=== PATIENT | male | born 1935 | race African-American/Black ===

== ENCOUNTER → 2017-10-31 | Outpatient (CLI) | payer MEDICARE | END | disposition home or self-care (01) | LOC: ECHO 08:53 | DX: I63.9 Cerebral infarction, unspecified (principal) | CPT/HCPCS: 93306 ==

== ENCOUNTER → 2017-11-14 | Outpatient (CLI) | payer MEDICARE | END | disposition home or self-care (01) | LOC: LINQ 12:41 | DX: Z45.09 Encounter for adjustment and management of other cardiac device (principal); I63.9 Cerebral infarction, unspecified | CPT/HCPCS: 33282; C1764 ==

== ENCOUNTER 2019-01-23 13:32 | Inpatient (IN) | payer MEDICARE, OTHER ==
[~2019-01-23] VITALS: Ht 165.1 cm; Wt 47.8 kg
[~2019-01-23 13:32] MED LIST: ACET325T9 PO; AMOX1TAB61 PO; ASPI-630 PO; ATOR20TA58 PO; HYDR-2765 PO; LOSA100T14 PO; METF1000 PO; METF10007 PO; POLY17PO28 PO; SENN-22 PO; TIMO10DR5 EACHEYE
[2019-01-23] MEDS ORDERED: ONDANSETRON PF 4 MG/2 ML VIAL. IV PRN (17:30)
[2019-01-23 19:00] VITALS: BP 146/78
[2019-01-23] MEDS: IV 1/2 NORMAL SALINE 1,000 ML IV SCH (19:19)
[2019-01-23] MEDS ORDERED: LINEZOLID 600 MG TABLET PO SCH (21:00)
[2019-01-23] MEDS: MEROPENEM 1 GM in IV NORMAL SALINE 100ML 100 ML IV SCH (21:21)
[2019-01-23] MEDS: TAMSULOSIN 0.4 MG CAP.ER.24H. PO SCH (21:21)
[2019-01-23] MEDS: TIMOLOL 0.25% OPHTH SOLUTION 5ML BOTTLE. OU SCH (21:22)
[2019-01-23] MEDS: LACTOBACILLUS RHAMNOSUS GG 1 CAPSULE. PO SCH (21:22)
[2019-01-23] MEDS: ATORVASTATIN CALCIUM 20 MG TABLET PO SCH (21:22)
[2019-01-23] MEDS: POTASSIUM CHLORIDE 10 MEQ TABLET.ER. PO SCH (21:22)
[2019-01-23 23:00] VITALS: BP 150/69
[2019-01-24] VITALS (13 sets, daily range): BP systolic 87–191; BP diastolic 47–96
[2019-01-24 03:48] LABS: BASO % 0 % (0-3); EOS # 0.1 x10^3/uL (0.0-0.7); EOS % 1 % (0-3); HEMATOCRIT 23.5 % (39.0-53.0); LYMPH # 0.8 x10^3/uL (1.0-4.8); LYMPH % 8 % (24-48); MEAN CORPUSCULAR HEMOGLOBIN 29 pg (25-35); MEAN CORPUSCULAR HGB CONC 34 g/dL (31-37); MEAN CORPUSCULAR VOLUME 83 fL (79-100); MONO # 0.3 x10^3/uL (0.0-1.1); MONO % 3 % (0-9); NEUT # 9.6 x10^3uL (1.8-7.7); NEUT % 88 % (31-73); PLATELET COUNT 59 x10^3/uL (140-400); RED BLOOD COUNT 2.83 x10^6/uL (4.30-5.70); RED CELL DISTRIBUTION WIDTH 17.2 % (11.5-14.5); WHITE BLOOD COUNT 10.9 x10^3/uL (4.0-11.0)
[2019-01-24 04:08] LABS: ALBUMIN 1.8 g/dL (3.4-5.0); ALBUMIN/GLOBULIN RATIO 0.4 (1.0-1.7); CALCIUM 8.5 mg/dL (8.5-10.1); CREATININE 1.9 mg/dL (0.7-1.3); GFR 41.3; POTASSIUM 4.9 mmol/L (3.5-5.1); TOTAL BILIRUBIN 1.1 mg/dL (0.2-1.0); TOTAL PROTEIN 6.1 g/dL (6.4-8.2)
[2019-01-24 07:47] LABS: % BANDS 14 % (0-9); % LYMPHS 9 % (24-48); % MONOS 1 % (0-10); % SEGS 76 % (35-66)
[2019-01-24 07:48] LABS: ANISOCYTOSIS SLIGHT; PLT ESTIMATE DECREASED (ADEQUATE); POIKILOCYTOSIS SLIGHT
[2019-01-24] MEDS: ASPIRIN CHEWABLE 81 MG TABLET. PO SCH (08:00)
[2019-01-24] MEDS: INSULIN LISPRO 300 UNITS/3 ML INSULN.PEN. SQ SCH ×3 (08:00→17:00)
--- NOTE | 2019-01-24 08:52 | NUR ---
SW following pt for anticipated dc needs. SHINE confirmed with Nuria at [facility], , fax: [phone] pt is SNU resident and is able to return upon dc. Nuria reported they will not be admitting anyone tomorrow as their Pharmacy is closed. Discussed with RN. Will continue to follow pt.
[2019-01-24] MEDS: POTASSIUM CHLORIDE 10 MEQ TABLET.ER. PO SCH ×4 (09:00→22:06)
--- NOTE | 2019-01-24 09:01 | PDOC2 ---
LASHANDA OSBORNE Lo EMPLOYMENT ADJUDICATOR 01/24/19 0901: UROLOGY CONSULT Date of Consult Date of Consult DATE: 01/24/19 TIME: 08:48 Reason for Consult Reason for Consult: Infected Kidney stone Referring Physician Referring Physician: Dr. Anderson Identification/Chief Complaint Chief Complaint Infected kidney stone Source Source: Caregiver, Chart review History of Present Illness Reason for Visit: This pleasant 83 year old gentleman is a transfer from [facility]. He is known to us and was admitted a two weeks ago for a stroke and subsequently and discharged on 01/15. At the time, no stones were visible on scans, but he did have bilateral hydronephrosis for which a Ceron catheter was placed. He convalesced at [facility] for a while and then was admitted to [facility] A CT scan was done on 01/22 for a persistent fever and gram negative bacteremia and left hydronephrosis and hydroureter along with a o.5 cm calculus was found at the left UVJ. He was then transferred here so he could receive care for this. He is not very communicative, so the history available was taken from records and attending RN. He does maintain eye contact with provider and deny pain on exam, but we are unable to elicit any significant history from him. Per attending RN his daughter will be here later for questions. Past Medical History Cardiovascular: HTN, Syncope, Hyperlipidemia CENTRAL NERVOUS SYSTEM: CVA, Dementia Musculoskeletal: Osteoarthritis, Other Renal/: Prostate Ca. Endocrine: Diabetes Past Surgical History Past Surgical History: Cataract Removal, Total hip replacement Family History Family History: Family History Unknown Social History ALCOHOL: none Drugs: None Current Problem List Problems: (1) Ceron catheter in place (2) Hydronephrosis Current Medications Current Medications Current Medications Acetaminophen (Tylenol) 650 mg PRN Q6HRS PRN PO MILD PAIN / TEMP; Start 01/23/19 at 17:30 Aspirin (Children'S Aspirin) 81 mg DAILYWBKFT PO ; Start 01/24/19 at 08:00 Atorvastatin Calcium (Lipitor) 20 mg QHS PO Last administered on 01/23/19at 21:22; Start 01/23/19 at 21:00 Dextrose (Dextrose 50%-Water Syringe) 12.5 gm PRN Q15MIN PRN IV SEE COMMENTS; Start 01/23/19 at 17:30 Insulin Human Lispro (HumaLOG) 0-5 UNITS TIDWMEALS SQ ; Start 01/24/19 at 08:00 Lactobacillus Rhamnosus (Culturelle) 1 cap BID PO Last administered on 01/23/19 21:22; Start 01/23/19 at 21:00 Linezolid (Zyvox) 600 mg BID PO Last administered on 01/23/19 21:23; Start 01/23/19 at 21:00; Stop 01/24/19 at 07:09; Status DC Meropenem 1 gm/ Sodium Chloride 100 ml @ 200 mls/hr Q12HR IV Last administered on 01/23/19 21:21; Start 01/23/19 at 21:00 Ondansetron HCl (Zofran) 4 mg PRN Q8HRS PRN IV NAUSEA/VOMITING; Start 01/23/19 at 17:30 Potassium Chloride (Klor-Con) 10 meq TID PO Last administered on 01/23/19 21:22; Start 01/23/19 at 21:00 Sodium Chloride 1,000 ml @ 75 mls/hr [id number] IV Last administered on 01/23/19 19:19; Start 01/23/19 at 17:30 Tamsulosin HCl (Flomax) 0.4 mg QHS PO Last administered on 01/23/19 21:21; Start 01/23/19 at 21:00 Timolol Maleate (Timoptic 0.25% Oph) 1 drop BID OU Last administered on 01/23/19 21:22; Start 01/23/19 at 21:00 Allergies Allergies: Coded Allergies: No Known Drug Allergies (Unverified , 07/12/18) ROS Review Of Systems: UNABLE TO OBTAIN COMPLETE ROS DUE TO PT NOT COMMUNICATIVE. Physical Exam Physical Exam: General: Pleasant, no acute distress, not very communicative but does maintain eye contact with examiner. Eyes: conjunctiva anicteric, eyes full range of motion ENT: moist oral mucosa, normal dentition Neck: Trachea midline, no masses Respiratory: unlabored breathing, not using accessory muscles, Abdomen: nontender, nondistended, no hepatosplenomegaly, no masses : Ceron catheter in place draining clear yellow urine. Skin: no rashes or skin lesions on visualized skin Psych: normal mood, affect. Alert and oriented x 3. Vitals VITALS Vital Signs Date Time Temp Pulse Resp B/P (MAP) Pulse Ox O2 Delivery O2 Flow Rate FiO2 01/24/19 07:00 98.2 109 20 143/83 (103) 100 Room Air 98.2 Labs Labs Laboratory Tests Test 01/23/19 20:45 01/24/19 03:20 Glucose (Fingerstick) 126 mg/dL (70-99) White Blood Count 10.9 x10^3/uL (4.0-11.0) Red Blood Count 2.83 x10^6/uL (4.30-5.70) Hemoglobin 8.0 g/dL (13.0-17.5) Hematocrit 23.5 % (39.0-53.0) Mean Corpuscular Volume 83 fL (79-100) Mean Corpuscular Hemoglobin 29 pg (25-35) Mean Corpuscular Hemoglobin Concent 34 g/dL (31-37) Red Cell Distribution Width 17.2 % (11.5-14.5) Platelet Count 59 x10^3/uL (140-400) Neutrophils (%) (Auto) 88 % (31-73) Lymphocytes (%) (Auto) 8 % (24-48) Monocytes (%) (Auto) 3 % (0-9) Eosinophils (%) (Auto) 1 % (0-3) Basophils (%) (Auto) 0 % (0-3) Neutrophils # (Auto) 9.6 x10^3uL (1.8-7.7) Lymphocytes # (Auto) 0.8 x10^3/uL (1.0-4.8) Monocytes # (Auto) 0.3 x10^3/uL (0.0-1.1) Eosinophils # (Auto) 0.1 x10^3/uL (0.0-0.7) Basophils # (Auto) 0.0 x10^3/uL (0.0-0.2) Segmented Neutrophils % 76 % (35-66) Band Neutrophils % 14 % (0-9) Lymphocytes % 9 % (24-48) Monocytes % 1 % (0-10) Platelet Estimate Decreased (ADEQUATE) Poikilocytosis Slight Anisocytosis Slight Sodium Level 138 mmol/L (136-145) Potassium Level 4.9 mmol/L (3.5-5.1) Chloride Level 106 mmol/L (98-107) Carbon Dioxide Level 21 mmol/L (21-32) Anion Gap 11 (6-14) Blood Urea Nitrogen 26 mg/dL (8-26) Creatinine 1.9 mg/dL (0.7-1.3) Estimated GFR (Cockcroft-Gault) 41.3 BUN/Creatinine Ratio 14 (6-20) Glucose Level 126 mg/dL (70-99) Calcium Level 8.5 mg/dL (8.5-10.1) Total Bilirubin 1.1 mg/dL (0.2-1.0) Aspartate Amino Transf (AST/SGOT) 27 U/L (15-37) Alanine Aminotransferase (ALT/SGPT) 24 U/L (16-63) Alkaline Phosphatase 84 U/L (46-116) Total Protein 6.1 g/dL (6.4-8.2) Albumin 1.8 g/dL (3.4-5.0) Albumin/Globulin Ratio 0.4 (1.0-1.7) Laboratory Tests Test 01/23/19 20:45 01/24/19 03:20 Glucose (Fingerstick) 126 mg/dL (70-99) White Blood Count 10.9 x10^3/uL (4.0-11.0) Red Blood Count 2.83 x10^6/uL (4.30-5.70) Hemoglobin 8.0 g/dL (13.0-17.5) Hematocrit 23.5 % (39.0-53.0) Mean Corpuscular Volume 83 fL (79-100) Mean Corpuscular Hemoglobin 29 pg (25-35) Mean Corpuscular Hemoglobin Concent 34 g/dL (31-37) Red Cell Distribution Width 17.2 % (11.5-14.5) Platelet Count 59 x10^3/uL (140-400) Neutrophils (%) (Auto) 88 % (31-73) Lymphocytes (%) (Auto) 8 % (24-48) Monocytes (%) (Auto) 3 % (0-9) Eosinophils (%) (Auto) 1 % (0-3) Basophils (%) (Auto) 0 % (0-3) Neutrophils # (Auto) 9.6 x10^3uL (1.8-7.7) Lymphocytes # (Auto) 0.8 x10^3/uL (1.0-4.8) Monocytes # (Auto) 0.3 x10^3/uL (0.0-1.1) Eosinophils # (Auto) 0.1 x10^3/uL (0.0-0.7) Basophils # (Auto) 0.0 x10^3/uL (0.0-0.2) Segmented Neutrophils % 76 % (35-66) Band Neutrophils % 14 % (0-9) Lymphocytes % 9 % (24-48) Monocytes % 1 % (0-10) Platelet Estimate Decreased (ADEQUATE) Poikilocytosis Slight Anisocytosis Slight Sodium Level 138 mmol/L (136-145) Potassium Level 4.9 mmol/L (3.5-5.1) Chloride Level 106 mmol/L (98-107) Carbon Dioxide Level 21 mmol/L (21-32) Anion Gap 11 (6-14) Blood Urea Nitrogen 26 mg/dL (8-26) Creatinine 1.9 mg/dL (0.7-1.3) Estimated GFR (Cockcroft-Gault) 41.3 BUN/Creatinine Ratio 14 (6-20) Glucose Level 126 mg/dL (70-99) Calcium Level 8.5 mg/dL (8.5-10.1) Total Bilirubin 1.1 mg/dL (0.2-1.0) Aspartate Amino Transf (AST/SGOT) 27 U/L (15-37) Alanine Aminotransferase (ALT/SGPT) 24 U/L (16-63) Alkaline Phosphatase 84 U/L (46-116) Total Protein 6.1 g/dL (6.4-8.2) Albumin 1.8 g/dL (3.4-5.0) Albumin/Globulin Ratio 0.4 (1.0-1.7) Assessment/Plan Assessment/Plan We will take patient to OR today for cysto with stent placement, the procedure is scheduled at 1030 am today. Consents have been signed per RN. Nursing to maintain Ceron catheter Antibiotics per medical team (meropenem) Will follow while in house. NOY OCAMPO MD 01/24/19 1056: UROLOGY CONSULT Assessment/Plan Assessment/Plan agree w [place], LASHANDA OSBORNE APRN Jan 24, 2019 09:01 NOY OCAMPO MD Jan 24, 2019 10:56
[2019-01-24] MEDS ORDERED: IOHEXOL 300 MG/ML 50 ML VIAL. ONE (09:05)
[2019-01-24] MEDS ORDERED: METHYLENE BLUE 1% 10 ML VIAL. ONE (10:19)
[2019-01-24] MEDS ORDERED: KETOROLAC 30 MG/ML INJ FOR OR. INJ ONE (10:24)
[2019-01-24] MEDS ORDERED: LIDOCAINE 2% PF 5 ML VIAL. ONE (10:24)
[2019-01-24] MEDS ORDERED: PROPOFOL 20 ML IV ONE (10:24)
[2019-01-24] MEDS ORDERED: SEVOFLURANE 31 TO 60 MINUTES. IH ONE (10:24)
[2019-01-24] MEDS ORDERED: DEXAMETHASONE SOD PHOS 4 MG/ML VIAL ONE (10:24)
[2019-01-24] MEDS ORDERED: ONDANSETRON PF 4 MG/2 ML VIAL. ONE (10:25)
[2019-01-24] MEDS: MEROPENEM 1 GM in IV NORMAL SALINE 100ML 100 ML IV SCH ×2 (10:32→22:05)
[2019-01-24] MEDS ORDERED: PHENYLEPHRINE in 0.9% NACL PF 1 MG/10 ML SYRINGE. IV ONE (11:02)
--- NOTE | 2019-01-24 11:18 | HP ---
ADMIT DATE: 01/23/2019 HISTORY OF PRESENT ILLNESS: The patient is an 83-year-old -[place] male patient, who was recently admitted to [facility] where he was found to have bilateral hydronephrosis, has had an indwelling Ceron catheter placed and his urine culture has grown Escherichia coli, treated initially with IV ceftriaxone and was discharged to [facility] to continue on oral Augmentin. Unfortunately, the patient continued to spike his temperature, his kidney function has also worsened despite the fact he has a catheter in and therefore, I did admit him to [facility] and his blood cultures have grown gram-negative rods and gram-positive coccobacilli. While at [facility], he continued to spike his temperature; in fact, his white cell count continued to trend upward and he was on Zosyn and Zyvox and unfortunately, he developed severe thrombocytopenia, so I discontinued the Zyvox and Zosyn, was switched to meropenem. Given that he continued to have leukocytosis and he continued to spike his temperature, I did repeat a CT scan of the abdomen and pelvis and it did show that he has left-sided hydronephrosis and hydroureter, which appeared to be due to an obstructive calculus at the left ureterovesical junction, it was about 5 mm and this was not seen on his CT scan done at [facility] on his last admission. Evaluation of the distal ureter is limited due to significant streak artifact related to left hip prosthesis. There is some circumferential wall thickening of the left ureter diffusely similar to prior exam. No significant difference in the appearance of the left hydronephrosis and hydroureter compared to prior exam. Urinary bladder calculi also appears to be present, but evaluation is limited due to streak artifacts and given that the stone was not detected on the previous CT scan, I did speak with Dr. Bruner, the urologist, who basically agreed to transfer him to [facility] with a view of doing cystoscopy, ureteroscopy and stone retrieval. PAST MEDICAL HISTORY: Significant for hypertension, hyperlipidemia, prostate cancer, right middle cerebral artery territory infarct with left side hemiplegia. He also has a recent diagnosis of bilateral hydronephrosis and bladder outlet obstruction, for which he required an indwelling Ceron catheter and also urinary tract infection with growth of E. coli that is now growing from his blood. PAST SURGICAL HISTORY: Significant for bilateral cataract extraction. ALLERGIES: He has no known drug allergies. FAMILY HISTORY: He has 2 brothers, older one of prostate cancer and other one of sepsis. One sister also has breast cancer. SOCIAL HISTORY: He is , lives with his , has 5 daughters and 4 sons. He is an ex-smoker, quit about 25 years ago. He used to smoke a pack a day and smoked for a long time. He also used to be an ex-alcoholic, quit drinking about 25 years ago. He is a retired cook. REVIEW OF SYSTEMS: As per history of present illness. PHYSICAL EXAMINATION GENERAL: When I saw him this morning, he was resting slightly propped up in bed, in no apparent respiratory distress. He was pale, but not jaundiced, cyanosis, or thyromegaly. No jugular venous distention. No lower limb edema. VITAL SIGNS: His heart rate was 109, blood pressure was 143/83, temperature was 98.2, respiratory rate was 20, and oxygen saturation was 100% on room air. HEAD, EYES, EARS, NOSE AND THROAT: Showed normocephalic, atraumatic. NECK: Supple. HEART: Showed normal first and second heart sounds with no gallop, rub or murmur. CHEST: Clear to auscultation. No crepitation or rhonchi. ABDOMEN: Distended, soft, nontender. No guarding or rigidity. No organomegaly. All hernial orifices are intact. Bowel sounds normal. NEUROLOGIC: He has expressive aphasia and left-sided hemiplegia. He has an indwelling Ceron catheter. LABORATORY DATA: His lab work showed a white cell count of 10,900, hemoglobin 8, hematocrit 24, MCV 83 and platelet count of 59,000 with a manual differential of 88% neutrophils, 8% lymphocytes. His chemistry showed a serum sodium 138, potassium 4.9, chloride 106, bicarbonate 21, anion gap of 11, BUN 26, creatinine 1.9, estimated GFR was 41 mL per ____. Blood sugar was 126 mg, calcium was 8.5. Total bilirubin 1.1. AST, ALT, alkaline phosphatase were normal. Total protein was 6.1 and albumin was 1.8. IMPRESSION: In summary, this is an 83-year-old -[place] male patient, who was transferred from [facility] with persistent gram-negative bacteremia, has an obstructive stone at the left ureterovesical junction, has also complication of treatment on IV antibiotic as he was on Zosyn and Zyvox and he now has marked thrombocytopenia. His platelet count has dropped to 59,000. PLAN: My plan is to go ahead and apparently consult Dr. Bruner, the plan is to do cystoscopy, ureteroscopy and stone retrieval and perhaps stent placement as well as I will consult the Infectious Disease specialist for this persistent gram-negative bacteremia with resultant side effects from Zyvox and Zosyn. He is now on meropenem. LUIS ISAACS MD DR: JENNIFER/charlotte JOB#: [id number] / [id number]
[2019-01-24] MEDS ORDERED: ESMOLOL 100 MG/10 ML VIAL. IVP ONE (11:20)
--- NOTE | 2019-01-24 12:09 | PDOC4 ---
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 Procedure Performed: cysto, bladder stone removal Surgeon: Anesthesia Type: ga Blood Loss: 5ml Specimans Obtained: none Findings: shaggy necrotic prostate tissue w invasion into BN, trigone. Skewed anatomical planes. Unable to find either UOs. Complications: none evident Operative Note: Prepped and draped after pre-existing cath was removed. Time out, SCD attached, iv abx were administered. 21fr rigid scope was used to get intao bladder. Shaggy, necrotic, fibrotic tissue noted, originating from prostate, covering BN, trigone and skewing normal anatomy planes. Several smalll stones and clots removed from bladder. Several attempts with ureter cath and straight/angle wire were made with uns uccessful ID of UO location. Methylene blue was given IV with no obvious efflux for almost 30min. IV dye was not given given elevated CR and to prevent further nephrotoxicity. Procedure was aborted at this point. 20fr cath was replaced. Patient taken to PACU in stable condition. Repeat CT tonight, if stone still at UVJ, recommend IR placement of left PNT. NOY OCAMPO MD Jan 24, 2019 12:08
[2019-01-24] MEDS ORDERED: fentaNYL PF VIAL 100 MCG/2 ML VIAL ONE (12:14)
[2019-01-24] MEDS ORDERED: PROCHLORPERAZINE 10 MG/2 ML VIAL. ONE (12:15)
[2019-01-24] MEDS: fentaNYL PF VIAL 100 MCG/2 ML VIAL IV PRN ×3 (12:16→23:20)
[2019-01-24] MEDS ORDERED: IV RINGERS,LACTATED 1000ML 1,000 ML IV SCH (12:16)
[2019-01-24] MEDS ORDERED: HYDROmorphone 2 MG/ML VIAL IV PRN (12:30)
[2019-01-24] MEDS ORDERED: ONDANSETRON PF 4 MG/2 ML VIAL. IV PRN (12:30)
[2019-01-24] MEDS ORDERED: fentaNYL PF VIAL 100 MCG/2 ML VIAL IV PRN ×2 (12:30→19:00)
[2019-01-24] MEDS ORDERED: LIDOCAINE 1% PF 2 ML VIAL. ID PRN (12:30)
[2019-01-24] MEDS ORDERED: PROCHLORPERAZINE 10 MG/2 ML VIAL. IV PRN (12:30)
[2019-01-24] MEDS ORDERED: MORPHINE SULFATE 2 MG/ML VIAL. IV PRN (12:30)
[2019-01-24] MEDS ORDERED: IV RINGERS,LACTATED 1000ML 1,000 ML IV PRN (12:30)
[2019-01-24] MEDS: LACTOBACILLUS RHAMNOSUS GG 1 CAPSULE. PO SCH ×3 (13:26→22:07)
[2019-01-24] MEDS: ACETAMINOPHEN 325 MG TABLET. PO PRN ×2 (13:26→22:06)
[2019-01-24] MEDS: IV 1/2 NORMAL SALINE 1,000 ML IV SCH (13:30)
[2019-01-24] MEDS: TIMOLOL 0.25% OPHTH SOLUTION 5ML BOTTLE. OU SCH ×2 (13:30→22:05)
--- NOTE | 2019-01-24 14:38 | RAD ---
Examination: CT ABDOMEN PELVIS WO CONTRAST History: Left UVJ stone. Comparison/Correlation: CT abdomen and pelvis without contrast 01/10/2019 Findings: Axial images of the abdomen and pelvis were obtained without contrast. Sagittal and coronal reformatted images were provided. Motion multiple images throughout the abdomen may limit assessment for fine detail. Small pleural effusions are present. Loop recorder device is partially seen. Minimal linear atelectasis is suggested the right posterior mid thoracic level. Gallstone is present within the gallbladder. No pericholecystic fluid. No biliary dilatation. Spleen, pancreas, and adrenal glands are normal. Inferior vena cava filter is in place. Mild right hydronephrosis is present. Marked left hydronephrosis and hydroureter. Evaluation of the distal left ureter is limited due to left hip joint prosthesis and associated marked streak artifact. Punctate calculus is suggested within the urinary bladder near the right ureterovesical junction. No extraluminal gas or bowel obstruction. Appendix is normal. Prostatomegaly is present with the prostate gland measuring 4.5 cm transverse. No ascites or pelvic free fluid. No enlarged abdominal or pelvic lymph nodes. Dextroconvexity scoliosis of the low thoracic and lumbar spine noted. L2-3 disc space narrowing with endplate sclerosis and spurring noted. L1-2 disc space narrowing with endplate sclerosis is of a lesser degree. Impression: Marked left hydronephrosis and hydroureter is similar to prior exam. No obstructive radiopaque calculus is delineated but evaluation may be limited with streak artifact due to the left hip joint prosthesis. Mild right hydronephrosis is evident in the interval. Calculus at the right ureteropelvic junction region is noted although streak artifact limits evaluation. Multiple previously seen urinary bladder calculi are not currently seen. Small pleural effusions are new in the interval. Prostatomegaly. PQRS Compliance Statement: One or more of the following individualized dose reduction techniques were utilized for this examination: 1. Automated exposure control 2. Adjustment of the mA and/or kV according to patient size 3. Use of iterative reconstruction technique Electronically signed by: Grupo Souza MD (01/24/2019 2:35 PM) [facility]
--- NOTE | 2019-01-24 19:35 | NUR ---
Non-administered patients 1700 dose of Humalog due to patient refusing to eat dinner.
[2019-01-24] MEDS: TAMSULOSIN 0.4 MG CAP.ER.24H. PO SCH ×2 (21:00→22:06)
[2019-01-24] MEDS: ATORVASTATIN CALCIUM 20 MG TABLET PO SCH ×2 (21:00→22:06)
[2019-01-25] VITALS (15 sets, daily range): BP systolic 130–168; BP diastolic 64–88
--- NOTE | 2019-01-25 01:51 | NUR ---
Irrigated tolentino @ 1999 last night. Output bloody with clots.
[2019-01-25] MEDS: IV 1/2 NORMAL SALINE 1,000 ML IV SCH ×3 (03:50→23:26)
[2019-01-25 07:09] LABS: ALBUMIN 1.9 g/dL (3.4-5.0); ALBUMIN/GLOBULIN RATIO 0.5 (1.0-1.7); CALCIUM 8.1 mg/dL (8.5-10.1); CREATININE 2.3 mg/dL (0.7-1.3); GFR 33.1; POTASSIUM 4.8 mmol/L (3.5-5.1); TOTAL BILIRUBIN 1.1 mg/dL (0.2-1.0); TOTAL PROTEIN 5.7 g/dL (6.4-8.2)
[2019-01-25 07:13] LABS: BASO # 0.1 x10^3/uL (0.0-0.2); BASO % 0 % (0-3); EOS % 0 % (0-3); LYMPH # 1.5 x10^3/uL (1.0-4.8); LYMPH % 11 % (24-48); MEAN CORPUSCULAR HEMOGLOBIN 28 pg (25-35); MEAN CORPUSCULAR HGB CONC 34 g/dL (31-37); MEAN CORPUSCULAR VOLUME 83 fL (79-100); MONO # 0.8 x10^3/uL (0.0-1.1); MONO % 6 % (0-9); NEUT # 11.5 x10^3uL (1.8-7.7)
[2019-01-25 07:15] LABS: HEMATOCRIT 15.6 % (39.0-53.0); HEMOGLOBIN 5.3 g/dL (13.0-17.5); PLATELET COUNT 78 x10^3/uL (140-400); RED BLOOD COUNT 1.89 x10^6/uL (4.30-5.70); RED CELL DISTRIBUTION WIDTH 16.7 % (11.5-14.5); WHITE BLOOD COUNT 13.8 x10^3/uL (4.0-11.0)
[2019-01-25 07:24] LABS: PROTHROMBIN TIME PATIENT 13.7 SEC (11.7-14.0)
[2019-01-25] MEDS: fentaNYL PF VIAL 100 MCG/2 ML VIAL IV PRN ×3 (07:34→21:13)
--- NOTE | 2019-01-25 07:45 | PDOC2 ---
CONSULT Date of Consult Date of Consult DATE: 01/25/19 TIME: 07:36 Reason for consultation: Thrombocytopenia Consult: Hematology oncology, Dr. Raj Ray History of present illness: He is an 83-year-old man with a history of prostate cancer since 1995 [place] [address] who's been on androgen deprivation therapy since, PSA has risen, he has a history of stroke with left hemiplegia, and was admitted after recent treatment of UTI and noted to have bacteremia, he was transferred to [place] for ureteroscopy for suspected stone removal but due to anatomy was unable to retrieve stone from ureter, some clots and stones from bladder were removed I believe, and he's currently followed by urology. He's also on antibiotics and ID has been consulted. He has some new onset thrombocytopenia, pretty moderate, as well as 59,000, this is acute, as his platelet count was 252,000 on 13 January, associated with anemia, which I suspect may be in large part worsened due to infection and thus we were consulted. He is followed by Dr. Holden. His last dose of Lupron was given on 27 October 2018 with a recent PSA of 63. Past medical history: Metastatic prostate cancer Stroke with left hemiplegia Bladder outlet obstruction with chronic Ceron catheter Hypertension Diabetes mellitus 2 Vitamin D deficiency Hyperlipidemia B12 deficiency Indwelling Ceron catheter Recent treatment for UTI with bacteremia Nephrolithiasis Past surgical history: Left hip replacement Cataract surgery Allergies: No known drug allergies Medications: See attached list Social history: Prior alcohol and prior tobacco but none currently, Family history: Prostate breast and colon cancer reported Review of systems: He is nonverbal, he shakes his head "no" to 10 per review of systems though I'm not sure validity as he is not speaking Physical exam: Vitals reviewed Gen.: Thin elderly man, he does smile, has weakness, wearing a diaper, does not appear to be in pain, moving around a bit in bed HEENT: mucous membranes moist, head normocephalic atraumatic Neck: Supple, no lymphadenopathy Lymph nodes: No palpable lymphadenopathy neck or axilla Lungs: Breathing comfortably w/o respiratory distress Abdomen: Soft, nontender, nondistended Extremities: No cyanosis or signif edema Skin: No obvious rashes or skin breakdown Neuro: Moving all extremities, alert, but nonverbal Psych: pleasant Lab reviewed: White count 10.9, hemoglobin of 8.0, platelets of 59, MCV of 83 Creatinine 1.9 T bili of 1.1 B12 low at 198 Vitamin D low at 29 TSH 0.8 Rads reviewed: Abdominopelvic CT showed markedly left hydronephrosis with hydroureter and mild right hydronephrosis with calculus at right UPJ, prostatomegaly, small pleural effusion Case discussed with: Patient, records reviewed in [facility] and [facility], including labs and radiology, please see note for summary details. Assessment and Plan: He is an 83-year-old man with history of metastatic prostate cancer that appears to be progressing with rising PSA recently of 63, admitted with bacteremia and UTI and ureteral stone and being treated for infection and followed by urology. Bladder outlet obstruction with recent stone: Per urology Infection: On antibiotics, ID has been consulted Metastatic prostate cancer: Appears to be progressing, has been on androgen deprivation therapy, can follow up with Dr. Holden upon discharge for further recommendations of treatment of prostate cancer, with his performance status not sure that any further aggressive therapy would be considered at this time Thrombocytopenia: We will check a repeat CBC with smear review and fibrinogen an d coags, have started B12. we'll give by mouth for now since platelet count low and began 1000 �g daily, aspirin okay with platelet count greater than 50, not on any heparin currently, suspect in large part related to infection Prophylaxis: Heparin is not ordered, SCDs have been ordered Disposition: After continued clinical improvement he can follow-up with Dr. Holden Thank you kindly for this consultation, and please don't hesitate to call with any further questions. Past Medical History Cardiovascular: HTN, Syncope, Hyperlipidemia CENTRAL NERVOUS SYSTEM: CVA, Dementia Musculoskeletal: Osteoarthritis, Other Renal/: Prostate Ca. Endocrine: Diabetes Past Surgical History Past Surgical History: Cataract Removal, Total hip replacement Family History Family History: Family History Unknown Social History ALCOHOL: none Drugs: None Current Problem List Problem List Problems Medical Problems: (1) Calculus of ureterovesical junction (UVJ) Status: Acute (2) Gram-negative bacteremia Status: Acute (3) Thrombocytopenia Status: Acute (4) Ureterovesical junction (UVJ) obstruction Status: Acute Current Medications Current Medications Current Medications Sodium Chloride 1,000 ml @ 75 mls/hr [id number] IV Last administered on 01/25/19at 03:50; Start 01/23/19 at 17:30 Acetaminophen (Tylenol) 650 mg PRN Q6HRS PRN PO MILD PAIN / TEMP Last administered on 01/24/19 22:06; Start 01/23/19 at 17:30 Aspirin (Children'S Aspirin) 81 mg DAILYWBKFT PO ; Start 01/24/19 at 08:00 Atorvastatin Calcium (Lipitor) 20 mg QHS PO Last administered on 01/23/19 21:22; Start 01/23/19 at 21:00 Insulin Human Lispro (HumaLOG) 0-5 UNITS TIDWMEALS SQ ; Start 01/24/19 at 08:00 Dextrose (Dextrose 50%-Water Syringe) 12.5 gm PRN Q15MIN PRN IV SEE COMMENTS; Start 01/23/19 at 17:30 Lactobacillus Rhamnosus (Culturelle) 1 cap BID PO Last administered on 01/24/19at 13:26; Start 01/23/19 at 21:00 Linezolid (Zyvox) 600 mg BID PO Last administered on 01/23/19at 21:23; Start 01/23/19 at 21:00; Stop 01/24/19 at 07:09; Status DC Meropenem 1 gm/ Sodium Chloride 100 ml @ 200 mls/hr Q12HR IV Last administered on 01/24/19 22:05; Start 01/23/19 at 21:00 Ondansetron HCl (Zofran) 4 mg PRN Q8HRS PRN IV NAUSEA/VOMITING; Start 01/23/19 at 17:30 Potassium Chloride (Klor-Con) 10 meq TID PO Last administered on 01/23/19 21:22; Start 01/23/19 at 21:00 Tamsulosin HCl (Flomax) 0.4 mg QHS PO Last administered on 01/23/19 21:21; Start 01/23/19 at 21:00 Timolol Maleate (Timoptic 0.25% Oph) 1 drop BID OU Last administered on 01/24/19 22:05; Start 01/23/19 at 21:00 Iohexol (Omnipaque 300 Mg/ml) 50 ml STK-MED ONCE .ROUTE Last administered on 01/24/19 11:11; Start 01/24/19 at 09:05; Stop 01/24/19 at 10:05; Status DC Sevoflurane (Ultane) 30 ml STK-MED ONCE IH ; Start 01/24/19 at 10:24; Stop 01/24/19 at 10:25; Status DC Dexamethasone Sodium Phosphate (Decadron) 4 mg STK-MED ONCE .ROUTE ; Start 01/24/19 at 10:24; Stop 01/24/19 at 10:25; Status DC Propofol 20 ml @ As Directed STK-MED ONCE IV ; Start 01/24/19 at 10:24; Stop 01/24/19 at 10:25; Status DC Lidocaine HCl (Lidocaine Pf 2% Vial) 5 ml STK-MED ONCE .ROUTE ; Start 01/24/19 at 10:24; Stop 01/24/19 at 10:25; Status DC Ketorolac Tromethamine (Toradol For Or Only) 30 mg STK-MED ONCE INJ ; Start 01/24/19 at 10:24; Stop 01/24/19 at 10:25; Status DC Ondansetron HCl (Zofran) 4 mg STK-MED ONCE .ROUTE ; Start 01/24/19 at 10:25; Stop 01/24/19 at 10:26; Status DC Phenylephrine HCl (PHENYLEPHRINE in 0.9% NACL PF) 1 mg STK-MED ONCE IV ; Start 01/24/19 at 11:02; Stop 01/24/19 at 11:03; Status DC Methylene Blue (Methylene Blue) 1 ml STK-MED ONCE .ROUTE Last administered on 01/24/19at 11:20; Start 01/24/19 at 10:19; Stop 01/24/19 at 11:19; Status DC Esmolol HCl (Brevibloc) 100 mg STK-MED ONCE IVP ; Start 01/24/19 at 11:20; Stop 01/24/19 at 11:21; Status DC Fentanyl Citrate (Fentanyl 2ml Vial) 100 mcg STK-MED ONCE .ROUTE ; Start 01/24/19 at 12:14; Stop 01/24/19 at 12:15; Status DC Prochlorperazine Edisylate (Compazine) 10 mg STK-MED ONCE .ROUTE ; Start 01/24/19 at 12:15; Stop 01/24/19 at 12:16; Status DC Ondansetron HCl (Zofran) 4 mg PRN Q6HRS PRN IV NAUSEA/VOMITING; Start 01/24/19 at 12:30; Stop 01/24/19 at 20:00; Status DC Fentanyl Citrate (Fentanyl 2ml Vial) 25 mcg PRN Q5MIN PRN IV MILD PAIN 1-3 Last administered on 01/24/19at 12:33; Start 01/24/19 at 12:30; Stop 01/24/19 at 20:00; Status DC Fentanyl Citrate (Fentanyl 2ml Vial) 50 mcg PRN Q5MIN PRN IV MODERATE TO SEVERE PAIN Last administered on 01/24/19at 19:46; Start 01/24/19 at 12:30; Stop 01/24/19 at 20:00; Status DC Morphine Sulfate (Morphine Sulfate) 1 mg PRN Q10MIN PRN IV SEVERE PAIN 7-10; Start 01/24/19 at 12:30; Stop 01/24/19 at 20:00; Status DC Ringer's Solution 1,000 ml @ 30 mls/hr Q24H IV ; Start 01/24/19 at 12:16; Stop 01/25/19 at 00:15; Status DC Lidocaine HCl (Xylocaine-Mpf 1% 2ml Vial) 2 ml 1X PRN PRN ID IV START; Start 01/24/19 at 12:30; Stop 01/24/19 at 20:00; Status DC Hydromorphone HCl (Dilaudid) 0.5 mg PRN Q10MIN PRN IV SEV PAIN, Second choice; Start 01/24/19 at 12:30; Stop 01/24/19 at 20:00; Status DC Prochlorperazine Edisylate (Compazine) 5 mg PACU PRN PRN IV NAUSEA, MRX1 Last administered on 01/24/19at 12:15; Start 01/24/19 at 12:30; Stop 01/24/19 at 20:00; Status DC Ringer's Solution 1,000 ml @ 75 mls/hr [id number] PRN IV pre op; Start 01/24/19 at 12:30 Fentanyl Citrate (Fentanyl 2ml Vial) 50 mcg PRN Q3HRS PRN IV SEVERE PAIN Last administered on 01/24/19at 23:20; Start 01/24/19 at 19:00 Fentanyl Citrate (Fentanyl 2ml Vial) 25 mcg PRN Q3HRS PRN IV MODERATE PAIN; Start 01/24/19 at 19:00 Cyanocobalamin (Vitamin B-12) 1,000 mcg DAILY PO ; Start 01/25/19 at 09:00 Active Scripts Active Augmentin 875-125 Tablet (Amoxicillin/Potassium Clav) 1 Each Tablet 1 Tab PO BID Tylenol (Acetaminophen) 325 Mg Tablet 650 Mg PO PRN Q6HRS PRN 30 Days Polyethylene Glycol 3350 17 Gm Powd.pack 17 Gm PO PRN DAILY PRN 14 Days Senna-Time S Tablet (Sennosides/Docusate Sodium) 1 Each Tablet 1 Tab PO DAILY 14 Days Hydrocodone-Apap 7.5-325 (Hydrocodone Bit/Acetaminophen) 1 Tab Tablet 2 Tab PO PRN Q4HRS PRN 14 Days Reported Timoptic 0.5% (Timolol Maleate) 10 Ml Drops 1 Drop EACHEYE BID Atorvastatin Calcium 20 Mg Tablet 1 Tab PO DAILY Losartan Potassium 100 Mg Tablet 100 Mg PO DAILY Aspirin 81 Mg Tab.chew 1 Tab PO DAILY Allergies Allergies: Coded Allergies: No Known Drug Allergies (Unverified , 07/12/18) Vitals VITALS Vital Signs Date Time Temp Pulse Resp B/P (MAP) Pulse Ox O2 Delivery O2 Flow Rate FiO2 01/25/19 03:00 98.3 132 24 165/71 (102) 99 Room Air 98.3 01/24/19 12:40 3 Labs Labs Laboratory Tests Test 01/23/19 20:45 01/24/19 03:20 01/24/19 12:32 01/24/19 18:28 Glucose (Fingerstick) 126 mg/dL (70-99) 112 mg/dL (70-99) 160 mg/dL (70-99) White Blood Count 10.9 x10^3/uL (4.0-11.0) Red Blood Count 2.83 x10^6/uL (4.30-5.70) Hemoglobin 8.0 g/dL (13.0-17.5) Hematocrit 23.5 % (39.0-53.0) Mean Corpuscular Volume 83 fL (79-100) Mean Corpuscular Hemoglobin 29 pg (25-35) Mean Corpuscular Hemoglobin Concent 34 g/dL (31-37) Red Cell Distribution Width 17.2 % (11.5-14.5) Platelet Count 59 x10^3/uL (140-400) Neutrophils (%) (Auto) 88 % (31-73) Lymphocytes (%) (Auto) 8 % (24-48) Monocytes (%) (Auto) 3 % (0-9) Eosinophils (%) (Auto) 1 % (0-3) Basophils (%) (Auto) 0 % (0-3) Neutrophils # (Auto) 9.6 x10^3uL (1.8-7.7) Lymphocytes # (Auto) 0.8 x10^3/uL (1.0-4.8) Monocytes # (Auto) 0.3 x10^3/uL (0.0-1.1) Eosinophils # (Auto) 0.1 x10^3/uL (0.0-0.7) Basophils # (Auto) 0.0 x10^3/uL (0.0-0.2) Segmented Neutrophils % 76 % (35-66) Band Neutrophils % 14 % (0-9) Lymphocytes % 9 % (24-48) Monocytes % 1 % (0-10) Platelet Estimate Decreased (ADEQUATE) Poikilocytosis Slight Anisocytosis Slight Sodium Level 138 mmol/L (136-145) Potassium Level 4.9 mmol/L (3.5-5.1) Chloride Level 106 mmol/L (98-107) Carbon Dioxide Level 21 mmol/L (21-32) Anion Gap 11 (6-14) Blood Urea Nitrogen 26 mg/dL (8-26) Creatinine 1.9 mg/dL (0.7-1.3) Estimated GFR (Cockcroft-Gault) 41.3 BUN/Creatinine Ratio 14 (6-20) Glucose Level 126 mg/dL (70-99) Calcium Level 8.5 mg/dL (8.5-10.1) Total Bilirubin 1.1 mg/dL (0.2-1.0) Aspartate Amino Transf (AST/SGOT) 27 U/L (15-37) Alanine Aminotransferase (ALT/SGPT) 24 U/L (16-63) Alkaline Phosphatase 84 U/L (46-116) Total Protein 6.1 g/dL (6.4-8.2) Albumin 1.8 g/dL (3.4-5.0) Albumin/Globulin Ratio 0.4 (1.0-1.7) Test 7/3/19 21:01 01/25/19 05:56 Glucose (Fingerstick) 171 mg/dL (70-99) White Blood Count 13.8 x10^3/uL (4.0-11.0) Red Blood Count 1.89 x10^6/uL (4.30-5.70) Hemoglobin 5.3 g/dL (13.0-17.5) Hematocrit 15.6 % (39.0-53.0) Mean Corpuscular Volume 83 fL (79-100) Mean Corpuscular Hemoglobin 28 pg (25-35) Mean Corpuscular Hemoglobin Concent 34 g/dL (31-37) Red Cell Distribution Width 16.7 % (11.5-14.5) Platelet Count 78 x10^3/uL (140-400) Neutrophils (%) (Auto) 83 % (31-73) Lymphocytes (%) (Auto) 11 % (24-48) Monocytes (%) (Auto) 6 % (0-9) Eosinophils (%) (Auto) 0 % (0-3) Basophils (%) (Auto) 0 % (0-3) Neutrophils # (Auto) 11.5 x10^3uL (1.8-7.7) Lymphocytes # (Auto) 1.5 x10^3/uL (1.0-4.8) Monocytes # (Auto) 0.8 x10^3/uL (0.0-1.1) Eosinophils # (Auto) 0.0 x10^3/uL (0.0-0.7) Basophils # (Auto) 0.1 x10^3/uL (0.0-0.2) Prothrombin Time 13.7 SEC (11.7-14.0) Prothromb Time International Ratio 1.1 (0.8-1.1) Activated Partial Thromboplast Time 28 SEC (24-38) Fibrinogen 451 mg/dL (200-440) Sodium Level 137 mmol/L (136-145) Potassium Level 4.8 mmol/L (3.5-5.1) Chloride Level 104 mmol/L (98-107) Carbon Dioxide Level 20 mmol/L (21-32) Anion Gap 13 (6-14) Blood Urea Nitrogen 38 mg/dL (8-26) Creatinine 2.3 mg/dL (0.7-1.3) Estimated GFR (Cockcroft-Gault) 33.1 BUN/Creatinine Ratio 17 (6-20) Glucose Level 175 mg/dL (70-99) Calcium Level 8.1 mg/dL (8.5-10.1) Total Bilirubin 1.1 mg/dL (0.2-1.0) Aspartate Amino Transf (AST/SGOT) 29 U/L (15-37) Alanine Aminotransferase (ALT/SGPT) 23 U/L (16-63) Alkaline Phosphatase 59 U/L (46-116) Total Protein 5.7 g/dL (6.4-8.2) Albumin 1.9 g/dL (3.4-5.0) Albumin/Globulin Ratio 0.5 (1.0-1.7) Laboratory Tests Test 01/24/19 12:32 01/24/19 18:28 01/24/19 21:01 01/25/19 05:56 Glucose (Fingerstick) 112 mg/dL (70-99) 160 mg/dL (70-99) 171 mg/dL (70-99) White Blood Count 13.8 x10^3/uL (4.0-11.0) Red Blood Count 1.89 x10^6/uL (4.30-5.70) Hemoglobin 5.3 g/dL (13.0-17.5) Hematocrit 15.6 % (39.0-53.0) Mean Corpuscular Volume 83 fL (79-100) Mean Corpuscular Hemoglobin 28 pg (25-35) Mean Corpuscular Hemoglobin Concent 34 g/dL (31-37) Red Cell Distribution Width 16.7 % (11.5-14.5) Platelet Count 78 x10^3/uL (140-400) Neutrophils (%) (Auto) 83 % (31-73) Lymphocytes (%) (Auto) 11 % (24-48) Monocytes (%) (Auto) 6 % (0-9) Eosinophils (%) (Auto) 0 % (0-3) Basophils (%) (Auto) 0 % (0-3) Neutrophils # (Auto) 11.5 x10^3uL (1.8-7.7) Lymphocytes # (Auto) 1.5 x10^3/uL (1.0-4.8) Monocytes # (Auto) 0.8 x10^3/uL (0.0-1.1) Eosinophils # (Auto) 0.0 x10^3/uL (0.0-0.7) Basophils # (Auto) 0.1 x10^3/uL (0.0-0.2) Prothrombin Time 13.7 SEC (11.7-14.0) Prothromb Time International Ratio 1.1 (0.8-1.1) Activated Partial Thromboplast Time 28 SEC (24-38) Fibrinogen 451 mg/dL (200-440) Sodium Level 137 mmol/L (136-145) Potassium Level 4.8 mmol/L (3.5-5.1) Chloride Level 104 mmol/L (98-107) Carbon Dioxide Level 20 mmol/L (21-32) Anion Gap 13 (6-14) Blood Urea Nitrogen 38 mg/dL (8-26) Creatinine 2.3 mg/dL (0.7-1.3) Estimated GFR (Cockcroft-Gault) 33.1 BUN/Creatinine Ratio 17 (6-20) Glucose Level 175 mg/dL (70-99) Calcium Level 8.1 mg/dL (8.5-10.1) Total Bilirubin 1.1 mg/dL (0.2-1.0) Aspartate Amino Transf (AST/SGOT) 29 U/L (15-37) Alanine Aminotransferase (ALT/SGPT) 23 U/L (16-63) Alkaline Phosphatase 59 U/L (46-116) Total Protein 5.7 g/dL (6.4-8.2) Albumin 1.9 g/dL (3.4-5.0) Albumin/Globulin Ratio 0.5 (1.0-1.7) RAJ RAY MD Jan 25, 2019 07:45
[2019-01-25] MEDS: INSULIN LISPRO 300 UNITS/3 ML INSULN.PEN. SQ SCH ×3 (08:00→16:28)
[2019-01-25] MEDS: ASPIRIN CHEWABLE 81 MG TABLET. PO SCH (08:00)
[2019-01-25] MEDS ORDERED: IV NORMAL SALINE 500ML BAG 250 ML IV ONE (08:00)
--- NOTE | 2019-01-25 08:00 | NUR ---
See nursing communication and orders. Patient with grossly bloody urine with hand irrigation with saline per order, clots and unable to get return of all irrigant and tolentino not draining now.
[2019-01-25] MEDS: MEROPENEM 1 GM in IV NORMAL SALINE 100ML 100 ML IV SCH ×2 (08:07→08:08)
--- NOTE | 2019-01-25 08:11 | NUR ---
IVF bolus would not take scan, administered.
--- NOTE | 2019-01-25 08:40 | NUR ---
[facility] notified positive sepsis screen.
--- NOTE | 2019-01-25 08:58 | NUR ---
Dr. Coates returned call, keeping patient NPO for possible intervention with grossly bloody urine with clots, but patient also keeping lips clamped shut for mouth care and did not take evening medications /3 as kept lips clamped shut per night YOVANA Hardwick. See nursing communication.
[2019-01-25] MEDS ORDERED: CYANOCOBALAMIN (VITAMIN B-12) 1,000 MCG TABLET. PO SCH (09:00)
[2019-01-25] MEDS: LACTOBACILLUS RHAMNOSUS GG 1 CAPSULE. PO SCH ×2 (09:00→21:03)
[2019-01-25] MEDS: POTASSIUM CHLORIDE 10 MEQ TABLET.ER. PO SCH ×3 (09:00→21:02)
--- NOTE | 2019-01-25 09:15 | PDOC ---
Infectious Disease Note Vital Sign Vital Signs Vital Signs Date Time Temp Pulse Resp B/P (MAP) Pulse Ox O2 Delivery O2 Flow Rate FiO2 01/25/19 08:00 Room Air 01/25/19 07:34 18 01/25/19 07:00 98.1 126 161/82 (108) 97 98.1 01/24/19 12:40 3 Labs Lab Laboratory Tests Test 01/24/19 12:32 01/24/19 18:28 01/24/19 21:01 01/25/19 05:56 Glucose (Fingerstick) 112 mg/dL (70-99) 160 mg/dL (70-99) 171 mg/dL (70-99) White Blood Count 13.8 x10^3/uL (4.0-11.0) Red Blood Count 1.89 x10^6/uL (4.30-5.70) Hemoglobin 5.3 g/dL (13.0-17.5) Hematocrit 15.6 % (39.0-53.0) Mean Corpuscular Volume 83 fL (79-100) Mean Corpuscular Hemoglobin 28 pg (25-35) Mean Corpuscular Hemoglobin Concent 34 g/dL (31-37) Red Cell Distribution Width 16.7 % (11.5-14.5) Platelet Count 78 x10^3/uL (140-400) Neutrophils (%) (Auto) 83 % (31-73) Lymphocytes (%) (Auto) 11 % (24-48) Monocytes (%) (Auto) 6 % (0-9) Eosinophils (%) (Auto) 0 % (0-3) Basophils (%) (Auto) 0 % (0-3) Neutrophils # (Auto) 11.5 x10^3uL (1.8-7.7) Lymphocytes # (Auto) 1.5 x10^3/uL (1.0-4.8) Monocytes # (Auto) 0.8 x10^3/uL (0.0-1.1) Eosinophils # (Auto) 0.0 x10^3/uL (0.0-0.7) Basophils # (Auto) 0.1 x10^3/uL (0.0-0.2) Prothrombin Time 13.7 SEC (11.7-14.0) Prothromb Time International Ratio 1.1 (0.8-1.1) Activated Partial Thromboplast Time 28 SEC (24-38) Fibrinogen 451 mg/dL (200-440) Sodium Level 137 mmol/L (136-145) Potassium Level 4.8 mmol/L (3.5-5.1) Chloride Level 104 mmol/L (98-107) Carbon Dioxide Level 20 mmol/L (21-32) Anion Gap 13 (6-14) Blood Urea Nitrogen 38 mg/dL (8-26) Creatinine 2.3 mg/dL (0.7-1.3) Estimated GFR (Cockcroft-Gault) 33.1 BUN/Creatinine Ratio 17 (6-20) Glucose Level 175 mg/dL (70-99) Calcium Level 8.1 mg/dL (8.5-10.1) Total Bilirubin 1.1 mg/dL (0.2-1.0) Aspartate Amino Transf (AST/SGOT) 29 U/L (15-37) Alanine Aminotransferase (ALT/SGPT) 23 U/L (16-63) Alkaline Phosphatase 59 U/L (46-116) Total Protein 5.7 g/dL (6.4-8.2) Albumin 1.9 g/dL (3.4-5.0) Albumin/Globulin Ratio 0.5 (1.0-1.7) Test 01/25/19 07:31 Glucose (Fingerstick) 161 mg/dL (70-99) Objective Assessment E coli UTI with sepsis E coli bacteremia Ureteral stone with obstruction Hematuria CVA Leukocytosis Renal insufficiency HTN Plan Plan of Care meropenem supportive care hydration RUSTY AGUIAR MD Jan 25, 2019 09:15
--- NOTE | 2019-01-25 09:48 | CONS ---
DATE OF CONSULTATION: 01/25/2019 REQUESTING PHYSICIAN: Franc Herndon MD REASON FOR CONSULTATION: Bacteremia and complicated urinary tract infection. HISTORY OF PRESENT ILLNESS: This is an 83-year-old -[place] gentleman who is a [facility] resident from stroke, expressive aphasia who presented to [place] with sepsis. The patient had Escherichia coli in the urine and Escherichia coli in the blood. The patient was transferred here for further management for ureteral stone, hydronephrosis. The patient underwent cystoscopy yesterday and they were not able to cannulate or find a stone. The patient has now hematuria. Hemoglobin is low, white count is up and urine culture here is also still positive with Escherichia coli. The patient is receiving meropenem and consult has been requested. The patient does have expressive aphasia from the stroke as he is not able to communicate. He does nod, although does not appear to be consistently appropriate. No nausea, vomiting, diarrhea noted. The only thing according to the nursing is significant bleeding in the urine. The patient had a procedure done yesterday. 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 coli bacteremia at [place]. SOCIAL HISTORY: Negative for smoking, alcohol or drug use. The patient is a [facility] resident with total care. ALLERGIES: No known drug allergies. CURRENT MEDICATIONS: Reviewed. REVIEW OF SYSTEMS: As per HPI, all other systems reviewed are negative. PHYSICAL EXAMINATION: GENERAL: Awake gentleman who nods off and on, not in distress. VITAL SIGNS: Stable, afebrile. HEENT: NAD. NECK: Supple, no JVP, no lymphadenopathy. LUNGS: Clear. HEART: S1, S2 regular. ABDOMEN: Benign. EXTREMITIES: No edema, cyanosis. SKIN: Unremarkable. The patient does have Ceron catheter in place with bleeding. NEUROLOGIC: He does move the upper extremity a little bit and nodding. No other meaningful communication possible. LABORATORY DATA: White count is 13.8, hemoglobin 5.3, platelets are 78,000. BUN and creatinine 38 and 2.3. Urine culture is positive with Escherichia coli. Blood culture is positive at [place] with Escherichia coli. IMAGING STUDIES: Abdominal CT done yesterday showed a marked left hydronephrosis and hydroureter, no obstructive radiopaque calculus is delineated now, may be it is secondary to streak artifact from the left hip prosthesis, mild right-sided hydronephrosis. IMPRESSION: 1. Escherichia coli bacteremia. 2. Complicated urinary tract infection. 3. Ureteral obstruction with stone and infection. 4. Hematuria. 5. Leukocytosis. 6. Cerebrovascular accident. 7. Renal insufficiency. RECOMMENDATION: Continue meropenem. Supportive care. We will follow along. Urology may have to either do something more and/or external drainage and we will continue to follow. Thank you very much, Dr. Herndon, for giving me the opportunity to participate in this patient's care. RUSTY AGUIAR MD DR: CHRISTIANO/nts JOB#: [id number] / [id number]
--- NOTE | 2019-01-25 10:00 | NUR ---
[facility] [employer]URANCE INVESTIGATOR here to see patient, cart ordered. Dr. Coates notified of bleeding, Hgb. drop and difficulty irrigating tolentino, very bloody output with clots, irrigated by hand with 800 ccs saline, then tolentino clogged. Cami also had difficulty irrigating tolentino catheter. Patient's notified of blood count drop and transfusions ordered. Phone consent obtained. Packed red blood cells first unit infusing left wrist #[id number] Insyte without difficulty. See transfusion record. Continue cares and monitor. Patient nonverbal, but follows simple commands. Appeared restless earlier and discomfort with facial expression with tolentino irrigation. Fentanyl given per order. Patient resting quietly now.
[2019-01-25] MEDS: TIMOLOL 0.25% OPHTH SOLUTION 5ML BOTTLE. OU SCH ×2 (10:48→21:03)
--- NOTE | 2019-01-25 12:01 | PDOC ---
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 CT after attempted stent placement - I reviewed images: moderate left hydronephrosis, mild right hydronephrosis, bladder distention. No ureteral stone seen, left distal ureter not visible due to hip artifact. Nursing reports very bloody urine overnight, difficulty with catheter irrigation. Unable to obtain history from patient due to aphasia. Problems: Problems Medical Problems: (1) Calculus of ureterovesical junction (UVJ) Status: Acute (2) Gram-negative bacteremia Status: Acute (3) Thrombocytopenia Status: Acute (4) Ureterovesical junction (UVJ) obstruction Status: Acute OBJECTIVE: Vital Signs: Vital Signs Date Time Temp Pulse Resp B/P (MAP) Pulse Ox O2 Delivery O2 Flow Rate FiO2 01/25/19 11:08 97.8 128 20 148/74 (98) 97 Room Air 97.8 01/25/19 11:00 97.9 128 20 147/74 97.9 01/25/19 10:03 97.8 129 20 164/84 97.8 01/25/19 09:44 97.9 135 22 153/81 97.9 01/25/19 09:30 97.9 135 20 153/81 (105) 96 Room Air 97.9 01/25/19 08:04 20 Room Air 01/25/19 08:00 Room Air 01/25/19 07:34 18 Room Air 01/25/19 07:00 98.1 126 22 161/82 (108) 97 Room Air 98.1 01/25/19 03:00 98.3 132 24 165/71 (102) 99 Room Air 98.3 01/24/19 23:50 98 01/24/19 23:20 20 98 Room Air 01/24/19 23:00 98.3 134 18 175/96 (122) 97 Room Air 98.3 01/24/19 20:00 Room Air 01/24/19 19:46 20 98 Nasal Cannula 01/24/19 19:00 105 16 87/47 (60) 90 Room Air 01/24/19 16:00 80 123/63 (83) 01/24/19 15:30 90 136/64 (88) 98 01/24/19 15:00 97.7 101 18 132/72 (92) 100 Room Air 97.7 01/24/19 14:30 96 119/71 (87) 100 Room Air 01/24/19 14:15 102 124/65 (84) 99 Room Air 01/24/19 14:00 111 130/71 (90) 98 Room Air 01/24/19 13:45 114 164/68 (100) 98 Room Air 01/24/19 13:30 Room Air 01/24/19 13:30 136 152/77 (102) 100 Room Air 01/24/19 13:15 129 191/62 (105) 100 Room Air 01/24/19 12:40 97.1 90 16 133/45 94 Nasal Cannula 3 97.1 01/24/19 12:33 16 92 Nasal Cannula 3.0 01/24/19 12:28 100 14 183/88 96 Nasal Cannula 3 01/24/19 12:16 13 94 Nasal Cannula 3.0 01/24/19 12:10 101 16 94 Nasal Cannula 3 01/24/19 11:55 97.1 82 17 148/65 100 Simple Mask 15 97.1 01/24/19 11:55 Mask 15 I & O Intake and Output 01/25/19 06:59 Intake Total 2100 ml Output Total 905 ml Balance 1195 ml Intake Oral 100 ml IV Total 2000 ml Output Urine Total 900 ml Estimated Blood Loss 5 ml PHYSICAL EXAM: Physical Exam: General: Pleasant, no acute distress, Respiratory: unlabored breathing, not using accessory muscles, no crackles or wheezes Cardiovascular: Regular rate and rhythm Abdomen: nontender, nondistended, no hepatosplenomegaly, no masses Tolentino: partially pulled out. Balloon deflated and catheter advanced into bladder. 200-300 cc of bloody urine then drained Catheter then irrigated - clear, no clots. LABS: Laboratory Tests Test 01/23/19 20:45 01/24/19 03:20 01/24/19 12:32 01/24/19 18:28 Glucose (Fingerstick) 126 mg/dL (70-99) 112 mg/dL (70-99) 160 mg/dL (70-99) White Blood Count 10.9 x10^3/uL (4.0-11.0) Red Blood Count 2.83 x10^6/uL (4.30-5.70) Hemoglobin 8.0 g/dL (13.0-17.5) Hematocrit 23.5 % (39.0-53.0) Mean Corpuscular Volume 83 fL (79-100) Mean Corpuscular Hemoglobin 29 pg (25-35) Mean Corpuscular Hemoglobin Concent 34 g/dL (31-37) Red Cell Distribution Width 17.2 % (11.5-14.5) Platelet Count 59 x10^3/uL (140-400) Neutrophils (%) (Auto) 88 % (31-73) Lymphocytes (%) (Auto) 8 % (24-48) Monocytes (%) (Auto) 3 % (0-9) Eosinophils (%) (Auto) 1 % (0-3) Basophils (%) (Auto) 0 % (0-3) Neutrophils # (Auto) 9.6 x10^3uL (1.8-7.7) Lymphocytes # (Auto) 0.8 x10^3/uL (1.0-4.8) Monocytes # (Auto) 0.3 x10^3/uL (0.0-1.1) Eosinophils # (Auto) 0.1 x10^3/uL (0.0-0.7) Basophils # (Auto) 0.0 x10^3/uL (0.0-0.2) Segmented Neutrophils % 76 % (35-66) Band Neutrophils % 14 % (0-9) Lymphocytes % 9 % (24-48) Monocytes % 1 % (0-10) Platelet Estimate Decreased (ADEQUATE) Poikilocytosis Slight Anisocytosis Slight Sodium Level 138 mmol/L (136-145) Potassium Level 4.9 mmol/L (3.5-5.1) Chloride Level 106 mmol/L (98-107) Carbon Dioxide Level 21 mmol/L (21-32) Anion Gap 11 (6-14) Blood Urea Nitrogen 26 mg/dL (8-26) Creatinine 1.9 mg/dL (0.7-1.3) Estimated GFR (Cockcroft-Gault) 41.3 BUN/Creatinine Ratio 14 (6-20) Glucose Level 126 mg/dL (70-99) Calcium Level 8.5 mg/dL (8.5-10.1) Total Bilirubin 1.1 mg/dL (0.2-1.0) Aspartate Amino Transf (AST/SGOT) 27 U/L (15-37) Alanine Aminotransferase (ALT/SGPT) 24 U/L (16-63) Alkaline Phosphatase 84 U/L (46-116) Total Protein 6.1 g/dL (6.4-8.2) Albumin 1.8 g/dL (3.4-5.0) Albumin/Globulin Ratio 0.4 (1.0-1.7) Test 01/24/19 21:01 01/25/19 05:56 01/25/19 07:31 Glucose (Fingerstick) 171 mg/dL (70-99) 161 mg/dL (70-99) White Blood Count 13.8 x10^3/uL (4.0-11.0) Red Blood Count 1.89 x10^6/uL (4.30-5.70) Hemoglobin 5.3 g/dL (13.0-17.5) Hematocrit 15.6 % (39.0-53.0) Mean Corpuscular Volume 83 fL (79-100) Mean Corpuscular Hemoglobin 28 pg (25-35) Mean Corpuscular Hemoglobin Concent 34 g/dL (31-37) Red Cell Distribution Width 16.7 % (11.5-14.5) Platelet Count 78 x10^3/uL (140-400) Neutrophils (%) (Auto) 83 % (31-73) Lymphocytes (%) (Auto) 11 % (24-48) Monocytes (%) (Auto) 6 % (0-9) Eosinophils (%) (Auto) 0 % (0-3) Basophils (%) (Auto) 0 % (0-3) Neutrophils # (Auto) 11.5 x10^3uL (1.8-7.7) Lymphocytes # (Auto) 1.5 x10^3/uL (1.0-4.8) Monocytes # (Auto) 0.8 x10^3/uL (0.0-1.1) Eosinophils # (Auto) 0.0 x10^3/uL (0.0-0.7) Basophils # (Auto) 0.1 x10^3/uL (0.0-0.2) Prothrombin Time 13.7 SEC (11.7-14.0) Prothromb Time International Ratio 1.1 (0.8-1.1) Activated Partial Thromboplast Time 28 SEC (24-38) Fibrinogen 451 mg/dL (200-440) Sodium Level 137 mmol/L (136-145) Potassium Level 4.8 mmol/L (3.5-5.1) Chloride Level 104 mmol/L (98-107) Carbon Dioxide Level 20 mmol/L (21-32) Anion Gap 13 (6-14) Blood Urea Nitrogen 38 mg/dL (8-26) Creatinine 2.3 mg/dL (0.7-1.3) Estimated GFR (Cockcroft-Gault) 33.1 BUN/Creatinine Ratio 17 (6-20) Glucose Level 175 mg/dL (70-99) Calcium Level 8.1 mg/dL (8.5-10.1) Total Bilirubin 1.1 mg/dL (0.2-1.0) Aspartate Amino Transf (AST/SGOT) 29 U/L (15-37) Alanine Aminotransferase (ALT/SGPT) 23 U/L (16-63) Alkaline Phosphatase 59 U/L (46-116) Total Protein 5.7 g/dL (6.4-8.2) Albumin 1.9 g/dL (3.4-5.0) Albumin/Globulin Ratio 0.5 (1.0-1.7) MEDICATIONS: Current Medications Medications (Trade) Dose Ordered Sig/Ramakrishna Start Time Stop Time Status Last Admin Dose Admin Acetaminophen (Tylenol) 650 mg PRN Q6HRS PRN 01/23/19 17:30 01/24/19 22:06 650 MG Aspirin (Children'S Aspirin) 81 mg [id number] 01/24/19 08:00 Atorvastatin Calcium (Lipitor) 20 mg QHS 01/23/19 21:00 01/23/19 21:22 20 MG Cyanocobalamin (Vitamin B-12) 1,000 mcg DAILY 01/25/19 09:00 Dexamethasone Sodium Phosphate (Decadron) 4 mg STK-MED ONCE 01/24/19 10:24 01/24/19 10:25 DC Dextrose (Dextrose 50%-Water Syringe) 12.5 gm PRN Q15MIN PRN 01/23/19 17:30 Esmolol HCl (Brevibloc) 100 mg STK-MED ONCE 01/24/19 11:20 01/24/19 11:21 DC Fentanyl Citrate (Fentanyl 2ml Vial) 25 mcg PRN Q3HRS PRN 01/24/19 19:00 Hydromorphone HCl (Dilaudid) 0.5 mg PRN Q10MIN PRN 01/24/19 12:30 01/24/19 20:00 DC Insulin Human Lispro (HumaLOG) 0-5 UNITS TIDWMEALS 01/24/19 08:00 Iohexol (Omnipaque 300 Mg/ml) 50 ml STK-MED ONCE 01/24/19 09:05 01/24/19 10:05 DC 01/24/19 11:11 50 ML Ketorolac Tromethamine (Toradol For Or Only) 30 mg STK-MED ONCE 01/24/19 10:24 01/24/19 10:25 DC Lactobacillus Rhamnosus (Culturelle) 1 cap BID 01/23/19 21:00 01/24/19 13:26 1 CAP Lidocaine HCl (Lidocaine Pf 2% Vial) 5 ml STK-MED ONCE 01/24/19 10:24 01/24/19 10:25 DC Lidocaine HCl (Xylocaine-Mpf 1% 2ml Vial) 2 ml 1X PRN PRN 01/24/19 12:30 01/24/19 20:00 DC Linezolid (Zyvox) 600 mg BID 01/23/19 21:00 01/24/19 07:09 DC 01/23/19 21:23 600 MG Meropenem 1 gm/ Sodium Chloride 100 ml @ 200 mls/hr Q12HR 01/23/19 21:00 01/25/19 08:08 200 MLS/HR Methylene Blue (Methylene Blue) 1 ml STK-MED ONCE 01/24/19 10:19 01/24/19 11:19 DC 01/24/19 11:20 1 ML Morphine Sulfate (Morphine Sulfate) 1 mg PRN Q10MIN PRN 01/24/19 12:30 01/24/19 20:00 DC Ondansetron HCl (Zofran) 4 mg PRN Q6HRS PRN 01/24/19 12:30 01/24/19 20:00 DC Phenylephrine HCl (PHENYLEPHRINE in 0.9% NACL PF) 1 mg STK-MED ONCE 01/24/19 11:02 01/24/19 11:03 DC Potassium Chloride (Klor-Con) 10 meq TID 01/23/19 21:00 01/23/19 21:22 10 MEQ Prochlorperazine Edisylate (Compazine) 5 mg PACU PRN PRN 01/24/19 12:30 01/24/19 20:00 DC 01/24/19 12:15 5 MG Propofol 20 ml @ As Directed STK-MED ONCE 01/24/19 10:24 01/24/19 10:25 DC Ringer's Solution 1,000 ml @ 75 mls/hr [id number] PRN 01/24/19 12:30 Sevoflurane (Ultane) 30 ml STK-MED ONCE 01/24/19 10:24 01/24/19 10:25 DC Sodium Chloride 250 ml @ 250 mls/hr 1X ONCE 01/25/19 08:00 01/25/19 08:59 DC 01/25/19 08:00 250 MLS/HR Tamsulosin HCl (Flomax) 0.4 mg QHS 01/23/19 21:00 01/23/19 21:21 0.4 MG Timolol Maleate (Timoptic 0.25% [facility]) 1 drop BID 01/23/19 21:00 01/25/19 10:48 1 DROP ASSESSMENT & PLAN Gross hematuria: due to dislodged tolentino in urethra. Instructed nursing to place Stat-lock closer to penis to prevent repeat dislodgement. Hematuria now very minimal no significant active bleeding. Hydronephrosis: unclear if due to bladder distention, ureter stone, or advanced prostate cancer. Get renal ultrasound in 2-3 days Consider nephrostomy tube if hydronephrosis and/or creatinine not improving. However overall prognosis is p oor, unclear if we should be this aggressive with his medical care. Problem List: Problems Medical Problems: (1) Calculus of ureterovesical junction (UVJ) Status: Acute (2) Gram-negative bacteremia Status: Acute (3) Thrombocytopenia Status: Acute (4) Ureterovesical junction (UVJ) obstruction Status: Acute JARETH AKINS MD Jan 25, 2019 12:01
--- NOTE | 2019-01-25 12:23 | NUR ---
First unit packed red blood cells infused without difficulty, see transfusion record. Patient continues to clamp lips shut, refusing lunch. No verbalization. Dr. Cardona here to see patient and hand irrigated tolentino, deflated balloon and repositioned. New stat lock for tolentino placed so there is no traction on tolentino. UO now pink tinge. Continue cares and monitor.
--- NOTE | 2019-01-25 12:38 | NUR ---
Second unit of packed red blood cells infusing left wrist #20 Insyte without difficulty. See transfusion record. Continue cares and monitor.
--- NOTE | 2019-01-25 15:05 | NUR ---
Second unit packed red blood cells infused, see transfusion record. No reaction at present. Will recheck VS in one hour. Patient tolentino irrigated with NS per order, 500 cc with return bloody at first with clots clearing to light pink tinge. Patient premedicated with Fentanyl and tolerated with minimal discomfort. Continue cares and monitor.
--- NOTE | 2019-01-25 15:58 | NUR ---
VSS 1 hour post blood transfusion, see VS documentation.
[2019-01-25] MEDS: ATORVASTATIN CALCIUM 20 MG TABLET PO SCH (21:03)
[2019-01-25] MEDS: TAMSULOSIN 0.4 MG CAP.ER.24H. PO SCH (21:03)
[2019-01-25] MEDS ORDERED: MEROPENEM 1 GM in IV NORMAL SALINE 100ML 100 ML IV ONE (22:00)
[2019-01-25 22:24] LABS: HEMATOCRIT 22.2 % (39.0-53.0); HEMOGLOBIN 7.6 g/dL (13.0-17.5)
[2019-01-25 22:43] LABS: CALCIUM 8.1 mg/dL (8.5-10.1); CREATININE 2.5 mg/dL (0.7-1.3); GFR 30.1; POTASSIUM 4.5 mmol/L (3.5-5.1)
--- NOTE | 2019-01-25 22:54 | PN ---
DATE: 01/25/2019 SUBJECTIVE: The patient is resting, slightly propped up in bed, in no apparent distress, awake, alert, has obviously expressive aphasia, but denied any complaint. Nursing staff stated that there is blood coming out from the catheter. His H and H has dropped down to 5.3 and 15.6 and did type and cross. We will transfuse 2 units of blood. Apparently, he has had cystoscopy with a plan to retrieve the left ureterovesical junction stone and relieve the obstruction; however, postoperatively, he apparently was found to have metastatic prostate cancer invading the trigone area and basically skewing the normal anatomy planes. Apparently, the urologist was unable to find the ureteral opening after using the methylene blue injection; however, some other stones were removed. He apparently developed hematuria and lost large amount of blood. Anyhow, when I saw him this morning, he looked pale, but no jaundice, cyanosis, or thyromegaly. No jugular venous distension. No limb edema. PHYSICAL EXAMINATION: VITAL SIGNS: His heart rate was 126, blood pressure was 161/82, temperature was 98.1, respiratory rate was 22 and oxygen saturation was 97% on room air. HEAD, EYES, EARS, NOSE AND THROAT: Showed normocephalic, atraumatic. NECK: Supple. HEART: Showed normal first and second heart sounds. No gallop, rub or murmur. CHEST: Clear to auscultation. No crepitation or rhonchi. ABDOMEN: Scaphoid, soft and nontender. NEUROLOGIC: He was awake, alert, responding appropriately. All cranial nerves are intact. He has left-sided hemiplegia and expressive aphasia. His intake and output were incompletely recorded. LABORATORY DATA: His lab work this morning showed a white cell count of 15,800, hemoglobin 5.3, hematocrit 15.6, MCV 83 and platelet count of 78,000. Serum sodium was 137, potassium 4.8, chloride 104, bicarbonate 20, anion gap of 13, BUN 38, creatinine was 2.3, estimated GFR was 53 mL per minute. His glucose was 175, calcium was 8.1. Total bilirubin, AST, ALT, alkaline phosphatase were normal. Total protein was 5.7, albumin was 1.9. His prothrombin time was 15.7, INR 1.1, APTT was 28 and fibrinogen was 451 mg/dL. ASSESSMENT: Left-sided hydronephrosis and hydroureter, metastatic prostate cancer, bladder outlet obstruction with chronic Ceron catheter, hypertension, type 2 diabetes, hyperlipidemia, urinary tract infection with growth of E. coli and urine culture as well as E. coli bacteremia. PLAN: To continue with IV meropenem. Continue IV fluid, transfuse the patient 2 units. We will consult the interventional radiologist for placement of a percutaneous nephrostomy tube. LUIS ISAACS MD DR: JENNIEFR/nts JOB#: [id number] / [id number]
[2019-01-26] VITALS (11 sets, daily range): BP systolic 126–183; BP diastolic 60–98
--- NOTE | 2019-01-26 06:25 | PDOC ---
Infectious Disease Note Vital Sign Vital Signs Vital Signs Date Time Temp Pulse Resp B/P (MAP) Pulse Ox O2 Delivery O2 Flow Rate FiO2 01/26/19 03:00 97.7 89 20 126/60 (82) 97 Room Air 97.7 Physical Exam PHYSICAL EXAM GENERAL: Awake gentleman who nods off and on, not in distress. VITAL SIGNS: Stable, afebrile. HEENT: NAD. NECK: Supple, no JVP, no lymphadenopathy. LUNGS: Clear. HEART: S1, S2 regular. ABDOMEN: Benign. EXTREMITIES: No edema, cyanosis. SKIN: Unremarkable. The patient does have Ceron catheter in place with bleeding. NEUROLOGIC: He does move the upper extremity a little bit and nodding. No other meaningful communication possible. Labs Lab Laboratory Tests Test 01/25/19 07:31 01/25/19 12:08 01/25/19 16:22 01/25/19 22:00 Glucose (Fingerstick) 161 mg/dL (70-99) 145 mg/dL (70-99) 124 mg/dL (70-99) Hemoglobin 7.6 g/dL (13.0-17.5) Hematocrit 22.2 % (39.0-53.0) Sodium Level 142 mmol/L (136-145) Potassium Level 4.5 mmol/L (3.5-5.1) Chloride Level 108 mmol/L (98-107) Carbon Dioxide Level 24 mmol/L (21-32) Anion Gap 10 (6-14) Blood Urea Nitrogen 39 mg/dL (8-26) Creatinine 2.5 mg/dL (0.7-1.3) Estimated GFR (Cockcroft-Gault) 30.1 Glucose Level 129 mg/dL (70-99) Calcium Level 8.1 mg/dL (8.5-10.1) Objective Assessment E coli UTI with sepsis E coli bacteremia Ureteral stone with obstruction Hematuria CVA Leukocytosis Renal insufficiency HTN Plan Plan of Care meropenem supportive care hydration RUSTY AGUIAR MD Jan 26, 2019 06:25
[2019-01-26] MEDS: ASPIRIN CHEWABLE 81 MG TABLET. PO SCH (07:39)
[2019-01-26] MEDS: INSULIN LISPRO 300 UNITS/3 ML INSULN.PEN. SQ SCH ×3 (08:00→17:00)
--- NOTE | 2019-01-26 08:32 | PDOC ---
LASHANDA OSBORNE PROFESSOR OF SPANISH 01/26/19 0832: SUBJECTIVE Subjective Pt still non verbal, although he does deny pain when asked. BELLING MACHINE OPERATOR Ney was able to bet a hold of his daughter and discuss his prostate cancer history with her. S he relates that her father has had it for about "20 years" and that at the time of diagnosis he refused surgery. She is not sure who diagnosed the cancer or if he had any physicians treating it other than Dr. Holden, who has been his physician for this prostate cancer for at least the last 5 years or so. . He gets shots for his cancer every four moths, she things that this is a Lupron shot but is not completely certain. He originally started out getting the shots every six months and then they increased his Lupron to every four months during the last two eyars. She relates that her father has always been a "very private" individual and did not like to discuss his health concerns with her or even her mother. Her uncle, the patient's older brother, did pass from prostate cancer. OBJECTIVE Objective Physical Exam: General appearance: Alert, not very communicative, does make eye contact with examiner Head: Normocephalic, without obvious abnormality Eyes: conjunctivae/corneas clear. PERRL, EOM's intact. Fundi benign Back: negative Lungs: Regular respirations, non labored breathing Abdomen: soft, non-tender. No masses, no organomegaly Pelvic:+ Ceron catheter in place draining rust-colored urine with no large clots, and device draining well. Vital Signs Vital Signs Date Time Temp Pulse Resp B/P (MAP) Pulse Ox O2 Delivery O2 Flow Rate FiO2 01/26/19 03:00 97.7 89 20 126/60 (82) 97 Room Air 97.7 01/25/19 23:00 98.1 111 20 168/80 (109) 97 Room Air 98.1 01/25/19 21:45 Room Air 01/25/19 21:13 Room Air 01/25/19 19:45 Room Air 01/25/19 19:00 98.1 109 20 159/88 (111) 99 Room Air 98.1 01/25/19 15:55 98.0 108 20 165/85 (111) 98.0 01/25/19 15:01 98.0 104 20 140/70 (93) 97 Room Air 98.0 01/25/19 15:01 98.0 104 20 140/70 (93) Room Air 98.0 01/25/19 14:42 18 96 01/25/19 14:12 18 Room Air 01/25/19 13:50 98.0 108 18 138/86 98.0 01/25/19 12:50 97.6 112 18 154/80 97.6 01/25/19 12:35 98.0 104 18 130/64 98.0 01/25/19 12:03 98.4 110 18 139/70 98.4 01/25/19 11:08 97.8 128 20 148/74 (98) 97 Room Air 97.8 01/25/19 11:00 97.9 128 20 147/74 97.9 01/25/19 10:03 97.8 129 20 164/84 97.8 01/25/19 09:44 97.9 135 22 153/81 97.9 01/25/19 09:30 97.9 135 20 153/81 (105) 96 Room Air 97.9 I & O Intake and Output 01/26/19 07:00 Intake Total 2100 ml Output Total 3050 ml Balance -950 ml Intake Oral 0 ml IV Total 450 ml Blood Product 700 ml Blood Product IV Normal Saline Flush 950 ml Output Urine Total 3050 ml # Bowel Movements 2 PHYSICAL EXAM Physical Exam Physical Exam: General appearance: Alert, not very communicative, does make eye contact with examiner Head: Normocephalic, without obvious abnormality Eyes: conjunctivae/corneas clear. PERRL, EOM's intact. Fundi benign Back: negative Lungs: Regular respirations, non labored breathing Abdomen: soft, non-tender. No masses, no organomegaly Pelvic:+ Ceron catheter in place draining rust-colored urine with no large clots, and device draining well. ASSESSMENT/PLAN Assessment/Plan We will get a KUB today to check for stone and a complete renal us has been ordered for this coming Tuesday (01/28). Had very pleasant conversation with Renata Benjamin, patient's daughter regarding his medical history. See subjective for narrative regarding this conversation. Consult entered for Dr. Holden, who has been treating him as an outpatient for his prostate cancer, per his daughter Consult also entered for Lisa Young of palliative care. Attending RN has been ad vised to notify Renata when Pat does round. If ENVIRONMENTAL PROJECT MANAGER continues to increase, he may need a nephrostomy tube. Nursing to maintain Ceron catheter. Currently urine color is rust-colored with no large clots, and device draining well. Dr. Akins to round on patient over the weekend. COMMENT Lab Laboratory Tests Test 01/25/19 12:08 01/25/19 16:22 01/25/19 21:20 01/25/19 22:00 Glucose (Fingerstick) 145 mg/dL (70-99) 124 mg/dL (70-99) 118 mg/dL (70-99) Hemoglobin 7.6 g/dL (13.0-17.5) Hematocrit 22.2 % (39.0-53.0) Sodium Level 142 mmol/L (136-145) Potassium Level 4.5 mmol/L (3.5-5.1) Chloride Level 108 mmol/L (98-107) Carbon Dioxide Level 24 mmol/L (21-32) Anion Gap 10 (6-14) Blood Urea Nitrogen 39 mg/dL (8-26) Creatinine 2.5 mg/dL (0.7-1.3) Estimated GFR (Cockcroft-Gault) 30.1 Glucose Level 129 mg/dL (70-99) Calcium Level 8.1 mg/dL (8.5-10.1) JARETH AKINS MD 01/26/19 1704: ASSESSMENT/PLAN Assessment/Plan Agree with assessment and plan. LASHANDA OSBORNE APRN Jan 26, 2019 08:32 JARETH AKINS MD Jan 26, 2019 17:05
[2019-01-26] MEDS: MEROPENEM 1 GM in IV NORMAL SALINE 100ML 100 ML IV SCH ×2 (08:36→21:18)
[2019-01-26] MEDS: TIMOLOL 0.25% OPHTH SOLUTION 5ML BOTTLE. OU SCH ×2 (08:43→21:17)
[2019-01-26] MEDS: CYANOCOBALAMIN (VITAMIN B-12) 1,000 MCG/ML VIAL IM SCH ×2 (08:43→08:47)
[2019-01-26] MEDS: LACTOBACILLUS RHAMNOSUS GG 1 CAPSULE. PO SCH ×2 (08:44→21:10)
[2019-01-26] MEDS: POTASSIUM CHLORIDE 10 MEQ TABLET.ER. PO SCH ×3 (08:44→21:08)
--- NOTE | 2019-01-26 08:54 | NUR ---
Explained to patient medications and eye drops, patient hitting at RN when attempted to apply and explained reason for eye gtts, patient remained uncooperative, Dr. Herndon present and aware of patient refusal medications.
--- NOTE | 2019-01-26 09:17 | PDOC ---
SUBJECTIVE Subjective S: in bed, no obvious pain O: Physical exam: Gen.: thin elderly man, resting in bed, diaper on, NAD Lungs: Breathing comfortably Skin: Warm and dry Labs: White count 13.8, hemoglobin 7.6 up from 5.3, platelets 78, creatinine 2.5 Assessment and Plan: He is an 83-year-old man with history of metastatic prostate cancer with rising PSA recently of 63, admitted with bacteremia and UTI and ureteral stone and being treated for infection and followed by urology. Bladder outlet obstruction with recent stone: Per urology Infection: On antibiotics, per ID Metastatic prostate cancer: Appears to be progressing, has been on androgen deprivation therapy, can follow up with Dr. Holden upon discharge for further recommendations of treatment of prostate cancer, with his performance status not sure that any further aggressive therapy would be considered at this time Thrombocytopenia: w/ infection, improving after Abx change, has not been on heparin recently, suspect in large part related to infection/Abx, consider further workup if it progresses from here, coags normal and fibrinogen 458 Anemia: Improved after transfusion, may be related to hematuria, will check retic and ferritin and iron panel Prophylaxis: SCDs have been ordered Disposition: After continued clinical improvement he can follow-up with Dr. Holden Thank you kindly, and please don't hesitate to call with any further questions. OBJECTIVE Vital Signs Vital Signs Date Time Temp Pulse Resp B/P (MAP) Pulse Ox O2 Delivery O2 Flow Rate FiO2 01/26/19 03:00 97.7 89 20 126/60 (82) 97 Room Air 97.7 01/25/19 23:00 98.1 111 20 168/80 (109) 97 Room Air 98.1 01/25/19 21:45 Room Air 01/25/19 21:13 Room Air 01/25/19 19:45 Room Air 01/25/19 19:00 98.1 109 20 159/88 (111) 99 Room Air 98.1 01/25/19 15:55 98.0 108 20 165/85 (111) 98.0 01/25/19 15:01 98.0 104 20 140/70 (93) 97 Room Air 98.0 01/25/19 15:01 98.0 104 20 140/70 (93) Room Air 98.0 01/25/19 14:42 18 96 01/25/19 14:12 18 Room Air 01/25/19 13:50 98.0 108 18 138/86 98.0 01/25/19 12:50 97.6 112 18 154/80 97.6 01/25/19 12:35 98.0 104 18 130/64 98.0 01/25/19 12:03 98.4 110 18 139/70 98.4 01/25/19 11:08 97.8 128 20 148/74 (98) 97 Room Air 97.8 01/25/19 11:00 97.9 128 20 147/74 97.9 01/25/19 10:03 97.8 129 20 164/84 97.8 01/25/19 09:44 97.9 135 22 153/81 97.9 01/25/19 09:30 97.9 135 20 153/81 (105) 96 Room Air 97.9 I & O Intake and Output 01/26/19 07:00 Intake Total 2100 ml Output Total 3050 ml Balance -950 ml Intake Oral 0 ml IV Total 450 ml Blood Product 700 ml Blood Product IV Normal Saline Flush 950 ml Output Urine Total 3050 ml # Bowel Movements 2 COMMENT Lab Laboratory Tests Test 01/25/19 12:08 01/25/19 16:22 01/25/19 21:20 01/25/19 22:00 Glucose (Fingerstick) 145 mg/dL (70-99) 124 mg/dL (70-99) 118 mg/dL (70-99) Hemoglobin 7.6 g/dL (13.0-17.5) Hematocrit 22.2 % (39.0-53.0) Sodium Level 142 mmol/L (136-145) Potassium Level 4.5 mmol/L (3.5-5.1) Chloride Level 108 mmol/L (98-107) Carbon Dioxide Level 24 mmol/L (21-32) Anion Gap 10 (6-14) Blood Urea Nitrogen 39 mg/dL (8-26) Creatinine 2.5 mg/dL (0.7-1.3) Estimated GFR (Cockcroft-Gault) 30.1 Glucose Level 129 mg/dL (70-99) Calcium Level 8.1 mg/dL (8.5-10.1) Test 01/26/19 08:31 Glucose (Fingerstick) 105 mg/dL (70-99) RAJ PONCE MD 5, 2019 09:17
[2019-01-26 10:15] LABS: RED BLOOD COUNT 2.32 x10^6/uL (4.30-5.70); RED CELL DISTRIBUTION WIDTH 15.2 % (11.5-14.5)
[2019-01-26 10:19] LABS: HEMOGLOBIN 6.9 g/dL (13.0-17.5)
[2019-01-26 10:20] LABS: HEMATOCRIT 20.1 % (39.0-53.0)
[2019-01-26 10:30] LABS: ALBUMIN 1.4 g/dL (3.4-5.0); ALBUMIN/GLOBULIN RATIO 0.5 (1.0-1.7); CALCIUM 6.3 mg/dL (8.5-10.1); CREATININE 1.7 mg/dL (0.7-1.3); GFR 46.9; POTASSIUM 3.6 mmol/L (3.5-5.1); TOTAL BILIRUBIN 0.9 mg/dL (0.2-1.0); TOTAL PROTEIN 4.1 g/dL (6.4-8.2)
--- NOTE | 2019-01-26 10:48 | NUR ---
Critical H/H, Dr. Herndon notified, see orders. See critical lab communication. No answer at patient's phone, daughter Renata notified patient will have another unit of packed red blood cells today r/t low blood count. She verb. understanding.
--- NOTE | 2019-01-26 12:16 | NUR ---
Patient refusing diet. SSI held per protocol.
[2019-01-26] MEDS: IV 1/2 NORMAL SALINE 1,000 ML IV SCH (12:19)
--- NOTE | 2019-01-26 12:28 | NUR ---
CODING CLERKS SUPERVISOR reports patient ate cream of wheat this morning, otherwise only a few bites of diet.
--- NOTE | 2019-01-26 12:29 | NUR ---
[facility] faxed updates to [place]. Will continue to follow.
--- NOTE | 2019-01-26 12:47 | PN ---
DATE: 01/26/2019 SUBJECTIVE: The patient is resting flat in bed, in no apparent distress. He is awake, alert, refused to allow the nursing staff to put eye drops in his eyes, but otherwise he does not seem to be in any respiratory distress. OBJECTIVE: GENERAL: He was pale, but no jaundice, cyanosis or thyromegaly. No jugular venous distension. No limb edema. VITAL SIGNS: His heart rate was 89, blood pressure was 126/60, temperature was 97.7, respiratory rate was 20, and his oxygen saturation was 97% on room air. HEAD, EYES, EARS, NOSE AND THROAT: Showed normocephalic, atraumatic. NECK: Supple. HEART: Normal first and second heart sounds with no gallop, rub or murmur. CHEST: Clear to auscultation. No crepitation or rhonchi. ABDOMEN: Scaphoid, soft, nontender. NEUROLOGIC: He is awake, alert, responds by nodding his head. Mouthed some words, mostly he has expressive aphasia. He has left-sided hemiparesis. GENITOURINARY: He has an indwelling Ceron catheter with the urine dark, but clearer than yesterday. His intake over the last 24 hours was 2100, output was 905. LABORATORY DATA: Today's labs are still pending at the time of this dictation. His serum sodium as of yesterday was 142, potassium 4.5, chloride 108, bicarbonate 24, anion gap of 10, BUN 39, creatinine 2.5, estimated GFR was 30 mL/min, his glucose was 129, calcium was 8.1. As of yesterday, his hemoglobin was 7.6, hematocrit 22.2. ASSESSMENT: 1. Left side hydronephrosis and hydroureter secondary to stone at ureterovesical junction. 2. Metastatic prostate cancer. 3. Bladder outlet obstruction with chronic Ceron catheter. 4. Hypertension. 5. Type 2 diabetes. 6. Hyperlipidemia. 7. Urinary tract infection with the growth of Escherichia coli and Escherichia coli bacteremia. 8. Acute blood loss anemia. PLAN: To continue IV meropenem. Continue IV fluid. Transfuse the patient. He did receive 2 units of packed RBCs. Today's labs are still pending at the time of this dictation. LUIS ISAACS MD DR: JENNIFER/charlotte JOB#: [id number] / [id number]
--- NOTE | 2019-01-26 13:02 | RAD ---
Single view of the abdomen 01/26/2019 INDICATION: Evaluate for stone. Left hydronephrosis. COMPARISON STUDY: CT of the abdomen and pelvis without contrast January 24, 2019 FINDINGS: The bowel gas pattern is nonobstructive. Vena tech IVC filter in place. Left hip hemiarthroplasty noted. Diffuse atherosclerotic vascular disease is noted. Calcification in the right upper quadrant reflects the cholelithiasis seen on prior CT scan. No convincing nephrolithiasis or ureteral stone is identified. Static calcifications are again noted. IMPRESSION: No convincing radiographic evidence of a renal or ureteral stone Electronically signed by: Hari Roman MD (01/26/2019 12:59 PM) [id number]
--- NOTE | 2019-01-26 13:27 | NUR ---
One unit packed red blood cells started left wrist #20 Insyte infusing without difficulty. See transfusion record.
[2019-01-26 13:57] LABS: NEUT % 83 % (31-73)
--- NOTE | 2019-01-26 14:11 | NUR ---
Patient unable swallow potassium pill in apple sauce or with thickened liquid. Kept moving around in mouth without swallowing. Will notify Dr. Herndon.
--- NOTE | 2019-01-26 16:25 | NUR ---
One unit packed red blood cells completed without difficulty. See VS recheck at 1710 one hour post transfusion per protocol.
[2019-01-26] MEDS: TAMSULOSIN 0.4 MG CAP.ER.24H. PO SCH (21:08)
[2019-01-26] MEDS: ATORVASTATIN CALCIUM 20 MG TABLET PO SCH (21:10)
[2019-01-27 03:00] VITALS: BP 137/70
[2019-01-27 05:06] LABS: ALBUMIN 2.1 g/dL (3.4-5.0); ALBUMIN/GLOBULIN RATIO 0.6 (1.0-1.7); CREATININE 1.8 mg/dL (0.7-1.3); GFR 43.9; POTASSIUM 4.2 mmol/L (3.5-5.1); TOTAL BILIRUBIN 1.4 mg/dL (0.2-1.0); TOTAL PROTEIN 5.5 g/dL (6.4-8.2)
[2019-01-27] MEDS: IV 1/2 NORMAL SALINE 1,000 ML IV SCH ×2 (05:31→15:24)
[2019-01-27 07:59] VITALS: BP 137/71
[2019-01-27] MEDS: INSULIN LISPRO 300 UNITS/3 ML INSULN.PEN. SQ SCH ×3 (08:00→17:00)
[2019-01-27] MEDS: ASPIRIN CHEWABLE 81 MG TABLET. PO SCH (08:00)
[2019-01-27] MEDS: MEROPENEM 1 GM in IV NORMAL SALINE 100ML 100 ML IV SCH ×2 (08:36→20:58)
[2019-01-27] MEDS: LACTOBACILLUS RHAMNOSUS GG 1 CAPSULE. PO SCH ×2 (08:37→20:58)
[2019-01-27] MEDS: TIMOLOL 0.25% OPHTH SOLUTION 5ML BOTTLE. OU SCH ×2 (08:37→20:58)
[2019-01-27] MEDS: CYANOCOBALAMIN (VITAMIN B-12) 1,000 MCG/ML VIAL IM SCH (08:37)
[2019-01-27] MEDS: POTASSIUM CHLORIDE 10 MEQ TABLET.ER. PO SCH ×3 (08:37→20:59)
--- NOTE | 2019-01-27 10:22 | PN ---
DATE: 01/27/2019 SUBJECTIVE: The patient is resting flat, sleeping comfortably, in no apparent distress. Nursing staff did not voice any concerns that he has an eventful night. PHYSICAL EXAMINATION: GENERAL: When I examined him, he looked pale, cachectic, but no jaundice, cyanosis, or thyromegaly. No jugular venous distension. No lower limb edema. VITAL SIGNS: His heart rate was 82, blood pressure was 137/71, temperature was 98.7, respiratory rate was 19 and oxygen saturation was 100%. HEAD, EYES, EARS, NOSE AND THROAT: Showed normocephalic, atraumatic. NECK: Supple. HEART: Showed normal first and second heart sounds. No gallop, rub or murmur. CHEST: Clear to auscultation. No crepitation or rhonchi. ABDOMEN: Scaphoid, soft, nontender. NEUROLOGIC: He was awake, alert, responding appropriately. All cranial nerves intact. He moves extremities without difficulty. He has left-sided hemiparesis. His intake over the last 24 hours was 2100, output was 900. LABORATORY DATA: His lab work as of yesterday showed white cell count of 10,000, hemoglobin 6.9, hematocrit 20, MCV was 86 and platelet count of 74,000. His chemistry this morning showed a serum sodium 140, potassium 4.2, chloride 105, bicarbonate 21, anion gap of 14, BUN 26, creatinine 1.8, estimated GFR was 44 mL per minute, his glucose was 107, calcium was 8. Total bilirubin slightly elevated. AST, ALT, alkaline phosphatase were normal. Total protein was 5.5, albumin was 2.1. ASSESSMENT: 1. Left side hydronephrosis and hydroureter, initially thought to be secondary to stones at ureterovesical junction; however, the postoperative diagnosis showed metastatic prostate cancer invading the bladder and trigone. He was found to have also bladder stones and clots that were removed. 2. Bladder outlet obstruction with chronic Ceron catheter. 3. Hypertension. 4. Type 2 diabetes. 5. Hyperlipidemia. 6. Urinary tract infection with growth of Escherichia coli and Escherichia coli bacteremia. 7. Acute blood loss anemia. 8. Acute on chronic kidney injury. His creatinine has improved from 2.5 to 1.8. PLAN: To obviously continue with the IV antibiotic. Continue to monitor his blood sugar and adjust his insulin as needed. Continue to monitor his H and H and transfuse him as needed. We did consult the palliative care team. Discussed with the family regarding how aggressive they want to be. Apparently, there is a meeting scheduled on Tuesday for further discussion. The patient might require percutaneous nephrostomy tube. LUIS ISAACS MD DR: JENNIFER/charlotte JOB#: [id number] / [id number]
[2019-01-27 11:15] VITALS: BP 148/77
[2019-01-27] MEDS: DEXTROSE 50% 25 GM / 50ML DISP.SYRIN. IV PRN (12:41)
--- NOTE | 2019-01-27 14:47 | PDOC ---
Infectious Disease Note Subjective Subjective No fevers Vital Sign Vital Signs Vital Signs Date Time Temp Pulse Resp B/P (MAP) Pulse Ox O2 Delivery O2 Flow Rate FiO2 01/27/19 11:15 98.2 94 18 148/77 (100) 91 Room Air 98.2 01/27/19 08:00 3.0 Physical Exam PHYSICAL EXAM GENERAL: Lying down, alert, confused, mitts LUNGS: Clear. HEART: S1, S2 regular. ABDOMEN: Soft : Ceron, hematuria EXTREMITIES: No edema, cyanosis. SKIN: warm to touch NEUROLOGIC: alert, confused Labs Lab Laboratory Tests Test 01/26/19 17:00 01/26/19 20:37 01/27/19 03:30 01/27/19 07:45 Glucose (Fingerstick) 106 mg/dL (70-99) 106 mg/dL (70-99) 111 mg/dL (70-99) Sodium Level 140 mmol/L (136-145) Potassium Level 4.2 mmol/L (3.5-5.1) Chloride Level 105 mmol/L (98-107) Carbon Dioxide Level 21 mmol/L (21-32) Anion Gap 14 (6-14) Blood Urea Nitrogen 26 mg/dL (8-26) Creatinine 1.8 mg/dL (0.7-1.3) Estimated GFR (Cockcroft-Gault) 43.9 BUN/Creatinine Ratio 14 (6-20) Glucose Level 107 mg/dL (70-99) Calcium Level 8.0 mg/dL (8.5-10.1) Total Bilirubin 1.4 mg/dL (0.2-1.0) Aspartate Amino Transf (AST/SGOT) 33 U/L (15-37) Alanine Aminotransferase (ALT/SGPT) 18 U/L (16-63) Alkaline Phosphatase 69 U/L (46-116) Total Protein 5.5 g/dL (6.4-8.2) Albumin 2.1 g/dL (3.4-5.0) Albumin/Globulin Ratio 0.6 (1.0-1.7) Test 01/27/19 11:55 01/27/19 12:48 Glucose (Fingerstick) 70 mg/dL (70-99) 138 mg/dL (70-99) Objective Assessment E coli bacteremia with sepsis (POA) E coli UTI (POA) Ureteral stone with obstruction Hematuria CVA Leukocytosis - better Renal insufficiency HTN Met prostate cancer Plan Plan of Care meropenem supportive care hydration Patient seen and examined. Chart reviewed in detail. Case discussed with PRINCIPAL CONSULTING ENGINEER. Agree with above plan. AGUSTIN MENDOZA APRN Jan 27, 2019 14:47 JEREMIAS SALMON MD Jan 27, 2019 21:15
--- NOTE | 2019-01-27 15:22 | PDOC ---
PROGRESS NOTE SUBJECTIVE: ROS: still unable to obtain HPI: No complaints, no acute events Tolentino has been draining well, no clots. Patient has been pulling at tolentino catheter, has mittens on. Problems: Problems Medical Problems: (1) Calculus of ureterovesical junction (UVJ) Status: Acute (2) Gram-negative bacteremia Status: Acute (3) Thrombocytopenia Status: Acute (4) Ureterovesical junction (UVJ) obstruction Status: Acute OBJECTIVE: Vital Signs: Vital Signs Date Time Temp Pulse Resp B/P (MAP) Pulse Ox O2 Delivery O2 Flow Rate FiO2 01/27/19 11:15 98.2 94 18 148/77 (100) 91 Room Air 98.2 01/27/19 08:00 Room Air 3.0 01/27/19 07:59 98.7 82 19 137/71 (93) 100 Room Air 98.7 01/27/19 03:00 98.3 80 18 137/70 (92) 96 Room Air 98.3 01/26/19 23:00 97.8 115 18 183/98 (126) 97 Room Air 97.8 01/26/19 20:00 Room Air 01/26/19 19:00 98.2 109 18 157/71 (99) 97 Room Air 98.2 01/26/19 17:09 97.3 103 20 149/70 97.3 01/26/19 15:50 97.5 118 20 176/80 97.5 I & O Intake and Output 01/27/19 07:00 Intake Total 1800 ml Output Total 3750 ml Balance -1950 ml Intake Oral 0 ml IV Total 1100 ml Blood Product IV Normal Saline Flush 700 ml Output Urine Total 3750 ml # Bowel Movements 2 PHYSICAL EXAM: Physical Exam: General: Pleasant, no acute distress, well groomed Eyes: conjunctiva anicteric, eyes full range of motion ENT: moist oral mucosa, normal dentition Neck: Trachea midline, no masses Respiratory: unlabored breathing, not using accessory muscles, no crackles or wheezes Cardiovascular: Regular rate and rhythm, no peripheral edema Abdomen: nontender, nondistended, no hepatosplenomegaly, no masses Skin: no rashes or skin lesions on visualized skin Psych: normal mood, affect. Alert and oriented x 3. LABS: Laboratory Tests Test 01/24/19 18:28 01/24/19 21:01 01/25/19 05:56 7/4/19 07:31 Glucose (Fingerstick) 160 mg/dL (70-99) 171 mg/dL (70-99) 161 mg/dL (70-99) White Blood Count 13.8 x10^3/uL (4.0-11.0) Red Blood Count 1.89 x10^6/uL (4.30-5.70) Hemoglobin 5.3 g/dL (13.0-17.5) Hematocrit 15.6 % (39.0-53.0) Mean Corpuscular Volume 83 fL (79-100) Mean Corpuscular Hemoglobin 28 pg (25-35) Mean Corpuscular Hemoglobin Concent 34 g/dL (31-37) Red Cell Distribution Width 16.7 % (11.5-14.5) Platelet Count 78 x10^3/uL (140-400) Neutrophils (%) (Auto) 83 % (31-73) Lymphocytes (%) (Auto) 11 % (24-48) Monocytes (%) (Auto) 6 % (0-9) Eosinophils (%) (Auto) 0 % (0-3) Basophils (%) (Auto) 0 % (0-3) Neutrophils # (Auto) 11.5 x10^3uL (1.8-7.7) Lymphocytes # (Auto) 1.5 x10^3/uL (1.0-4.8) Monocytes # (Auto) 0.8 x10^3/uL (0.0-1.1) Eosinophils # (Auto) 0.0 x10^3/uL (0.0-0.7) Basophils # (Auto) 0.1 x10^3/uL (0.0-0.2) Prothrombin Time 13.7 SEC (11.7-14.0) Prothromb Time International Ratio 1.1 (0.8-1.1) Activated Partial Thromboplast Time 28 SEC (24-38) Fibrinogen 451 mg/dL (200-440) Sodium Level 137 mmol/L (136-145) Potassium Level 4.8 mmol/L (3.5-5.1) Chloride Level 104 mmol/L (98-107) Carbon Dioxide Level 20 mmol/L (21-32) Anion Gap 13 (6-14) Blood Urea Nitrogen 38 mg/dL (8-26) Creatinine 2.3 mg/dL (0.7-1.3) Estimated GFR (Cockcroft-Gault) 33.1 BUN/Creatinine Ratio 17 (6-20) Glucose Level 175 mg/dL (70-99) Calcium Level 8.1 mg/dL (8.5-10.1) Total Bilirubin 1.1 mg/dL (0.2-1.0) Aspartate Amino Transf (AST/SGOT) 29 U/L (15-37) Alanine Aminotransferase (ALT/SGPT) 23 U/L (16-63) Alkaline Phosphatase 59 U/L (46-116) Total Protein 5.7 g/dL (6.4-8.2) Albumin 1.9 g/dL (3.4-5.0) Albumin/Globulin Ratio 0.5 (1.0-1.7) Test 01/25/19 12:08 01/25/19 16:22 01/25/19 21:20 01/25/19 22:00 Glucose (Fingerstick) 145 mg/dL (70-99) 124 mg/dL (70-99) 118 mg/dL (70-99) Hemoglobin 7.6 g/dL (13.0-17.5) Hematocrit 22.2 % (39.0-53.0) Sodium Level 142 mmol/L (136-145) Potassium Level 4.5 mmol/L (3.5-5.1) Chloride Level 108 mmol/L (98-107) Carbon Dioxide Level 24 mmol/L (21-32) Anion Gap 10 (6-14) Blood Urea Nitrogen 39 mg/dL (8-26) Creatinine 2.5 mg/dL (0.7-1.3) Estimated GFR (Cockcroft-Gault) 30.1 Glucose Level 129 mg/dL (70-99) Calcium Level 8.1 mg/dL (8.5-10.1) Test 01/26/19 08:31 01/26/19 09:05 01/26/19 11:57 01/26/19 17:00 Glucose (Fingerstick) 105 mg/dL (70-99) 165 mg/dL (70-99) 106 mg/dL (70-99) White Blood Count 10.0 x10^3/uL (4.0-11.0) Red Blood Count 2.29 x10^6/uL (4.30-5.70) Hemoglobin 6.9 g/dL (13.0-17.5) Hematocrit 20.1 % (39.0-53.0) Mean Corpuscular Volume 86 fL (79-100) Mean Corpuscular Hemoglobin 30 pg (25-35) Mean Corpuscular Hemoglobin Concent 34 g/dL (31-37) Red Cell Distribution Width 15.2 % (11.5-14.5) Platelet Count 74 x10^3/uL (140-400) Absolute Reticulocyte Count 0.015 x10^6/uL (0.020-0.120) Percent Reticulocyte Count 0.7 % (0.5-2.3) Immature Reticulocyte Fraction 0.13 (0.20-0.60) Sodium Level 148 mmol/L (136-145) Potassium Level 3.6 mmol/L (3.5-5.1) Chloride Level 112 mmol/L (98-107) Carbon Dioxide Level 20 mmol/L (21-32) Anion Gap 16 (6-14) Blood Urea Nitrogen 29 mg/dL (8-26) Creatinine 1.7 mg/dL (0.7-1.3) Estimated GFR (Cockcroft-Gault) 46.9 BUN/Creatinine Ratio 17 (6-20) Glucose Level 102 mg/dL (70-99) Calcium Level 6.3 mg/dL (8.5-10.1) Iron Level 139 ug/dL (65-175) Total Iron Binding Capacity 136 ug/dL (250-450) Iron Saturation % (15-34) Ferritin 447 ng/mL (26-388) Total Bilirubin 0.9 mg/dL (0.2-1.0) Aspartate Amino Transf (AST/SGOT) 22 U/L (15-37) Alanine Aminotransferase (ALT/SGPT) 14 U/L (16-63) Alkaline Phosphatase 49 U/L (46-116) Total Protein 4.1 g/dL (6.4-8.2) Albumin 1.4 g/dL (3.4-5.0) Albumin/Globulin Ratio 0.5 (1.0-1.7) Test 01/26/19 20:37 01/27/19 03:30 01/27/19 07:45 01/27/19 11:55 Glucose (Fingerstick) 106 mg/dL (70-99) 111 mg/dL (70-99) 70 mg/dL (70-99) Sodium Level 140 mmol/L (136-145) Potassium Level 4.2 mmol/L (3.5-5.1) Chloride Level 105 mmol/L (98-107) Carbon Dioxide Level 21 mmol/L (21-32) Anion Gap 14 (6-14) Blood Urea Nitrogen 26 mg/dL (8-26) Creatinine 1.8 mg/dL (0.7-1.3) Estimated GFR (Cockcroft-Gault) 43.9 BUN/Creatinine Ratio 14 (6-20) Glucose Level 107 mg/dL (70-99) Calcium Level 8.0 mg/dL (8.5-10.1) Total Bilirubin 1.4 mg/dL (0.2-1.0) Aspartate Amino Transf (AST/SGOT) 33 U/L (15-37) Alanine Aminotransferase (ALT/SGPT) 18 U/L (16-63) Alkaline Phosphatase 69 U/L (46-116) Total Protein 5.5 g/dL (6.4-8.2) Albumin 2.1 g/dL (3.4-5.0) Albumin/Globulin Ratio 0.6 (1.0-1.7) Test 01/27/19 12:48 Glucose (Fingerstick) 138 mg/dL (70-99) MEDICATIONS: Current Medications Medications (Trade) Dose Ordered Sig/Ramakrishna Start Time Stop Time Status Last Admin Dose Admin Acetaminophen (Tylenol) 650 mg PRN Q6HRS PRN 01/23/19 17:30 01/24/19 22:06 650 MG Aspirin (Children'S Aspirin) 81 mg [id number] 01/24/19 08:00 Atorvastatin Calcium (Lipitor) 20 mg QHS 01/23/19 21:00 01/26/19 21:10 20 MG Cyanocobalamin (Vitamin B-12) 1,000 mcg DAILY 01/26/19 09:00 01/26/19 08:47 1,000 MCG Dexamethasone Sodium Phosphate (Decadron) 4 mg STK-MED ONCE 01/24/19 10:24 01/24/19 10:25 DC Dextrose (Dextrose 50%-Water Syringe) 12.5 gm PRN Q15MIN PRN 01/23/19 17:30 01/27/19 12:41 12.5 GM Esmolol HCl (Brevibloc) 100 mg STK-MED ONCE 01/24/19 11:20 01/24/19 11:21 DC Fentanyl Citrate (Fentanyl 2ml Vial) 25 mcg PRN Q3HRS PRN 01/24/19 19:00 Hydromorphone HCl (Dilaudid) 0.5 mg PRN Q10MIN PRN 01/24/19 12:30 01/24/19 20:00 DC Insulin Human Lispro (HumaLOG) 0-5 UNITS TIDWMEALS 01/24/19 08:00 Iohexol (Omnipaque 300 Mg/ml) 50 ml STK-MED ONCE 01/24/19 09:05 01/24/19 10:05 DC 01/24/19 11:11 50 ML Ketorolac Tromethamine (Toradol For Or Only) 30 mg STK-MED ONCE 01/24/19 10:24 01/24/19 10:25 DC Lactobacillus Rhamnosus (Culturelle) 1 cap BID 01/23/19 21:00 01/26/19 21:10 1 CAP Lidocaine HCl (Lidocaine Pf 2% Vial) 5 ml STK-MED ONCE 01/24/19 10:24 01/24/19 10:25 DC Lidocaine HCl (Xylocaine-Mpf 1% 2ml Vial) 2 ml 1X PRN PRN 01/24/19 12:30 01/24/19 20:00 DC Linezolid (Zyvox) 600 mg BID 01/23/19 21:00 01/24/19 07:09 DC 01/23/19 21:23 600 MG Meropenem 1 gm/ Sodium Chloride 100 ml @ 200 mls/hr 1X ONCE 01/25/19 22:00 01/25/19 22:29 DC 01/25/19 22:03 200 MLS/HR Methylene Blue (Methylene Blue) 1 ml STK-MED ONCE 01/24/19 10:19 01/24/19 11:19 DC 01/24/19 11:20 1 ML Morphine Sulfate (Morphine Sulfate) 1 mg PRN Q10MIN PRN 01/24/19 12:30 01/24/19 20:00 DC Ondansetron HCl (Zofran) 4 mg PRN Q6HRS PRN 01/24/19 12:30 01/24/19 20:00 DC Phenylephrine HCl (PHENYLEPHRINE in 0.9% NACL PF) 1 mg STK-MED ONCE 01/24/19 11:02 01/24/19 11:03 DC Potassium Chloride (Klor-Con) 10 meq TID 01/23/19 21:00 01/26/19 21:08 10 MEQ Prochlorperazine Edisylate (Compazine) 5 mg PACU PRN PRN 01/24/19 12:30 01/24/19 20:00 DC 01/24/19 12:15 5 MG Propofol 20 ml @ As Directed STK-MED ONCE 01/24/19 10:24 01/24/19 10:25 DC Ringer's Solution 1,000 ml @ 75 mls/hr [id number] PRN 01/24/19 12:30 Sevoflurane (Ultane) 30 ml STK-MED ONCE 01/24/19 10:24 01/24/19 10:25 DC Sodium Chloride 250 ml @ 250 mls/hr 1X ONCE 01/25/19 08:00 01/25/19 08:59 DC 01/25/19 08:00 250 MLS/HR Tamsulosin HCl (Flomax) 0.4 mg QHS 01/23/19 21:00 01/26/19 21:08 0.4 MG Timolol Maleate (Timoptic 0.25% Oph) 1 drop BID 01/23/19 21:00 01/26/19 21:17 1 DROP ASSESSMENT & PLAN Hematuria: minimal, no clots, not enough blood to explain any further issues with anemia. Left hydronephrosis: creatinine improving. Hydronephrosis presumably due to advanced prostate cancer. Would lean toward not placing nephrostomy tube due to his poor prognosis and lack of symptoms / sepsis. Family meeting on level of care planned for 01/29/19 urinary retention: try voiding trial after renal function stabilizes. Problem List: Problems Medical Problems: (1) Calculus of ureterovesical junction (UVJ) Status: Acute (2) Gram-negative bacteremia Status: Acute (3) Thrombocytopenia Status: Acute (4) Ureterovesical junction (UVJ) obstruction Status: Acute JARETH AKINS MD Jan 27, 2019 15:22
[2019-01-27 15:54] VITALS: BP 160/75
[2019-01-27 18:56] LABS: HEMATOCRIT 25.4 % (39.0-53.0)
[2019-01-27 19:00] VITALS: BP 150/76
[2019-01-27] MEDS: TAMSULOSIN 0.4 MG CAP.ER.24H. PO SCH (20:59)
[2019-01-27] MEDS: ATORVASTATIN CALCIUM 20 MG TABLET PO SCH (20:59)
[2019-01-27 23:07] VITALS: BP 173/90
[2019-01-28 03:13] VITALS: BP 139/87
[2019-01-28] MEDS: IV 1/2 NORMAL SALINE 1,000 ML IV SCH ×2 (03:59→20:26)
[2019-01-28 07:00] VITALS: BP 182/102
[2019-01-28] MEDS: INSULIN LISPRO 300 UNITS/3 ML INSULN.PEN. SQ SCH ×3 (08:00→16:59)
[2019-01-28] MEDS: ASPIRIN CHEWABLE 81 MG TABLET. PO SCH (08:00)
--- NOTE | 2019-01-28 08:37 | PN ---
DATE: 01/28/2019 SUBJECTIVE: The patient is resting flat, sleeping comfortably, in no apparent distress. On questioning him, denied any complaint. The nursing staff did not voice any concern. His H and H yesterday afternoon were 9 and 25. Today's labs are still pending at the time of this dictation. PHYSICAL EXAMINATION: GENERAL: When I examined him, he was pale, cachectic, but no jaundice or cyanosis. No lymphadenopathy, no thyromegaly. No jugular venous distention. No limb edema. VITAL SIGNS: His heart rate was 107, blood pressure was 182/102, temperature was 98, respiratory rate 20, and oxygen saturation was 97% on room air. HEAD, EYES, EARS, NOSE AND THROAT: NECK: Supple. HEART: Showed normal first and second heart sounds. No gallop, rub or murmur. CHEST: Clear to auscultation. No crepitation or rhonchi. ABDOMEN: Distended, soft, nontender. No guarding or rigidity. No organomegaly. All hernial orifices intact. Bowel sounds normal. NEUROLOGIC: He was sleepy, but arousable. All cranial nerves are intact. He has expressive aphasia and left side hemiparesis. GENITOURINARY: He has an indwelling Ceron catheter with the urine currently looks grossly bloody. His intake over the last 24 hours was 1800, output was 3750. LABORATORY DATA: As of yesterday, his hemoglobin was 9, hematocrit 25.4, and his chemistry showed that his serum sodium 140, potassium 4.2, chloride 105, bicarbonate 21, anion gap of 14, BUN 26, creatinine 1.8, estimated GFR was 44 mL per minute, his glucose 107, calcium was 8. Total bilirubin slightly elevated. His total protein is 5.5, albumin 2.1. ASSESSMENT: 1. Left side hydronephrosis and hydroureter, initially thought to be secondary to stones at ureterovesical junction; however, the postoperative diagnosis showed metastatic prostate cancer invading the bladder and trigone. He was also found to have bladder stones and clots that were removed. 2. Bladder outlet obstruction, chronic Ceron catheter. 3. Hypertension. 4. Type 2 diabetes. 5. Hyperlipidemia. 6. Urinary tract infection with growth of Escherichia coli and Escherichia coli bacteremia. 7. Acute blood loss anemia. 8. Acute on chronic kidney injury, improving. His creatinine came down from 2.5 to 1.8. PLAN: To continue the IV fluid. Continue with IV antibiotic as recommended by the Infectious Disease specialist. Continue to monitor his H and H and transfuse him as needed. Apparently, he is scheduled for abdominal ultrasound this morning. LUIS ISAACS MD DR: JENNIFER/charlotte JOB#: [id number] / [id number]
[2019-01-28] MEDS: POTASSIUM CHLORIDE 10 MEQ TABLET.ER. PO SCH ×3 (09:00→20:25)
[2019-01-28] MEDS: LACTOBACILLUS RHAMNOSUS GG 1 CAPSULE. PO SCH ×2 (09:00→20:25)
[2019-01-28] MEDS: TIMOLOL 0.25% OPHTH SOLUTION 5ML BOTTLE. OU SCH ×2 (09:02→20:26)
[2019-01-28] MEDS: CYANOCOBALAMIN (VITAMIN B-12) 1,000 MCG/ML VIAL IM SCH (09:03)
[2019-01-28] MEDS: MEROPENEM 1 GM in IV NORMAL SALINE 100ML 100 ML IV SCH ×2 (09:03→20:26)
[2019-01-28 11:00] VITALS: BP 149/78
[2019-01-28 12:46] LABS: HEMATOCRIT 27.8 % (39.0-53.0); HEMOGLOBIN 9.6 g/dL (13.0-17.5); RED BLOOD COUNT 3.2 x10^6/uL (4.30-5.70); RED CELL DISTRIBUTION WIDTH 14.6 % (11.5-14.5); WHITE BLOOD COUNT 10.9 x10^3/uL (4.0-11.0)
[2019-01-28 12:55] LABS: CALCIUM 8.3 mg/dL (8.5-10.1); CREATININE 1.8 mg/dL (0.7-1.3); GFR 43.9; POTASSIUM 3.5 mmol/L (3.5-5.1)
--- NOTE | 2019-01-28 14:28 | PDOC ---
Infectious Disease Note Subjective Subjective Quiet No fevers Vital Sign Vital Signs Vital Signs Date Time Temp Pulse Resp B/P (MAP) Pulse Ox O2 Delivery O2 Flow Rate FiO2 01/28/19 11:00 97.9 96 20 149/78 (101) 98 Room Air 97.9 01/27/19 08:00 3.0 Physical Exam PHYSICAL EXAM GENERAL: Lying down, alert, confused, mitts, calm, coop HENT: Oral cavity clear LUNGS: Clear. HEART: S1, S2 ABDOMEN: Soft, nontender, BC active : Ceron, hematuria EXTREMITIES: No edema, cyanosis. SKIN: warm to touch NEUROLOGIC: alert, confused Labs Lab Laboratory Tests Test 01/27/19 16:45 01/27/19 18:10 01/27/19 20:35 01/28/19 07:18 Glucose (Fingerstick) 137 mg/dL (70-99) 117 mg/dL (70-99) 109 mg/dL (70-99) Hemoglobin 9.0 g/dL (13.0-17.5) Hematocrit 25.4 % (39.0-53.0) Test 01/28/19 11:35 01/28/19 11:50 Glucose (Fingerstick) 105 mg/dL (70-99) White Blood Count 10.9 x10^3/uL (4.0-11.0) Red Blood Count 3.20 x10^6/uL (4.30-5.70) Hemoglobin 9.6 g/dL (13.0-17.5) Hematocrit 27.8 % (39.0-53.0) Mean Corpuscular Volume 87 fL (79-100) Mean Corpuscular Hemoglobin 30 pg (25-35) Mean Corpuscular Hemoglobin Concent 35 g/dL (31-37) Red Cell Distribution Width 14.6 % (11.5-14.5) Platelet Count 130 x10^3/uL (140-400) Sodium Level 141 mmol/L (136-145) Potassium Level 3.5 mmol/L (3.5-5.1) Chloride Level 104 mmol/L (98-107) Carbon Dioxide Level 26 mmol/L (21-32) Anion Gap 11 (6-14) Blood Urea Nitrogen 16 mg/dL (8-26) Creatinine 1.8 mg/dL (0.7-1.3) Estimated GFR (Cockcroft-Gault) 43.9 Glucose Level 110 mg/dL (70-99) Calcium Level 8.3 mg/dL (8.5-10.1) Objective Assessment E coli bacteremia with sepsis ([facility] 01/17) E coli UTI ([facility] 01/17) Left hydronephrosis, presumably due to advanced prostate cancer invading the bladder and trigone. s/p cysto, bladder stone removal 01/24 Hematuria CVA Leukocytosis - better Renal insufficiency HTN Met prostate cancer Plan Plan of Care Continue meropenem Hydration Family meeting on Tuesday Patient seen and examined. Chart reviewed in detail. Case discussed with WEB PROJECT MANAGER. Agree with above plan. AGUSTIN MENDOZA APRN Jan 28, 2019 14:28 JEREMIAS SALMON MD Jan 28, 2019 21:46
[2019-01-28 15:00] VITALS: BP 156/72
--- NOTE | 2019-01-28 17:20 | RAD ---
RENAL COMPLETE BILATERAL: 01/28/2019 8:30 AM Indication: 83 years old Male. Hydronephrosis. Comparison: None. FINDINGS: Sonographic evaluation of the kidneys is performed. Grayscale and color Doppler Right kidney: Size: 9.4 x 3.2 x 3.8 cm. Collecting System: Moderate hydronephrosis. No renal calculi detected. Parenchyma: Normal echotexture and morphology. No focal contour deforming renal mass. Left kidney: Size: 9.4 x 3.7 x 5.7cm. Collecting System: Severe hydronephrosis. No renal calculi detected. Parenchyma: Normal echotexture and morphology. No focal contour deforming renal mass. Urinary bladder: Ceron catheter with large clot in the urinary bladder. IMPRESSION: Severe left and moderate right hydronephrosis, progressed since the prior examination. There is new clot within the urinary bladder which is decompressed from Ceron catheter. Definite calculus is not visualized. Electronically signed by: Shari Duran MD (01/28/2019 5:17 PM) [id number]
[2019-01-28 19:00] VITALS: BP 137/70
[2019-01-28] MEDS: TAMSULOSIN 0.4 MG CAP.ER.24H. PO SCH (20:25)
[2019-01-28] MEDS: ATORVASTATIN CALCIUM 20 MG TABLET PO SCH (20:25)
[2019-01-28 23:00] VITALS: BP 140/58
[2019-01-29 03:00] VITALS: BP 178/94
[2019-01-29 07:00] VITALS: BP 129/84
[2019-01-29] MEDS: INSULIN LISPRO 300 UNITS/3 ML INSULN.PEN. SQ SCH ×3 (08:00→17:00)
[2019-01-29 08:34] LABS: CALCIUM 8.4 mg/dL (8.5-10.1); CREATININE 1.7 mg/dL (0.7-1.3); GFR 46.9; POTASSIUM 3.6 mmol/L (3.5-5.1)
[2019-01-29 08:44] LABS: HEMATOCRIT 27.2 % (39.0-53.0); HEMOGLOBIN 9.4 g/dL (13.0-17.5); RED BLOOD COUNT 3.11 x10^6/uL (4.30-5.70); RED CELL DISTRIBUTION WIDTH 14.3 % (11.5-14.5); WHITE BLOOD COUNT 10.8 x10^3/uL (4.0-11.0)
--- NOTE | 2019-01-29 08:48 | PDOC ---
PROGRESS NOTE CHIEF COMPLAINT: pt voices no complaints; somnolent SUBJECTIVE: ROS: ROS: RESPIRATORY: Shortness of breath denies. Cough denies. UROLOGY: Denies blood in urine. Denies difficulty urinating HPI: Duration: [] Quality: [] Severity: [] Site/Location: [] Problems: Problems Medical Problems: (1) Acute blood loss anemia Status: Acute (2) Calculus of ureterovesical junction (UVJ) Status: Acute (3) Gram-negative bacteremia Status: Acute (4) Thrombocytopenia Status: Acute (5) Ureterovesical junction (UVJ) obstruction Status: Acute OBJECTIVE: Vital Signs: Vital Signs Date Time Temp Pulse Resp B/P (MAP) Pulse Ox O2 Delivery O2 Flow Rate FiO2 01/29/19 07:00 97.9 100 18 129/84 (99) 99 Room Air 97.9 01/29/19 03:00 90 16 178/94 (122) 100 Room Air 01/28/19 23:00 98.6 92 16 140/58 (85) 97 Room Air 98.6 01/28/19 19:40 Room Air 01/28/19 19:00 98.4 116 16 137/70 (92) 97 Room Air 98.4 01/28/19 15:00 97.9 92 18 156/72 (100) 97 Room Air 97.9 01/28/19 11:00 97.9 96 20 149/78 (101) 98 Room Air 97.9 I & O Intake and Output 01/29/19 06:59 Intake Total 200 ml Output Total 1600 ml Balance -1400 ml Intake Oral 200 ml Output Urine Total 1600 ml # Bowel Movements 1 PHYSICAL EXAM: Physical Exam: General: Pleasant, no acute distress LABS: Laboratory Tests Test 01/26/19 09:05 01/26/19 11:57 01/26/19 17:00 01/26/19 20:37 White Blood Count 10.0 x10^3/uL (4.0-11.0) Red Blood Count 2.29 x10^6/uL (4.30-5.70) Hemoglobin 6.9 g/dL (13.0-17.5) Hematocrit 20.1 % (39.0-53.0) Mean Corpuscular Volume 86 fL (79-100) Mean Corpuscular Hemoglobin 30 pg (25-35) Mean Corpuscular Hemoglobin Concent 34 g/dL (31-37) Red Cell Distribution Width 15.2 % (11.5-14.5) Platelet Count 74 x10^3/uL (140-400) Absolute Reticulocyte Count 0.015 x10^6/uL (0.020-0.120) Percent Reticulocyte Count 0.7 % (0.5-2.3) Immature Reticulocyte Fraction 0.13 (0.20-0.60) Sodium Level 148 mmol/L (136-145) Potassium Level 3.6 mmol/L (3.5-5.1) Chloride Level 112 mmol/L (98-107) Carbon Dioxide Level 20 mmol/L (21-32) Anion Gap 16 (6-14) Blood Urea Nitrogen 29 mg/dL (8-26) Creatinine 1.7 mg/dL (0.7-1.3) Estimated GFR (Cockcroft-Gault) 46.9 BUN/Creatinine Ratio 17 (6-20) Glucose Level 102 mg/dL (70-99) Calcium Level 6.3 mg/dL (8.5-10.1) Iron Level 139 ug/dL (65-175) Total Iron Binding Capacity 136 ug/dL (250-450) Iron Saturation % (15-34) Ferritin 447 ng/mL (26-388) Total Bilirubin 0.9 mg/dL (0.2-1.0) Aspartate Amino Transf (AST/SGOT) 22 U/L (15-37) Alanine Aminotransferase (ALT/SGPT) 14 U/L (16-63) Alkaline Phosphatase 49 U/L (46-116) Total Protein 4.1 g/dL (6.4-8.2) Albumin 1.4 g/dL (3.4-5.0) Albumin/Globulin Ratio 0.5 (1.0-1.7) Glucose (Fingerstick) 165 mg/dL (70-99) 106 mg/dL (70-99) 106 mg/dL (70-99) Test 01/27/19 03:30 01/27/19 07:45 01/27/19 11:55 01/27/19 12:48 Sodium Level 140 mmol/L (136-145) Potassium Level 4.2 mmol/L (3.5-5.1) Chloride Level 105 mmol/L (98-107) Carbon Dioxide Level 21 mmol/L (21-32) Anion Gap 14 (6-14) Blood Urea Nitrogen 26 mg/dL (8-26) Creatinine 1.8 mg/dL (0.7-1.3) Estimated GFR (Cockcroft-Gault) 43.9 BUN/Creatinine Ratio 14 (6-20) Glucose Level 107 mg/dL (70-99) Calcium Level 8.0 mg/dL (8.5-10.1) Total Bilirubin 1.4 mg/dL (0.2-1.0) Aspartate Amino Transf (AST/SGOT) 33 U/L (15-37) Alanine Aminotransferase (ALT/SGPT) 18 U/L (16-63) Alkaline Phosphatase 69 U/L (46-116) Total Protein 5.5 g/dL (6.4-8.2) Albumin 2.1 g/dL (3.4-5.0) Albumin/Globulin Ratio 0.6 (1.0-1.7) Glucose (Fingerstick) 111 mg/dL (70-99) 70 mg/dL (70-99) 138 mg/dL (70-99) Test 01/27/19 16:45 01/27/19 18:10 01/27/19 20:35 01/28/19 07:18 Glucose (Fingerstick) 137 mg/dL (70-99) 117 mg/dL (70-99) 109 mg/dL (70-99) Hemoglobin 9.0 g/dL (13.0-17.5) Hematocrit 25.4 % (39.0-53.0) Test 01/28/19 11:35 01/28/19 11:50 01/28/19 16:55 01/28/19 20:39 Glucose (Fingerstick) 105 mg/dL (70-99) 91 mg/dL (70-99) 113 mg/dL (70-99) White Blood Count 10.9 x10^3/uL (4.0-11.0) Red Blood Count 3.20 x10^6/uL (4.30-5.70) Hemoglobin 9.6 g/dL (13.0-17.5) Hematocrit 27.8 % (39.0-53.0) Mean Corpuscular Volume 87 fL (79-100) Mean Corpuscular Hemoglobin 30 pg (25-35) Mean Corpuscular Hemoglobin Concent 35 g/dL (31-37) Red Cell Distribution Width 14.6 % (11.5-14.5) Platelet Count 130 x10^3/uL (140-400) Sodium Level 141 mmol/L (136-145) Potassium Level 3.5 mmol/L (3.5-5.1) Chloride Level 104 mmol/L (98-107) Carbon Dioxide Level 26 mmol/L (21-32) Anion Gap 11 (6-14) Blood Urea Nitrogen 16 mg/dL (8-26) Creatinine 1.8 mg/dL (0.7-1.3) Estimated GFR (Cockcroft-Gault) 43.9 Glucose Level 110 mg/dL (70-99) Calcium Level 8.3 mg/dL (8.5-10.1) Test 01/29/19 07:22 Sodium Level 139 mmol/L (136-145) Potassium Level 3.6 mmol/L (3.5-5.1) Chloride Level 102 mmol/L (98-107) Carbon Dioxide Level 26 mmol/L (21-32) Anion Gap 11 (6-14) Blood Urea Nitrogen 12 mg/dL (8-26) Creatinine 1.7 mg/dL (0.7-1.3) Estimated GFR (Cockcroft-Gault) 46.9 Glucose Level 103 mg/dL (70-99) Calcium Level 8.4 mg/dL (8.5-10.1) MEDICATIONS: Current Medications Medications (Trade) Dose Ordered Sig/Ramakrishna Start Time Stop Time Status Last Admin Dose Admin Acetaminophen (Tylenol) 650 mg PRN Q6HRS PRN 01/23/19 17:30 01/24/19 22:06 650 MG Aspirin (Children'S Aspirin) 81 mg [id number] 01/24/19 08:00 Atorvastatin Calcium (Lipitor) 20 mg QHS 01/23/19 21:00 01/28/19 20:25 20 MG Cyanocobalamin (Vitamin B-12) 1,000 mcg DAILY 01/26/19 09:00 01/28/19 09:03 1,000 MCG Dexamethasone Sodium Phosphate (Decadron) 4 mg STK-MED ONCE 01/24/19 10:24 01/24/19 10:25 DC Dextrose (Dextrose 50%-Water Syringe) 12.5 gm PRN Q15MIN PRN 01/23/19 17:30 01/27/19 12:41 12.5 GM Esmolol HCl (Brevibloc) 100 mg STK-MED ONCE 01/24/19 11:20 01/24/19 11:21 DC Fentanyl Citrate (Fentanyl 2ml Vial) 25 mcg PRN Q3HRS PRN 01/24/19 19:00 Hydromorphone HCl (Dilaudid) 0.5 mg PRN Q10MIN PRN 01/24/19 12:30 01/24/19 20:00 DC Insulin Human Lispro (HumaLOG) 0-5 UNITS TIDWMEALS 01/24/19 08:00 Iohexol (Omnipaque 300 Mg/ml) 50 ml STK-MED ONCE 01/24/19 09:05 01/24/19 10:05 DC 01/24/19 11:11 50 ML Ketorolac Tromethamine (Toradol For Or Only) 30 mg STK-MED ONCE 01/24/19 10:24 01/24/19 10:25 DC Lactobacillus Rhamnosus (Culturelle) 1 cap BID 01/23/19 21:00 01/28/19 20:25 1 CAP Lidocaine HCl (Lidocaine Pf 2% Vial) 5 ml STK-MED ONCE 01/24/19 10:24 01/24/19 10:25 DC Lidocaine HCl (Xylocaine-Mpf 1% 2ml Vial) 2 ml 1X PRN PRN 01/24/19 12:30 01/24/19 20:00 DC Linezolid (Zyvox) 600 mg BID 01/23/19 21:00 01/24/19 07:09 DC 01/23/19 21:23 600 MG Meropenem 1 gm/ Sodium Chloride 100 ml @ 200 mls/hr 1X ONCE 01/25/19 22:00 01/25/19 22:29 DC 01/25/19 22:03 200 MLS/HR Methylene Blue (Methylene Blue) 1 ml STK-MED ONCE 01/24/19 10:19 01/24/19 11:19 DC 01/24/19 11:20 1 ML Morphine Sulfate (Morphine Sulfate) 1 mg PRN Q10MIN PRN 01/24/19 12:30 01/24/19 20:00 DC Ondansetron HCl (Zofran) 4 mg PRN Q6HRS PRN 01/24/19 12:30 01/24/19 20:00 DC Phenylephrine HCl (PHENYLEPHRINE in 0.9% NACL PF) 1 mg STK-MED ONCE 01/24/19 11:02 01/24/19 11:03 DC Potassium Chloride (Klor-Con) 10 meq TID 01/23/19 21:00 01/28/19 20:25 10 MEQ Prochlorperazine Edisylate (Compazine) 5 mg PACU PRN PRN 01/24/19 12:30 01/24/19 20:00 DC 01/24/19 12:15 5 MG Propofol 20 ml @ As Directed STK-MED ONCE 01/24/19 10:24 01/24/19 10:25 DC Ringer's Solution 1,000 ml @ 75 mls/hr [id number] PRN 01/24/19 12:30 Sevoflurane (Ultane) 30 ml STK-MED ONCE 01/24/19 10:24 01/24/19 10:25 DC Sodium Chloride 250 ml @ 250 mls/hr 1X ONCE 01/25/19 08:00 01/25/19 08:59 DC 01/25/19 08:00 250 MLS/HR Tamsulosin HCl (Flomax) 0.4 mg QHS 01/23/19 21:00 01/28/19 20:25 0.4 MG Timolol Maleate (Timoptic 0.25% Oph) 1 drop BID 01/23/19 21:00 01/28/19 20:26 1 DROP ASSESSMENT & PLAN Sepsis resolving; but pt still has obstructed L kidney; I would still recomment that he have a Perc Nephrostomy of L kidney with placement of antegrade stent to prevent further septic episodes. Problem List: Problems Medical Problems: (1) Acute blood loss anemia Status: Acute (2) Calculus of ureterovesical junction (UVJ) Status: Acute (3) Gram-negative bacteremia Status: Acute (4) Thrombocytopenia Status: Acute (5) Ureterovesical junction (UVJ) obstruction Status: Acute ONEIL SNELL MD Jan 29, 2019 08:48
[2019-01-29] MEDS: MEROPENEM 1 GM in IV NORMAL SALINE 100ML 100 ML IV SCH ×2 (09:05→21:13)
[2019-01-29] MEDS: ASPIRIN CHEWABLE 81 MG TABLET. PO SCH (09:06)
[2019-01-29] MEDS: POTASSIUM CHLORIDE 10 MEQ TABLET.ER. PO SCH ×3 (09:06→21:14)
[2019-01-29] MEDS: LACTOBACILLUS RHAMNOSUS GG 1 CAPSULE. PO SCH ×2 (09:06→21:14)
[2019-01-29] MEDS: CYANOCOBALAMIN (VITAMIN B-12) 1,000 MCG/ML VIAL IM SCH (09:06)
[2019-01-29] MEDS: TIMOLOL 0.25% OPHTH SOLUTION 5ML BOTTLE. OU SCH ×2 (09:07→21:14)
--- NOTE | 2019-01-29 10:18 | PN ---
DATE: 01/29/2019 SUBJECTIVE: The patient is resting, slightly propped up in bed, sleeping comfortably, in no apparent distress. Nursing staff did not voice any concern and stated that he had uneventful night. He has had an abdominal ultrasound done yesterday, which showed that he has severe left and moderate right hydronephrosis that has progressed since the prior examination. There is new clot within the urinary bladder, which is decompressed from Ceron catheter, definite calculus is not visualized. He apparently was seen by Dr. Bruner this morning, who recommended percutaneous nephrostomy tube placement. OBJECTIVE: GENERAL: When I examined him, he looked pale, cachectic; but not jaundiced or cyanosis. No lymphadenopathy. No thyromegaly. No jugular venous distention. No limb edema. VITAL SIGNS: His heart rate was 100, blood pressure was 129/84, temperature was 97.9, respiratory rate was 18 and oxygen saturation was 99%. HEAD, EYES, EARS, NOSE AND THROAT: Showed normocephalic, atraumatic. NECK: Supple. HEART: Showed normal first and second heart sounds with no gallop, rub or murmur. CHEST: Clear to auscultation. No crepitation or rhonchi. ABDOMEN: Distended, soft, nontender. No guarding or rigidity. No organomegaly. All hernial orifices are intact. Bowel sounds normal. NEUROLOGIC: He was sleepy, but arousable. All cranial nerves are intact. He has left-sided hemiplegia. His intake was 1100, output was 2550. LABORATORY DATA: His lab work this morning showed a white cell count of 10,800, hemoglobin 9.4, hematocrit 27, MCV 88 and platelet count of 197,000. Serum sodium was 139, potassium 3.6, chloride 102, bicarbonate 26, anion gap of 11, BUN 12, creatinine 1.7, estimated GFR was 47 mL per minute, his glucose was 103, calcium was 8.4 and prothrombin time was 13.7, INR 1.1, aPTT was 28 and fibrinogen was 451,000. ASSESSMENT: 1. Left-sided hydronephrosis and hydroureter that has progressed. 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 He was also found to have bladder stones and clots that were removed. 2. Bladder outlet obstruction, for which he has chronic Ceron catheter. 3. Hypertension. 4. Type 2 diabetes. 5. Hyperlipidemia. 6. Urinary tract infection with Escherichia coli and Escherichia coli bacteremia. 7. Acute blood loss anemia with stable H and H. 8. Acute on chronic kidney injury, improving. His creatinine came down from 2.5 to 1.7. PLAN: Plan is to continue with the IV antibiotic, continue with IV fluid. His ultrasound showed progressive worsening of his left-sided hydronephrosis and Dr. Bruner recommended percutaneous nephrostomy tube placement. LUIS ISAACS MD DR: JENNIFER/charlotte JOB#: [id number] / [id number]
[2019-01-29 11:00] VITALS: BP_SYST 141; BP_SYST 152; BP_DIAS 73; BP_DIAS 77
--- NOTE | 2019-01-29 11:26 | PDOC ---
Infectious Disease Note Subjective Subjective Confused No fevers + BM Vital Sign Vital Signs Vital Signs Date Time Temp Pulse Resp B/P (MAP) Pulse Ox O2 Delivery O2 Flow Rate FiO2 01/29/19 11:00 97.7 84 18 152/77 (102) 99 Room Air 97.7 Physical Exam PHYSICAL EXAM GENERAL: Lying down, alert, confused, mitts, calm, coop HENT: Oral cavity clear LUNGS: Clear. HEART: S1, S2 ABDOMEN: Soft, nontender, BC active : Ceron, gross hematuria EXTREMITIES: No edema, cyanosis. SKIN: warm to touch NEUROLOGIC: alert, confused PIV Labs Lab Laboratory Tests Test 01/28/19 11:35 01/28/19 11:50 01/28/19 16:55 01/28/19 20:39 Glucose (Fingerstick) 105 mg/dL (70-99) 91 mg/dL (70-99) 113 mg/dL (70-99) White Blood Count 10.9 x10^3/uL (4.0-11.0) Red Blood Count 3.20 x10^6/uL (4.30-5.70) Hemoglobin 9.6 g/dL (13.0-17.5) Hematocrit 27.8 % (39.0-53.0) Mean Corpuscular Volume 87 fL (79-100) Mean Corpuscular Hemoglobin 30 pg (25-35) Mean Corpuscular Hemoglobin Concent 35 g/dL (31-37) Red Cell Distribution Width 14.6 % (11.5-14.5) Platelet Count 130 x10^3/uL (140-400) Sodium Level 141 mmol/L (136-145) Potassium Level 3.5 mmol/L (3.5-5.1) Chloride Level 104 mmol/L (98-107) Carbon Dioxide Level 26 mmol/L (21-32) Anion Gap 11 (6-14) Blood Urea Nitrogen 16 mg/dL (8-26) Creatinine 1.8 mg/dL (0.7-1.3) Estimated GFR (Cockcroft-Gault) 43.9 Glucose Level 110 mg/dL (70-99) Calcium Level 8.3 mg/dL (8.5-10.1) Test 01/29/19 07:22 01/29/19 07:27 01/29/19 07:32 Sodium Level 139 mmol/L (136-145) Potassium Level 3.6 mmol/L (3.5-5.1) Chloride Level 102 mmol/L (98-107) Carbon Dioxide Level 26 mmol/L (21-32) Anion Gap 11 (6-14) Blood Urea Nitrogen 12 mg/dL (8-26) Creatinine 1.7 mg/dL (0.7-1.3) Estimated GFR (Cockcroft-Gault) 46.9 Glucose Level 103 mg/dL (70-99) Calcium Level 8.4 mg/dL (8.5-10.1) White Blood Count 10.8 x10^3/uL (4.0-11.0) Red Blood Count 3.11 x10^6/uL (4.30-5.70) Hemoglobin 9.4 g/dL (13.0-17.5) Hematocrit 27.2 % (39.0-53.0) Mean Corpuscular Volume 88 fL (79-100) Mean Corpuscular Hemoglobin 30 pg (25-35) Mean Corpuscular Hemoglobin Concent 35 g/dL (31-37) Red Cell Distribution Width 14.3 % (11.5-14.5) Platelet Count 197 x10^3/uL (140-400) Glucose (Fingerstick) 91 mg/dL (70-99) Objective Assessment E coli bacteremia with sepsis ([facility] 01/17) E coli UTI ([facility] 01/17) Left hydronephrosis, presumably due to advanced prostate cancer invading the bladder and trigone. s/p cysto, bladder stone removal 01/24 Hematuria CVA Leukocytosis - better Renal insufficiency HTN Met prostate cancer Plan Plan of Care Continue meropenem Probiotics Hydration f/u am labs Nephrostomy tube L kidney with and stent recommended per urology D/w nursing Attending Co-Sign Attending Co-Sign The patient was seen and interviewed as well as examined at the bedside. The chart was reviewed. The case was discussed. Agree with the plan of care. AGUSTIN MENDOZA APRN Jan 29, 2019 11:26 DONTE COHN MD Jan 29, 2019 18:58
[2019-01-29 15:00] VITALS: BP 175/97
--- NOTE | 2019-01-29 15:42 | PDOC ---
PROGRESS NOTES Subjective Subjective HPI - f/u of prostate cancer: ROS - no fever Objective Objective Vital Signs Date Time Temp Pulse Resp B/P (MAP) Pulse Ox O2 Delivery O2 Flow Rate FiO2 01/29/19 11:00 97.7 100 17 141/73 (95) 100 Room Air 97.7 01/27/19 08:00 3.0 Intake and Output 01/29/19 06:59 Intake Total 200 ml Output Total 1600 ml Balance -1400 ml Intake Oral 200 ml Output Urine Total 1600 ml # Bowel Movements 1 Assessment Assessment Problems Medical Problems: (1) Acute blood loss anemia Status: Acute (2) Calculus of ureterovesical junction (UVJ) Status: Acute (3) Gram-negative bacteremia Status: Acute (4) Thrombocytopenia Status: Acute (5) Ureterovesical junction (UVJ) obstruction Status: Acute Assessment and Plan: He is an 83-year-old man with history of metastatic prostate cancer that appears to be progressing with rising PSA recently of 63, admitted with bacteremia and UTI and ureteral stone and being treated for infection and followed by urology. Bladder outlet obstruction with recent stone: Per urology Infection: On antibiotics, ID has been consulted Metastatic prostate cancer: Appears to be progressing, has been on androgen deprivation therapy, with his poor performance status, I would suggest support care only. I will consult radiation for palliative radiation if possible. s/p cystoscopy 01/24/19: shaggy necrotic prostate tissue w invasion into BN, trigone. Thrombocytopenia: Resolved. Comment Review of Relevant I have reviewed the following items yael (where applicable) has been applied. Labs Laboratory Tests Test 01/27/19 16:45 01/27/19 18:10 01/27/19 20:35 01/28/19 07:18 Glucose (Fingerstick) 137 mg/dL (70-99) 117 mg/dL (70-99) 109 mg/dL (70-99) Hemoglobin 9.0 g/dL (13.0-17.5) Hematocrit 25.4 % (39.0-53.0) Test 01/28/19 11:35 01/28/19 11:50 01/28/19 16:55 01/28/19 20:39 Glucose (Fingerstick) 105 mg/dL (70-99) 91 mg/dL (70-99) 113 mg/dL (70-99) White Blood Count 10.9 x10^3/uL (4.0-11.0) Red Blood Count 3.20 x10^6/uL (4.30-5.70) Hemoglobin 9.6 g/dL (13.0-17.5) Hematocrit 27.8 % (39.0-53.0) Mean Corpuscular Volume 87 fL (79-100) Mean Corpuscular Hemoglobin 30 pg (25-35) Mean Corpuscular Hemoglobin Concent 35 g/dL (31-37) Red Cell Distribution Width 14.6 % (11.5-14.5) Platelet Count 130 x10^3/uL (140-400) Sodium Level 141 mmol/L (136-145) Potassium Level 3.5 mmol/L (3.5-5.1) Chloride Level 104 mmol/L (98-107) Carbon Dioxide Level 26 mmol/L (21-32) Anion Gap 11 (6-14) Blood Urea Nitrogen 16 mg/dL (8-26) Creatinine 1.8 mg/dL (0.7-1.3) Estimated GFR (Cockcroft-Gault) 43.9 Glucose Level 110 mg/dL (70-99) Calcium Level 8.3 mg/dL (8.5-10.1) Test 01/29/19 07:22 01/29/19 07:27 01/29/19 07:32 01/29/19 11:50 Sodium Level 139 mmol/L (136-145) Potassium Level 3.6 mmol/L (3.5-5.1) Chloride Level 102 mmol/L (98-107) Carbon Dioxide Level 26 mmol/L (21-32) Anion Gap 11 (6-14) Blood Urea Nitrogen 12 mg/dL (8-26) Creatinine 1.7 mg/dL (0.7-1.3) Estimated GFR (Cockcroft-Gault) 46.9 Glucose Level 103 mg/dL (70-99) Calcium Level 8.4 mg/dL (8.5-10.1) White Blood Count 10.8 x10^3/uL (4.0-11.0) Red Blood Count 3.11 x10^6/uL (4.30-5.70) Hemoglobin 9.4 g/dL (13.0-17.5) Hematocrit 27.2 % (39.0-53.0) Mean Corpuscular Volume 88 fL (79-100) Mean Corpuscular Hemoglobin 30 pg (25-35) Mean Corpuscular Hemoglobin Concent 35 g/dL (31-37) Red Cell Distribution Width 14.3 % (11.5-14.5) Platelet Count 197 x10^3/uL (140-400) Glucose (Fingerstick) 91 mg/dL (70-99) 111 mg/dL (70-99) Laboratory Tests Test 01/28/19 16:55 01/28/19 20:39 01/29/19 07:22 01/29/19 07:27 Glucose (Fingerstick) 91 mg/dL (70-99) 113 mg/dL (70-99) Sodium Level 139 mmol/L (136-145) Potassium Level 3.6 mmol/L (3.5-5.1) Chloride Level 102 mmol/L (98-107) Carbon Dioxide Level 26 mmol/L (21-32) Anion Gap 11 (6-14) Blood Urea Nitrogen 12 mg/dL (8-26) Creatinine 1.7 mg/dL (0.7-1.3) Estimated GFR (Cockcroft-Gault) 46.9 Glucose Level 103 mg/dL (70-99) Calcium Level 8.4 mg/dL (8.5-10.1) White Blood Count 10.8 x10^3/uL (4.0-11.0) Red Blood Count 3.11 x10^6/uL (4.30-5.70) Hemoglobin 9.4 g/dL (13.0-17.5) Hematocrit 27.2 % (39.0-53.0) Mean Corpuscular Volume 88 fL (79-100) Mean Corpuscular Hemoglobin 30 pg (25-35) Mean Corpuscular Hemoglobin Concent 35 g/dL (31-37) Red Cell Distribution Width 14.3 % (11.5-14.5) Platelet Count 197 x10^3/uL (140-400) Test 01/29/19 07:32 01/29/19 11:50 Glucose (Fingerstick) 91 mg/dL (70-99) 111 mg/dL (70-99) Medications Current Medications Sodium Chloride 1,000 ml @ 75 mls/hr [id number] IV Last administered on 01/28/19 20:26; Start 01/23/19 at 17:30 Acetaminophen (Tylenol) 650 mg PRN Q6HRS PRN PO MILD PAIN / TEMP Last administered on 01/24/19 22:06; Start 01/23/19 at 17:30 Aspirin (Children'S Aspirin) 81 mg [id number] PO Last administered on 01/29/19 09:06; Start 01/24/19 at 08:00 Atorvastatin Calcium (Lipitor) 20 mg QHS PO Last administered on 01/28/19 20:25; Start 01/23/19 at 21:00 Insulin Human Lispro (HumaLOG) 0-5 UNITS TIDWMEALS SQ ; Start 01/24/19 at 08:00 Dextrose (Dextrose 50%-Water Syringe) 12.5 gm PRN Q15MIN PRN IV SEE COMMENTS Last administered on 01/27/19 12:41; Start 01/23/19 at 17:30 Lactobacillus Rhamnosus (Culturelle) 1 cap BID PO Last administered on 01/29/19 09:06; Start 01/23/19 at 21:00 Linezolid (Zyvox) 600 mg BID PO Last administered on 01/23/19 21:23; Start 01/23/19 at 21:00; Stop 01/24/19 at 07:09; Status DC Meropenem 1 gm/ Sodium Chloride 100 ml @ 200 mls/hr Q12HR IV Last administered on 01/29/19 09:05; Start 01/23/19 at 21:00 Ondansetron HCl (Zofran) 4 mg PRN Q8HRS PRN IV NAUSEA/VOMITING; Start 01/23/19 at 17:30 Potassium Chloride (Klor-Con) 10 meq TID PO Last administered on 01/29/19 09:06; Start 01/23/19 at 21:00 Tamsulosin HCl (Flomax) 0.4 mg QHS PO Last administered on 01/28/19 20:25; S tart 01/23/19 at 21:00 Timolol Maleate (Timoptic 0.25% Oph) 1 drop BID OU Last administered on 01/29/19 09:07; Start 01/23/19 at 21:00 Iohexol (Omnipaque 300 Mg/ml) 50 ml STK-MED ONCE .ROUTE Last administered on 01/24/19at 11:11; Start 01/24/19 at 09:05; Stop 01/24/19 at 10:05; Status DC Sevoflurane (Ultane) 30 ml STK-MED ONCE IH ; Start 01/24/19 at 10:24; Stop 01/24/19 at 10:25; Status DC Dexamethasone Sodium Phosphate (Decadron) 4 mg STK-MED ONCE .ROUTE ; Start 01/24/19 at 10:24; Stop 01/24/19 at 10:25; Status DC Propofol 20 ml @ As Directed STK-MED ONCE IV ; Start 01/24/19 at 10:24; Stop 01/24/19 at 10:25; Status DC Lidocaine HCl (Lidocaine Pf 2% Vial) 5 ml STK-MED ONCE .ROUTE ; Start 01/24/19 at 10:24; Stop 01/24/19 at 10:25; Status DC Ketorolac Tromethamine (Toradol For Or Only) 30 mg STK-MED ONCE INJ ; Start 01/24/19 at 10:24; Stop 01/24/19 at 10:25; Status DC Ondansetron HCl (Zofran) 4 mg STK-MED ONCE .ROUTE ; Start 01/24/19 at 10:25; Stop 01/24/19 at 10:26; Status DC Phenylephrine HCl (PHENYLEPHRINE in 0.9% NACL PF) 1 mg STK-MED ONCE IV ; Start 01/24/19 at 11:02; Stop 01/24/19 at 11:03; Status DC Methylene Blue (Methylene Blue) 1 ml STK-MED ONCE .ROUTE Last administered on 01/24/19at 11:20; Start 01/24/19 at 10:19; Stop 01/24/19 at 11:19; Status DC Esmolol HCl (Brevibloc) 100 mg STK-MED ONCE IVP ; Start 01/24/19 at 11:20; Stop 01/24/19 at 11:21; Status DC Fentanyl Citrate (Fentanyl 2ml Vial) 100 mcg STK-MED ONCE .ROUTE ; Start 01/24/19 at 12:14; Stop 01/24/19 at 12:15; Status DC Prochlorperazine Edisylate (Compazine) 10 mg STK-MED ONCE .ROUTE ; Start 01/24/19 at 12:15; Stop 01/24/19 at 12:16; Status DC Ondansetron HCl (Zofran) 4 mg PRN Q6HRS PRN IV NAUSEA/VOMITING; Start 01/24/19 at 12:30; Stop 01/24/19 at 20:00; Status DC Fentanyl Citrate (Fentanyl 2ml Vial) 25 mcg PRN Q5MIN PRN IV MILD PAIN 1-3 Last administered on 01/24/19at 12:33; Start 01/24/19 at 12:30; Stop 01/24/19 at 20:00; Status DC Fentanyl Citrate (Fentanyl 2ml Vial) 50 mcg PRN Q5MIN PRN IV MODERATE TO SEVERE PAIN Last administered on 01/24/19at 19:46; Start 01/24/19 at 12:30; Stop 01/24/19 at 20:00; Status DC Morphine Sulfate (Morphine Sulfate) 1 mg PRN Q10MIN PRN IV SEVERE PAIN 7-10; Start 01/24/19 at 12:30; Stop 01/24/19 at 20:00; Status DC Ringer's Solution 1,000 ml @ 30 mls/hr Q24H IV ; Start 01/24/19 at 12:16; Stop 01/25/19 at 00:15; Status DC Lidocaine HCl (Xylocaine-Mpf 1% 2ml Vial) 2 ml 1X PRN PRN ID IV START; Start 01/24/19 at 12:30; Stop 01/24/19 at 20:00; Status DC Hydromorphone HCl (Dilaudid) 0.5 mg PRN Q10MIN PRN IV SEV PAIN, Second choice; Start 01/24/19 at 12:30; Stop 01/24/19 at 20:00; Status DC Prochlorperazine Edisylate (Compazine) 5 mg PACU PRN PRN IV NAUSEA, MRX1 Last administered on 01/24/19at 12:15; Start 01/24/19 at 12:30; Stop 01/24/19 at 20:00; Status DC Ringer's Solution 1,000 ml @ 75 mls/hr [id number] PRN IV pre op; Start 01/24/19 at 12:30; Stop 01/29/19 at 15:03; Status DC Fentanyl Citrate (Fentanyl 2ml Vial) 50 mcg PRN Q3HRS PRN IV SEVERE PAIN Last administered on 01/25/19at 21:13; Start 01/24/19 at 19:00 Fentanyl Citrate (Fentanyl 2ml Vial) 25 mcg PRN Q3HRS PRN IV MODERATE PAIN; Start 01/24/19 at 19:00 Cyanocobalamin (Vitamin B-12) 1,000 mcg DAILY PO ; Start 01/25/19 at 09:00; Stop 01/26/19 at 07:46; Status DC Sodium Chloride 250 ml @ 250 mls/hr 1X ONCE IV Last administered on 01/25/19at 08:00; Start 01/25/19 at 08:00; Stop 01/25/19 at 08:59; Status DC Meropenem 1 gm/ Sodium Chloride 100 ml @ 200 mls/hr 1X ONCE IV Last administered on 01/25/19at 22:03; Start 01/25/19 at 22:00; Stop 01/25/19 at 22:29; Status DC Cyanocobalamin (Vitamin B-12) 1,000 mcg DAILY IM Last administered on 01/29/19at 09:06; Start 01/26/19 at 09:00 Active Scripts Active Augmentin 875-125 Tablet (Amoxicillin/Potassium Clav) 1 Each Tablet 1 Tab PO BID Tylenol (Acetaminophen) 325 Mg Tablet 650 Mg PO PRN Q6HRS PRN 30 Days Polyethylene Glycol 3350 17 Gm Powd.pack 17 Gm PO PRN DAILY PRN 14 Days Senna-Time S Tablet (Sennosides/Docusate Sodium) 1 Each Tablet 1 Tab PO DAILY 14 Days Hydrocodone-Apap 7.5-325 (Hydrocodone Bit/Acetaminophen) 1 Tab Tablet 2 Tab PO PRN Q4HRS PRN 14 Days Reported Timoptic 0.5% (Timolol Maleate) 10 Ml Drops 1 Drop EACHEYE BID Atorvastatin Calcium 20 Mg Tablet 1 Tab PO DAILY Losartan Potassium 100 Mg Tablet 100 Mg PO DAILY Aspirin 81 Mg Tab.chew 1 Tab PO DAILY Vitals/I & O Vital Sign - Last 24 Hours 01/28/19 01/28/19 01/28/19 01/29/19 19:00 19:40 23:00 03:00 Temp 98.4 98.6 98.4 98.6 Pulse 116 92 90 Resp 16 16 16 B/P (MAP) 137/70 (92) 140/58 (85) 178/94 (122) Pulse Ox 97 97 100 O2 Delivery Room Air Room Air Room Air Room Air 01/29/19 01/29/19 01/29/19 07:00 08:00 11:00 Temp 97.9 97.7 97.9 97.7 Pulse 100 100 Resp 18 17 B/P (MAP) 129/84 (99) 141/73 (95) Pulse Ox 99 100 O2 Delivery Room Air Room Air Room Air Intake and Output 01/28/19 01/28/19 01/29/19 14:59 22:59 06:59 Intake Total 100 ml 100 ml Output Total 1000 ml 600 ml Balance -900 ml -500 ml MAGALY RAMOS MD Jan 29, 2019 15:42
[2019-01-29] MEDS: fentaNYL PF VIAL 100 MCG/2 ML VIAL IV PRN (18:23)
[2019-01-29] MEDS: IV 1/2 NORMAL SALINE 1,000 ML IV SCH ×2 (18:34→21:24)
[2019-01-29 19:00] VITALS: BP 153/74
[2019-01-29] MEDS: ATORVASTATIN CALCIUM 20 MG TABLET PO SCH (21:14)
[2019-01-29] MEDS: TAMSULOSIN 0.4 MG CAP.ER.24H. PO SCH (21:14)
[2019-01-29 23:00] VITALS: BP 148/78
[2019-01-30] VITALS (7 sets, daily range): BP systolic 120–169; BP diastolic 59–109
[2019-01-30 05:59] LABS: HEMATOCRIT 22.6 % (39.0-53.0); HEMOGLOBIN 8.1 g/dL (13.0-17.5)
[2019-01-30 06:11] LABS: CREATININE 1.6 mg/dL (0.7-1.3); GFR 50.3; POTASSIUM 3.6 mmol/L (3.5-5.1)
[2019-01-30] MEDS ORDERED: fentaNYL PF VIAL 100 MCG/2 ML VIAL ONE (07:58)
[2019-01-30] MEDS ORDERED: MIDAZOLAM HCL/PF 2 MG/2 ML VIAL. ONE (07:58)
[2019-01-30] MEDS ORDERED: IODIXANOL 320 MG/ML 50ML VIAL. ONE (07:59)
[2019-01-30] MEDS ORDERED: LIDOCAINE WITH 8.4% SOD BICARB 3 ML DISP.SYRIN. ONE (07:59)
[2019-01-30] MEDS: INSULIN LISPRO 300 UNITS/3 ML INSULN.PEN. SQ SCH ×3 (08:00→16:57)
[2019-01-30] MEDS: ASPIRIN CHEWABLE 81 MG TABLET. PO SCH (08:00)
[2019-01-30] MEDS ORDERED: IODIXANOL 320 MG/ML 50ML VIAL. IART ONE (08:15)
[2019-01-30] MEDS ORDERED: LIDOCAINE WITH 8.4% SOD BICARB 3 ML DISP.SYRIN. IJ ONE (08:15)
[2019-01-30] MEDS ORDERED: MIDAZOLAM HCL/PF 2 MG/2 ML VIAL. IV ONE (08:15)
[2019-01-30] MEDS ORDERED: fentaNYL PF VIAL 100 MCG/2 ML VIAL IV ONE (08:15)
[2019-01-30] MEDS: IV 1/2 NORMAL SALINE 1,000 ML IV SCH ×2 (08:40→23:16)
[2019-01-30] MEDS: LACTOBACILLUS RHAMNOSUS GG 1 CAPSULE. PO SCH ×3 (09:00→20:48)
[2019-01-30] MEDS: POTASSIUM CHLORIDE 10 MEQ TABLET.ER. PO SCH ×4 (09:00→20:50)
[2019-01-30] MEDS: MEROPENEM 1 GM in IV NORMAL SALINE 100ML 100 ML IV SCH ×2 (10:01→20:50)
--- NOTE | 2019-01-30 10:05 | PN ---
DATE: 01/30/2019 SUBJECTIVE: The patient is resting flat in bed, sleeping comfortably. He just arrived from the Interventional Radiology, having had his left percutaneous nephrostomy tube placed successfully. OBJECTIVE: GENERAL: On examining him, he looked well and was clearly in no apparent respiratory distress, pale, cachectic, but no jaundice, cyanosis, or thyromegaly. No jugular venous distension. No limb edema. VITAL SIGNS: His heart rate was 87, blood pressure was 135/62, temperature was 98, respiratory rate was 13 and oxygen saturation was 98% on room air. HEAD, EYES, EARS, NOSE AND THROAT: Showed normocephalic, atraumatic. NECK: Supple. HEART: Showed normal first and second heart sounds with no gallop, rub or murmur. CHEST: Clear to auscultation. No crepitation or rhonchi. ABDOMEN: Scaphoid, soft, nontender. No guarding or rigidity. No organomegaly. All hernial orifices intact. Bowel sounds normal. NEUROLOGIC: He was sleepy, but arousable. All cranial nerves are intact. He has left-sided hemiparesis. His intake over the last 24 hours was 200, output was 1600. LABORATORY DATA: His lab work this morning showed a hemoglobin 8.1, hematocrit 22.6. His chemistry this morning showed a serum sodium 137, potassium 3.6, chloride 104, bicarbonate 24, anion gap of 9, BUN 11, creatinine 1.6, estimated GFR was 50 mL per minute, his glucose was 77, and calcium was 8. ASSESSMENT: 1. Left-sided hydronephrosis and hydroureter that has progressed. The patient is status post left percutaneous nephrostomy tube placement. 2. 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 He was also found to have bladder stones and clots that were removed. 3. Bladder outlet obstruction. 4. He has chronic Ceron catheter. 5. Hypertension. 6. Type 2 diabetes mellitus. 7. Hyperlipidemia. 8. Urinary tract infection with growth of Escherichia coli in the urine and also Escherichia coli bacteremia. 9. Acute blood loss anemia, the hemoglobin and hematocrit has been stable. 10. [id number] kidney injury, improving. His creatinine is down from 2.5-1.6. He was seen by the oncologist and apparently the patient was on androgen deprivation therapy. With his poor performance status, the oncologist recommended supportive care only; however, he did consult also the radiation oncologist for palliative radiation and possible status post cystoscopy. He has thrombocytopenia that has apparently eventually resolved as his platelet count has risen to 197,000 yesterday. PLAN: Obviously to continue with IV fluid, continue with the antibiotic as per infectious disease specialist. Continue to monitor his blood sugar and adjust insulin as needed. Continue pain management and tamsulosin. We will start the process of physical and occupational therapy and obviously once he was seen by the radiation oncologist, we probably have to consider sending him back to [facility] if he remains stable. LUIS ISAACS MD DR: JENNIFER/charlotte JOB#: [id number] / [id number]
--- NOTE | 2019-01-30 10:56 | PDOC ---
PROGRESS NOTE SUBJECTIVE: ROS: ROS: RESPIRATORY: Shortness of breath denies. Cough denies. UROLOGY: Denies blood in urine. Denies difficulty urinating HPI: Duration: [] Quality: [] Severity: [] Site/Location: [] Problems: Problems Medical Problems: (1) Acute blood loss anemia Status: Acute (2) Calculus of ureterovesical junction (UVJ) Status: Acute (3) Gram-negative bacteremia Status: Acute (4) Thrombocytopenia Status: Acute (5) Ureterovesical junction (UVJ) obstruction Status: Acute OBJECTIVE: Vital Signs: Vital Signs Date Time Temp Pulse Resp B/P (MAP) Pulse Ox O2 Delivery O2 Flow Rate FiO2 01/30/19 10:43 Room Air 01/30/19 08:30 Room Air 01/30/19 08:15 13 01/30/19 07:00 98.0 87 135/62 (86) 98 Room Air 98.0 01/30/19 03:00 97.9 85 17 137/77 (97) 99 Room Air 97.9 01/29/19 23:00 97.8 93 17 148/78 (101) 97 Room Air 97.8 01/29/19 20:15 Room Air 01/29/19 19:00 Room Air 01/29/19 19:00 97.7 99 17 153/74 (100) 100 Room Air 97.7 01/29/19 18:23 20 Room Air 01/29/19 15:00 98.0 92 17 175/97 (123) 100 Room Air 98.0 01/29/19 11:00 97.7 100 17 141/73 (95) 100 Room Air 97.7 I & O Intake and Output 01/30/19 06:59 Intake Total 0 ml Output Total 2100 ml Balance -2100 ml Intake Oral 0 ml Output Urine Total 2100 ml # Bowel Movements 2 PHYSICAL EXAM: Physical Exam: General: Pleasant, no acute distress, well groomed Eyes: conjunctiva anicteric, eyes full range of motion ENT: moist oral mucosa, normal dentition Neck: Trachea midline, no masses Respiratory: unlabored breathing, not using accessory muscles, no crackles or wheezes Cardiovascular: Regular rate and rhythm, no peripheral edema Abdomen: nontender, nondistended, no hepatosplenomegaly, no masses Skin: no rashes or skin lesions on visualized skin Psych: normal mood, affect. Alert and oriented x 3. LABS: Laboratory Tests Test 01/27/19 11:55 01/27/19 12:48 01/27/19 16:45 01/27/19 18:10 Glucose (Fingerstick) 70 mg/dL (70-99) 138 mg/dL (70-99) 137 mg/dL (70-99) Hemoglobin 9.0 g/dL (13.0-17.5) Hematocrit 25.4 % (39.0-53.0) Test 01/27/19 20:35 01/28/19 07:18 01/28/19 11:35 01/28/19 11:50 Glucose (Fingerstick) 117 mg/dL (70-99) 109 mg/dL (70-99) 105 mg/dL (70-99) White Blood Count 10.9 x10^3/uL (4.0-11.0) Red Blood Count 3.20 x10^6/uL (4.30-5.70) Hemoglobin 9.6 g/dL (13.0-17.5) Hematocrit 27.8 % (39.0-53.0) Mean Corpuscular Volume 87 fL (79-100) Mean Corpuscular Hemoglobin 30 pg (25-35) Mean Corpuscular Hemoglobin Concent 35 g/dL (31-37) Red Cell Distribution Width 14.6 % (11.5-14.5) Platelet Count 130 x10^3/uL (140-400) Sodium Level 141 mmol/L (136-145) Potassium Level 3.5 mmol/L (3.5-5.1) Chloride Level 104 mmol/L (98-107) Carbon Dioxide Level 26 mmol/L (21-32) Anion Gap 11 (6-14) Blood Urea Nitrogen 16 mg/dL (8-26) Creatinine 1.8 mg/dL (0.7-1.3) Estimated GFR (Cockcroft-Gault) 43.9 Glucose Level 110 mg/dL (70-99) Calcium Level 8.3 mg/dL (8.5-10.1) Test 01/28/19 16:55 01/28/19 20:39 01/29/19 07:22 01/29/19 07:27 Glucose (Fingerstick) 91 mg/dL (70-99) 113 mg/dL (70-99) Sodium Level 139 mmol/L (136-145) Potassium Level 3.6 mmol/L (3.5-5.1) Chloride Level 102 mmol/L (98-107) Carbon Dioxide Level 26 mmol/L (21-32) Anion Gap 11 (6-14) Blood Urea Nitrogen 12 mg/dL (8-26) Creatinine 1.7 mg/dL (0.7-1.3) Estimated GFR (Cockcroft-Gault) 46.9 Glucose Level 103 mg/dL (70-99) Calcium Level 8.4 mg/dL (8.5-10.1) White Blood Count 10.8 x10^3/uL (4.0-11.0) Red Blood Count 3.11 x10^6/uL (4.30-5.70) Hemoglobin 9.4 g/dL (13.0-17.5) Hematocrit 27.2 % (39.0-53.0) Mean Corpuscular Volume 88 fL (79-100) Mean Corpuscular Hemoglobin 30 pg (25-35) Mean Corpuscular Hemoglobin Concent 35 g/dL (31-37) Red Cell Distribution Width 14.3 % (11.5-14.5) Platelet Count 197 x10^3/uL (140-400) Test 01/29/19 07:32 01/29/19 11:50 01/29/19 22:08 01/30/19 05:50 Glucose (Fingerstick) 91 mg/dL (70-99) 111 mg/dL (70-99) 80 mg/dL (70-99) Hemoglobin 8.1 g/dL (13.0-17.5) Hematocrit 22.6 % (39.0-53.0) Sodium Level 137 mmol/L (136-145) Potassium Level 3.6 mmol/L (3.5-5.1) Chloride Level 104 mmol/L (98-107) Carbon Dioxide Level 24 mmol/L (21-32) Anion Gap 9 (6-14) Blood Urea Nitrogen 11 mg/dL (8-26) Creatinine 1.6 mg/dL (0.7-1.3) Estimated GFR (Cockcroft-Gault) 50.3 Glucose Level 77 mg/dL (70-99) Calcium Level 8.0 mg/dL (8.5-10.1) Test 01/30/19 09:59 Glucose (Fingerstick) 70 mg/dL (70-99) MEDICATIONS: Current Medications Medications (Trade) Dose Ordered Sig/Ramakrishna Start Time Stop Time Status Last Admin Dose Admin Acetaminophen (Tylenol) 650 mg PRN Q6HRS PRN 01/23/19 17:30 01/24/19 22:06 650 MG Aspirin (Children'S Aspirin) 81 mg [id number] 01/24/19 08:00 01/29/19 09:06 81 MG Atorvastatin Calcium (Lipitor) 20 mg QHS 01/23/19 21:00 01/29/19 21:14 20 MG Cyanocobalamin (Vitamin B-12) 1,000 mcg DAILY 01/26/19 09:00 01/29/19 09:06 1,000 MCG Dexamethasone Sodium Phosphate (Decadron) 4 mg STK-MED ONCE 01/24/19 10:24 01/24/19 10:25 DC Dextrose (Dextrose 50%-Water Syringe) 12.5 gm PRN Q15MIN PRN 01/23/19 17:30 01/27/19 12:41 12.5 GM Esmolol HCl (Brevibloc) 100 mg STK-MED ONCE 01/24/19 11:20 01/24/19 11:21 DC Fentanyl Citrate (Fentanyl 2ml Vial) 100 mcg 1X ONCE 01/30/19 08:15 01/30/19 08:16 DC 01/30/19 08:15 50 MCG Hydromorphone HCl (Dilaudid) 0.5 mg PRN Q10MIN PRN 01/24/19 12:30 01/24/19 20:00 DC Insulin Human Lispro (HumaLOG) 0-5 UNITS TIDWMEALS 01/24/19 08:00 Iodixanol (Visipaque 320) 50 ml 1X ONCE 01/30/19 08:15 01/30/19 08:16 DC 01/30/19 08:15 25 ML Iohexol (Omnipaque 300 Mg/ml) 50 ml STK-MED ONCE 01/24/19 09:05 01/24/19 10:05 DC 01/24/19 11:11 50 ML Ketorolac Tromethamine (Toradol For Or Only) 30 mg STK-MED ONCE 01/24/19 10:24 01/24/19 10:25 DC Lactobacillus Rhamnosus (Culturelle) 1 cap BID 01/23/19 21:00 01/29/19 21:14 1 CAP Lidocaine HCl (Lidocaine Pf 2% Vial) 5 ml STK-MED ONCE 01/24/19 10:24 01/24/19 10:25 DC Lidocaine HCl (Xylocaine-Mpf 1% 2ml Vial) 2 ml 1X PRN PRN 01/24/19 12:30 01/24/19 20:00 DC Lidocaine/Sodium Bicarbonate (Buffered Lidocaine 1%) 3 ml 1X ONCE 01/30/19 08:15 01/30/19 08:16 DC 01/30/19 08:15 9 ML Linezolid (Zyvox) 600 mg BID 01/23/19 21:00 01/24/19 07:09 DC 01/23/19 21:23 600 MG Meropenem 1 gm/ Sodium Chloride 100 ml @ 200 mls/hr 1X ONCE 01/25/19 22:00 01/25/19 22:29 DC 01/25/19 22:03 200 MLS/HR Methylene Blue (Methylene Blue) 1 ml STK-MED ONCE 01/24/19 10:19 01/24/19 11:19 DC 01/24/19 11:20 1 ML Midazolam HCl (Versed) 2 mg 1X ONCE 01/30/19 08:15 01/30/19 08:16 DC 01/30/19 08:15 1 MG Morphine Sulfate (Morphine Sulfate) 1 mg PRN Q10MIN PRN 01/24/19 12:30 01/24/19 20:00 DC Ondansetron HCl (Zofran) 4 mg PRN Q6HRS PRN 01/24/19 12:30 01/24/19 20:00 DC Phenylephrine HCl (PHENYLEPHRINE in 0.9% NACL PF) 1 mg STK-MED ONCE 01/24/19 11:02 01/24/19 11:03 DC Potassium Chloride (Klor-Con) 10 meq TID 01/23/19 21:00 01/29/19 21:14 10 MEQ Prochlorperazine Edisylate (Compazine) 5 mg PACU PRN PRN 01/24/19 12:30 01/24/19 20:00 DC 01/24/19 12:15 5 MG Propofol 20 ml @ As Directed STK-MED ONCE 01/24/19 10:24 01/24/19 10:25 DC Ringer's Solution 1,000 ml @ 75 mls/hr [id number] PRN 01/24/19 12:30 01/29/19 15:03 DC Sevoflurane (Ultane) 30 ml STK-MED ONCE 01/24/19 10:24 01/24/19 10:25 DC Sodium Chloride 250 ml @ 250 mls/hr 1X ONCE 01/25/19 08:00 01/25/19 08:59 DC 01/25/19 08:00 250 MLS/HR Tamsulosin HCl (Flomax) 0.4 mg QHS 01/23/19 21:00 01/29/19 21:14 0.4 MG Timolol Maleate (Timoptic 0.25% [facility]) 1 drop BID 01/23/19 21:00 01/29/19 21:14 1 DROP ASSESSMENT & PLAN Pt asleep (appears comfortable) PCN is draining blood tinged fluid Would rec that Radiology try to place antegrade stent so PCN may be removed. Problem List: Problems Medical Problems: (1) Acute blood loss anemia Status: Acute (2) Calculus of ureterovesical junction (UVJ) Status: Acute (3) Gram-negative bacteremia Status: Acute (4) Thrombocytopenia Status: Acute (5) Ureterovesical junction (UVJ) obstruction Status: Acute ONEIL SNELL MD Jan 30, 2019 10:56
--- NOTE | 2019-01-30 11:24 | PDOC ---
Infectious Disease Note Subjective Subjective s/p left nephrostomy tube placement this morning Resting quietly No fevers or diarrhea reported ROS KIAN unable to obtain Vital Sign Vital Signs Vital Signs Date Time Temp Pulse Resp B/P (MAP) Pulse Ox O2 Delivery O2 Flow Rate FiO2 01/30/19 11:00 98.1 91 14 120/67 (84) 97 Room Air 98.1 Physical Exam PHYSICAL EXAM GENERAL: Resting quietly, did not awaken, mitts - Awake and very confused LUNGS: Clear. HEART: S1, S2 ABDOMEN: Soft : Ceron and left nephrostomy tube - hematuria EXTREMITIES: No edema, cyanosis. SKIN: warm to touch PIV Labs Lab Laboratory Tests Test 01/29/19 11:50 01/29/19 22:08 01/30/19 05:50 01/30/19 09:59 Glucose (Fingerstick) 111 mg/dL (70-99) 80 mg/dL (70-99) 70 mg/dL (70-99) Hemoglobin 8.1 g/dL (13.0-17.5) Hematocrit 22.6 % (39.0-53.0) Sodium Level 137 mmol/L (136-145) Potassium Level 3.6 mmol/L (3.5-5.1) Chloride Level 104 mmol/L (98-107) Carbon Dioxide Level 24 mmol/L (21-32) Anion Gap 9 (6-14) Blood Urea Nitrogen 11 mg/dL (8-26) Creatinine 1.6 mg/dL (0.7-1.3) Estimated GFR (Cockcroft-Gault) 50.3 Glucose Level 77 mg/dL (70-99) Calcium Level 8.0 mg/dL (8.5-10.1) Objective Assessment E coli bacteremia with sepsis ([facility] 01/17) E coli UTI ([facility] 01/17) Left hydronephrosis, presumably due to advanced prostate cancer invading the bladder and trigone. s/p nephrostomy tube placement, 01/30 s/p cysto, bladder stone removal 01/24 Hematuria CVA Leukocytosis - better Renal insufficiency HTN Met prostate cancer Plan Plan of Care Continue meropenem Probiotics f/u am labs D/w nursing AGUSTIN MENDOZA APRN Jan 30, 2019 11:24 DONTE COHN MD Jan 30, 2019 15:57
[2019-01-30] MEDS: DEXTROSE 50% 25 GM / 50ML DISP.SYRIN. IV PRN (11:50)
[2019-01-30] MEDS: CYANOCOBALAMIN (VITAMIN B-12) 1,000 MCG/ML VIAL IM SCH (11:50)
[2019-01-30] MEDS: TIMOLOL 0.25% OPHTH SOLUTION 5ML BOTTLE. OU SCH ×2 (11:51→20:50)
--- NOTE | 2019-01-30 13:09 | PDOC ---
PROGRESS NOTES Subjective Subjective HPI - f/u of Prostate cancer ROS - no fever Objective Objective Vital Signs Date Time Temp Pulse Resp B/P (MAP) Pulse Ox O2 Delivery O2 Flow Rate FiO2 01/30/19 11:00 98.1 91 14 120/67 (84) 97 Room Air 98.1 01/27/19 08:00 3.0 Intake and Output 01/30/19 06:59 Intake Total 0 ml Output Total 2100 ml Balance -2100 ml Intake Oral 0 ml Output Urine Total 2100 ml # Bowel Movements 2 Physical Exam Heart: Normal S1, Normal S2 General: No acute distress Lungs: Clear to auscultation Assessment Assessment Problems Medical Problems: (1) Acute blood loss anemia Status: Acute (2) Calculus of ureterovesical junction (UVJ) Status: Acute (3) Gram-negative bacteremia Status: Acute (4) Thrombocytopenia Status: Acute (5) Ureterovesical junction (UVJ) obstruction Status: Acute Assessment and Plan: He is an 83-year-old man with history of metastatic p rostate cancer that appears to be progressing with rising PSA recently of 63, admitted with bacteremia and UTI and ureteral stone and being treated for infection and followed by urology. Bladder outlet obstruction with recent stone: Per urology Infection: On antibiotics, ID has been consulted Prostate cancer: Appears to be progressing, has been on androgen deprivation therapy, with his poor performance status, I would suggest support care only. I d/w Dr Casiano, no benefit from radiation hence not offered. s/p cystoscopy 01/24/19: shaggy necrotic prostate tissue w invasion into BN, trigone. Thrombocytopenia: Resolved. Comment Review of Relevant I have reviewed the following items yael (where applicable) has been applied. Labs Laboratory Tests Test 01/28/19 16:55 01/28/19 20:39 01/29/19 07:22 01/29/19 07:27 Glucose (Fingerstick) 91 mg/dL (70-99) 113 mg/dL (70-99) Sodium Level 139 mmol/L (136-145) Potassium Level 3.6 mmol/L (3.5-5.1) Chloride Level 102 mmol/L (98-107) Carbon Dioxide Level 26 mmol/L (21-32) Anion Gap 11 (6-14) Blood Urea Nitrogen 12 mg/dL (8-26) Creatinine 1.7 mg/dL (0.7-1.3) Estimated GFR (Cockcroft-Gault) 46.9 Glucose Level 103 mg/dL (70-99) Calcium Level 8.4 mg/dL (8.5-10.1) White Blood Count 10.8 x10^3/uL (4.0-11.0) Red Blood Count 3.11 x10^6/uL (4.30-5.70) Hemoglobin 9.4 g/dL (13.0-17.5) Hematocrit 27.2 % (39.0-53.0) Mean Corpuscular Volume 88 fL (79-100) Mean Corpuscular Hemoglobin 30 pg (25-35) Mean Corpuscular Hemoglobin Concent 35 g/dL (31-37) Red Cell Distribution Width 14.3 % (11.5-14.5) Platelet Count 197 x10^3/uL (140-400) Test 01/29/19 07:32 01/29/19 11:50 01/29/19 22:08 01/30/19 05:50 Glucose (Fingerstick) 91 mg/dL (70-99) 111 mg/dL (70-99) 80 mg/dL (70-99) Hemoglobin 8.1 g/dL (13.0-17.5) Hematocrit 22.6 % (39.0-53.0) Sodium Level 137 mmol/L (136-145) Potassium Level 3.6 mmol/L (3.5-5.1) Chloride Level 104 mmol/L (98-107) Carbon Dioxide Level 24 mmol/L (21-32) Anion Gap 9 (6-14) Blood Urea Nitrogen 11 mg/dL (8-26) Creatinine 1.6 mg/dL (0.7-1.3) Estimated GFR (Cockcroft-Gault) 50.3 Glucose Level 77 mg/dL (70-99) Calcium Level 8.0 mg/dL (8.5-10.1) Test 01/30/19 09:59 01/30/19 11:47 01/30/19 12:47 Glucose (Fingerstick) 70 mg/dL (70-99) 53 mg/dL (70-99) 90 mg/dL (70-99) Laboratory Tests Test 01/29/19 22:08 01/30/19 05:50 01/30/19 09:59 01/30/19 11:47 Glucose (Fingerstick) 80 mg/dL (70-99) 70 mg/dL (70-99) 53 mg/dL (70-99) Hemoglobin 8.1 g/dL (13.0-17.5) Hematocrit 22.6 % (39.0-53.0) Sodium Level 137 mmol/L (136-145) Potassium Level 3.6 mmol/L (3.5-5.1) Chloride Level 104 mmol/L (98-107) Carbon Dioxide Level 24 mmol/L (21-32) Anion Gap 9 (6-14) Blood Urea Nitrogen 11 mg/dL (8-26) Creatinine 1.6 mg/dL (0.7-1.3) Estimated GFR (Cockcroft-Gault) 50.3 Glucose Level 77 mg/dL (70-99) Calcium Level 8.0 mg/dL (8.5-10.1) Test 01/30/19 12:47 Glucose (Fingerstick) 90 mg/dL (70-99) Medications Current Medications Sodium Chloride 1,000 ml @ 75 mls/hr [id number] IV Last administered on 01/30/19 08:40; Start 01/23/19 at 17:30 Acetaminophen (Tylenol) 650 mg PRN Q6HRS PRN PO MILD PAIN / TEMP Last administered on 01/24/19 22:06; Start 01/23/19 at 17:30 Aspirin (Children'S Aspirin) 81 mg [id number] PO Last administered on 01/29/19 09:06; Start 01/24/19 at 08:00 Atorvastatin Calcium (Lipitor) 20 mg QHS PO Last administered on 01/29/19 21:14; Start 01/23/19 at 21:00 Insulin Human Lispro (HumaLOG) 0-5 UNITS TIDWMEALS SQ ; Start 01/24/19 at 08:00 Dextrose (Dextrose 50%-Water Syringe) 12.5 gm PRN Q15MIN PRN IV SEE COMMENTS Last administered on 01/30/19 11:50; Start 01/23/19 at 17:30 Lactobacillus Rhamnosus (Culturelle) 1 cap BID PO Last administered on 01/30/19 11:51; Start 01/23/19 at 21:00 Linezolid (Zyvox) 600 mg BID PO Last administered on 01/23/19 21:23; Start 01/23/19 at 21:00; Stop 01/24/19 at 07:09; Status DC Meropenem 1 gm/ Sodium Chloride 100 ml @ 200 mls/hr Q12HR IV Last administered on 01/30/19at 10:01; Start 01/23/19 at 21:00 Ondansetron HCl (Zofran) 4 mg PRN Q8HRS PRN IV NAUSEA/VOMITING; Start 01/23/19 at 17:30 Potassium Chloride (Klor-Con) 10 meq TID PO Last administered on 01/30/19 11:50; Start 01/23/19 at 21:00 Tamsulosin HCl (Flomax) 0.4 mg QHS PO Last administered on 01/29/19 21:14; Start 01/23/19 at 21:00 Timolol Maleate (Timoptic 0.25% [facility]) 1 drop BID OU Last administered on 01/30/19 11:51; Start 01/23/19 at 21:00 Iohexol (Omnipaque 300 Mg/ml) 50 ml STK-MED ONCE .ROUTE Last administered on 01/24/19at 11:11; Start 01/24/19 at 09:05; Stop 01/24/19 at 10:05; Status DC Sevoflurane (Ultane) 30 ml STK-MED ONCE IH ; Start 01/24/19 at 10:24; Stop 01/24/19 at 10:25; Status DC Dexamethasone Sodium Phosphate (Decadron) 4 mg STK-MED ONCE .ROUTE ; Start 01/24/19 at 10:24; Stop 01/24/19 at 10:25; Status DC Propofol 20 ml @ As Directed STK-MED ONCE IV ; Start 01/24/19 at 10:24; Stop 01/24/19 at 10:25; Status DC Lidocaine HCl (Lidocaine Pf 2% Vial) 5 ml STK-MED ONCE .ROUTE ; Start 01/24/19 at 10:24; Stop 01/24/19 at 10:25; Status DC Ketorolac Tromethamine (Toradol For Or Only) 30 mg STK-MED ONCE INJ ; Start 01/24/19 at 10:24; Stop 01/24/19 at 10:25; Status DC Ondansetron HCl (Zofran) 4 mg STK-MED ONCE .ROUTE ; Start 01/24/19 at 10:25; Stop 01/24/19 at 10:26; Status DC Phenylephrine HCl (PHENYLEPHRINE in 0.9% NACL PF) 1 mg STK-MED ONCE IV ; Start 01/24/19 at 11:02; Stop 01/24/19 at 11:03; Status DC Methylene Blue (Methylene Blue) 1 ml STK-MED ONCE .ROUTE Last administered on 01/24/19at 11:20; Start 01/24/19 at 10:19; Stop 01/24/19 at 11:19; Status DC Esmolol HCl (Brevibloc) 100 mg STK-MED ONCE IVP ; Start 01/24/19 at 11:20; Stop 01/24/19 at 11:21; Status DC Fentanyl Citrate (Fentanyl 2ml Vial) 100 mcg STK-MED ONCE .ROUTE ; Start 01/24/19 at 12:14; Stop 01/24/19 at 12:15; Status DC Prochlorperazine Edisylate (Compazine) 10 mg STK-MED ONCE .ROUTE ; Start 01/24/19 at 12:15; Stop 01/24/19 at 12:16; Status DC Ondansetron HCl (Zofran) 4 mg PRN Q6HRS PRN IV NAUSEA/VOMITING; Start 01/24/19 at 12:30; Stop 01/24/19 at 20:00; Status DC Fentanyl Citrate (Fentanyl 2ml Vial) 25 mcg PRN Q5MIN PRN IV MILD PAIN 1-3 Last administered on 01/24/19at 12:33; Start 01/24/19 at 12:30; Stop 01/24/19 at 20:00; Status DC Fentanyl Citrate (Fentanyl 2ml Vial) 50 mcg PRN Q5MIN PRN IV MODERATE TO SEVERE PAIN Last administered on 01/24/19at 19:46; Start 01/24/19 at 12:30; Stop 01/24/19 at 20:00; Status DC Morphine Sulfate (Morphine Sulfate) 1 mg PRN Q10MIN PRN IV SEVERE PAIN 7-10; Start 01/24/19 at 12:30; Stop 01/24/19 at 20:00; Status DC Ringer's Solution 1,000 ml @ 30 mls/hr Q24H IV ; Start 01/24/19 at 12:16; Stop 01/25/19 at 00:15; Status DC Lidocaine HCl (Xylocaine-Mpf 1% 2ml Vial) 2 ml 1X PRN PRN ID IV START; Start 01/24/19 at 12:30; Stop 01/24/19 at 20:00; Status DC Hydromorphone HCl (Dilaudid) 0.5 mg PRN Q10MIN PRN IV SEV PAIN, Second choice; Start 01/24/19 at 12:30; Stop 01/24/19 at 20:00; Status DC Prochlorperazine Edisylate (Compazine) 5 mg PACU PRN PRN IV NAUSEA, MRX1 Last administered on 01/24/19at 12:15; Start 01/24/19 at 12:30; Stop 01/24/19 at 20:00; Status DC Ringer's Solution 1,000 ml @ 75 mls/hr [id number] PRN IV pre op; Start 01/24/19 at 12:30; Stop 01/29/19 at 15:03; Status DC Fentanyl Citrate (Fentanyl 2ml Vial) 50 mcg PRN Q3HRS PRN IV SEVERE PAIN Last administered on 01/29/19at 18:23; Start 01/24/19 at 19:00 Fentanyl Citrate (Fentanyl 2ml Vial) 25 mcg PRN Q3HRS PRN IV MODERATE PAIN; Start 01/24/19 at 19:00 Cyanocobalamin (Vitamin B-12) 1,000 mcg DAILY PO ; Start 01/25/19 at 09:00; Stop 01/26/19 at 07:46; Status DC Sodium Chloride 250 ml @ 250 mls/hr 1X ONCE IV Last administered on 01/25/19at 08:00; Start 01/25/19 at 08:00; Stop 01/25/19 at 08:59; Status DC Meropenem 1 gm/ Sodium Chloride 100 ml @ 200 mls/hr 1X ONCE IV Last administered on 01/25/19at 22:03; Start 01/25/19 at 22:00; Stop 01/25/19 at 22:29; Status DC Cyanocobalamin (Vitamin B-12) 1,000 mcg DAILY IM Last administered on 01/30/19at 11:50; Start 01/26/19 at 09:00 Midazolam HCl (Versed) 2 mg STK-MED ONCE .ROUTE ; Start 01/30/19 at 07:58; Stop 01/30/19 at 07:59; Status DC Fentanyl Citrate (Fentanyl 2ml Vial) 100 mcg STK-MED ONCE .ROUTE ; Start 01/30/19 at 07:58; Stop 01/30/19 at 07:59; Status DC Lidocaine/Sodium Bicarbonate (Buffered Lidocaine 1%) 3 ml STK-MED ONCE .ROUTE ; Start 01/30/19 at 07:59; Stop 01/30/19 at 08:00; Status DC Iodixanol (Visipaque 320) 50 ml STK-MED ONCE .ROUTE ; Start 01/30/19 at 07:59; Stop 01/30/19 at 08:00; Status DC Lidocaine/Sodium Bicarbonate (Buffered Lidocaine 1%) 3 ml 1X ONCE IJ Last administered on 01/30/19at 08:15; Start 01/30/19 at 08:15; Stop 01/30/19 at 08:16; Status DC Midazolam HCl (Versed) 2 mg 1X ONCE IV Last administered on 01/30/19at 08:15; Start 01/30/19 at 08:15; Stop 01/30/19 at 08:16; Status DC Fentanyl Citrate (Fentanyl 2ml Vial) 100 mcg 1X ONCE IV Last administered on 01/30/19at 08:15; Start 01/30/19 at 08:15; Stop 01/30/19 at 08:16; Status DC Iodixanol (Visipaque 320) 50 ml 1X ONCE IART Last administered on 01/30/19at 08:15; Start 01/30/19 at 08:15; Stop 01/30/19 at 08:16; Status DC Active Scripts Active Augmentin 875-125 Tablet (Amoxicillin/Potassium Clav) 1 Each Tablet 1 Tab PO BID Tylenol (Acetaminophen) 325 Mg Tablet 650 Mg PO PRN Q6HRS PRN 30 Days Polyethylene Glycol 3350 17 Gm Powd.pack 17 Gm PO PRN DAILY PRN 14 Days Senna-Time S Tablet (Sennosides/Docusate Sodium) 1 Each Tablet 1 Tab PO DAILY 14 Days Hydrocodone-Apap 7.5-325 (Hydrocodone Bit/Acetaminophen) 1 Tab Tablet 2 Tab PO PRN Q4HRS PRN 14 Days Reported Timoptic 0.5% (Timolol Maleate) 10 Ml Drops 1 Drop EACHEYE BID Atorvastatin Calcium 20 Mg Tablet 1 Tab PO DAILY Losartan Potassium 100 Mg Tablet 100 Mg PO DAILY Aspirin 81 Mg Tab.chew 1 Tab PO DAILY Vitals/I & O Vital Sign - Last 24 Hours 01/29/19 01/29/19 01/29/19 01/29/19 15:00 18:23 19:00 19:00 Temp 98.0 97.7 98.0 97.7 Pulse 92 99 Resp 17 20 17 B/P (MAP) 175/97 (123) 153/74 (100) Pulse Ox 100 100 O2 Delivery Room Air Room Air Room Air Room Air 01/29/19 01/29/19 01/30/19 01/30/19 20:15 23:00 03:00 07:00 Temp 97.8 97.9 98.0 97.8 97.9 98.0 Pulse 93 85 87 Resp 17 17 B/P (MAP) 148/78 (101) 137/77 (97) 135/62 (86) Pulse Ox 97 99 98 O2 Delivery Room Air Room Air Room Air Room Air 01/30/19 01/30/19 01/30/19 01/30/19 08:15 08:30 09:45 10:43 Pulse 79 Resp 13 14 B/P (MAP) 128/59 (82) Pulse Ox 97 O2 Delivery Room Air Room Air Room Air 01/30/19 11:00 Temp 98.1 98.1 Pulse 91 Resp 14 B/P (MAP) 120/67 (84) Pulse Ox 97 O2 Delivery Room Air Intake and Output 01/29/19 01/29/19 01/30/19 14:59 22:59 06:59 Intake Total 0 ml Output Total 1100 ml 1000 ml Balance -1100 ml -1000 ml MAGALY RAMOS MD Jan 30, 2019 13:09
--- NOTE | 2019-01-30 16:15 | PDOC ---
Provider Note Provider Note 83 yo man with dx of prostate cancer 1995 treated with ADT alone now hormonally refractory with rising PSA to 63 . Admitted with urosepsis and now on ATB. CT scan here of abd and pelvis revealed no clear metastatic osseous or odilia disease. Significant eft hydronephrosis minimal right hydronephrosis, large prostate with image limited due to Lt DEMI. Now has Ceron catheter in. Left nephrostomy just placed today with hemorrhagic urine draining. He has no pain anywhere. He is only oriented to name and unable or unwilling to answer any other questions. 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 Noted to also have dementia. PE Awake O x 1. Not happy about mitt placed over right hand to prevent interference with nephrostomy and IV lines. Abd benign. Neph tube draining hemorrhagic urine. Ceron in. Left sided UE and LE weakness. Rectal exam omitted. 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 he has been well palliated with Ceron and nephrostomy tube. Currently, no palliative need to radiate prostate. Even if there was some value for palliative radiation, he does not currently have the capability to cooperate with need to lay still for any extended time which precludes treatment. Conservative code status noted and is appropriate. He will likely need chronic snf placement possibly with hospice. Discussed with nursing staff. Also discussed with daughter by phone today [phone] ROSE BRUCE MD Jan 30, 2019 16:15
--- NOTE | 2019-01-30 17:05 | RAD ---
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 Informed consent was obtained. Timeout procedure was performed. Left flank was prepped and draped using sterile barrier technique. Ultrasound evaluation demonstrates left hydronephrosis, similar to prior exam. 1% lidocaine was administered for local anesthesia. The left renal collecting system was accessed using a 21-gauge needle under direct ultrasound guidance. Reference ultrasound images were saved the medical record. A guidewire was advanced into the ureter. The sheath was advanced over this wire, and contrast injected confirming position in the mid ureter. Significant hydroureter and hydronephrosis is again seen. The sheath was replaced over the wire with an 8 [place]une[place] pigtail drain positioned in the renal pelvis. Contrast was administered demonstrating a filling defect in the central renal pelvis. This could be due to a mass, or debris. The catheter was left to external drainage. Sterile dressings were applied. Total fluoroscopy time: 3 minutes dose area product: 7 Gycm2 The procedure was performed under conscious sedation including continuous cardiopulmonary monitoring via a dedicated sedation nurse. [id number] Moderate Sedation time: 50 Minutes Impression: 1.Ultrasound and fluoroscopically guided left percutaneous nephrostomy placement 2. Filling defects in the left renal pelvis possibly relating to debris, clot, or mass. Further evaluation at subsequent attempted conversion of this nephrostomy tube to nephroureteral stent will be performed. Direct visualization likely not possible given distal ureteral obstruction, and inability to identify the ureteral orifice in the bladder.
[2019-01-30] MEDS: TAMSULOSIN 0.4 MG CAP.ER.24H. PO SCH (20:49)
[2019-01-30] MEDS: ATORVASTATIN CALCIUM 20 MG TABLET PO SCH (20:50)
--- NOTE | 2019-01-30 21:28 | CONS ---
DATE OF CONSULTATION: 01/30/2019 REFERRING DOCTOR: Riya Ray MD DIAGNOSIS: Locally advanced longstanding hormonally refractory adenocarcinoma of the prostate diagnosed in 1995, treated with androgen deprivation therapy in the past, now with local disease progression. He was recently seen at [facility] with urinary tract infection and bacteremia consistent with urosepsis and transferred here for further treatment. We were asked to see him regarding the role if any for palliative radiation therapy in his care. ICD 10 C61 HISTORY OF PRESENT ILLNESS: The patient is an 83-year-old gentleman with a significant past medical history of right cerebrovascular accident and chronic left hemiparesis and aphasia as well as dementia. He has been admitted in the past with urinary tract infection and was recently discharged following treatment to [facility]. He continued to have fevers there, was seen in [facility], at which time blood cultures were positive. During that time, he was treated with antibiotics and was found to develop thrombocytopenia and switched to a different antibiotic therapy and ultimately transferred here. CT scans, both at [facility] and here, revealed significant left-sided hydronephrosis, minimal right-sided hydronephrosis, prostatic enlargement and partly obscured by a left total knee arthroplasty, no obvious retroperitoneal or pelvic adenopathy. No obvious osseous metastatic disease seen on my review. He underwent cystoscopy and bladder stone removal by Dr. Gutierrez on 01/24/2019. At that time, shaggy necrotic fibrotic tissue was noted originating from the prostate covering the bladder neck, trigone and scaling the normal anatomy planes. Several small stones and clots were removed from the bladder. Several attempts with ureteral catheterization were made and were unsuccessful. Procedure ended. Today, on 01/30/2019, he had a percutaneous nephrostomy tube placed in the left kidney, which is now draining successfully with hemorrhagic urine. He offers no complaints at this time. He is only oriented to person, not place or time. He does complain about the mitt covering his right hand, which has been placed to prevent him from interfering with his IV line and Ceron and nephrostomy tubes. PAST MEDICAL HISTORY: Remarkable for prostate cancer as summarized above, apparently diagnosed in 1995, treated only with androgen deprivation therapy. I have no records of other additional treatments. He has no capacity to provide history. He has hypertension, diabetes, previous right cerebrovascular accident leaving him with aphasia and left hemiparesis, left hip replacement. FAMILY HISTORY: Noted to have one brother older than him who from prostate cancer, one sister with breast cancer. ALLERGIES: No known drug allergies. MEDICATIONS: See hospitalist. SOCIAL HISTORY: , is Molly. His durable power of health care attorney is his daughter, Vicky. He has 5 daughters and 4 sons in total. Distant history of smoking, previous history of drinking. 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 All the social history is obtained by Dr. Franc Herndon. The patient offers no social history. PHYSICAL EXAMINATION: GENERAL: Revealed a thin elderly gentleman, able to answer minimal questions, uncooperative, pleasant, in no overt distress. HEENT: Unremarkable. LYMPH NODES: He had no palpable cervical or supraclavicular adenopathy. CHEST: Clear to percussion. HEART: Regular. ABDOMEN: Unremarkable. PELVIC: Ceron was placed, nephrostomy tube placed with hemorrhagic urine output. EXTREMITIES: Revealed no clubbing, cyanosis or edema. NEUROLOGIC: He had diffuse left-sided weakness and contracture of the left hand reflecting his previous stroke. Right hand was covered by a mitt. RECTAL:Omitted. LABORATORY STUDIES: On 01/29/2019, hemoglobin 9.4, white count 10,800, platelet count 197,000. Chemistry panel: Normal electrolytes, creatinine 1.6. IMPRESSION AND PLAN: In summary, my impression is that of hormonally refractory adenocarcinoma of the prostate. He has no radiographic evidence for osseous or odilia metastatic disease. His bladder outlet obstruction has been palliated with Ceron placement. His left obstructive uropathy has been palliated with nephrostomy tube. He has no significant insight into his disease status and not cooperative. At this time, there is no indication for palliative radiation therapy given the interventions done so far. Even in the event that palliative radiation would be beneficial, he lacks cooperation and the ability to lay still necessary to treat him successfully. I agree with his status of "do not resuscitate". He may require chronic prison placement possibly with the assistance of hospice following discharge. I had a general discussion with his daughter, Vicky, who understands his overall situation and the need for supportive care in the future. Thank you for allowing us to participate in his evaluation. ROSE BRUCE MD DR: EFFIE/charlotte JOB#: [id number] / [id number] NOY Diaz MD, FRANC PICHARDO [facility] MEDICAL CENTERFady
[2019-01-30] MEDS: ACETAMINOPHEN 325 MG TABLET. PO PRN (23:19)
[2019-01-31 03:00] VITALS: BP 149/96
[2019-01-31 04:37] LABS: HEMATOCRIT 23.6 % (39.0-53.0); HEMOGLOBIN 8.3 g/dL (13.0-17.5); RED BLOOD COUNT 2.74 x10^6/uL (4.30-5.70); RED CELL DISTRIBUTION WIDTH 14.4 % (11.5-14.5); WHITE BLOOD COUNT 12.7 x10^3/uL (4.0-11.0)
[2019-01-31 05:26] LABS: ALBUMIN 2.1 g/dL (3.4-5.0); ALBUMIN/GLOBULIN RATIO 0.6 (1.0-1.7); CREATININE 1.7 mg/dL (0.7-1.3); GFR 46.9; POTASSIUM 3.6 mmol/L (3.5-5.1); TOTAL BILIRUBIN 0.6 mg/dL (0.2-1.0); TOTAL PROTEIN 5.9 g/dL (6.4-8.2)
[2019-01-31 07:00] VITALS: BP 152/83
[2019-01-31] MEDS: INSULIN LISPRO 300 UNITS/3 ML INSULN.PEN. SQ SCH ×3 (08:00→17:00)
[2019-01-31] MEDS: ASPIRIN CHEWABLE 81 MG TABLET. PO SCH ×2 (08:00→09:10)
[2019-01-31] MEDS: POTASSIUM CHLORIDE 10 MEQ TABLET.ER. PO SCH ×4 (09:00→21:00)
[2019-01-31] MEDS: LACTOBACILLUS RHAMNOSUS GG 1 CAPSULE. PO SCH ×3 (09:00→21:00)
[2019-01-31] MEDS: CYANOCOBALAMIN (VITAMIN B-12) 1,000 MCG/ML VIAL IM SCH ×2 (09:00→09:11)
[2019-01-31] MEDS: TIMOLOL 0.25% OPHTH SOLUTION 5ML BOTTLE. OU SCH ×3 (09:00→21:18)
[2019-01-31] MEDS: MEROPENEM 1 GM in IV NORMAL SALINE 100ML 100 ML IV SCH ×2 (09:10→20:41)
--- NOTE | 2019-01-31 10:02 | NUR ---
SW following pt. Discussed with RN and pt has been refusing meds/food. Oncology consulted yesterday and pt is not a candidate for radiation. Palliative care was consulted but Physician will need to address goals of care with family as PC is not available at this time. Per RN, pt might not be a candidate for SNU and might need hospice-LTC placement. Awaiting on Physician to round. Will continue to follow. Addendum: 01/31/19 at 1304 by ARMIDA RIOJAS SW following pt. Per RN, Physician would like to continue to IV abx treatment and await for PC to have palliative conversation on 02/02/19 after IV abx is completed. SHINE updated Sherman.
--- NOTE | 2019-01-31 10:19 | PDOC ---
Infectious Disease Note Subjective: Subjective Pt Resting quietly No fevers or diarrhea reported ROS: ROS limited but neg Vital Signs: Vital Signs Vital Signs Date Time Temp Pulse Resp B/P (MAP) Pulse Ox O2 Delivery O2 Flow Rate FiO2 01/31/19 08:00 Room Air 01/31/19 07:00 97.5 102 18 152/83 (106) 98 97.5 01/30/19 23:00 3.0 Physical Exam: PHYSICAL EXAM GENERAL: Resting quietly, did not awaken, mitts ,arousable, confused LUNGS: Clear. HEART: S1, S2 ABDOMEN: Soft : Ceron and left nephrostomy tube - hematuria EXTREMITIES: No edema, cyanosis. SKIN: warm to touch PIV Medications: Inpatient Meds: Current Medications Medications (Trade) Dose Ordered Sig/Ramakrishna Start Time Stop Time Status Last Admin Dose Admin Acetaminophen (Tylenol) 650 mg PRN Q6HRS PRN 01/23/19 17:30 01/30/19 23:19 650 MG Aspirin (Children'S Aspirin) 81 mg DAILYWBKFT 01/24/19 08:00 01/29/19 09:06 81 MG Atorvastatin Calcium (Lipitor) 20 mg QHS 01/23/19 21:00 01/30/19 20:50 20 MG Cyanocobalamin (Vitamin B-12) 1,000 mcg DAILY 01/26/19 09:00 01/30/19 11:50 1,000 MCG Dexamethasone Sodium Phosphate (Decadron) 4 mg STK-MED ONCE 01/24/19 10:24 01/24/19 10:25 DC Dextrose (Dextrose 50%-Water Syringe) 12.5 gm PRN Q15MIN PRN 01/23/19 17:30 01/30/19 11:50 12.5 GM Esmolol HCl (Brevibloc) 100 mg STK-MED ONCE 01/24/19 11:20 01/24/19 11:21 DC Fentanyl Citrate (Fentanyl 2ml Vial) 100 mcg 1X ONCE 01/30/19 08:15 01/30/19 08:16 DC 01/30/19 08:15 50 MCG Hydromorphone HCl (Dilaudid) 0.5 mg PRN Q10MIN PRN 01/24/19 12:30 01/24/19 20:00 DC Insulin Human Lispro (HumaLOG) 0-5 UNITS TIDWMEALS 01/24/19 08:00 Iodixanol (Visipaque 320) 50 ml 1X ONCE 01/30/19 08:15 01/30/19 08:16 DC 01/30/19 08:15 25 ML Iohexol (Omnipaque 300 Mg/ml) 50 ml STK-MED ONCE 01/24/19 09:05 01/24/19 10:05 DC 01/24/19 11:11 50 ML Ketorolac Tromethamine (Toradol For Or Only) 30 mg STK-MED ONCE 01/24/19 10:24 01/24/19 10:25 DC Lactobacillus Rhamnosus (Culturelle) 1 cap BID 01/23/19 21:00 01/30/19 20:48 1 CAP Lidocaine HCl (Lidocaine Pf 2% Vial) 5 ml STK-MED ONCE 01/24/19 10:24 01/24/19 10:25 DC Lidocaine HCl (Xylocaine-Mpf 1% 2ml Vial) 2 ml 1X PRN PRN 01/24/19 12:30 01/24/19 20:00 DC Lidocaine/Sodium Bicarbonate (Buffered Lidocaine 1%) 3 ml 1X ONCE 01/30/19 08:15 01/30/19 08:16 DC 01/30/19 08:15 9 ML Linezolid (Zyvox) 600 mg BID 01/23/19 21:00 01/24/19 07:09 DC 01/23/19 21:23 600 MG Meropenem 1 gm/ Sodium Chloride 100 ml @ 200 mls/hr 1X ONCE 01/25/19 22:00 01/25/19 22:29 DC 01/25/19 22:03 200 MLS/HR Methylene Blue (Methylene Blue) 1 ml STK-MED ONCE 01/24/19 10:19 01/24/19 11:19 DC 01/24/19 11:20 1 ML Midazolam HCl (Versed) 2 mg 1X ONCE 01/30/19 08:15 01/30/19 08:16 DC 01/30/19 08:15 1 MG Morphine Sulfate (Morphine Sulfate) 1 mg PRN Q10MIN PRN 01/24/19 12:30 01/24/19 20:00 DC Ondansetron HCl (Zofran) 4 mg PRN Q6HRS PRN 01/24/19 12:30 01/24/19 20:00 DC Phenylephrine HCl (PHENYLEPHRINE in 0.9% NACL PF) 1 mg STK-MED ONCE 01/24/19 11:02 01/24/19 11:03 DC Potassium Chloride (Klor-Con) 10 meq TID 01/23/19 21:00 01/30/19 20:50 10 MEQ Prochlorperazine Edisylate (Compazine) 5 mg PACU PRN PRN 01/24/19 12:30 01/24/19 20:00 DC 01/24/19 12:15 5 MG Propofol 20 ml @ As Directed STK-MED ONCE 01/24/19 10:24 01/24/19 10:25 DC Ringer's Solution 1,000 ml @ 75 mls/hr [id number] PRN 01/24/19 12:30 01/29/19 15:03 DC Sevoflurane (Ultane) 30 ml STK-MED ONCE 01/24/19 10:24 01/24/19 10:25 DC Sodium Chloride 250 ml @ 250 mls/hr 1X ONCE 01/25/19 08:00 01/25/19 08:59 DC 01/25/19 08:00 250 MLS/HR Tamsulosin HCl (Flomax) 0.4 mg QHS 01/23/19 21:00 01/30/19 20:49 0.4 MG Timolol Maleate (Timoptic 0.25% [facility]) 1 drop BID 01/23/19 21:00 01/30/19 20:50 1 DROP Labs: Lab Laboratory Tests Test 01/30/19 11:47 01/30/19 12:47 01/30/19 16:38 01/30/19 20:06 Glucose (Fingerstick) 53 mg/dL (70-99) 90 mg/dL (70-99) 81 mg/dL (70-99) 143 mg/dL (70-99) Test 01/31/19 04:20 01/31/19 07:38 White Blood Count 12.7 x10^3/uL (4.0-11.0) Red Blood Count 2.74 x10^6/uL (4.30-5.70) Hemoglobin 8.3 g/dL (13.0-17.5) Hematocrit 23.6 % (39.0-53.0) Mean Corpuscular Volume 86 fL (79-100) Mean Corpuscular Hemoglobin 30 pg (25-35) Mean Corpuscular Hemoglobin Concent 35 g/dL (31-37) Red Cell Distribution Width 14.4 % (11.5-14.5) Platelet Count 357 x10^3/uL (140-400) Sodium Level 136 mmol/L (136-145) Potassium Level 3.6 mmol/L (3.5-5.1) Chloride Level 103 mmol/L (98-107) Carbon Dioxide Level 25 mmol/L (21-32) Anion Gap 8 (6-14) Blood Urea Nitrogen 14 mg/dL (8-26) Creatinine 1.7 mg/dL (0.7-1.3) Estimated GFR (Cockcroft-Gault) 46.9 BUN/Creatinine Ratio 8 (6-20) Glucose Level 111 mg/dL (70-99) Calcium Level 8.0 mg/dL (8.5-10.1) Total Bilirubin 0.6 mg/dL (0.2-1.0) Aspartate Amino Transf (AST/SGOT) 24 U/L (15-37) Alanine Aminotransferase (ALT/SGPT) 16 U/L (16-63) Alkaline Phosphatase 67 U/L (46-116) Total Protein 5.9 g/dL (6.4-8.2) Albumin 2.1 g/dL (3.4-5.0) Albumin/Globulin Ratio 0.6 (1.0-1.7) Glucose (Fingerstick) 109 mg/dL (70-99) Objective: Assessment: E coli bacteremia with sepsis ([facility] 01/17) E coli UTI ([facility] 01/17) Left hydronephrosis, presumably due to advanced prostate cancer invading the bladder and trigone. s/p nephrostomy tube placement, 01/30 s/p cysto, bladder stone removal 01/24 Hematuria CVA Leukocytosis Renal insufficiency HTN Met prostate cancer Plan: Plan of Care Continue meropenem Probiotics f/u am labs TINY AGUIAR MD Jan 31, 2019 10:19
[2019-01-31 11:00] VITALS: BP 144/64
[2019-01-31] MEDS: IV 1/2 NORMAL SALINE 1,000 ML IV SCH (12:10)
--- NOTE | 2019-01-31 12:19 | PDOC ---
PROGRESS NOTE SUBJECTIVE: ROS: ROS: RESPIRATORY: Shortness of breath denies. Cough denies. UROLOGY: Denies blood in urine. Denies difficulty urinating HPI: Duration: [] Quality: [] Severity: [] Site/Location: [] Problems: Problems Medical Problems: (1) Acute blood loss anemia Status: Acute (2) Calculus of ureterovesical junction (UVJ) Status: Acute (3) Gram-negative bacteremia Status: Acute (4) Thrombocytopenia Status: Acute (5) Ureterovesical junction (UVJ) obstruction Status: Acute OBJECTIVE: Vital Signs: Vital Signs Date Time Temp Pulse Resp B/P (MAP) Pulse Ox O2 Delivery O2 Flow Rate FiO2 01/31/19 08:00 Room Air 01/31/19 07:00 97.5 102 18 152/83 (106) 98 Room Air 97.5 01/31/19 03:00 98.0 102 18 149/96 (113) 97 Room Air 98.0 01/30/19 23:00 98.0 108 18 157/94 (115) 100 Room Air 3.0 98.0 01/30/19 20:00 Room Air 01/30/19 19:00 98.2 104 18 136/76 (96) 100 Room Air 3.0 98.2 01/30/19 15:00 98.0 119 16 169/109 (129) 97 Room Air 98.0 I & O Intake and Output 01/31/19 07:00 Intake Total 1100 ml Output Total 1655 ml Balance -555 ml Intake Oral 0 ml IV Total 1100 ml Output Urine Total 1400 ml Drainage Total 255 ml # Bowel Movements 1 PHYSICAL EXAM: Physical Exam: General: Pleasant, no acute distress, well groomed Eyes: conjunctiva anicteric, eyes full range of motion ENT: moist oral mucosa, normal dentition Neck: Trachea midline, no masses Respiratory: unlabored breathing, not using accessory muscles, no crackles or wheezes Cardiovascular: Regular rate and rhythm, no peripheral edema Abdomen: nontender, nondistended, no hepatosplenomegaly, no masses Skin: no rashes or skin lesions on visualized skin Psych: normal mood, affect. Alert and oriented x 3. LABS: Laboratory Tests Test 01/28/19 16:55 01/28/19 20:39 01/29/19 07:22 01/29/19 07:27 Glucose (Fingerstick) 91 mg/dL (70-99) 113 mg/dL (70-99) Sodium Level 139 mmol/L (136-145) Potassium Level 3.6 mmol/L (3.5-5.1) Chloride Level 102 mmol/L (98-107) Carbon Dioxide Level 26 mmol/L (21-32) Anion Gap 11 (6-14) Blood Urea Nitrogen 12 mg/dL (8-26) Creatinine 1.7 mg/dL (0.7-1.3) Estimated GFR (Cockcroft-Gault) 46.9 Glucose Level 103 mg/dL (70-99) Calcium Level 8.4 mg/dL (8.5-10.1) White Blood Count 10.8 x10^3/uL (4.0-11.0) Red Blood Count 3.11 x10^6/uL (4.30-5.70) Hemoglobin 9.4 g/dL (13.0-17.5) Hematocrit 27.2 % (39.0-53.0) Mean Corpuscular Volume 88 fL (79-100) Mean Corpuscular Hemoglobin 30 pg (25-35) Mean Corpuscular Hemoglobin Concent 35 g/dL (31-37) Red Cell Distribution Width 14.3 % (11.5-14.5) Platelet Count 197 x10^3/uL (140-400) Test 01/29/19 07:32 01/29/19 11:50 01/29/19 22:08 01/30/19 05:50 Glucose (Fingerstick) 91 mg/dL (70-99) 111 mg/dL (70-99) 80 mg/dL (70-99) Hemoglobin 8.1 g/dL (13.0-17.5) Hematocrit 22.6 % (39.0-53.0) Sodium Level 137 mmol/L (136-145) Potassium Level 3.6 mmol/L (3.5-5.1) Chloride Level 104 mmol/L (98-107) Carbon Dioxide Level 24 mmol/L (21-32) Anion Gap 9 (6-14) Blood Urea Nitrogen 11 mg/dL (8-26) Creatinine 1.6 mg/dL (0.7-1.3) Estimated GFR (Cockcroft-Gault) 50.3 Glucose Level 77 mg/dL (70-99) Calcium Level 8.0 mg/dL (8.5-10.1) Test 01/30/19 09:59 01/30/19 11:47 01/30/19 12:47 01/30/19 16:38 Glucose (Fingerstick) 70 mg/dL (70-99) 53 mg/dL (70-99) 90 mg/dL (70-99) 81 mg/dL (70-99) Test 01/30/19 20:06 01/31/19 04:20 01/31/19 07:38 01/31/19 11:31 Glucose (Fingerstick) 143 mg/dL (70-99) 109 mg/dL (70-99) 97 mg/dL (70-99) White Blood Count 12.7 x10^3/uL (4.0-11.0) Red Blood Count 2.74 x10^6/uL (4.30-5.70) Hemoglobin 8.3 g/dL (13.0-17.5) Hematocrit 23.6 % (39.0-53.0) Mean Corpuscular Volume 86 fL (79-100) Mean Corpuscular Hemoglobin 30 pg (25-35) Mean Corpuscular Hemoglobin Concent 35 g/dL (31-37) Red Cell Distribution Width 14.4 % (11.5-14.5) Platelet Count 357 x10^3/uL (140-400) Sodium Level 136 mmol/L (136-145) Potassium Level 3.6 mmol/L (3.5-5.1) Chloride Level 103 mmol/L (98-107) Carbon Dioxide Level 25 mmol/L (21-32) Anion Gap 8 (6-14) Blood Urea Nitrogen 14 mg/dL (8-26) Creatinine 1.7 mg/dL (0.7-1.3) Estimated GFR (Cockcroft-Gault) 46.9 BUN/Creatinine Ratio 8 (6-20) Glucose Level 111 mg/dL (70-99) Calcium Level 8.0 mg/dL (8.5-10.1) Total Bilirubin 0.6 mg/dL (0.2-1.0) Aspartate Amino Transf (AST/SGOT) 24 U/L (15-37) Alanine Aminotransferase (ALT/SGPT) 16 U/L (16-63) Alkaline Phosphatase 67 U/L (46-116) Total Protein 5.9 g/dL (6.4-8.2) Albumin 2.1 g/dL (3.4-5.0) Albumin/Globulin Ratio 0.6 (1.0-1.7) MEDICATIONS: Current Medications Medications (Trade) Dose Ordered Sig/Ramakrishna Start Time Stop Time Status Last Admin Dose Admin Acetaminophen (Tylenol) 650 mg PRN Q6HRS PRN 01/23/19 17:30 01/30/19 23:19 650 MG Aspirin (Children'S Aspirin) 81 mg DAILYWBKFT 01/24/19 08:00 01/29/19 09:06 81 MG Atorvastatin Calcium (Lipitor) 20 mg QHS 01/23/19 21:00 01/30/19 20:50 20 MG Cyanocobalamin (Vitamin B-12) 1,000 mcg DAILY 01/26/19 09:00 01/30/19 11:50 1,000 MCG Dexamethasone Sodium Phosphate (Decadron) 4 mg STK-MED ONCE 01/24/19 10:24 01/24/19 10:25 DC Dextrose (Dextrose 50%-Water Syringe) 12.5 gm PRN Q15MIN PRN 01/23/19 17:30 01/30/19 11:50 12.5 GM Esmolol HCl (Brevibloc) 100 mg STK-MED ONCE 01/24/19 11:20 01/24/19 11:21 DC Fentanyl Citrate (Fentanyl 2ml Vial) 100 mcg 1X ONCE 01/30/19 08:15 01/30/19 08:16 DC 01/30/19 08:15 50 MCG Hydromorphone HCl (Dilaudid) 0.5 mg PRN Q10MIN PRN 01/24/19 12:30 01/24/19 20:00 DC Insulin Human Lispro (HumaLOG) 0-5 UNITS TIDWMEALS 01/24/19 08:00 Iodixanol (Visipaque 320) 50 ml 1X ONCE 01/30/19 08:15 01/30/19 08:16 DC 01/30/19 08:15 25 ML Iohexol (Omnipaque 300 Mg/ml) 50 ml STK-MED ONCE 01/24/19 09:05 01/24/19 10:05 DC 01/24/19 11:11 50 ML Ketorolac Tromethamine (Toradol For Or Only) 30 mg STK-MED ONCE 01/24/19 10:24 01/24/19 10:25 DC Lactobacillus Rhamnosus (Culturelle) 1 cap BID 01/23/19 21:00 01/30/19 20:48 1 CAP Lidocaine HCl (Lidocaine Pf 2% Vial) 5 ml STK-MED ONCE 01/24/19 10:24 01/24/19 10:25 DC Lidocaine HCl (Xylocaine-Mpf 1% 2ml Vial) 2 ml 1X PRN PRN 01/24/19 12:30 01/24/19 20:00 DC Lidocaine/Sodium Bicarbonate (Buffered Lidocaine 1%) 3 ml 1X ONCE 01/30/19 08:15 01/30/19 08:16 DC 01/30/19 08:15 9 ML Linezolid (Zyvox) 600 mg BID 01/23/19 21:00 01/24/19 07:09 DC 01/23/19 21:23 600 MG Meropenem 1 gm/ Sodium Chloride 100 ml @ 200 mls/hr 1X ONCE 01/25/19 22:00 01/25/19 22:29 DC 01/25/19 22:03 200 MLS/HR Methylene Blue (Methylene Blue) 1 ml STK-MED ONCE 01/24/19 10:19 01/24/19 11:19 DC 01/24/19 11:20 1 ML Midazolam HCl (Versed) 2 mg 1X ONCE 01/30/19 08:15 01/30/19 08:16 DC 01/30/19 08:15 1 MG Morphine Sulfate (Morphine Sulfate) 1 mg PRN Q10MIN PRN 01/24/19 12:30 01/24/19 20:00 DC Ondansetron HCl (Zofran) 4 mg PRN Q6HRS PRN 01/24/19 12:30 01/24/19 20:00 DC Phenylephrine HCl (PHENYLEPHRINE in 0.9% NACL PF) 1 mg STK-MED ONCE 01/24/19 11:02 01/24/19 11:03 DC Potassium Chloride (Klor-Con) 10 meq TID 01/23/19 21:00 01/30/19 20:50 10 MEQ Prochlorperazine Edisylate (Compazine) 5 mg PACU PRN PRN 01/24/19 12:30 01/24/19 20:00 DC 01/24/19 12:15 5 MG Propofol 20 ml @ As Directed STK-MED ONCE 01/24/19 10:24 01/24/19 10:25 DC Ringer's Solution 1,000 ml @ 75 mls/hr [id number] PRN 01/24/19 12:30 01/29/19 15:03 DC Sevoflurane (Ultane) 30 ml STK-MED ONCE 01/24/19 10:24 01/24/19 10:25 DC Sodium Chloride 250 ml @ 250 mls/hr 1X ONCE 01/25/19 08:00 01/25/19 08:59 DC 01/25/19 08:00 250 MLS/HR Tamsulosin HCl (Flomax) 0.4 mg QHS 01/23/19 21:00 01/30/19 20:49 0.4 MG Timolol Maleate (Timoptic 0.25% [facility]) 1 drop BID 01/23/19 21:00 01/30/19 20:50 1 DROP ASSESSMENT & PLAN pt tolerating PCN and tolentino but he is confused today; Would rec that we have IR try to internalize his PCN w a stent. Then he will not need the PCN and will be "protected" from another urosptic episode. Problem List: Problems Medical Problems: (1) Acute blood loss anemia Status: Acute (2) Calculus of ureterovesical junction (UVJ) Status: Acute (3) Gram-negative bacteremia Status: Acute (4) Thrombocytopenia Status: Acute (5) Ureterovesical junction (UVJ) obstruction Status: Acute ONEIL SNELL MD Jan 31, 2019 12:19
[2019-01-31 15:00] VITALS: BP 144/64
--- NOTE | 2019-01-31 16:55 | PN ---
DATE: 01/31/2019 SUBJECTIVE: The patient is resting, slightly propped up, sleeping comfortably, in no apparent distress. He is arousable. On questioning him, he denied any complaint; however, the nursing staff stated that he has been refusing his medication, refused to eat or drink. He was seen by Dr. Holden and also Dr. Casiano in consultation. Dr. Casiano did not think that the patient is a candidate for palliative radiation therapy given he lacks cooperation, ability to lay still, necessary to treat him successfully. His code status is now DNR/DNI. I will wait for palliative care team on Tuesday to discuss with the family the option of hospice care, and if he is accepted, he can be transferred to [facility] to continue hospice care for end of life care. PHYSICAL EXAMINATION: GENERAL: When I saw him this morning, he looked well and was clearly in no apparent respiratory distress, pale, cachectic, but no jaundice, cyanosis, or thyromegaly. No jugular venous distension. No limb edema. VITAL SIGNS: Her heart rate was 102, blood pressure 152/83, temperature 97.5, respiratory rate 18 and oxygen saturation was 98%. HEAD, EYES, EARS, NOSE AND THROAT: Normocephalic, atraumatic. NECK: Supple. HEART: Showed normal first and second heart sounds. No gallop, rub or murmur. CHEST: Clear to auscultation. No crepitation or rhonchi. ABDOMEN: Scaphoid, soft, nontender. NEUROLOGIC: He is awake, alert, responds appropriately at times. All his cranial nerves are intact. He has expressive aphasia and left-sided hemiplegia. His intake over the last 24 hours was incompletely recorded, output was 2100. LABORATORY DATA: His lab work this morning showed a white cell count of 12,700, hemoglobin 8.3, hematocrit 23.6, MCV 86 and platelet count of 357,000. His chemistry showed a serum sodium 136, potassium 3.6, chloride 103, bicarbonate 25, anion gap 8, BUN 14, creatinine 1.7, estimated GFR was 47 mL per minute, his glucose was 111, and calcium was 8. Total bilirubin, AST, ALT, alkaline phosphatase were normal. Total protein was 5.9, albumin 2.1. ASSESSMENT: 1. Left-sided hydronephrosis and hydroureter that has progressed. The patient is status post left percutaneous nephrostomy tube placement. 2. Cystoscopy showed that he has metastatic prostate cancer with bladder and trigone. He was also found to have bladder stones and clots that were removed. 3. Bladder outlet obstruction requiring indwelling Ceron catheter. 4. Hypertension. 5. Type 2 diabetes mellitus. 6. Hyperlipidemia. 7. Urinary tract infection with growth of Escherichia coli in the urine and Escherichia coli bacteremia. 8. Acute blood loss anemia with hemoglobin and hematocrit that have been stable. 9. Acute on chronic kidney injury, improving. Creatinine is down from 2.5 to 1.7. 10. The patient was seen by the oncologist. Apparently, the patient was on androgen deprivation therapy with his poor performance status. The oncologist recommends supportive care only. 11. The patient also seen by the radiation oncologist for palliative radiation, but does not seem that the patient has the capacity to lie still to be treated effectively. 12. Thrombocytopenia has finally resolved. Platelet count is up to 197,000. 13. The patient has severe calorie malnutrition. Serum albumin is only 2.1. He is severely cachectic with a body mass index of only 17%. PLAN: My plan is to continue obviously with IV fluid, continue with IV antibiotic. We will have to discuss with the family the palliative care team on Tuesday that the patient probably needs to go to hospice, can be discharged on Tuesday to [facility] or other longterm of their choice. LUIS ISAACS MD DR: JENNIFER/charlotte JOB#: [id number] / [id number]
[2019-01-31 19:48] VITALS: BP 179/103
[2019-01-31] MEDS: TAMSULOSIN 0.4 MG CAP.ER.24H. PO SCH (21:00)
[2019-01-31] MEDS: ATORVASTATIN CALCIUM 20 MG TABLET PO SCH (21:00)
[2019-01-31 23:18] VITALS: BP 172/84
[2019-02-01 03:00] VITALS: BP 179/90
[2019-02-01] MEDS: IV 1/2 NORMAL SALINE 1,000 ML IV SCH ×2 (03:18→16:55)
[2019-02-01 07:00] VITALS: BP 153/52
[2019-02-01] MEDS: INSULIN LISPRO 300 UNITS/3 ML INSULN.PEN. SQ SCH ×3 (08:00→17:00)
[2019-02-01] MEDS: DEXTROSE 50% 25 GM / 50ML DISP.SYRIN. IV PRN (08:20)
[2019-02-01] MEDS: MEROPENEM 1 GM in IV NORMAL SALINE 100ML 100 ML IV SCH ×2 (08:22→20:43)
--- NOTE | 2019-02-01 09:21 | PDOC ---
Infectious Disease Note Subjective: Subjective Pt Resting quietly says feels ok ROS: ROS Negative except for above. Vital Signs: Vital Signs Vital Signs Date Time Temp Pulse Resp B/P (MAP) Pulse Ox O2 Delivery O2 Flow Rate FiO2 02/01/19 07:00 98.1 88 18 153/52 (85) 99 Room Air 98.1 Physical Exam: PHYSICAL EXAM GENERAL: Resting quietly, alert awake, less confused LUNGS: Clear. HEART: S1, S2 ABDOMEN: Soft : Ceron and left nephrostomy tube EXTREMITIES: No edema, cyanosis. SKIN: warm to touch PIV Medications: Inpatient Meds: Current Medications Medications (Trade) Dose Ordered Sig/Ramakrishna Start Time Stop Time Status Last Admin Dose Admin Acetaminophen (Tylenol) 650 mg PRN Q6HRS PRN 01/23/19 17:30 01/30/19 23:19 650 MG Aspirin (Children'S Aspirin) 81 mg DAILYWBKFT 01/24/19 08:00 01/29/19 09:06 81 MG Atorvastatin Calcium (Lipitor) 20 mg QHS 01/23/19 21:00 01/30/19 20:50 20 MG Cyanocobalamin (Vitamin B-12) 1,000 mcg DAILY 01/26/19 09:00 01/30/19 11:50 1,000 MCG Dexamethasone Sodium Phosphate (Decadron) 4 mg STK-MED ONCE 01/24/19 10:24 01/24/19 10:25 DC Dextrose (Dextrose 50%-Water Syringe) 12.5 gm PRN Q15MIN PRN 01/23/19 17:30 02/01/19 08:20 12.5 GM Esmolol HCl (Brevibloc) 100 mg STK-MED ONCE 01/24/19 11:20 01/24/19 11:21 DC Fentanyl Citrate (Fentanyl 2ml Vial) 100 mcg 1X ONCE 01/30/19 08:15 01/30/19 08:16 DC 01/30/19 08:15 50 MCG Hydromorphone HCl (Dilaudid) 0.5 mg PRN Q10MIN PRN 01/24/19 12:30 01/24/19 20:00 DC Insulin Human Lispro (HumaLOG) 0-5 UNITS TIDWMEALS 01/24/19 08:00 Iodixanol (Visipaque 320) 50 ml 1X ONCE 01/30/19 08:15 01/30/19 08:16 DC 01/30/19 08:15 25 ML Iohexol (Omnipaque 300 Mg/ml) 50 ml STK-MED ONCE 01/24/19 09:05 01/24/19 10:05 DC 01/24/19 11:11 50 ML Ketorolac Tromethamine (Toradol For Or Only) 30 mg STK-MED ONCE 01/24/19 10:24 01/24/19 10:25 DC Lactobacillus Rhamnosus (Culturelle) 1 cap BID 01/23/19 21:00 01/30/19 20:48 1 CAP Lidocaine HCl (Lidocaine Pf 2% Vial) 5 ml STK-MED ONCE 01/24/19 10:24 01/24/19 10:25 DC Lidocaine HCl (Xylocaine-Mpf 1% 2ml Vial) 2 ml 1X PRN PRN 01/24/19 12:30 01/24/19 20:00 DC Lidocaine/Sodium Bicarbonate (Buffered Lidocaine 1%) 3 ml 1X ONCE 01/30/19 08:15 01/30/19 08:16 DC 01/30/19 08:15 9 ML Linezolid (Zyvox) 600 mg BID 01/23/19 21:00 01/24/19 07:09 DC 01/23/19 21:23 600 MG Meropenem 1 gm/ Sodium Chloride 100 ml @ 200 mls/hr 1X ONCE 01/25/19 22:00 01/25/19 22:29 DC 01/25/19 22:03 200 MLS/HR Methylene Blue (Methylene Blue) 1 ml STK-MED ONCE 01/24/19 10:19 01/24/19 11:19 DC 01/24/19 11:20 1 ML Midazolam HCl (Versed) 2 mg 1X ONCE 01/30/19 08:15 01/30/19 08:16 DC 01/30/19 08:15 1 MG Morphine Sulfate (Morphine Sulfate) 1 mg PRN Q10MIN PRN 01/24/19 12:30 01/24/19 20:00 DC Ondansetron HCl (Zofran) 4 mg PRN Q6HRS PRN 01/24/19 12:30 01/24/19 20:00 DC Phenylephrine HCl (PHENYLEPHRINE in 0.9% NACL PF) 1 mg STK-MED ONCE 01/24/19 11:02 01/24/19 11:03 DC Potassium Chloride (Klor-Con) 10 meq TID 01/23/19 21:00 01/30/19 20:50 10 MEQ Prochlorperazine Edisylate (Compazine) 5 mg PACU PRN PRN 01/24/19 12:30 01/24/19 20:00 DC 01/24/19 12:15 5 MG Propofol 20 ml @ As Directed STK-MED ONCE 01/24/19 10:24 01/24/19 10:25 DC Ringer's Solution 1,000 ml @ 75 mls/hr [id number] PRN 01/24/19 12:30 01/29/19 15:03 DC Sevoflurane (Ultane) 30 ml STK-MED ONCE 01/24/19 10:24 01/24/19 10:25 DC Sodium Chloride 250 ml @ 250 mls/hr 1X ONCE 01/25/19 08:00 01/25/19 08:59 DC 01/25/19 08:00 250 MLS/HR Tamsulosin HCl (Flomax) 0.4 mg QHS 01/23/19 21:00 01/30/19 20:49 0.4 MG Timolol Maleate (Timoptic 0.25% [facility]) 1 drop BID 01/23/19 21:00 01/31/19 21:18 1 DROP Labs: Lab Laboratory Tests Test 01/31/19 11:31 01/31/19 17:05 01/31/19 20:37 Glucose (Fingerstick) 97 mg/dL (70-99) 85 mg/dL (70-99) 105 mg/dL (70-99) Objective: Assessment: E coli bacteremia with sepsis ([facility] 01/17) E coli UTI ([facility] 01/17) Left hydronephrosis, presumably due to advanced prostate cancer invading the bladder and trigone. s/p nephrostomy tube placement, 01/30 s/p cysto, bladder stone removal 01/24 Hematuria CVA Leukocytosis Renal insufficiency HTN Met prostate cancer Plan: Plan of Care Continue meropenem urology input noted,await internalization of tubes Probiotics f/u am labs awaiting palliative care evaluation D/W Nursing TINY AGUIAR MD Feb 01, 2019 09:21
[2019-02-01 11:00] VITALS: BP 151/79
--- NOTE | 2019-02-01 11:19 | NUR ---
SW faxed updates to [facility]. [facility] requested for PT/OT order. Will continue to follow.
[2019-02-01] MEDS: LACTOBACILLUS RHAMNOSUS GG 1 CAPSULE. PO SCH ×2 (11:29→20:43)
[2019-02-01] MEDS: TIMOLOL 0.25% OPHTH SOLUTION 5ML BOTTLE. OU SCH ×2 (11:30→20:43)
[2019-02-01] MEDS: ASPIRIN CHEWABLE 81 MG TABLET. PO SCH (11:30)
[2019-02-01] MEDS: CYANOCOBALAMIN (VITAMIN B-12) 1,000 MCG/ML VIAL IM SCH (11:30)
[2019-02-01] MEDS: POTASSIUM CHLORIDE 10 MEQ TABLET.ER. PO SCH ×3 (11:30→20:43)
--- NOTE | 2019-02-01 12:14 | PN ---
DATE: 02/01/2019 SUBJECTIVE: The patient is resting, slightly propped up, sleeping comfortably, in no apparent distress, more awake and alert. According to nursing staff, he has eaten his breakfast today. The urologist recommended internalizing the stent. PHYSICAL EXAMINATION: GENERAL: When I examined him this morning, he looked pale, cachectic, but no jaundice, cyanosis, or thyromegaly. No jugular venous distension. No limb edema. VITAL SIGNS: His heart rate was 88, blood pressure 153/52, temperature was 98.1, respiratory rate was 18 and oxygen saturation was 99%. HEAD, EYES, EARS, NOSE AND THROAT: Showed normocephalic, atraumatic. NECK: Supple. HEART: Showed normal first and second heart sounds. No gallop, rub or murmur. CHEST: Clear to auscultation. No crepitation or rhonchi. ABDOMEN: Distended, soft, nontender. No guarding or rigidity. No organomegaly. All hernial orifices intact. Bowel sounds normal. NEUROLOGIC: He was awake, alert, responding appropriately. All cranial nerves are intact. He has left-sided hemiplegia. GENITOURINARY: He has an indwelling Ceron catheter and percutaneous nephrostomy tube today in the left kidney. His intake over the last 24 hours was 1100, output was 1655. LABORATORY DATA: No lab work done this morning, but as of yesterday, his BUN is down to 14, creatinine 1.7 and his H and H was 8.3 and 23.6. ASSESSMENT: 1. Left-sided hydronephrosis and hydroureter that has progressed, the patient is status post left percutaneous nephrostomy tube placement. 2. 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 He was also found to have bladder stones and clots that were removed. 3. Bladder outlet obstruction requiring indwelling Ceron catheter. 4. Hypertension. 5. Type 2 diabetes mellitus. 6. Hyperlipidemia. 7. Urinary tract infection with growth of Escherichia coli bacteremia. 8. Acute blood loss anemia with hemoglobin and hematocrit that have been stable. 9. Acute on chronic kidney injury, improving. His creatinine came down from 2.5-1.7. 10. The patient was seen by the oncologist. Apparently, the patient was on androgen deprivation therapy. With his poor performance, his oncologist recommends supportive care only. 11. The patient was also seen by radiation oncologist for palliative radiation, but does not seem that the patient has the capacity to lie still to be treated effectively. 12. Thrombocytopenia has finally resolved and platelet count is up to 197,000. 13. The patient has severe protein-calorie malnutrition, serum albumin is only 2.1%. He is severely cachectic with a body mass index of only 17%. PLAN: Obviously to arrange for the internalization of the stent and removal of the percutaneous tube and hopefully, the patient can be discharged to [facility] and to consult the palliative care or hospice care there. LUIS ISAACS MD DR: JENNIFER/charlotte JOB#: [id number] / [id number]
--- NOTE | 2019-02-01 14:56 | PDOC ---
PROGRESS NOTE SUBJECTIVE: ROS: ROS: unable to obtain due to patient's baseline mental status HPI: No acute events. Patient appears comfortable. Tolentino in place draining blood tinged urine. Per nurse, more interactive and eating more. Problems: Problems Medical Problems: (1) Acute blood loss anemia Status: Acute (2) Calculus of ureterovesical junction (UVJ) Status: Acute (3) Gram-negative bacteremia Status: Acute (4) Thrombocytopenia Status: Acute (5) Ureterovesical junction (UVJ) obstruction Status: Acute OBJECTIVE: Vital Signs: Vital Signs Date Time Temp Pulse Resp B/P (MAP) Pulse Ox O2 Delivery O2 Flow Rate FiO2 02/01/19 11:00 98.6 123 18 151/79 (103) 97 Room Air 98.6 02/01/19 07:00 98.1 88 18 153/52 (85) 99 Room Air 98.1 02/01/19 03:00 97.7 118 20 179/90 (119) 99 Room Air 97.7 01/31/19 23:18 98.0 90 20 172/84 (113) 96 Room Air 98.0 01/31/19 20:00 Room Air 01/31/19 19:48 97.7 124 20 179/103 (128) 94 Room Air 97.7 01/31/19 15:00 97.9 103 18 144/64 (90) 97 Room Air 97.9 I & O Intake and Output 02/01/19 06:59 Intake Total 0 ml Output Total 1125 ml Balance -1125 ml Intake Oral 0 ml Output Urine Total 975 ml Drainage Total 150 ml PHYSICAL EXAM: Physical Exam: General: Pleasant, no acute distress, well groomed Respiratory: unlabored breathing Cardiovascular: Regular rate and rhythm Abdomen: nontender, nondistended. left nephrostomy with light blood tinged urine. Skin: no rashes or skin lesions on visualized skin Psych: normal mood, affect. Alert and oriented x 0 : tolentino draining red urine, no clots LABS: Laboratory Tests Test 01/29/19 22:08 01/30/19 05:50 01/30/19 09:59 01/30/19 11:47 Glucose (Fingerstick) 80 mg/dL (70-99) 70 mg/dL (70-99) 53 mg/dL (70-99) Hemoglobin 8.1 g/dL (13.0-17.5) Hematocrit 22.6 % (39.0-53.0) Sodium Level 137 mmol/L (136-145) Potassium Level 3.6 mmol/L (3.5-5.1) Chloride Level 104 mmol/L (98-107) Carbon Dioxide Level 24 mmol/L (21-32) Anion Gap 9 (6-14) Blood Urea Nitrogen 11 mg/dL (8-26) Creatinine 1.6 mg/dL (0.7-1.3) Estimated GFR (Cockcroft-Gault) 50.3 Glucose Level 77 mg/dL (70-99) Calcium Level 8.0 mg/dL (8.5-10.1) Test 01/30/19 12:47 01/30/19 16:38 01/30/19 20:06 01/31/19 04:20 Glucose (Fingerstick) 90 mg/dL (70-99) 81 mg/dL (70-99) 143 mg/dL (70-99) White Blood Count 12.7 x10^3/uL (4.0-11.0) Red Blood Count 2.74 x10^6/uL (4.30-5.70) Hemoglobin 8.3 g/dL (13.0-17.5) Hematocrit 23.6 % (39.0-53.0) Mean Corpuscular Volume 86 fL (79-100) Mean Corpuscular Hemoglobin 30 pg (25-35) Mean Corpuscular Hemoglobin Concent 35 g/dL (31-37) Red Cell Distribution Width 14.4 % (11.5-14.5) Platelet Count 357 x10^3/uL (140-400) Sodium Level 136 mmol/L (136-145) Potassium Level 3.6 mmol/L (3.5-5.1) Chloride Level 103 mmol/L (98-107) Carbon Dioxide Level 25 mmol/L (21-32) Anion Gap 8 (6-14) Blood Urea Nitrogen 14 mg/dL (8-26) Creatinine 1.7 mg/dL (0.7-1.3) Estimated GFR (Cockcroft-Gault) 46.9 BUN/Creatinine Ratio 8 (6-20) Glucose Level 111 mg/dL (70-99) Calcium Level 8.0 mg/dL (8.5-10.1) Total Bilirubin 0.6 mg/dL (0.2-1.0) Aspartate Amino Transf (AST/SGOT) 24 U/L (15-37) Alanine Aminotransferase (ALT/SGPT) 16 U/L (16-63) Alkaline Phosphatase 67 U/L (46-116) Total Protein 5.9 g/dL (6.4-8.2) Albumin 2.1 g/dL (3.4-5.0) Albumin/Globulin Ratio 0.6 (1.0-1.7) Test 01/31/19 07:38 01/31/19 11:31 01/31/19 17:05 01/31/19 20:37 Glucose (Fingerstick) 109 mg/dL (70-99) 97 mg/dL (70-99) 85 mg/dL (70-99) 105 mg/dL (70-99) Test 02/01/19 09:21 02/01/19 11:28 Glucose (Fingerstick) 87 mg/dL (70-99) 131 mg/dL (70-99) MEDICATIONS: Current Medications Medications (Trade) Dose Ordered Sig/Ramakrishna Start Time Stop Time Status Last Admin Dose Admin Acetaminophen (Tylenol) 650 mg PRN Q6HRS PRN 01/23/19 17:30 01/30/19 23:19 650 MG Aspirin (Children'S Aspirin) 81 mg [id number] 01/24/19 08:00 02/01/19 11:30 81 MG Atorvastatin Calcium (Lipitor) 20 mg QHS 01/23/19 21:00 01/30/19 20:50 20 MG Cyanocobalamin (Vitamin B-12) 1,000 mcg DAILY 01/26/19 09:00 02/01/19 11:30 1,000 MCG Dexamethasone Sodium Phosphate (Decadron) 4 mg STK-MED ONCE 01/24/19 10:24 01/24/19 10:25 DC Dextrose (Dextrose 50%-Water Syringe) 12.5 gm PRN Q15MIN PRN 01/23/19 17:30 02/01/19 08:20 12.5 GM Esmolol HCl (Brevibloc) 100 mg STK-MED ONCE 01/24/19 11:20 01/24/19 11:21 DC Fentanyl Citrate (Fentanyl 2ml Vial) 100 mcg 1X ONCE 01/30/19 08:15 01/30/19 08:16 DC 01/30/19 08:15 50 MCG Hydromorphone HCl (Dilaudid) 0.5 mg PRN Q10MIN PRN 01/24/19 12:30 01/24/19 20:00 DC Insulin Human Lispro (HumaLOG) 0-5 UNITS TIDWMEALS 01/24/19 08:00 Iodixanol (Visipaque 320) 50 ml 1X ONCE 01/30/19 08:15 01/30/19 08:16 DC 01/30/19 08:15 25 ML Iohexol (Omnipaque 300 Mg/ml) 50 ml STK-MED ONCE 01/24/19 09:05 01/24/19 10:05 DC 01/24/19 11:11 50 ML Ketorolac Tromethamine (Toradol For Or Only) 30 mg STK-MED ONCE 01/24/19 10:24 01/24/19 10:25 DC Lactobacillus Rhamnosus (Culturelle) 1 cap BID 01/23/19 21:00 02/01/19 11:29 1 CAP Lidocaine HCl (Lidocaine Pf 2% Vial) 5 ml STK-MED ONCE 01/24/19 10:24 01/24/19 10:25 DC Lidocaine HCl (Xylocaine-Mpf 1% 2ml Vial) 2 ml 1X PRN PRN 01/24/19 12:30 01/24/19 20:00 DC Lidocaine/Sodium Bicarbonate (Buffered Lidocaine 1%) 3 ml 1X ONCE 01/30/19 08:15 01/30/19 08:16 DC 01/30/19 08:15 9 ML Linezolid (Zyvox) 600 mg BID 01/23/19 21:00 01/24/19 07:09 DC 01/23/19 21:23 600 MG Meropenem 1 gm/ Sodium Chloride 100 ml @ 200 mls/hr 1X ONCE 01/25/19 22:00 01/25/19 22:29 DC 01/25/19 22:03 200 MLS/HR Methylene Blue (Methylene Blue) 1 ml STK-MED ONCE 01/24/19 10:19 01/24/19 11:19 DC 01/24/19 11:20 1 ML Midazolam HCl (Versed) 2 mg 1X ONCE 01/30/19 08:15 01/30/19 08:16 DC 01/30/19 08:15 1 MG Morphine Sulfate (Morphine Sulfate) 1 mg PRN Q10MIN PRN 01/24/19 12:30 01/24/19 20:00 DC Ondansetron HCl (Zofran) 4 mg PRN Q6HRS PRN 01/24/19 12:30 01/24/19 20:00 DC Phenylephrine HCl (PHENYLEPHRINE in 0.9% NACL PF) 1 mg STK-MED ONCE 01/24/19 11:02 01/24/19 11:03 DC Potassium Chloride (Klor-Con) 10 meq TID 01/23/19 21:00 02/01/19 11:30 10 MEQ Prochlorperazine Edisylate (Compazine) 5 mg PACU PRN PRN 01/24/19 12:30 01/24/19 20:00 DC 01/24/19 12:15 5 MG Propofol 20 ml @ As Directed STK-MED ONCE 01/24/19 10:24 01/24/19 10:25 DC Ringer's Solution 1,000 ml @ 75 mls/hr [id number] PRN 01/24/19 12:30 01/29/19 15:03 DC Sevoflurane (Ultane) 30 ml STK-MED ONCE 01/24/19 10:24 01/24/19 10:25 DC Sodium Chloride 250 ml @ 250 mls/hr 1X ONCE 01/25/19 08:00 01/25/19 08:59 DC 01/25/19 08:00 250 MLS/HR Tamsulosin HCl (Flomax) 0.4 mg QHS 01/23/19 21:00 01/30/19 20:49 0.4 MG Timolol Maleate (Timoptic 0.25% [facility]) 1 drop BID 01/23/19 21:00 02/01/19 11:30 1 DROP ASSESSMENT & PLAN Will ask IR to try to place antegrade left ureteral stent and then remove nephrostomy tube. Overall prognosis poor Problem List: Problems Medical Problems: (1) Acute blood loss anemia Status: Acute (2) Calculus of ureterovesical junction (UVJ) Status: Acute (3) Gram-negative bacteremia Status: Acute (4) Thrombocytopenia Status: Acute (5) Ureterovesical junction (UVJ) obstruction Status: Acute JARETH AKINS MD Feb 01, 2019 14:56
[2019-02-01 15:40] VITALS: BP 128/65
--- NOTE | 2019-02-01 16:11 | PDOC ---
PROGRESS NOTES Subjective Subjective HPI - f/u of Hormone refractory Prostate cancer ROS - no fever Objective Objective Vital Signs Date Time Temp Pulse Resp B/P (MAP) Pulse Ox O2 Delivery O2 Flow Rate FiO2 02/01/19 15:40 98.9 100 18 128/65 (86) 98 Room Air 98.9 01/30/19 23:00 3.0 Intake and Output 02/01/19 06:59 Intake Total 0 ml Output Total 1125 ml Balance -1125 ml Intake Oral 0 ml Output Urine Total 975 ml Drainage Total 150 ml Physical Exam Heart: Normal S1, Normal S2 General: No acute distress Lungs: Clear to auscultation Assessment Assessment Problems Medical Problems: (1) Acute blood loss anemia Status: Acute (2) Calculus of ureterovesical junction (UVJ) Status: Acute (3) Gram-negative bacteremia Status: Acute (4) Thrombocytopenia Status: Acute (5) Ureterovesical junction (UVJ) obstruction Status: Acute Assessment and Plan: He is an 83-year-old man with history of prostate cancer that appears to be progressing with rising PSA recently of 63, admitted with bacteremia and UTI and ureteral stone and being treated for infection and followed by urology. 1. Bladder outlet obstruction with recent stone: Per urology 2. Infection: On antibiotics, ID has been consulted 3. 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 I d/w Dr Casiano, no benefit from radiation hence not offered and I agree to consider hospice. s/p cystoscopy 01/24/19: shaggy necrotic prostate tissue w invasion into BN, trigone. 4. Thrombocytopenia: Resolved. Comment Review of Relevant I have reviewed the following items yael (where applicable) has been applied. Labs Laboratory Tests Test 01/30/19 16:38 01/30/19 20:06 01/31/19 04:20 01/31/19 07:38 Glucose (Fingerstick) 81 mg/dL (70-99) 143 mg/dL (70-99) 109 mg/dL (70-99) White Blood Count 12.7 x10^3/uL (4.0-11.0) Red Blood Count 2.74 x10^6/uL (4.30-5.70) Hemoglobin 8.3 g/dL (13.0-17.5) Hematocrit 23.6 % (39.0-53.0) Mean Corpuscular Volume 86 fL (79-100) Mean Corpuscular Hemoglobin 30 pg (25-35) Mean Corpuscular Hemoglobin Concent 35 g/dL (31-37) Red Cell Distribution Width 14.4 % (11.5-14.5) Platelet Count 357 x10^3/uL (140-400) Sodium Level 136 mmol/L (136-145) Potassium Level 3.6 mmol/L (3.5-5.1) Chloride Level 103 mmol/L (98-107) Carbon Dioxide Level 25 mmol/L (21-32) Anion Gap 8 (6-14) Blood Urea Nitrogen 14 mg/dL (8-26) Creatinine 1.7 mg/dL (0.7-1.3) Estimated GFR (Cockcroft-Gault) 46.9 BUN/Creatinine Ratio 8 (6-20) Glucose Level 111 mg/dL (70-99) Calcium Level 8.0 mg/dL (8.5-10.1) Total Bilirubin 0.6 mg/dL (0.2-1.0) Aspartate Amino Transf (AST/SGOT) 24 U/L (15-37) Alanine Aminotransferase (ALT/SGPT) 16 U/L (16-63) Alkaline Phosphatase 67 U/L (46-116) Total Protein 5.9 g/dL (6.4-8.2) Albumin 2.1 g/dL (3.4-5.0) Albumin/Globulin Ratio 0.6 (1.0-1.7) Test 01/31/19 11:31 01/31/19 17:05 01/31/19 20:37 02/01/19 09:21 Glucose (Fingerstick) 97 mg/dL (70-99) 85 mg/dL (70-99) 105 mg/dL (70-99) 87 mg/dL (70-99) Test 02/01/19 11:28 Glucose (Fingerstick) 131 mg/dL (70-99) Laboratory Tests Test 01/31/19 17:05 01/31/19 20:37 02/01/19 09:21 02/01/19 11:28 Glucose (Fingerstick) 85 mg/dL (70-99) 105 mg/dL (70-99) 87 mg/dL (70-99) 131 mg/dL (70-99) Medications Current Medications Sodium Chloride 1,000 ml @ 75 mls/hr [id number] IV Last administered on 02/01/19 03:18; Start 01/23/19 at 17:30 Acetaminophen (Tylenol) 650 mg PRN Q6HRS PRN PO MILD PAIN / TEMP Last administered on 01/30/19 23:19; Start 01/23/19 at 17:30 Aspirin (Children'S Aspirin) 81 mg DAILYWBKFT PO Last administered on 02/01/19 11:30; Start 01/24/19 at 08:00 Atorvastatin Calcium (Lipitor) 20 mg QHS PO Last administered on 01/30/19 20:50; Start 01/23/19 at 21:00 Insulin Human Lispro (HumaLOG) 0-5 UNITS TIDWMEALS SQ ; Start 01/24/19 at 08:00 Dextrose (Dextrose 50%-Water Syringe) 12.5 gm PRN Q15MIN PRN IV SEE COMMENTS Last administered on 02/01/19 08:20; Start 01/23/19 at 17:30 Lactobacillus Rhamnosus (Culturelle) 1 cap BID PO Last administered on 02/01/19 11:29; Start 01/23/19 at 21:00 Linezolid (Zyvox) 600 mg BID PO Last administered on 01/23/19 21:23; Start 01/23/19 at 21:00; Stop 01/24/19 at 07:09; Status DC Meropenem 1 gm/ Sodium Chloride 100 ml @ 200 mls/hr Q12HR IV Last administered on 02/01/19 08:22; Start 01/23/19 at 21:00 Ondansetron HCl (Zofran) 4 mg PRN Q8HRS PRN IV NAUSEA/VOMITING; Start 01/23/19 at 17:30 Potassium Chloride (Klor-Con) 10 meq TID PO Last administered on 02/01/19 15:57; Start 01/23/19 at 21:00 Tamsulosin HCl (Flomax) 0.4 mg QHS PO Last administered on 01/30/19 20:49; Start 01/23/19 at 21:00 Timolol Maleate (Timoptic 0.25% Ophth) 1 drop BID OU Last administered on 02/01/19at 11:30; Start 01/23/19 at 21:00 Iohexol (Omnipaque 300 Mg/ml) 50 ml STK-MED ONCE .ROUTE Last administered on 01/24/19at 11:11; Start 01/24/19 at 09:05; Stop 01/24/19 at 10:05; Status DC Sevoflurane (Ultane) 30 ml STK-MED ONCE IH ; Start 01/24/19 at 10:24; Stop 01/24/19 at 10:25; Status DC Dexamethasone Sodium Phosphate (Decadron) 4 mg STK-MED ONCE .ROUTE ; Start 01/24/19 at 10:24; Stop 01/24/19 at 10:25; Status DC Propofol 20 ml @ As Directed STK-MED ONCE IV ; Start 01/24/19 at 10:24; Stop 01/24/19 at 10:25; Status DC Lidocaine HCl (Lidocaine Pf 2% Vial) 5 ml STK-MED ONCE .ROUTE ; Start 01/24/19 at 10:24; Stop 01/24/19 at 10:25; Status DC Ketorolac Tromethamine (Toradol For Or Only) 30 mg STK-MED ONCE INJ ; Start 01/24/19 at 10:24; Stop 01/24/19 at 10:25; Status DC Ondansetron HCl (Zofran) 4 mg STK-MED ONCE .ROUTE ; Start 01/24/19 at 10:25; Stop 01/24/19 at 10:26; Status DC Phenylephrine HCl (PHENYLEPHRINE in 0.9% NACL PF) 1 mg STK-MED ONCE IV ; Start 01/24/19 at 11:02; Stop 01/24/19 at 11:03; Status DC Methylene Blue (Methylene Blue) 1 ml STK-MED ONCE .ROUTE Last administered on 01/24/19at 11:20; Start 01/24/19 at 10:19; Stop 01/24/19 at 11:19; Status DC Esmolol HCl (Brevibloc) 100 mg STK-MED ONCE IVP ; Start 01/24/19 at 11:20; Stop 01/24/19 at 11:21; Status DC Fentanyl Citrate (Fentanyl 2ml Vial) 100 mcg STK-MED ONCE .ROUTE ; Start 01/24/19 at 12:14; Stop 01/24/19 at 12:15; Status DC Prochlorperazine Edisylate (Compazine) 10 mg STK-MED ONCE .ROUTE ; Start 01/24/19 at 12:15; Stop 01/24/19 at 12:16; Status DC Ondansetron HCl (Zofran) 4 mg PRN Q6HRS PRN IV NAUSEA/VOMITING; Start 01/24/19 at 12:30; Stop 01/24/19 at 20:00; Status DC Fentanyl Citrate (Fentanyl 2ml Vial) 25 mcg PRN Q5MIN PRN IV MILD PAIN 1-3 Last administered on 01/24/19at 12:33; Start 01/24/19 at 12:30; Stop 01/24/19 at 20:00; Status DC Fentanyl Citrate (Fentanyl 2ml Vial) 50 mcg PRN Q5MIN PRN IV MODERATE TO SEVERE PAIN Last administered on 01/24/19at 19:46; Start 01/24/19 at 12:30; Stop 01/24/19 at 20:00; Status DC Morphine Sulfate (Morphine Sulfate) 1 mg PRN Q10MIN PRN IV SEVERE PAIN 7-10; Start 01/24/19 at 12:30; Stop 01/24/19 at 20:00; Status DC Ringer's Solution 1,000 ml @ 30 mls/hr Q24H IV ; Start 01/24/19 at 12:16; Stop 01/25/19 at 00:15; Status DC Lidocaine HCl (Xylocaine-Mpf 1% 2ml Vial) 2 ml 1X PRN PRN ID IV START; Start at 12:30; Stop 01/24/19 at 20:00; Status DC Hydromorphone HCl (Dilaudid) 0.5 mg PRN Q10MIN PRN IV SEV PAIN, Second choice; Start 01/24/19 at 12:30; Stop 01/24/19 at 20:00; Status DC Prochlorperazine Edisylate (Compazine) 5 mg PACU PRN PRN IV NAUSEA, MRX1 Last administered on 01/24/19at 12:15; Start 01/24/19 at 12:30; Stop 01/24/19 at 20:00; Status DC Ringer's Solution 1,000 ml @ 75 mls/hr [id number] PRN IV pre op; Start 01/24/19 at 12:30; Stop 01/29/19 at 15:03; Status DC Fentanyl Citrate (Fentanyl 2ml Vial) 50 mcg PRN Q3HRS PRN IV SEVERE PAIN Last administered on 01/29/19at 18:23; Start 01/24/19 at 19:00 Fentanyl Citrate (Fentanyl 2ml Vial) 25 mcg PRN Q3HRS PRN IV MODERATE PAIN; Start 01/24/19 at 19:00 Cyanocobalamin (Vitamin B-12) 1,000 mcg DAILY PO ; Start 01/25/19 at 09:00; Stop 01/26/19 at 07:46; Status DC Sodium Chloride 250 ml @ 250 mls/hr 1X ONCE IV Last administered on 01/25/19at 08:00; Start 01/25/19 at 08:00; Stop 01/25/19 at 08:59; Status DC Meropenem 1 gm/ Sodium Chloride 100 ml @ 200 mls/hr 1X ONCE IV Last administered on 01/25/19at 22:03; Start 01/25/19 at 22:00; Stop 01/25/19 at 22:29; Status DC Cyanocobalamin (Vitamin B-12) 1,000 mcg DAILY IM Last administered on 02/01/19at 11:30; Start 01/26/19 at 09:00 Midazolam HCl (Versed) 2 mg STK-MED ONCE .ROUTE ; Start 01/30/19 at 07:58; Stop 01/30/19 at 07:59; Status DC Fentanyl Citrate (Fentanyl 2ml Vial) 100 mcg STK-MED ONCE .ROUTE ; Start 01/30/19 at 07:58; Stop 01/30/19 at 07:59; Status DC Lidocaine/Sodium Bicarbonate (Buffered Lidocaine 1%) 3 ml STK-MED ONCE .ROUTE ; Start 01/30/19 at 07:59; Stop 01/30/19 at 08:00; Status DC Iodixanol (Visipaque 320) 50 ml STK-MED ONCE .ROUTE ; Start 01/30/19 at 07:59; Stop 01/30/19 at 08:00; Status DC Lidocaine/Sodium Bicarbonate (Buffered Lidocaine 1%) 3 ml 1X ONCE IJ Last administered on 01/30/19at 08:15; Start 01/30/19 at 08:15; Stop 01/30/19 at 08:16; Status DC Midazolam HCl (Versed) 2 mg 1X ONCE IV Last administered on 01/30/19at 08:15; Start 01/30/19 at 08:15; Stop 01/30/19 at 08:16; Status DC Fentanyl Citrate (Fentanyl 2ml Vial) 100 mcg 1X ONCE IV Last administered on 01/30/19at 08:15; Start 01/30/19 at 08:15; Stop 01/30/19 at 08:16; Status DC Iodixanol (Visipaque 320) 50 ml 1X ONCE IART Last administered on 01/30/19at 08:15; Start 01/30/19 at 08:15; Stop 01/30/19 at 08:16; Status DC Active Scripts Active Augmentin 875-125 Tablet (Amoxicillin/Potassium Clav) 1 Each Tablet 1 Tab PO BID Tylenol (Acetaminophen) 325 Mg Tablet 650 Mg PO PRN Q6HRS PRN 30 Days Polyethylene Glycol 3350 17 Gm Powd.pack 17 Gm PO PRN DAILY PRN 14 Days Senna-Time S Tablet (Sennosides/Docusate Sodium) 1 Each Tablet 1 Tab PO DAILY 14 Days Hydrocodone-Apap 7.5-325 (Hydrocodone Bit/Acetaminophen) 1 Tab Tablet 2 Tab PO PRN Q4HRS PRN 14 Days Reported Timoptic 0.5% (Timolol Maleate) 10 Ml Drops 1 Drop EACHEYE BID Atorvastatin Calcium 20 Mg Tablet 1 Tab PO DAILY Losartan Potassium 100 Mg Tablet 100 Mg PO DAILY Aspirin 81 Mg Tab.chew 1 Tab PO DAILY Vitals/I & O Vital Sign - Last 24 Hours 01/31/19 01/31/19 01/31/19 02/01/19 19:48 20:00 23:18 03:00 Temp 97.7 98.0 97.7 97.7 98.0 97.7 Pulse 124 90 118 Resp 20 20 20 B/P (MAP) 179/103 (128) 172/84 (113) 179/90 (119) Pulse Ox 94 96 99 O2 Delivery Room Air Room Air Room Air Room Air 02/01/19 02/01/19 02/01/19 07:00 11:00 15:40 Temp 98.1 98.6 98.9 98.1 98.6 98.9 Pulse 88 123 100 Resp 18 18 18 B/P (MAP) 153/52 (85) 151/79 (103) 128/65 (86) Pulse Ox 99 97 98 O2 Delivery Room Air Room Air Room Air Intake and Output 01/31/19 01/31/19 02/01/19 14:59 22:59 06:59 Intake Total 0 ml 0 ml Output Total 550 ml 575 ml Balance -550 ml -575 ml Nutrition Consultation Dietary Evaluation: Recommendations by RD: Increase Calorie Intake, Protein supplementation Comments: REC TF : Glucerna 1.2 @ goal of 40 ml/hr flushes: 200 ml q 6 hr Expected Outcomes/Goals: po diet vs TF , await plan of care Malnutrition Findings: Food and Nutrition Intake (Sev: <50% est energy req 5days Body Fat Depletion (Non Severe: Mild Depletion Weight Status: Underweight MAGALY RAMOS MD Feb 01, 2019 16:11
[2019-02-01 19:00] VITALS: BP 128/63
[2019-02-01] MEDS: ACETAMINOPHEN 325 MG TABLET. PO PRN (20:43)
[2019-02-01] MEDS: ATORVASTATIN CALCIUM 20 MG TABLET PO SCH (20:43)
[2019-02-01] MEDS: TAMSULOSIN 0.4 MG CAP.ER.24H. PO SCH (20:43)
[2019-02-01 23:05] VITALS: BP 116/73
[2019-02-02] VITALS (12 sets, daily range): BP systolic 105–148; BP diastolic 55–89
[2019-02-02] MEDS: IV 1/2 NORMAL SALINE 1,000 ML IV SCH ×2 (04:40→17:30)
[2019-02-02] MEDS: ASPIRIN CHEWABLE 81 MG TABLET. PO SCH (08:00)
[2019-02-02] MEDS: INSULIN LISPRO 300 UNITS/3 ML INSULN.PEN. SQ SCH ×3 (08:00→17:00)
--- NOTE | 2019-02-02 08:04 | PDOC ---
Infectious Disease Note Subjective: Subjective Pt Resting quietly says feels ok denies any complaints d/w rn awaiting ir evaluation ROS: ROS Negative except for above. Vital Signs: Vital Signs Vital Signs Date Time Temp Pulse Resp B/P (MAP) Pulse Ox O2 Delivery O2 Flow Rate FiO2 02/02/19 07:15 97.8 81 16 115/55 (75) Room Air 97.8 02/02/19 03:07 99 Physical Exam: PHYSICAL EXAM GENERAL: Resting quietly, alert awake, less confused LUNGS: Clear. HEART: S1, S2 ABDOMEN: Soft : Ceron and left nephrostomy tube EXTREMITIES: No edema, cyanosis. SKIN: warm to touch PIV Medications: Inpatient Meds: Current Medications Medications (Trade) Dose Ordered Sig/Ramakrishna Start Time Stop Time Status Last Admin Dose Admin Acetaminophen (Tylenol) 650 mg PRN Q6HRS PRN 01/23/19 17:30 02/01/19 20:43 650 MG Aspirin (Children'S Aspirin) 81 mg DAILYWBKFT 01/24/19 08:00 02/01/19 11:30 81 MG Atorvastatin Calcium (Lipitor) 20 mg QHS 01/23/19 21:00 02/01/19 20:43 20 MG Cyanocobalamin (Vitamin B-12) 1,000 mcg DAILY 01/26/19 09:00 02/01/19 11:30 1,000 MCG Dexamethasone Sodium Phosphate (Decadron) 4 mg STK-MED ONCE 01/24/19 10:24 01/24/19 10:25 DC Dextrose (Dextrose 50%-Water Syringe) 12.5 gm PRN Q15MIN PRN 01/23/19 17:30 02/01/19 08:20 12.5 GM Esmolol HCl (Brevibloc) 100 mg STK-MED ONCE 01/24/19 11:20 01/24/19 11:21 DC Fentanyl Citrate (Fentanyl 2ml Vial) 100 mcg 1X ONCE 01/30/19 08:15 01/30/19 08:16 DC 01/30/19 08:15 50 MCG Hydromorphone HCl (Dilaudid) 0.5 mg PRN Q10MIN PRN 01/24/19 12:30 01/24/19 20:00 DC Insulin Human Lispro (HumaLOG) 0-5 UNITS TIDWMEALS 01/24/19 08:00 Iodixanol (Visipaque 320) 50 ml 1X ONCE 01/30/19 08:15 01/30/19 08:16 DC 01/30/19 08:15 25 ML Iohexol (Omnipaque 300 Mg/ml) 50 ml STK-MED ONCE 01/24/19 09:05 01/24/19 10:05 DC 01/24/19 11:11 50 ML Ketorolac Tromethamine (Toradol For Or Only) 30 mg STK-MED ONCE 01/24/19 10:24 01/24/19 10:25 DC Lactobacillus Rhamnosus (Culturelle) 1 cap BID 01/23/19 21:00 02/01/19 20:43 1 CAP Lidocaine HCl (Lidocaine Pf 2% Vial) 5 ml STK-MED ONCE 01/24/19 10:24 01/24/19 10:25 DC Lidocaine HCl (Xylocaine-Mpf 1% 2ml Vial) 2 ml 1X PRN PRN 01/24/19 12:30 01/24/19 20:00 DC Lidocaine/Sodium Bicarbonate (Buffered Lidocaine 1%) 3 ml 1X ONCE 01/30/19 08:15 01/30/19 08:16 DC 01/30/19 08:15 9 ML Linezolid (Zyvox) 600 mg BID 01/23/19 21:00 01/24/19 07:09 DC 01/23/19 21:23 600 MG Meropenem 1 gm/ Sodium Chloride 100 ml @ 200 mls/hr 1X ONCE 01/25/19 22:00 01/25/19 22:29 DC 01/25/19 22:03 200 MLS/HR Methylene Blue (Methylene Blue) 1 ml STK-MED ONCE 01/24/19 10:19 01/24/19 11:19 DC 01/24/19 11:20 1 ML Midazolam HCl (Versed) 2 mg 1X ONCE 01/30/19 08:15 01/30/19 08:16 DC 01/30/19 08:15 1 MG Morphine Sulfate (Morphine Sulfate) 1 mg PRN Q10MIN PRN 01/24/19 12:30 01/24/19 20:00 DC Ondansetron HCl (Zofran) 4 mg PRN Q6HRS PRN 01/24/19 12:30 01/24/19 20:00 DC Phenylephrine HCl (PHENYLEPHRINE in 0.9% NACL PF) 1 mg STK-MED ONCE 01/24/19 11:02 01/24/19 11:03 DC Potassium Chloride (Klor-Con) 10 meq TID 01/23/19 21:00 02/01/19 20:43 10 MEQ Prochlorperazine Edisylate (Compazine) 5 mg PACU PRN PRN 01/24/19 12:30 01/24/19 20:00 DC 01/24/19 12:15 5 MG Propofol 20 ml @ As Directed STK-MED ONCE 01/24/19 10:24 01/24/19 10:25 DC Ringer's Solution 1,000 ml @ 75 mls/hr [id number] PRN 01/24/19 12:30 01/29/19 15:03 DC Sevoflurane (Ultane) 30 ml STK-MED ONCE 01/24/19 10:24 01/24/19 10:25 DC Sodium Chloride 250 ml @ 250 mls/hr 1X ONCE 01/25/19 08:00 01/25/19 08:59 DC 01/25/19 08:00 250 MLS/HR Tamsulosin HCl (Flomax) 0.4 mg QHS 01/23/19 21:00 02/01/19 20:43 0.4 MG Timolol Maleate (Timoptic 0.25% [facility]) 1 drop BID 01/23/19 21:00 02/01/19 20:43 1 DROP Labs: Lab Laboratory Tests Test 02/01/19 08:09 02/01/19 09:21 02/01/19 11:28 02/01/19 16:16 Glucose (Fingerstick) 62 mg/dL (70-99) 87 mg/dL (70-99) 131 mg/dL (70-99) 91 mg/dL (70-99) Test 02/01/19 19:49 Glucose (Fingerstick) 136 mg/dL (70-99) Objective: Assessment: E coli bacteremia with sepsis ([facility] 01/17), R to amp, gent,tetra,trimetho, I to tobra E coli UTI 01/11 here UC 01/17 neg at [facility] per micro Left hydronephrosis, presumably due to advanced prostate cancer invading the bladder and trigone. s/p nephrostomy tube placement, 01/30 s/p cysto, bladder stone removal 01/24 Hematuria CVA Leukocytosis Renal insufficiency HTN Met prostate cancer Plan: Plan of Care DC meropenem start ceftriaxone Per Urology, IR to try to place antegrade left ureteral stent and then remove nephrostomy tube. Overall prognosis poor Probiotics D/W Nursing TINY AGUIAR MD Feb 02, 2019 08:04
[2019-02-02] MEDS: POTASSIUM CHLORIDE 10 MEQ TABLET.ER. PO SCH ×3 (09:00→20:43)
[2019-02-02] MEDS: LACTOBACILLUS RHAMNOSUS GG 1 CAPSULE. PO SCH ×2 (09:00→20:43)
[2019-02-02] MEDS: MEROPENEM 1 GM in IV NORMAL SALINE 100ML 100 ML IV SCH (09:00)
[2019-02-02] MEDS ORDERED: IOHEXOL 240 MG/ML 50ML VIAL. ONE (09:22)
[2019-02-02] MEDS ORDERED: LIDOCAINE WITH 8.4% SOD BICARB 3 ML DISP.SYRIN. ONE (09:22)
--- NOTE | 2019-02-02 09:50 | PDOC ---
IM PROGRESS NOTES- Subjective Subjective none Objective Vitals/I&O Vital Signs Date Time Temp Pulse Resp B/P (MAP) Pulse Ox O2 Delivery O2 Flow Rate FiO2 02/02/19 07:15 97.8 81 16 115/55 (75) Room Air 97.8 02/02/19 03:07 99 I & O 02/01/19 02/01/19 02/02/19 14:59 22:59 06:59 Intake Total 220 ml 1000 ml 0 ml Output Total 600 ml 950 ml Balance 220 ml 400 ml -950 ml Physical Exam Physical Exam General appearance - alert,well appearing, and in no distress and oriented to person, place, and time Mental Status - alert, oriented to person, place, and time, affect appropriate to mood Head - normal Chest - clear to auscultation, no wheezes, rales or rhonchi, symmetric air entry Heart - S1 and S2 normal Abdomen - soft, nontender, nondistended, no masses or organomegaly Neurological - alert and oriented Musculoskeletal - no muscular tenderness noted Extremities - no pedal edema Skin - warm and dry Labs Laboratory Tests Test 02/01/19 11:28 02/01/19 16:16 02/01/19 19:49 02/02/19 08:14 Glucose (Fingerstick) 131 mg/dL (70-99) H 91 mg/dL (70-99) 136 mg/dL (70-99) H 87 mg/dL (70-99) Assessment Assessment Escherichia coli bacteremia Escherichia coli UTI Left hydronephrosis CVA Plan DC meropenem start ceftriaxone Per Urology, IR to try to place antegrade left ureteral stent and then remove nephrostomy tube. Left sided 8 Fr ureteral stent placed. Nephrostomy left in place and capped and will be removed Tuesday if patient tolerates internalization. Plan Plan For more details regarding further plans, please refer to the orders. Nutrition Consultation Dietary Evaluation: Recommendations by RD: Increase Calorie Intake, Protein supplementation Comments: REC TF : Glucerna 1.2 @ goal of 40 ml/hr flushes: 200 ml q 6 hr Expected Outcomes/Goals: po diet vs TF , await plan of care Malnutrition Findings: Food and Nutrition Intake (Sev: <50% est energy req 5days Body Fat Depletion (Non Severe: Mild Depletion Weight Status: Underweight NICK TEAGUE MD Feb 02, 2019 09:50
[2019-02-02] MEDS ORDERED: fentaNYL PF VIAL 100 MCG/2 ML VIAL ONE (10:07)
[2019-02-02] MEDS ORDERED: MIDAZOLAM HCL/PF 2 MG/2 ML VIAL. ONE (10:07)
[2019-02-02] MEDS ORDERED: LIDOCAINE WITH 8.4% SOD BICARB 3 ML DISP.SYRIN. IJ ONE (11:15)
[2019-02-02] MEDS ORDERED: fentaNYL PF VIAL 100 MCG/2 ML VIAL IV ONE (11:15)
[2019-02-02] MEDS ORDERED: IOHEXOL 240 MG/ML 50ML VIAL. IJ ONE (11:15)
[2019-02-02] MEDS ORDERED: MIDAZOLAM HCL/PF 2 MG/2 ML VIAL. IV ONE (11:15)
--- NOTE | 2019-02-02 11:18 | NUR ---
SW following pt. Pt getting a stent today. SHINE updated Amelia at [facility] pt might dc back today pending how he does after procedure. Discussed with RN.
[2019-02-02] MEDS: CYANOCOBALAMIN (VITAMIN B-12) 1,000 MCG/ML VIAL IM SCH (12:23)
[2019-02-02] MEDS: cefTRIAXone IV Push 2 GM VIAL. IVP SCH (12:24)
[2019-02-02] MEDS: TIMOLOL 0.25% OPHTH SOLUTION 5ML BOTTLE. OU SCH ×2 (12:24→20:43)
--- NOTE | 2019-02-02 12:31 | PDOC ---
PROGRESS NOTES Subjective Subjective HPI - f/u of Hormone refractory Prostate cancer ROS - no fever Objective Objective Vital Signs Date Time Temp Pulse Resp B/P (MAP) Pulse Ox O2 Delivery O2 Flow Rate FiO2 02/02/19 12:00 98.4 76 18 115/73 (87) 97 Room Air 98.4 02/02/19 11:38 2.0 Intake and Output 02/02/19 06:59 Intake Total 1220 ml Output Total 1550 ml Balance -330 ml Intake Oral 120 ml IV Total 1100 ml Output Urine Total 1175 ml Drainage Total 375 ml Physical Exam General: No acute distress Neck: No JVD Assessment Assessment Problems Medical Problems: (1) Acute blood loss anemia Status: Acute (2) Calculus of ureterovesical junction (UVJ) Status: Acute (3) Gram-negative bacteremia Status: Acute (4) Thrombocytopenia Status: Acute (5) Ureterovesical junction (UVJ) obstruction Status: Acute Assessment and Plan: He is an 83-year-old man with history of prostate cancer that appears to be progressing with rising PSA recently of 63, admitted with bacteremia and UTI and ureteral stone and being treated for infection and followed by urology. 1. Bladder outlet obstruction with recent stone: Per urology. Per Urology, IR to try to place antegrade left ureteral stent and then remove nephrostomy tube. 2. Infection: On antibiotics, ID has been consulted 3. 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 I d/w Dr Casiano, no benefit from radiation hence not offered and I agree to consider hospice. s/p cystoscopy 01/24/19: shaggy necrotic prostate tissue w invasion into BN, trigone. 4. Thrombocytopenia: Resolved. Plt now 357 Comment Review of Relevant I have reviewed the following items yael (where applicable) has been applied. Labs Laboratory Tests Test 01/31/19 17:05 01/31/19 20:37 02/01/19 08:09 02/01/19 09:21 Glucose (Fingerstick) 85 mg/dL (70-99) 105 mg/dL (70-99) 62 mg/dL (70-99) 87 mg/dL (70-99) Test 02/01/19 11:28 02/01/19 16:16 02/01/19 19:49 02/02/19 08:14 Glucose (Fingerstick) 131 mg/dL (70-99) 91 mg/dL (70-99) 136 mg/dL (70-99) 87 mg/dL (70-99) Test 02/02/19 09:58 Glucose (Fingerstick) 96 mg/dL (70-99) Laboratory Tests Test 02/01/19 16:16 02/01/19 19:49 02/02/19 08:14 02/02/19 09:58 Glucose (Fingerstick) 91 mg/dL (70-99) 136 mg/dL (70-99) 87 mg/dL (70-99) 96 mg/dL (70-99) Medications Current Medications Sodium Chloride 1,000 ml @ 75 mls/hr [id number] IV Last administered on 02/02/19 04:40; Start 01/23/19 at 17:30 Acetaminophen (Tylenol) 650 mg PRN Q6HRS PRN PO MILD PAIN / TEMP Last administered on 02/01/19 20:43; Start 01/23/19 at 17:30 Aspirin (Children'S Aspirin) 81 mg DAILYWBKFT PO Last administered on 02/01/19 11:30; Start 01/24/19 at 08:00 Atorvastatin Calcium (Lipitor) 20 mg QHS PO Last administered on 02/01/19 20:43; Start 01/23/19 at 21:00 Insulin Human Lispro (HumaLOG) 0-5 UNITS TIDWMEALS SQ ; Start 01/24/19 at 08:00 Dextrose (Dextrose 50%-Water Syringe) 12.5 gm PRN Q15MIN PRN IV SEE COMMENTS Last administered on 02/01/19 08:20; Start 01/23/19 at 17:30 Lactobacillus Rhamnosus (Culturelle) 1 cap BID PO Last administered on 02/01/19 20:43; Start 01/23/19 at 21:00 Linezolid (Zyvox) 600 mg BID PO Last administered on 01/23/19 21:23; Start 01/23/19 at 21:00; Stop 01/24/19 at 07:09; Status DC Meropenem 1 gm/ Sodium Chloride 100 ml @ 200 mls/hr Q12HR IV Last administered on 02/01/19 20:43; Start 01/23/19 at 21:00; Stop 02/02/19 at 09:22; Status DC Ondansetron HCl (Zofran) 4 mg PRN Q8HRS PRN IV NAUSEA/VOMITING; Start 01/23/19 at 17:30 Potassium Chloride (Klor-Con) 10 meq TID PO Last administered on 02/01/19 20:43; Start 01/23/19 at 21:00 Tamsulosin HCl (Flomax) 0.4 mg QHS PO Last administered on 02/01/19 20:43; Start 01/23/19 at 21:00 Timolol Maleate (Timoptic 0.25% Oph) 1 drop BID OU Last administered on 02/01/19 20:43; Start 01/23/19 at 21:00 Iohexol (Omnipaque 300 Mg/ml) 50 ml STK-MED ONCE .ROUTE Last administered on 01/24/19 11:11; Start 01/24/19 at 09:05; Stop 01/24/19 at 10:05; Status DC Sevoflurane (Ultane) 30 ml STK-MED ONCE IH ; Start 01/24/19 at 10:24; Stop 01/24/19 at 10:25; Status DC Dexamethasone Sodium Phosphate (Decadron) 4 mg STK-MED ONCE .ROUTE ; Start 01/24/19 at 10:24; Stop 01/24/19 at 10:25; Status DC Propofol 20 ml @ As Directed STK-MED ONCE IV ; Start 01/24/19 at 10:24; Stop 01/24/19 at 10:25; Status DC Lidocaine HCl (Lidocaine Pf 2% Vial) 5 ml STK-MED ONCE .ROUTE ; Start 01/24/19 at 10:24; Stop 01/24/19 at 10:25; Status DC Ketorolac Tromethamine (Toradol For Or Only) 30 mg STK-MED ONCE INJ ; Start 01/24/19 at 10:24; Stop 01/24/19 at 10:25; Status DC Ondansetron HCl (Zofran) 4 mg STK-MED ONCE .ROUTE ; Start 01/24/19 at 10:25; Stop 01/24/19 at 10:26; Status DC Phenylephrine HCl (PHENYLEPHRINE in 0.9% NACL PF) 1 mg STK-MED ONCE IV ; Start 01/24/19 at 11:02; Stop 01/24/19 at 11:03; Status DC Methylene Blue (Methylene Blue) 1 ml STK-MED ONCE .ROUTE Last administered on 01/24/19at 11:20; Start 01/24/19 at 10:19; Stop 01/24/19 at 11:19; Status DC Esmolol HCl (Brevibloc) 100 mg STK-MED ONCE IVP ; Start 01/24/19 at 11:20; Stop 01/24/19 at 11:21; Status DC Fentanyl Citrate (Fentanyl 2ml Vial) 100 mcg STK-MED ONCE .ROUTE ; Start 01/24/19 at 12:14; Stop 01/24/19 at 12:15; Status DC Prochlorperazine Edisylate (Compazine) 10 mg STK-MED ONCE .ROUTE ; Start 01/24/19 at 12:15; Stop 01/24/19 at 12:16; Status DC Ondansetron HCl (Zofran) 4 mg PRN Q6HRS PRN IV NAUSEA/VOMITING; Start 01/24/19 at 12:30; Stop 01/24/19 at 20:00; Status DC Fentanyl Citrate (Fentanyl 2ml Vial) 25 mcg PRN Q5MIN PRN IV MILD PAIN 1-3 Last administered on 01/24/19at 12:33; Start 01/24/19 at 12:30; Stop 01/24/19 at 20:00; Status DC Fentanyl Citrate (Fentanyl 2ml Vial) 50 mcg PRN Q5MIN PRN IV MODERATE TO SEVERE PAIN Last administered on 01/24/19at 19:46; Start 01/24/19 at 12:30; Stop 01/24/19 at 20:00; Status DC Morphine Sulfate (Morphine Sulfate) 1 mg PRN Q10MIN PRN IV SEVERE PAIN 7-10; Start 01/24/19 at 12:30; Stop 01/24/19 at 20:00; Status DC Ringer's Solution 1,000 ml @ 30 mls/hr Q24H IV ; Start 01/24/19 at 12:16; Stop 01/25/19 at 00:15; Status DC Lidocaine HCl (Xylocaine-Mpf 1% 2ml Vial) 2 ml 1X PRN PRN ID IV START; Start 01/24/19 at 12:30; Stop 01/24/19 at 20:00; Status DC Hydromorphone HCl (Dilaudid) 0.5 mg PRN Q10MIN PRN IV SEV PAIN, Second choice; Start 01/24/19 at 12:30; Stop 01/24/19 at 20:00; Status DC Prochlorperazine Edisylate (Compazine) 5 mg PACU PRN PRN IV NAUSEA, MRX1 Last administered on 01/24/19at 12:15; Start 01/24/19 at 12:30; Stop 01/24/19 at 20:00; Status DC Ringer's Solution 1,000 ml @ 75 mls/hr [id number] PRN IV pre op; Start 01/24/19 at 12:30; Stop 01/29/19 at 15:03; Status DC Fentanyl Citrate (Fentanyl 2ml Vial) 50 mcg PRN Q3HRS PRN IV SEVERE PAIN Last administered on 01/29/19at 18:23; Start 01/24/19 at 19:00 Fentanyl Citrate (Fentanyl 2ml Vial) 25 mcg PRN Q3HRS PRN IV MODERATE PAIN; Start 01/24/19 at 19:00 Cyanocobalamin (Vitamin B-12) 1,000 mcg DAILY PO ; Start 01/25/19 at 09:00; Stop 01/26/19 at 07:46; Status DC Sodium Chloride 250 ml @ 250 mls/hr 1X ONCE IV Last administered on 01/25/19at 08:00; Start 01/25/19 at 08:00; Stop 01/25/19 at 08:59; Status DC Meropenem 1 gm/ Sodium Chloride 100 ml @ 200 mls/hr 1X ONCE IV Last administered on 01/25/19at 22:03; Start 01/25/19 at 22:00; Stop 01/25/19 at 22:29; Status DC Cyanocobalamin (Vitamin B-12) 1,000 mcg DAILY IM Last administered on 02/02/19at 12:23; Start 01/26/19 at 09:00 Midazolam HCl (Versed) 2 mg STK-MED ONCE .ROUTE ; Start 01/30/19 at 07:58; Stop 01/30/19 at 07:59; Status DC Fentanyl Citrate (Fentanyl 2ml Vial) 100 mcg STK-MED ONCE .ROUTE ; Start 01/30/19 at 07:58; Stop 01/30/19 at 07:59; Status DC Lidocaine/Sodium Bicarbonate (Buffered Lidocaine 1%) 3 ml STK-MED ONCE .ROUTE ; Start 01/30/19 at 07:59; Stop 01/30/19 at 08:00; Status DC Iodixanol (Visipaque 320) 50 ml STK-MED ONCE .ROUTE ; Start 01/30/19 at 07:59; Stop 01/30/19 at 08:00; Status DC Lidocaine/Sodium Bicarbonate (Buffered Lidocaine 1%) 3 ml 1X ONCE IJ Last administered on 01/30/19at 08:15; Start 01/30/19 at 08:15; Stop 01/30/19 at 08:16; Status DC Midazolam HCl (Versed) 2 mg 1X ONCE IV Last administered on 01/30/19at 08:15; Start 01/30/19 at 08:15; Stop 01/30/19 at 08:16; Status DC Fentanyl Citrate (Fentanyl 2ml Vial) 100 mcg 1X ONCE IV Last administered on 01/30/19at 08:15; Start 01/30/19 at 08:15; Stop 01/30/19 at 08:16; Status DC Iodixanol (Visipaque 320) 50 ml 1X ONCE IART Last administered on 01/30/19at 08:15; Start 01/30/19 at 08:15; Stop 01/30/19 at 08:16; Status DC Ceftriaxone Sodium (Rocephin) 2 gm Q24H IVP Last administered on 02/02/19at 12:24; Start 02/02/19 at 10:00 Lidocaine/Sodium Bicarbonate (Buffered Lidocaine 1%) 3 ml STK-MED ONCE .ROUTE ; Start 02/02/19 at 09:22; Stop 02/02/19 at 09:23; Status DC Iohexol (Omnipaque 240 Mg/ml) 50 ml STK-MED ONCE .ROUTE ; Start 02/02/19 at 09:22; Stop 02/02/19 at 09:23; Status DC Midazolam HCl (Versed) 2 mg STK-MED ONCE .ROUTE ; Start 02/02/19 at 10:07; Stop 02/02/19 at 10:08; Status DC Fentanyl Citrate (Fentanyl 2ml Vial) 100 mcg STK-MED ONCE .ROUTE ; Start 02/02/19 at 10:07; Stop 02/02/19 at 10:08; Status DC Lidocaine/Sodium Bicarbonate (Buffered Lidocaine 1%) 3 ml 1X ONCE IJ Last administered on 02/02/19at 11:33; Start 02/02/19 at 11:15; Stop 02/02/19 at 11:16; Status DC Midazolam HCl (Versed) 2 mg 1X ONCE IV Last administered on 02/02/19at 11:33; Start 02/02/19 at 11:15; Stop 02/02/19 at 11:16; Status DC Fentanyl Citrate (Fentanyl 2ml Vial) 100 mcg 1X ONCE IV Last administered on 02/02/19at 11:35; Start 02/02/19 at 11:15; Stop 02/02/19 at 11:16; Status DC Iohexol (Omnipaque 240 Mg/ml) 50 ml 1X ONCE IJ Last administered on 02/02/19at 11:32; Start 02/02/19 at 11:15; Stop 02/02/19 at 11:16; Status DC Active Scripts Active Augmentin 875-125 Tablet (Amoxicillin/Potassium Clav) 1 Each Tablet 1 Tab PO BID Tylenol (Acetaminophen) 325 Mg Tablet 650 Mg PO PRN Q6HRS PRN 30 Days Polyethylene Glycol 3350 17 Gm Powd.pack 17 Gm PO PRN DAILY PRN 14 Days Senna-Time S Tablet (Sennosides/Docusate Sodium) 1 Each Tablet 1 Tab PO DAILY 14 Days Hydrocodone-Apap 7.5-325 (Hydrocodone Bit/Acetaminophen) 1 Tab Tablet 2 Tab PO PRN Q4HRS PRN 14 Days Reported Timoptic 0.5% (Timolol Maleate) 10 Ml Drops 1 Drop EACHEYE BID Atorvastatin Calcium 20 Mg Tablet 1 Tab PO DAILY Losartan Potassium 100 Mg Tablet 100 Mg PO DAILY Aspirin 81 Mg Tab.chew 1 Tab PO DAILY Vitals/I & O Vital Sign - Last 24 Hours 02/01/19 02/01/19 02/01/19 02/01/19 15:40 19:00 20:26 23:05 Temp 98.9 98.4 98.1 98.9 98.4 98.1 Pulse 100 102 94 Resp 18 18 18 B/P (MAP) 128/65 (86) 128/63 (84) 116/73 (87) Pulse Ox 98 99 99 O2 Delivery Room Air Room Air Room Air Room Air 02/02/19 02/02/19 02/02/19 02/02/19 03:07 07:15 08:00 11:35 Temp 98.3 97.8 98.3 97.8 Pulse 113 81 Resp 18 16 14 B/P (MAP) 148/89 (108) 115/55 (75) Pulse Ox 99 100 O2 Delivery Room Air Room Air Room Air Nasal Cannula O2 Flow Rate 2.0 02/02/19 02/02/19 11:38 12:00 Temp 98.4 98.4 Pulse 106 76 Resp 14 18 B/P (MAP) 115/73 (87) Pulse Ox 99 97 O2 Delivery Nasal Cannula Room Air O2 Flow Rate 2.0 Intake and Output 02/01/19 02/01/19 02/02/19 14:59 22:59 06:59 Intake Total 220 ml 1000 ml 0 ml Output Total 600 ml 950 ml Balance 220 ml 400 ml -950 ml Nutrition Consultation Dietary Evaluation: Recommendations by RD: Increase Calorie Intake, Protein supplementation Comments: REC TF : Glucerna 1.2 @ goal of 40 ml/hr flushes: 200 ml q 6 hr Expected Outcomes/Goals: po diet vs TF , await plan of care Malnutrition Findings: Food and Nutrition Intake (Sev: <50% est energy req 5days Body Fat Depletion (Non Severe: Mild Depletion Weight Status: Underweight MAGALY RAMOS MD Feb 02, 2019 12:31
[2019-02-02 14:52] LABS: HEMOGLOBIN 9.3 g/dL (13.0-17.5); RED BLOOD COUNT 3.14 x10^6/uL (4.30-5.70); RED CELL DISTRIBUTION WIDTH 14.6 % (11.5-14.5); WHITE BLOOD COUNT 10.8 x10^3/uL (4.0-11.0)
[2019-02-02 15:06] LABS: ALBUMIN 2.2 g/dL (3.4-5.0); ALBUMIN/GLOBULIN RATIO 0.5 (1.0-1.7); CALCIUM 8.3 mg/dL (8.5-10.1); CREATININE 1.6 mg/dL (0.7-1.3); GFR 50.3; POTASSIUM 4.2 mmol/L (3.5-5.1); TOTAL BILIRUBIN 0.4 mg/dL (0.2-1.0); TOTAL PROTEIN 6.5 g/dL (6.4-8.2)
--- NOTE | 2019-02-02 16:11 | PDOC ---
Provider Note Provider Note IR NOTE Left sided 8 Fr ureteral stent placed. Nephrostomy left in place and capped and will be removed Tuesday if patient tolerates internalization. Patient tolerated procedure well w/o complication. URMILA ARANDA MD Feb 02, 2019 16:11
[2019-02-02] MEDS: TAMSULOSIN 0.4 MG CAP.ER.24H. PO SCH (20:43)
[2019-02-02] MEDS: ATORVASTATIN CALCIUM 20 MG TABLET PO SCH (20:43)
[2019-02-03 03:00] VITALS: BP 123/59
[2019-02-03] MEDS: IV 1/2 NORMAL SALINE 1,000 ML IV SCH ×2 (05:08→18:59)
[2019-02-03 05:24] LABS: BASO # 0.1 x10^3/uL (0.0-0.2); BASO % 1 % (0-3); EOS # 0.2 x10^3/uL (0.0-0.7); EOS % 1 % (0-3); HEMATOCRIT 26.4 % (39.0-53.0); HEMOGLOBIN 8.8 g/dL (13.0-17.5); LYMPH # 2.2 x10^3/uL (1.0-4.8); LYMPH % 19 % (24-48); MEAN CORPUSCULAR HEMOGLOBIN 30 pg (25-35); MEAN CORPUSCULAR HGB CONC 34 g/dL (31-37); MEAN CORPUSCULAR VOLUME 88 fL (79-100); MONO # 0.5 x10^3/uL (0.0-1.1); MONO % 5 % (0-9); NEUT # 8.5 x10^3/uL (1.8-7.7); NEUT % 74 % (31-73); PLATELET COUNT 538 x10^3/uL (140-400); RED BLOOD COUNT 2.99 x10^6/uL (4.30-5.70); RED CELL DISTRIBUTION WIDTH 14.5 % (11.5-14.5); WHITE BLOOD COUNT 11.5 x10^3/uL (4.0-11.0)
[2019-02-03 05:29] LABS: CALCIUM 8.3 mg/dL (8.5-10.1); CREATININE 1.6 mg/dL (0.7-1.3); GFR 50.3; POTASSIUM 4.1 mmol/L (3.5-5.1)
[2019-02-03 07:00] VITALS: BP 144/78
[2019-02-03] MEDS: INSULIN LISPRO 300 UNITS/3 ML INSULN.PEN. SQ SCH ×3 (07:54→17:00)
[2019-02-03 11:00] VITALS: BP 134/68
--- NOTE | 2019-02-03 11:07 | PDOC ---
IM PROGRESS NOTES- Subjective Subjective none Objective Vitals/I&O Vital Signs Date Time Temp Pulse Resp B/P (MAP) Pulse Ox O2 Delivery O2 Flow Rate FiO2 02/03/19 07:00 98.2 104 20 144/78 (100) 100 Room Air 98.2 02/02/19 11:38 2.0 I & O 02/02/19 02/02/19 02/03/19 15:00 23:00 07:00 Intake Total 480 ml 0 ml Output Total 400 ml 250 ml Balance 80 ml -250 ml Physical Exam Physical Exam General appearance - alert,well appearing, and in no distress and oriented to person, place, and time Mental Status - alert, oriented to person, place, and time, affect appropriate to mood Head - normal Chest - clear to auscultation, no wheezes, rales or rhonchi, symmetric air entry Heart - S1 and S2 normal Abdomen - soft, nontender, nondistended, no masses or organomegaly Neurological - alert and oriented Musculoskeletal - no muscular tenderness noted Extremities - no pedal edema Skin - warm and dry Labs Laboratory Tests Test 02/02/19 12:22 02/02/19 14:50 02/02/19 18:19 02/02/19 20:28 Glucose (Fingerstick) 89 mg/dL (70-99) 134 mg/dL (70-99) H 144 mg/dL (70-99) H White Blood Count 10.8 x10^3/uL (4.0-11.0) Red Blood Count 3.14 x10^6/uL (4.30-5.70) L Hemoglobin 9.3 g/dL (13.0-17.5) L Hematocrit 28.0 % (39.0-53.0) L Mean Corpuscular Volume 89 fL (79-100) Mean Corpuscular Hemoglobin 30 pg (25-35) Mean Corpuscular Hemoglobin Concent 33 g/dL (31-37) Red Cell Distribution Width 14.6 % (11.5-14.5) H Platelet Count 515 x10^3/uL (140-400) H Sodium Level 139 mmol/L (136-145) Potassium Level 4.2 mmol/L (3.5-5.1) Chloride Level 107 mmol/L (98-107) Carbon Dioxide Level 25 mmol/L (21-32) Anion Gap 7 (6-14) Blood Urea Nitrogen 10 mg/dL (8-26) Creatinine 1.6 mg/dL (0.7-1.3) H Estimated GFR (Cockcroft-Gault) 50.3 BUN/Creatinine Ratio 6 (6-20) Glucose Level 103 mg/dL (70-99) H Calcium Level 8.3 mg/dL (8.5-10.1) L Total Bilirubin 0.4 mg/dL (0.2-1.0) Aspartate Amino Transferase (AST) 27 U/L (15-37) Alanine Aminotransferase (ALT) 15 U/L (16-63) L Alkaline Phosphatase 78 U/L (46-116) Total Protein 6.5 g/dL (6.4-8.2) Albumin 2.2 g/dL (3.4-5.0) L Albumin/Globulin Ratio 0.5 (1.0-1.7) L Test 02/03/19 03:35 02/03/19 07:53 White Blood Count 11.5 x10^3/uL (4.0-11.0) H Red Blood Count 2.99 x10^6/uL (4.30-5.70) L Hemoglobin 8.8 g/dL (13.0-17.5) L Hematocrit 26.4 % (39.0-53.0) L Mean Corpuscular Volume 88 fL (79-100) Mean Corpuscular Hemoglobin 30 pg (25-35) Mean Corpuscular Hemoglobin Concent 34 g/dL (31-37) Red Cell Distribution Width 14.5 % (11.5-14.5) Platelet Count 538 x10^3/uL (140-400) H Neutrophils (%) (Auto) 74 % (31-73) H Lymphocytes (%) (Auto) 19 % (24-48) L Monocytes (%) (Auto) 5 % (0-9) Eosinophils (%) (Auto) 1 % (0-3) Basophils (%) (Auto) 1 % (0-3) Neutrophils # (Auto) 8.5 x10^3/uL (1.8-7.7) H Lymphocytes # (Auto) 2.2 x10^3/uL (1.0-4.8) Monocytes # (Auto) 0.5 x10^3/uL (0.0-1.1) Eosinophils # (Auto) 0.2 x10^3/uL (0.0-0.7) Basophils # (Auto) 0.1 x10^3/uL (0.0-0.2) Sodium Level 141 mmol/L (136-145) Potassium Level 4.1 mmol/L (3.5-5.1) Chloride Level 108 mmol/L (98-107) H Carbon Dioxide Level 28 mmol/L (21-32) Anion Gap 5 (6-14) L Blood Urea Nitrogen 12 mg/dL (8-26) Creatinine 1.6 mg/dL (0.7-1.3) H Estimated GFR (Cockcroft-Gault) 50.3 Glucose Level 112 mg/dL (70-99) H Calcium Level 8.3 mg/dL (8.5-10.1) L Glucose (Fingerstick) 105 mg/dL (70-99) H Laboratory Tests 02/02/19 14:50 02/03/19 03:35 Laboratory Tests 02/02/19 14:50 02/03/19 03:35 Meds Current Medications Medications (Trade) Dose Ordered Sig/Ramakrishna Route PRN Reason Start Time Stop Time Status Last Admin Dose Admin Lidocaine/Sodium Bicarbonate (Buffered Lidocaine 1%) 3 ml 1X ONCE IJ 02/02/19 11:15 02/02/19 11:16 DC 02/02/19 11:33 Midazolam HCl (Versed) 2 mg 1X ONCE IV 02/02/19 11:15 02/02/19 11:16 DC 02/02/19 11:33 Fentanyl Citrate (Fentanyl 2ml Vial) 100 mcg 1X ONCE IV 02/02/19 11:15 02/02/19 11:16 DC 02/02/19 11:35 Iohexol (Omnipaque 240 Mg/ml) 50 ml 1X ONCE IJ 02/02/19 11:15 02/02/19 11:16 DC 02/02/19 11:32 Assessment Assessment Escherichia coli bacteremia Escherichia coli UTI Left hydronephrosis CVA Plan DC meropenem start ceftriaxone Mild leukocytosis WBC count 11.5. Recheck labs in a.m. Left sided 8 Fr ureteral stent placed. Nephrostomy left in place and capped and will be removed Tuesday if patient tolerates internalization. Plan Plan For more details regarding further plans, please refer to the orders. Nutrition Consultation Dietary Evaluation: Recommendations by RD: Increase Calorie Intake, Protein supplementation Comments: REC TF : Glucerna 1.2 @ goal of 40 ml/hr flushes: 200 ml q 6 hr Expected Outcomes/Goals: po diet vs TF , await plan of care Malnutrition Findings: Food and Nutrition Intake (Sev: <50% est energy req 5days Body Fat Depletion (Non Severe: Mild Depletion Weight Status: Underweight NICK TEAGUE MD Feb 03, 2019 11:07
--- NOTE | 2019-02-03 11:50 | PDOC ---
Infectious Disease Note Subjective Subjective Resting quietly No fevers Alert on my exam and sitting up and smiling Vital Sign Vital Signs Vital Signs Date Time Temp Pulse Resp B/P (MAP) Pulse Ox O2 Delivery O2 Flow Rate FiO2 02/03/19 07:00 98.2 104 20 144/78 (100) 100 Room Air 98.2 02/02/19 11:38 2.0 Physical Exam PHYSICAL EXAM GENERAL: Resting quietly NAD - sitting on side of bed LUNGS: Clear. HEART: S1, S2 ABDOMEN: Soft : Ceron and left nephrostomy tube capped EXTREMITIES: No edema, cyanosis. SKIN: warm to touch PIV Labs Lab Laboratory Tests Test 02/02/19 12:22 02/02/19 14:50 02/02/19 18:19 02/02/19 20:28 Glucose (Fingerstick) 89 mg/dL (70-99) 134 mg/dL (70-99) 144 mg/dL (70-99) White Blood Count 10.8 x10^3/uL (4.0-11.0) Red Blood Count 3.14 x10^6/uL (4.30-5.70) Hemoglobin 9.3 g/dL (13.0-17.5) Hematocrit 28.0 % (39.0-53.0) Mean Corpuscular Volume 89 fL (79-100) Mean Corpuscular Hemoglobin 30 pg (25-35) Mean Corpuscular Hemoglobin Concent 33 g/dL (31-37) Red Cell Distribution Width 14.6 % (11.5-14.5) Platelet Count 515 x10^3/uL (140-400) Sodium Level 139 mmol/L (136-145) Potassium Level 4.2 mmol/L (3.5-5.1) Chloride Level 107 mmol/L (98-107) Carbon Dioxide Level 25 mmol/L (21-32) Anion Gap 7 (6-14) Blood Urea Nitrogen 10 mg/dL (8-26) Creatinine 1.6 mg/dL (0.7-1.3) Estimated GFR (Cockcroft-Gault) 50.3 BUN/Creatinine Ratio 6 (6-20) Glucose Level 103 mg/dL (70-99) Calcium Level 8.3 mg/dL (8.5-10.1) Total Bilirubin 0.4 mg/dL (0.2-1.0) Aspartate Amino Transf (AST/SGOT) 27 U/L (15-37) Alanine Aminotransferase (ALT/SGPT) 15 U/L (16-63) Alkaline Phosphatase 78 U/L (46-116) Total Protein 6.5 g/dL (6.4-8.2) Albumin 2.2 g/dL (3.4-5.0) Albumin/Globulin Ratio 0.5 (1.0-1.7) Test 02/03/19 03:35 02/03/19 07:53 White Blood Count 11.5 x10^3/uL (4.0-11.0) Red Blood Count 2.99 x10^6/uL (4.30-5.70) Hemoglobin 8.8 g/dL (13.0-17.5) Hematocrit 26.4 % (39.0-53.0) Mean Corpuscular Volume 88 fL (79-100) Mean Corpuscular Hemoglobin 30 pg (25-35) Mean Corpuscular Hemoglobin Concent 34 g/dL (31-37) Red Cell Distribution Width 14.5 % (11.5-14.5) Platelet Count 538 x10^3/uL (140-400) Neutrophils (%) (Auto) 74 % (31-73) Lymphocytes (%) (Auto) 19 % (24-48) Monocytes (%) (Auto) 5 % (0-9) Eosinophils (%) (Auto) 1 % (0-3) Basophils (%) (Auto) 1 % (0-3) Neutrophils # (Auto) 8.5 x10^3/uL (1.8-7.7) Lymphocytes # (Auto) 2.2 x10^3/uL (1.0-4.8) Monocytes # (Auto) 0.5 x10^3/uL (0.0-1.1) Eosinophils # (Auto) 0.2 x10^3/uL (0.0-0.7) Basophils # (Auto) 0.1 x10^3/uL (0.0-0.2) Sodium Level 141 mmol/L (136-145) Potassium Level 4.1 mmol/L (3.5-5.1) Chloride Level 108 mmol/L (98-107) Carbon Dioxide Level 28 mmol/L (21-32) Anion Gap 5 (6-14) Blood Urea Nitrogen 12 mg/dL (8-26) Creatinine 1.6 mg/dL (0.7-1.3) Estimated GFR (Cockcroft-Gault) 50.3 Glucose Level 112 mg/dL (70-99) Calcium Level 8.3 mg/dL (8.5-10.1) Glucose (Fingerstick) 105 mg/dL (70-99) Objective Assessment E coli bacteremia with sepsis ([facility] 01/17), R to amp, gent,tetra,trimetho, I to tobra E coli UTI 01/11. UC 01/17 neg at [facility] Left hydronephrosis, presumably due to advanced prostate cancer invading the bladder and trigone. s/p nephrostomy tube placement, 01/30 s/p left sided 8 Fr ureteral stent placement, 02/02. s/p cysto, bladder stone removal 01/24 Hematuria CVA Leukocytosis Renal insufficiency HTN Met prostate cancer Plan Plan of Care ceftriaxone (02/02) Previously on Merrem (01/23-02/02) Nephrostomy left will be removed possibly Tuesday Probiotics Overall prognosis poor D/w nursing Attending Co-Sign Attending Co-Sign The patient was seen and interviewed as well as examined at the bedside. The chart was reviewed. The case was discussed. Agree with the plan of care. AGUSTIN MENDOZA APRN Feb 03, 2019 11:50 DONTE COHN MD Feb 03, 2019 15:48
[2019-02-03] MEDS: cefTRIAXone IV Push 2 GM VIAL. IVP SCH (13:07)
[2019-02-03] MEDS: POTASSIUM CHLORIDE 10 MEQ TABLET.ER. PO SCH ×3 (13:08→20:31)
[2019-02-03] MEDS: CYANOCOBALAMIN (VITAMIN B-12) 1,000 MCG/ML VIAL IM SCH (13:08)
[2019-02-03] MEDS: LACTOBACILLUS RHAMNOSUS GG 1 CAPSULE. PO SCH ×2 (13:08→20:30)
[2019-02-03] MEDS: ASPIRIN CHEWABLE 81 MG TABLET. PO SCH (13:08)
[2019-02-03] MEDS: TIMOLOL 0.25% OPHTH SOLUTION 5ML BOTTLE. OU SCH ×2 (13:13→20:31)
[2019-02-03 15:00] VITALS: BP 144/72
[2019-02-03 19:00] VITALS: BP 139/73
[2019-02-03] MEDS: ATORVASTATIN CALCIUM 20 MG TABLET PO SCH (20:30)
[2019-02-03] MEDS: TAMSULOSIN 0.4 MG CAP.ER.24H. PO SCH (20:30)
[2019-02-03 23:00] VITALS: BP 163/104
[2019-02-04] MEDS: ACETAMINOPHEN 325 MG TABLET. PO PRN (00:29)
[2019-02-04] MEDS ORDERED: QUEtiapine 25 MG TABLET. PO ONE (00:30)
--- NOTE | 2019-02-04 00:44 | NUR ---
Pt was agitated, constantly trying to get out of bed and fighting staffs. Dr. Capone was paged and Seroquel 25 mg po x1 was given. RN feed pt pudding, apple sauce, and spent some time talking to pt which help calm him down. Pt currently in bed, more calm now. Bed alarm on. Will continue to monitor pt closely.
[2019-02-04 07:00] VITALS: BP 172/88
[2019-02-04] MEDS: ASPIRIN CHEWABLE 81 MG TABLET. PO SCH ×2 (08:00→13:20)
[2019-02-04] MEDS: INSULIN LISPRO 300 UNITS/3 ML INSULN.PEN. SQ SCH ×3 (08:00→16:40)
[2019-02-04] MEDS: IV 1/2 NORMAL SALINE 1,000 ML IV SCH ×2 (08:06→22:25)
[2019-02-04 08:13] VITALS: BP 157/81
[2019-02-04 08:31] LABS: BASO # 0.1 x10^3/uL (0.0-0.2); BASO % 1 % (0-3); EOS # 0.3 x10^3/uL (0.0-0.7); EOS % 3 % (0-3); HEMATOCRIT 27.4 % (39.0-53.0); HEMOGLOBIN 9.2 g/dL (13.0-17.5); LYMPH # 2.2 x10^3/uL (1.0-4.8); LYMPH % 24 % (24-48); MEAN CORPUSCULAR HEMOGLOBIN 30 pg (25-35); MEAN CORPUSCULAR HGB CONC 34 g/dL (31-37); MEAN CORPUSCULAR VOLUME 89 fL (79-100); MONO # 0.6 x10^3/uL (0.0-1.1); MONO % 6 % (0-9); NEUT # 6.1 x10^3/uL (1.8-7.7); NEUT % 66 % (31-73); PLATELET COUNT 538 x10^3/uL (140-400); RED BLOOD COUNT 3.08 x10^6/uL (4.30-5.70); RED CELL DISTRIBUTION WIDTH 14.6 % (11.5-14.5); WHITE BLOOD COUNT 9.3 x10^3/uL (4.0-11.0)
[2019-02-04] MEDS: LACTOBACILLUS RHAMNOSUS GG 1 CAPSULE. PO SCH ×3 (09:00→20:55)
[2019-02-04] MEDS: POTASSIUM CHLORIDE 10 MEQ TABLET.ER. PO SCH ×3 (09:00→20:55)
--- NOTE | 2019-02-04 10:23 | PDOC ---
IM PROGRESS NOTES- Subjective Subjective none Objective Vitals/I&O Vital Signs Date Time Temp Pulse Resp B/P (MAP) Pulse Ox O2 Delivery O2 Flow Rate FiO2 02/04/19 08:13 97.2 96 18 157/81 (106) 100 Room Air 97.2 I & O 02/03/19 02/03/19 02/04/19 14:59 22:59 06:59 Intake Total 120 ml 60 ml Output Total 800 ml 900 ml Balance -680 ml -840 ml Physical Exam Physical Exam General appearance - alert,well appearing, and in no distress and oriented to person, place, and time Mental Status - alert, oriented to person, place, and time, affect appropriate to mood Head - normal Chest - clear to auscultation, no wheezes, rales or rhonchi, symmetric air entry Heart - S1 and S2 normal Abdomen - soft, nontender, nondistended, no masses or organomegaly Neurological - alert and oriented Musculoskeletal - no muscular tenderness noted Extremities - no pedal edema Skin - warm and dry Labs Laboratory Tests Test 02/03/19 12:34 02/03/19 16:46 02/03/19 20:35 02/04/19 07:29 Glucose (Fingerstick) 91 mg/dL (70-99) 122 mg/dL (70-99) H 117 mg/dL (70-99) H 84 mg/dL (70-99) Test 02/04/19 08:00 White Blood Count 9.3 x10^3/uL (4.0-11.0) Red Blood Count 3.08 x10^6/uL (4.30-5.70) L Hemoglobin 9.2 g/dL (13.0-17.5) L Hematocrit 27.4 % (39.0-53.0) L Mean Corpuscular Volume 89 fL (79-100) Mean Corpuscular Hemoglobin 30 pg (25-35) Mean Corpuscular Hemoglobin Concent 34 g/dL (31-37) Red Cell Distribution Width 14.6 % (11.5-14.5) H Platelet Count 538 x10^3/uL (140-400) H Neutrophils (%) (Auto) 66 % (31-73) Lymphocytes (%) (Auto) 24 % (24-48) Monocytes (%) (Auto) 6 % (0-9) Eosinophils (%) (Auto) 3 % (0-3) Basophils (%) (Auto) 1 % (0-3) Neutrophils # (Auto) 6.1 x10^3/uL (1.8-7.7) Lymphocytes # (Auto) 2.2 x10^3/uL (1.0-4.8) Monocytes # (Auto) 0.6 x10^3/uL (0.0-1.1) Eosinophils # (Auto) 0.3 x10^3/uL (0.0-0.7) Basophils # (Auto) 0.1 x10^3/uL (0.0-0.2) Laboratory Tests 02/04/19 08:00 Meds Current Medications Medications (Trade) Dose Ordered Sig/Ramakrishna Route PRN Reason Start Time Stop Time Status Last Admin Dose Admin Quetiapine Fumarate (SEROquel) 25 mg 1X ONCE PO 02/04/19 00:30 02/04/19 00:31 DC 02/04/19 00:29 Assessment Assessment Escherichia coli bacteremia Escherichia coli UTI Left hydronephrosis CVA Plan DC meropenem start ceftriaxone Mild leukocytosis WBC count 11.5. Recheck labs in a.m. continue IV fluids. Left sided 8 Fr ureteral stent placed. Nephrostomy left in place and capped and will be removed Tuesday if patient tolerates internalization. Patient was very agitated and required Seroquel 25 mg by mouth �1 but slept a lot. Now he is awake and much more cooperative. I'll decrease the dose of Seroquel to 12.5 mg twice a day when necessary for agitation. Plan Plan For more details regarding further plans, please refer to the orders. Nutrition Consultation Dietary Evaluation: Recommendations by RD: Increase Calorie Intake, Protein supplementation Comments: REC TF : Glucerna 1.2 @ goal of 40 ml/hr flushes: 200 ml q 6 hr Expected Outcomes/Goals: po diet vs TF , await plan of care Malnutrition Findings: Food and Nutrition Intake (Sev: <50% est energy req 5days Body Fat Depletion (Non Severe: Mild Depletion Weight Status: Underweight NICK TEAGUE MD Feb 04, 2019 10:23
[2019-02-04] MEDS: CYANOCOBALAMIN (VITAMIN B-12) 1,000 MCG/ML VIAL IM SCH (10:36)
[2019-02-04] MEDS: TIMOLOL 0.25% OPHTH SOLUTION 5ML BOTTLE. OU SCH ×2 (10:39→21:00)
[2019-02-04] MEDS: cefTRIAXone IV Push 2 GM VIAL. IVP SCH (10:40)
[2019-02-04 11:00] VITALS: BP 147/69
--- NOTE | 2019-02-04 11:11 | PDOC ---
Infectious Disease Note Subjective Subjective Resting quietly after dose Seroquel Restless last night No fevers or diarrhea reported Vital Sign Vital Signs Vital Signs Date Time Temp Pulse Resp B/P (MAP) Pulse Ox O2 Delivery O2 Flow Rate FiO2 02/04/19 08:13 97.2 96 18 157/81 (106) 100 Room Air 97.2 Physical Exam PHYSICAL EXAM GENERAL: Resting quietly, appears comfortable LUNGS: Clear. HEART: S1, S2 ABDOMEN: Soft : Ceron and left nephrostomy tube capped EXTREMITIES: No edema, cyanosis. SKIN: warm to touch PIV Mitt on today Labs Lab Laboratory Tests Test 02/03/19 12:34 02/03/19 16:46 02/03/19 20:35 02/04/19 07:29 Glucose (Fingerstick) 91 mg/dL (70-99) 122 mg/dL (70-99) 117 mg/dL (70-99) 84 mg/dL (70-99) Test 02/04/19 08:00 White Blood Count 9.3 x10^3/uL (4.0-11.0) Red Blood Count 3.08 x10^6/uL (4.30-5.70) Hemoglobin 9.2 g/dL (13.0-17.5) Hematocrit 27.4 % (39.0-53.0) Mean Corpuscular Volume 89 fL (79-100) Mean Corpuscular Hemoglobin 30 pg (25-35) Mean Corpuscular Hemoglobin Concent 34 g/dL (31-37) Red Cell Distribution Width 14.6 % (11.5-14.5) Platelet Count 538 x10^3/uL (140-400) Neutrophils (%) (Auto) 66 % (31-73) Lymphocytes (%) (Auto) 24 % (24-48) Monocytes (%) (Auto) 6 % (0-9) Eosinophils (%) (Auto) 3 % (0-3) Basophils (%) (Auto) 1 % (0-3) Neutrophils # (Auto) 6.1 x10^3/uL (1.8-7.7) Lymphocytes # (Auto) 2.2 x10^3/uL (1.0-4.8) Monocytes # (Auto) 0.6 x10^3/uL (0.0-1.1) Eosinophils # (Auto) 0.3 x10^3/uL (0.0-0.7) Basophils # (Auto) 0.1 x10^3/uL (0.0-0.2) Objective Assessment E coli bacteremia with sepsis ([facility] 01/17), R to amp, gent,tetra,trimetho, I to tobra E coli UTI 01/11. 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 s/p nephrostomy tube placement, 01/30 s/p left sided 8 Fr ureteral stent placement, 02/02. s/p cysto, bladder stone removal 01/24 Hematuria CVA Leukocytosis Renal insufficiency HTN Met prostate cancer Plan Plan of Care ceftriaxone (02/02) Previously on Merrem (01/23-02/02) Nephrostomy left will be removed possibly Tuesday Probiotics Overall prognosis poor D/w nursing Attending Co-Sign Attending Co-Sign The patient was seen and interviewed as well as examined at the bedside. The chart was reviewed. The case was discussed. Agree with the plan of care. AGUSTIN MENDOZA APRN Feb 04, 2019 11:11 DONTE COHN MD Feb 04, 2019 14:03
[2019-02-04 15:00] VITALS: BP 150/65
[2019-02-04 19:00] VITALS: BP 145/80
[2019-02-04] MEDS: ATORVASTATIN CALCIUM 20 MG TABLET PO SCH (20:54)
[2019-02-04] MEDS: QUEtiapine 25 MG TABLET. PO PRN (20:54)
[2019-02-04] MEDS: TAMSULOSIN 0.4 MG CAP.ER.24H. PO SCH (20:55)
[2019-02-04 23:00] VITALS: BP 149/82
[2019-02-05] VITALS (8 sets, daily range): BP systolic 126–156; BP diastolic 62–90
[2019-02-05] MEDS: INSULIN LISPRO 300 UNITS/3 ML INSULN.PEN. SQ SCH ×3 (08:00→16:43)
[2019-02-05] MEDS ORDERED: LIDOCAINE WITH 8.4% SOD BICARB 3 ML DISP.SYRIN. ONE (08:31)
[2019-02-05] MEDS ORDERED: IODIXANOL 320 MG/ML 50ML VIAL. ONE (08:32)
--- NOTE | 2019-02-05 08:33 | PDOC2 ---
PALLIATIVE CARE Palliative Care Note Palliative Care Consult requested by Dr. Herndon to address goals of care. Medical Assessment per medical record E coli bacteremia with sepsis ([facility] 01/17), R to amp E coli UTI 01/11. 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 s/p nephrostomy tube placement, 01/30 s/p left sided 8 Fr ureteral stent placement, 02/02. s/p cysto, bladder stone removal 01/24 Hematuria CVA Leukocytosis Renal insufficiency HTN Met prostate cancer Patient agitated last night per staff--refusing medications, pulling IV out. Oriented to self only. Resting quietly now. Attempted to reach daughter and . No answer. Code Status: DNR/DNI will arrange family meeting as soon as possible/family returns call. 0850 Spoke with adin Turner. Unable to come to family meeting today. Plan meeting tomorrow at 1030 MARTINA JARAIMLLO Feb 05, 2019 08:33
--- NOTE | 2019-02-05 08:38 | RAD ---
02/02/2019 1. Left nephrostogram 2. Placement of a left double-J ureteral stent 3. Replacement of left nephrostomy tube Discussion: 83-year-old male with left-sided hydronephrosis, and prior placement of a nephrostomy tube. Urology service requests conversion to double-J ureteral stent. 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 Informed consent was obtained. A timeout procedure was performed. The left flank was prepped and draped using sterile barrier technique. Fluoroscopic imaging demonstrates the pre-existing nephrostomy tube to be normal in position. A nephrostogram was performed. There is resolution of the previously seen filling defect in the renal pelvis, likely relating to clot. A wire was advanced through the pre-existing nephrostomy tube and manipulated into the bladder. Over this wire a 8 [place] double-J ureteral stent was placed. The left nephrostomy tube was also replaced, but capped, for a period of observation to ensure adequate drainage via the double-J catheter. Sterile dressings were applied. The patient was returned to his room in stable condition. No immediate complications were identified. Total fluoroscopy time: 6.6 minutes Dose area product:3 Gycm2 Impression: 1. Placement of the left double-J ureteral stent through pre-existing percutaneous tract 2. Replacement of left nephrostomy through pre-existing tract 3. Patient will return in approximately 48 hours for removal of nephrostomy tube, barring any evidence of continued obstruction
--- NOTE | 2019-02-05 09:21 | RAD ---
Fluoroscopically guided removal of percutaneous nephrostomy tube 02/05/2019 Indication: Left nephrostomy tube with double-J ureteral stent in place. Discussion: The patient is an 83-year-old male with recently placed double-J ureteral stent and left nephrostomy tube. Patient presents for removal of left nephrostomy tube and fluoroscopically to ensure stable position of double-J stent during and following removal. The patient was placed on the fluoroscopy table in the decubitus position. A timeout procedure was performed. The pre-existing nephrostomy tube was prepped and draped using sterile barrier technique. Under fluoroscopy guidewire was advanced into the pre-existing nephrostomy tube, reducing the pigtail. Catheter and wire removed without disturbing the double-J ureteral stent. The patient tolerated this well without immediate complication. Total fluoroscopy time:: 0.5 min Dose area product:: 2 Gycm2 Impression: Fluoroscopically guided removal of left nephrostomy tube
[2019-02-05 09:46] LABS: CALCIUM 8.7 mg/dL (8.5-10.1); CREATININE 1.6 mg/dL (0.7-1.3); GFR 50.3; POTASSIUM 3.8 mmol/L (3.5-5.1)
--- NOTE | 2019-02-05 09:51 | PDOC ---
PROGRESS NOTES Subjective Subjective no complaints Objective Objective Vital Signs Date Time Temp Pulse Resp B/P (MAP) Pulse Ox O2 Delivery O2 Flow Rate FiO2 02/05/19 08:52 84 14 132/62 (85) 98 Room Air 02/05/19 07:00 97.9 97.9 02/04/19 20:00 2.0 l Intake and Output 02/05/19 06:59 Intake Total 350 ml Output Total 1900 ml Balance -1550 ml Intake Oral 350 ml Output Urine Total 1900 ml # Bowel Movements 2 Physical Exam Heart: Normal S1, Normal S2 General: No acute distress Lungs: Clear to auscultation Neck: No JVD Psych/Mental Status: Mood NL Diagnosis Problem List Problems Medical Problems: (1) Acute blood loss anemia Status: Acute (2) Calculus of ureterovesical junction (UVJ) Status: Acute (3) Gram-negative bacteremia Status: Acute (4) Thrombocytopenia Status: Acute (5) Ureterovesical junction (UVJ) obstruction Status: Acute Assessment Assessment Escherichia coli bacteremia Escherichia coli UTI Left hydronephrosis CVA Plan: Nephrostomy tube removed today. palliative team meeting tomorrow for goal s of care labs stable start ceftriaxone Mild leukocytosis WBC count 11.5. Recheck labs in a.m. continue IV fluids. Left sided 8 Fr ureteral stent placed. Nephrostomy left in place and capped and will be removed Tuesday if patient tolerates internalization. Patient was very agitated and required Seroquel 25 mg by mouth �1 but slept a lot. Now he is awake and much more cooperative. I'll decrease the dose of Seroq uel to 12.5 mg twice a day when necessary for agitation. Plan Plan of Care Problems Medical Problems: (1) Acute blood loss anemia Status: Acute (2) Calculus of ureterovesical junction (UVJ) Status: Acute (3) Gram-negative bacteremia Status: Acute (4) Thrombocytopenia Status: Acute (5) Ureterovesical junction (UVJ) obstruction Status: Acute Comment Review of Relevant I have reviewed the following items yael (where applicable) has been applied. Labs Laboratory Tests Test 02/04/19 10:58 02/04/19 16:33 02/04/19 20:40 02/05/19 07:36 Glucose (Fingerstick) 84 mg/dL (70-99) 91 mg/dL (70-99) 89 mg/dL (70-99) 102 mg/dL (70-99) Test 02/05/19 09:30 Sodium Level 140 mmol/L (136-145) Potassium Level 3.8 mmol/L (3.5-5.1) Chloride Level 105 mmol/L (98-107) Carbon Dioxide Level 27 mmol/L (21-32) Anion Gap 8 (6-14) Blood Urea Nitrogen 8 mg/dL (8-26) Creatinine 1.6 mg/dL (0.7-1.3) Estimated GFR (Cockcroft-Gault) 50.3 Glucose Level 107 mg/dL (70-99) Calcium Level 8.7 mg/dL (8.5-10.1) Medications Current Medications Iodixanol (Visipaque 320) 50 ml STK-MED ONCE .ROUTE ; Start 02/05/19 at 08:32; Stop 02/05/19 at 08:33; Status DC Lidocaine/Sodium Bicarbonate (Buffered Lidocaine 1%) 3 ml STK-MED ONCE .ROUTE ; Start 02/05/19 at 08:31; Stop 02/05/19 at 08:32; Status DC Quetiapine Fumarate (SEROquel) 12.5 mg PRN BID PRN PO AGITATION Last administered on 02/04/19at 20:54; Start 02/04/19 at 11:45 Vitals/I & O Vital Sign - Last 24 Hours 02/04/19 02/04/19 02/04/19 02/04/19 11:00 15:00 19:00 20:00 Temp 98.3 98.3 97.9 98.3 98.3 97.9 Pulse 104 100 109 Resp 18 18 18 B/P (MAP) 147/69 (95) 150/65 (93) 145/80 (101) Pulse Ox 100 100 98 O2 Delivery Room Air Room Air Room Air Room Air O2 Flow Rate 2.0 02/04/19 02/05/19 02/05/19 02/05/19 23:00 03:00 07:00 08:25 Temp 97.6 97.7 97.9 97.6 97.7 97.9 Pulse 108 106 101 Resp 18 18 18 B/P (MAP) 149/82 (104) 144/81 (102) 155/89 (111) Pulse Ox 99 96 98 O2 Delivery Room Air Room Air Room Air Room Air 02/05/19 02/05/19 08:45 08:52 Pulse 93 84 Resp 16 14 B/P (MAP) 150/66 (94) 132/62 (85) Pulse Ox 100 98 O2 Delivery Room Air Room Air Intake and Output 02/04/19 02/04/19 02/05/19 14:59 22:59 06:59 Intake Total 150 ml 200 ml Output Total 750 ml 1150 ml Balance 150 ml -550 ml -1150 ml Nutrition Consultation Dietary Evaluation: Recommendations by RD: Increase Calorie Intake, Protein supplementation Comments: REC TF : Glucerna 1.2 @ goal of 40 ml/hr flushes: 200 ml q 6 hr Expected Outcomes/Goals: po diet vs TF , await plan of care Malnutrition Findings: Food and Nutrition Intake (Sev: <50% est energy req 5days Body Fat Depletion (Non Severe: Mild Depletion Weight Status: Underweight WIN RIVERA MD Feb 05, 2019 09:51
[2019-02-05] MEDS: cefTRIAXone IV Push 2 GM VIAL. IVP SCH (09:56)
[2019-02-05] MEDS: CYANOCOBALAMIN (VITAMIN B-12) 1,000 MCG/ML VIAL IM SCH (09:57)
[2019-02-05] MEDS: TIMOLOL 0.25% OPHTH SOLUTION 5ML BOTTLE. OU SCH ×2 (09:57→20:32)
[2019-02-05 10:02] LABS: BASO # 0.1 x10^3/uL (0.0-0.2); BASO % 1 % (0-3); EOS # 0.2 x10^3/uL (0.0-0.7); EOS % 2 % (0-3); HEMOGLOBIN 10.7 g/dL (13.0-17.5); LYMPH # 1.8 x10^3/uL (1.0-4.8); LYMPH % 17 % (24-48); MEAN CORPUSCULAR HEMOGLOBIN 30 pg (25-35); MEAN CORPUSCULAR HGB CONC 34 g/dL (31-37); MEAN CORPUSCULAR VOLUME 90 fL (79-100); MONO # 0.3 x10^3/uL (0.0-1.1); MONO % 3 % (0-9); NEUT # 8.3 x10^3/uL (1.8-7.7); NEUT % 77 % (31-73); PLATELET COUNT 653 x10^3/uL (140-400); RED BLOOD COUNT 3.57 x10^6/uL (4.30-5.70); RED CELL DISTRIBUTION WIDTH 15.2 % (11.5-14.5); WHITE BLOOD COUNT 10.8 x10^3/uL (4.0-11.0)
--- NOTE | 2019-02-05 10:11 | PDOC ---
Infectious Disease Note Subjective Subjective States ok No fevers or diarrhea reported Vital Sign Vital Signs Vital Signs Date Time Temp Pulse Resp B/P (MAP) Pulse Ox O2 Delivery O2 Flow Rate FiO2 02/05/19 08:52 84 14 132/62 (85) 98 Room Air 02/05/19 07:00 97.9 97.9 02/04/19 20:00 2.0 Physical Exam PHYSICAL EXAM GENERAL: Resting quietly, appears comfortable , NAD and aler LUNGS: Clear. HEART: S1, S2 ABDOMEN: Soft : Ceron and previous left nephrostomy site is clena EXTREMITIES: No edema, cyanosis. SKIN: warm to touch PIV Mitt on today Labs Lab Laboratory Tests Test 02/04/19 10:58 02/04/19 16:33 02/04/19 20:40 02/05/19 07:36 Glucose (Fingerstick) 84 mg/dL (70-99) 91 mg/dL (70-99) 89 mg/dL (70-99) 102 mg/dL (70-99) Test 02/05/19 09:30 Sodium Level 140 mmol/L (136-145) Potassium Level 3.8 mmol/L (3.5-5.1) Chloride Level 105 mmol/L (98-107) Carbon Dioxide Level 27 mmol/L (21-32) Anion Gap 8 (6-14) Blood Urea Nitrogen 8 mg/dL (8-26) Creatinine 1.6 mg/dL (0.7-1.3) Estimated GFR (Cockcroft-Gault) 50.3 Glucose Level 107 mg/dL (70-99) Calcium Level 8.7 mg/dL (8.5-10.1) Objective Assessment E coli bacteremia with sepsis ([facility] 01/17), R to amp, gent,tetra,trimetho, I to tobra E coli UTI 01/11. 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 s/p nephrostomy tube placement, 01/30 s/p left sided 8 Fr ureteral stent placement, 02/02. s/p cysto, bladder stone removal 01/24 Hematuria CVA Leukocytosis - better Renal insufficiency HTN Met prostate cancer Plan Plan of Care ceftriaxone (02/02) wean soon Previously on Merrem (01/23-7/12) Nephrostomy left will be removed possibly Tuesday Probiotics Overall prognosis poor D/w nursing Await palliative evDONTE Douglas MD Feb 05, 2019 10:11
[2019-02-05] MEDS: LACTOBACILLUS RHAMNOSUS GG 1 CAPSULE. PO SCH ×2 (11:58→20:32)
[2019-02-05] MEDS: ASPIRIN CHEWABLE 81 MG TABLET. PO SCH (11:58)
[2019-02-05] MEDS: POTASSIUM CHLORIDE 10 MEQ TABLET.ER. PO SCH ×3 (11:59→20:32)
[2019-02-05] MEDS: IV 1/2 NORMAL SALINE 1,000 ML IV SCH (12:10)
--- NOTE | 2019-02-05 12:23 | PDOC ---
SUBJECTIVE Subjective Nephrostomy tube was pulled by IR this morning, he just has antegrade stent in place that was inserted by IR on the . Pt denies pain, says he is "cold." Per RN there is a family meeting scheduled to discuss further goals of care, given cancer. OBJECTIVE Objective Physical Exam: General appearance: Alert and cooperative with staff. Some confusion. Head: Normocephalic, without obvious abnormality Eyes: conjunctivae/corneas clear. PERRL, EOM's intact. Fundi benign Back: "sore" left CVA area, non tender on the right Lungs: Regular respirations, non labored breathing Abdomen: soft, non-tender. No masses, no organomegaly Pelvic: + Ceron catheter in place draining yellow urine with occasional sediment. Extremities: bilat UE have mittens in place to discourage device pulling. Vital Signs Vital Signs Date Time Temp Pulse Resp B/P (MAP) Pulse Ox O2 Delivery O2 Flow Rate FiO2 02/05/19 10:42 97.9 106 18 126/90 (102) 98 Room Air 97.9 02/05/19 08:52 84 14 132/62 (85) 98 Room Air 02/05/19 08:45 93 16 150/66 (94) 100 Room Air 02/05/19 08:25 Room Air 02/05/19 07:00 97.9 101 18 155/89 (111) 98 Room Air 97.9 02/05/19 03:00 97.7 106 18 144/81 (102) 96 Room Air 97.7 02/04/19 23:00 97.6 108 18 149/82 (104) 99 Room Air 97.6 02/04/19 20:00 Room Air 2.0 02/04/19 19:00 97.9 109 18 145/80 (101) 98 Room Air 97.9 02/04/19 15:00 98.3 100 18 150/65 (93) 100 Room Air 98.3 I & O Intake and Output 02/05/19 06:59 Intake Total 350 ml Output Total 1900 ml Balance -1550 ml Intake Oral 350 ml Output Urine Total 1900 ml # Bowel Movements 2 PHYSICAL EXAM Physical Exam Physical Exam: General appearance: Alert and cooperative with staff. Some confusion. Head: Normocephalic, without obvious abnormality Eyes: conjunctivae/corneas clear. PERRL, EOM's intact. Fundi benign Back: "sore" left CVA area, non tender on the right Lungs: Regular respirations, non labored breathing Abdomen: soft, non-tender. No masses, no organomegaly Pelvic: + Ceron catheter in place draining yellow urine with occasional sediment. Extremities: bilat UE have mittens in place to discourage device pulling. ASSESSMENT/PLAN Assessment/Plan Pt had stent placed by IR and nephrostomy tube is now out. A follow up appointment has been arranged for patient to see Dr. Cardona of [facility] [place]/15/19 at 10 am at our [facility] location. Appointment card put on the front of the chart. Agree with palliative care consult/family meeting. Will sign off at this time but please call with questions or changes in patient condition. COMMENT Lab Laboratory Tests Test 02/04/19 16:33 02/04/19 20:40 02/05/19 07:36 02/05/19 09:30 Glucose (Fingerstick) 91 mg/dL (70-99) 89 mg/dL (70-99) 102 mg/dL (70-99) White Blood Count 10.8 x10^3/uL (4.0-11.0) Red Blood Count 3.57 x10^6/uL (4.30-5.70) Hemoglobin 10.7 g/dL (13.0-17.5) Hematocrit 32.0 % (39.0-53.0) Mean Corpuscular Volume 90 fL (79-100) Mean Corpuscular Hemoglobin 30 pg (25-35) Mean Corpuscular Hemoglobin Concent 34 g/dL (31-37) Red Cell Distribution Width 15.2 % (11.5-14.5) Platelet Count 653 x10^3/uL (140-400) Neutrophils (%) (Auto) 77 % (31-73) Lymphocytes (%) (Auto) 17 % (24-48) Monocytes (%) (Auto) 3 % (0-9) Eosinophils (%) (Auto) 2 % (0-3) Basophils (%) (Auto) 1 % (0-3) Neutrophils # (Auto) 8.3 x10^3/uL (1.8-7.7) Lymphocytes # (Auto) 1.8 x10^3/uL (1.0-4.8) Monocytes # (Auto) 0.3 x10^3/uL (0.0-1.1) Eosinophils # (Auto) 0.2 x10^3/uL (0.0-0.7) Basophils # (Auto) 0.1 x10^3/uL (0.0-0.2) Sodium Level 140 mmol/L (136-145) Potassium Level 3.8 mmol/L (3.5-5.1) Chloride Level 105 mmol/L (98-107) Carbon Dioxide Level 27 mmol/L (21-32) Anion Gap 8 (6-14) Blood Urea Nitrogen 8 mg/dL (8-26) Creatinine 1.6 mg/dL (0.7-1.3) Estimated GFR (Cockcroft-Gault) 50.3 Glucose Level 107 mg/dL (70-99) Calcium Level 8.7 mg/dL (8.5-10.1) Test 02/05/19 11:15 Glucose (Fingerstick) 95 mg/dL (70-99) Imaging 02/02 IR documentation: 1. Placement of the left double-J ureteral stent through pre-existing percutaneous tract 2. Replacement of left nephrostomy through pre-existing tract 3. Patient will return in approximately 48 hours for removal of nephrostomy tube, barring any evidence of continued obstruction 02/05 IR documentation: Impression: Fluoroscopically guided removal of left nephrostomy tube Nutrition Consultation Dietary Evaluation: Recommendations by RD: Increase Calorie Intake, Protein supplementation Comments: REC TF : Glucerna 1.2 @ goal of 40 ml/hr flushes: 200 ml q 6 hr Expected Outcomes/Goals: po diet vs TF , await plan of care Malnutrition Findings: Food and Nutrition Intake (Sev: <50% est energy req 5days Body Fat Depletion (Non Severe: Mild Depletion Weight Status: Underweight LASHANDA OSBORNE [employer]IST[employer] Feb 05, 2019 12:23
--- NOTE | 2019-02-05 12:31 | PDOC ---
PROGRESS NOTES Subjective Subjective HPI - f/u of Prostate cancer ROS - no fever Objective Objective Vital Signs Date Time Temp Pulse Resp B/P (MAP) Pulse Ox O2 Delivery O2 Flow Rate FiO2 02/05/19 10:42 97.9 106 18 126/90 (102) 98 Room Air 97.9 02/04/19 20:00 2.0 Intake and Output 02/05/19 06:59 Intake Total 350 ml Output Total 1900 ml Balance -1550 ml Intake Oral 350 ml Output Urine Total 1900 ml # Bowel Movements 2 Physical Exam General: No acute distress Neck: No JVD Assessment Assessment Problems Medical Problems: (1) Acute blood loss anemia Status: Acute (2) Calculus of ureterovesical junction (UVJ) Status: Acute (3) Gram-negative bacteremia Status: Acute (4) Thrombocytopenia Status: Acute (5) Ureterovesical junction (UVJ) obstruction Status: Acute Assessment and Plan: He is an 83-year-old man with history of prostate cancer that appears to be progressing with rising PSA recently of 63, admitted with bacteremia and UTI and ureteral stone and being treated for infection and followed by urology. 1. Bladder outlet obstruction with recent stone: Per urology. Per Urology, IR to try to place antegrade left ureteral stent and then remove nephrostomy tube. 2. Infection: On antibiotics, ID has been consulted 3. 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 Appreciate palliative care consult. I d/w Dr Casiano, no benefit from radiation hence not offered and I agree to consider hospice. s/p cystoscopy 01/24/19: shaggy necrotic prostate tissue w invasion into BN, trigone. 4. Thrombocytopenia: Resolved. Comment Review of Relevant I have reviewed the following items yael (where applicable) has been applied. Labs Laboratory Tests Test 02/03/19 12:34 02/03/19 16:46 02/03/19 20:35 02/04/19 07:29 Glucose (Fingerstick) 91 mg/dL (70-99) 122 mg/dL (70-99) 117 mg/dL (70-99) 84 mg/dL (70-99) Test 02/04/19 08:00 02/04/19 10:58 02/04/19 16:33 02/04/19 20:40 White Blood Count 9.3 x10^3/uL (4.0-11.0) Red Blood Count 3.08 x10^6/uL (4.30-5.70) Hemoglobin 9.2 g/dL (13.0-17.5) Hematocrit 27.4 % (39.0-53.0) Mean Corpuscular Volume 89 fL (79-100) Mean Corpuscular Hemoglobin 30 pg (25-35) Mean Corpuscular Hemoglobin Concent 34 g/dL (31-37) Red Cell Distribution Width 14.6 % (11.5-14.5) Platelet Count 538 x10^3/uL (140-400) Neutrophils (%) (Auto) 66 % (31-73) Lymphocytes (%) (Auto) 24 % (24-48) Monocytes (%) (Auto) 6 % (0-9) Eosinophils (%) (Auto) 3 % (0-3) Basophils (%) (Auto) 1 % (0-3) Neutrophils # (Auto) 6.1 x10^3/uL (1.8-7.7) Lymphocytes # (Auto) 2.2 x10^3/uL (1.0-4.8) Monocytes # (Auto) 0.6 x10^3/uL (0.0-1.1) Eosinophils # (Auto) 0.3 x10^3/uL (0.0-0.7) Basophils # (Auto) 0.1 x10^3/uL (0.0-0.2) Glucose (Fingerstick) 84 mg/dL (70-99) 91 mg/dL (70-99) 89 mg/dL (70-99) Test 02/05/19 07:36 02/05/19 09:30 02/05/19 11:15 Glucose (Fingerstick) 102 mg/dL (70-99) 95 mg/dL (70-99) White Blood Count 10.8 x10^3/uL (4.0-11.0) Red Blood Count 3.57 x10^6/uL (4.30-5.70) Hemoglobin 10.7 g/dL (13.0-17.5) Hematocrit 32.0 % (39.0-53.0) Mean Corpuscular Volume 90 fL (79-100) Mean Corpuscular Hemoglobin 30 pg (25-35) Mean Corpuscular Hemoglobin Concent 34 g/dL (31-37) Red Cell Distribution Width 15.2 % (11.5-14.5) Platelet Count 653 x10^3/uL (140-400) Neutrophils (%) (Auto) 77 % (31-73) Lymphocytes (%) (Auto) 17 % (24-48) Monocytes (%) (Auto) 3 % (0-9) Eosinophils (%) (Auto) 2 % (0-3) Basophils (%) (Auto) 1 % (0-3) Neutrophils # (Auto) 8.3 x10^3/uL (1.8-7.7) Lymphocytes # (Auto) 1.8 x10^3/uL (1.0-4.8) Monocytes # (Auto) 0.3 x10^3/uL (0.0-1.1) Eosinophils # (Auto) 0.2 x10^3/uL (0.0-0.7) Basophils # (Auto) 0.1 x10^3/uL (0.0-0.2) Sodium Level 140 mmol/L (136-145) Potassium Level 3.8 mmol/L (3.5-5.1) Chloride Level 105 mmol/L (98-107) Carbon Dioxide Level 27 mmol/L (21-32) Anion Gap 8 (6-14) Blood Urea Nitrogen 8 mg/dL (8-26) Creatinine 1.6 mg/dL (0.7-1.3) Estimated GFR (Cockcroft-Gault) 50.3 Glucose Level 107 mg/dL (70-99) Calcium Level 8.7 mg/dL (8.5-10.1) Laboratory Tests Test 02/04/19 16:33 02/04/19 20:40 02/05/19 07:36 02/05/19 09:30 Glucose (Fingerstick) 91 mg/dL (70-99) 89 mg/dL (70-99) 102 mg/dL (70-99) White Blood Count 10.8 x10^3/uL (4.0-11.0) Red Blood Count 3.57 x10^6/uL (4.30-5.70) Hemoglobin 10.7 g/dL (13.0-17.5) Hematocrit 32.0 % (39.0-53.0) Mean Corpuscular Volume 90 fL (79-100) Mean Corpuscular Hemoglobin 30 pg (25-35) Mean Corpuscular Hemoglobin Concent 34 g/dL (31-37) Red Cell Distribution Width 15.2 % (11.5-14.5) Platelet Count 653 x10^3/uL (140-400) Neutrophils (%) (Auto) 77 % (31-73) Lymphocytes (%) (Auto) 17 % (24-48) Monocytes (%) (Auto) 3 % (0-9) Eosinophils (%) (Auto) 2 % (0-3) Basophils (%) (Auto) 1 % (0-3) Neutrophils # (Auto) 8.3 x10^3/uL (1.8-7.7) Lymphocytes # (Auto) 1.8 x10^3/uL (1.0-4.8) Monocytes # (Auto) 0.3 x10^3/uL (0.0-1.1) Eosinophils # (Auto) 0.2 x10^3/uL (0.0-0.7) Basophils # (Auto) 0.1 x10^3/uL (0.0-0.2) Sodium Level 140 mmol/L (136-145) Potassium Level 3.8 mmol/L (3.5-5.1) Chloride Level 105 mmol/L (98-107) Carbon Dioxide Level 27 mmol/L (21-32) Anion Gap 8 (6-14) Blood Urea Nitrogen 8 mg/dL (8-26) Creatinine 1.6 mg/dL (0.7-1.3) Estimated GFR (Cockcroft-Gault) 50.3 Glucose Level 107 mg/dL (70-99) Calcium Level 8.7 mg/dL (8.5-10.1) Test 02/05/19 11:15 Glucose (Fingerstick) 95 mg/dL (70-99) Medications Current Medications Sodium Chloride 1,000 ml @ 75 mls/hr [id number] IV Last administered on 02/04/19at 22:25; Start 01/23/19 at 17:30 Acetaminophen (Tylenol) 650 mg PRN Q6HRS PRN PO MILD PAIN / TEMP Last administered on 02/04/19 00:29; Start 01/23/19 at 17:30 Aspirin (Children'S Aspirin) 81 mg [id number] PO Last administered on 02/05/19 11:58; Start 01/24/19 at 08:00 Atorvastatin Calcium (Lipitor) 20 mg QHS PO Last administered on 02/04/19 20:54; Start 01/23/19 at 21:00 Insulin Human Lispro (HumaLOG) 0-5 UNITS TIDWMEALS SQ ; Start 01/24/19 at 08:00 Dextrose (Dextrose 50%-Water Syringe) 12.5 gm PRN Q15MIN PRN IV SEE COMMENTS Last administered on 02/01/19 08:20; Start 01/23/19 at 17:30 Lactobacillus Rhamnosus (Culturelle) 1 cap BID PO Last administered on 02/05 11:58; Start 01/23/19 at 21:00 Linezolid (Zyvox) 600 mg BID PO Last administered on 01/23/19 21:23; Start 01/23/19 at 21:00; Stop 01/24/19 at 07:09; Status DC Meropenem 1 gm/ Sodium Chloride 100 ml @ 200 mls/hr Q12HR IV Last administered on 02/01/19 20:43; Start 01/23/19 at 21:00; Stop 02/02/19 at 09:22; Status DC Ondansetron HCl (Zofran) 4 mg PRN Q8HRS PRN IV NAUSEA/VOMITING; Start 01/23/19 at 17:30 Potassium Chloride (Klor-Con) 10 meq TID PO Last administered on 02/05/19 11:59; Start 01/23/19 at 21:00 Tamsulosin HCl (Flomax) 0.4 mg QHS PO Last administered on 02/04/19 20:55; Start 01/23/19 at 21:00 Timolol Maleate (Timoptic 0.25% Oph) 1 drop BID OU Last administered on 02/05/19 09:57; Start 01/23/19 at 21:00 Iohexol (Omnipaque 300 Mg/ml) 50 ml STK-MED ONCE .ROUTE Last administered on 01/24/19 11:11; Start 01/24/19 at 09:05; Stop 01/24/19 at 10:05; Status DC Sevoflurane (Ultane) 30 ml STK-MED ONCE IH ; Start 01/24/19 at 10:24; Stop 01/24/19 at 10:25; Status DC Dexamethasone Sodium Phosphate (Decadron) 4 mg STK-MED ONCE .ROUTE ; Start 01/24/19 at 10:24; Stop 01/24/19 at 10:25; Status DC Propofol 20 ml @ As Directed STK-MED ONCE IV ; Start 01/24/19 at 10:24; Stop 01/24/19 at 10:25; Status DC Lidocaine HCl (Lidocaine Pf 2% Vial) 5 ml STK-MED ONCE .ROUTE ; Start 01/24/19 at 10:24; Stop 01/24/19 at 10:25; Status DC Ketorolac Tromethamine (Toradol For Or Only) 30 mg STK-MED ONCE INJ ; Start 01/24/19 at 10:24; Stop 01/24/19 at 10:25; Status DC Ondansetron HCl (Zofran) 4 mg STK-MED ONCE .ROUTE ; Start 01/24/19 at 10:25; Stop 01/24/19 at 10:26; Status DC Phenylephrine HCl (PHENYLEPHRINE in 0.9% NACL PF) 1 mg STK-MED ONCE IV ; Start 01/24/19 at 11:02; Stop 01/24/19 at 11:03; Status DC Methylene Blue (Methylene Blue) 1 ml STK-MED ONCE .ROUTE Last administered on 01/24/19at 11:20; Start 01/24/19 at 10:19; Stop 01/24/19 at 11:19; Status DC Esmolol HCl (Brevibloc) 100 mg STK-MED ONCE IVP ; Start 01/24/19 at 11:20; Stop 01/24/19 at 11:21; Status DC Fentanyl Citrate (Fentanyl 2ml Vial) 100 mcg STK-MED ONCE .ROUTE ; Start 01/24/19 at 12:14; Stop 01/24/19 at 12:15; Status DC Prochlorperazine Edisylate (Compazine) 10 mg STK-MED ONCE .ROUTE ; Start 01/24/19 at 12:15; Stop 01/24/19 at 12:16; Status DC Ondansetron HCl (Zofran) 4 mg PRN Q6HRS PRN IV NAUSEA/VOMITING; Start 01/24/19 at 12:30; Stop 01/24/19 at 20:00; Status DC Fentanyl Citrate (Fentanyl 2ml Vial) 25 mcg PRN Q5MIN PRN IV MILD PAIN 1-3 Last administered on 01/24/19at 12:33; Start 01/24/19 at 12:30; Stop 01/24/19 at 20:00; Status DC Fentanyl Citrate (Fentanyl 2ml Vial) 50 mcg PRN Q5MIN PRN IV MODERATE TO SEVERE PAIN Last administered on 01/24/19at 19:46; Start 01/24/19 at 12:30; Stop 01/24/19 at 20:00; Status DC Morphine Sulfate (Morphine Sulfate) 1 mg PRN Q10MIN PRN IV SEVERE PAIN 7-10; Start 01/24/19 at 12:30; Stop 01/24/19 at 20:00; Status DC Ringer's Solution 1,000 ml @ 30 mls/hr Q24H IV ; Start 01/24/19 at 12:16; Stop 01/25/19 at 00:15; Status DC Lidocaine HCl (Xylocaine-Mpf 1% 2ml Vial) 2 ml 1X PRN PRN ID IV START; Start 01/24/19 at 12:30; Stop 01/24/19 at 20:00; Status DC Hydromorphone HCl (Dilaudid) 0.5 mg PRN Q10MIN PRN IV SEV PAIN, Second choice; Start 01/24/19 at 12:30; Stop 01/24/19 at 20:00; Status DC Prochlorperazine Edisylate (Compazine) 5 mg PACU PRN PRN IV NAUSEA, MRX1 Last administered on 01/24/19at 12:15; Start 01/24/19 at 12:30; Stop 01/24/19 at 20:00; Status DC Ringer's Solution 1,000 ml @ 75 mls/hr [id number] PRN IV pre op; Start 01/24/19 at 12:30; Stop 01/29/19 at 15:03; Status DC Fentanyl Citrate (Fentanyl 2ml Vial) 50 mcg PRN Q3HRS PRN IV SEVERE PAIN Last administered on 01/29/19at 18:23; Start 01/24/19 at 19:00 Fentanyl Citrate (Fentanyl 2ml Vial) 25 mcg PRN Q3HRS PRN IV MODERATE PAIN; S tart 01/24/19 at 19:00 Cyanocobalamin (Vitamin B-12) 1,000 mcg DAILY PO ; Start 01/25/19 at 09:00; Stop 01/26/19 at 07:46; Status DC Sodium Chloride 250 ml @ 250 mls/hr 1X ONCE IV Last administered on 01/25/19at 08:00; Start 01/25/19 at 08:00; Stop 01/25/19 at 08:59; Status DC Meropenem 1 gm/ Sodium Chloride 100 ml @ 200 mls/hr 1X ONCE IV Last administered on 01/25/19at 22:03; Start 01/25/19 at 22:00; Stop 01/25/19 at 22:29; Status DC Cyanocobalamin (Vitamin B-12) 1,000 mcg DAILY IM Last administered on 02/05/19at 09:57; Start 01/26/19 at 09:00 Midazolam HCl (Versed) 2 mg STK-MED ONCE .ROUTE ; Start 01/30/19 at 07:58; Stop 01/30/19 at 07:59; Status DC Fentanyl Citrate (Fentanyl 2ml Vial) 100 mcg STK-MED ONCE .ROUTE ; Start 01/30/19 at 07:58; Stop 01/30/19 at 07:59; Status DC Lidocaine/Sodium Bicarbonate (Buffered Lidocaine 1%) 3 ml STK-MED ONCE .ROUTE ; Start 01/30/19 at 07:59; Stop 01/30/19 at 08:00; Status DC Iodixanol (Visipaque 320) 50 ml STK-MED ONCE .ROUTE ; Start 01/30/19 at 07:59; Stop 01/30/19 at 08:00; Status DC Lidocaine/Sodium Bicarbonate (Buffered Lidocaine 1%) 3 ml 1X ONCE IJ Last administered on 01/30/19at 08:15; Start 01/30/19 at 08:15; Stop 01/30/19 at 08:16; Status DC Midazolam HCl (Versed) 2 mg 1X ONCE IV Last administered on 01/30/19at 08:15; Start 01/30/19 at 08:15; Stop 01/30/19 at 08:16; Status DC Fentanyl Citrate (Fentanyl 2ml Vial) 100 mcg 1X ONCE IV Last administered on 01/30/19at 08:15; Start 01/30/19 at 08:15; Stop 01/30/19 at 08:16; Status DC Iodixanol (Visipaque 320) 50 ml 1X ONCE IART Last administered on 01/30/19at 08:15; Start 01/30/19 at 08:15; Stop 01/30/19 at 08:16; Status DC Ceftriaxone Sodium (Rocephin) 2 gm Q24H IVP Last administered on 02/05/19at 09:56; Start 02/02/19 at 10:00 Lidocaine/Sodium Bicarbonate (Buffered Lidocaine 1%) 3 ml STK-MED ONCE .ROUTE ; Start 02/02/19 at 09:22; Stop 02/02/19 at 09:23; Status DC Iohexol (Omnipaque 240 Mg/ml) 50 ml STK-MED ONCE .ROUTE ; Start 02/02/19 at 09:22; Stop 02/02/19 at 09:23; Status DC Midazolam HCl (Versed) 2 mg STK-MED ONCE .ROUTE ; Start 02/02/19 at 10:07; Stop 02/02/19 at 10:08; Status DC Fentanyl Citrate (Fentanyl 2ml Vial) 100 mcg STK-MED ONCE .ROUTE ; Start 02/02/19 at 10:07; Stop 02/02/19 at 10:08; Status DC Lidocaine/Sodium Bicarbonate (Buffered Lidocaine 1%) 3 ml 1X ONCE IJ Last administered on 02/02/19at 11:33; Start 02/02/19 at 11:15; Stop 02/02/19 at 11:16; Status DC Midazolam HCl (Versed) 2 mg 1X ONCE IV Last administered on 02/02/19at 11:33; Start 02/02/19 at 11:15; Stop 02/02/19 at 11:16; Status DC Fentanyl Citrate (Fentanyl 2ml Vial) 100 mcg 1X ONCE IV Last administered on 02/02/19at 11:35; Start 02/02/19 at 11:15; Stop 02/02/19 at 11:16; Status DC Iohexol (Omnipaque 240 Mg/ml) 50 ml 1X ONCE IJ Last administered on 02/02/19at 11:32; Start 02/02/19 at 11:15; Stop 02/02/19 at 11:16; Status DC Quetiapine Fumarate (SEROquel) 25 mg 1X ONCE PO Last administered on 02/04/19at 00:29; Start 02/04/19 at 00:30; Stop 02/04/19 at 00:31; Status DC Quetiapine Fumarate (SEROquel) 12.5 mg PRN BID PRN PO AGITATION Last administered on 02/04/19at 20:54; Start 02/04/19 at 11:45 Lidocaine/Sodium Bicarbonate (Buffered Lidocaine 1%) 3 ml STK-MED ONCE .ROUTE ; Start 02/05/19 at 08:31; Stop 02/05/19 at 08:32; Status DC Iodixanol (Visipaque 320) 50 ml STK-MED ONCE .ROUTE ; Start 02/05/19 at 08:32; Stop 02/05/19 at 08:33; Status DC Active Scripts Active Augmentin 875-125 Tablet (Amoxicillin/Potassium Clav) 1 Each Tablet 1 Tab PO BID Tylenol (Acetaminophen) 325 Mg Tablet 650 Mg PO PRN Q6HRS PRN 30 Days Polyethylene Glycol 3350 17 Gm Powd.pack 17 Gm PO PRN DAILY PRN 14 Days Senna-Time S Tablet (Sennosides/Docusate Sodium) 1 Each Tablet 1 Tab PO DAILY 14 Days Hydrocodone-Apap 7.5-325 (Hydrocodone Bit/Acetaminophen) 1 Tab Tablet 2 Tab PO PRN Q4HRS PRN 14 Days Reported Timoptic 0.5% (Timolol Maleate) 10 Ml Drops 1 Drop EACHEYE BID Atorvastatin Calcium 20 Mg Tablet 1 Tab PO DAILY Losartan Potassium 100 Mg Tablet 100 Mg PO DAILY Aspirin 81 Mg Tab.chew 1 Tab PO DAILY Vitals/I & O Vital Sign - Last 24 Hours 02/04/19 02/04/19 02/04/19 02/04/19 15:00 19:00 20:00 23:00 Temp 98.3 97.9 97.6 98.3 97.9 97.6 Pulse 100 109 108 Resp 18 18 18 B/P (MAP) 150/65 (93) 145/80 (101) 149/82 (104) Pulse Ox 100 98 99 O2 Delivery Room Air Room Air Room Air Room Air O2 Flow Rate 2.0 02/05/19 02/05/19 02/05/19 02/05/19 03:00 07:00 08:25 08:45 Temp 97.7 97.9 97.7 97.9 Pulse 106 101 93 Resp 18 18 16 B/P (MAP) 144/81 (102) 155/89 (111) 150/66 (94) Pulse Ox 96 98 100 O2 Delivery Room Air Room Air Room Air Room Air 02/05/19 02/05/19 08:52 10:42 Temp 97.9 97.9 Pulse 84 106 Resp 14 18 B/P (MAP) 132/62 (85) 126/90 (102) Pulse Ox 98 98 O2 Delivery Room Air Room Air Intake and Output 02/04/19 02/04/19 02/05/19 14:59 22:59 06:59 Intake Total 150 ml 200 ml Output Total 750 ml 1150 ml Balance 150 ml -550 ml -1150 ml Nutrition Consultation Dietary Evaluation: Recommendations by RD: Increase Calorie Intake, Protein supplementation Comments: REC TF : Glucerna 1.2 @ goal of 40 ml/hr flushes: 200 ml q 6 hr Expected Outcomes/Goals: po diet vs TF , await plan of care Malnutrition Findings: Food and Nutrition Intake (Sev: <50% est energy req 5days Body Fat Depletion (Non Severe: Mild Depletion Weight Status: Underweight MAGALY RAMOS MD Feb 05, 2019 12:31
[2019-02-05] MEDS: QUEtiapine 25 MG TABLET. PO PRN (13:59)
[2019-02-05] MEDS: ACETAMINOPHEN 325 MG TABLET. PO PRN (20:31)
[2019-02-05] MEDS: TAMSULOSIN 0.4 MG CAP.ER.24H. PO SCH (20:31)
[2019-02-05] MEDS: ATORVASTATIN CALCIUM 20 MG TABLET PO SCH (20:32)
[2019-02-06] MEDS: IV 1/2 NORMAL SALINE 1,000 ML IV SCH ×2 (01:30→14:50)
[2019-02-06 03:00] VITALS: BP 145/84
[2019-02-06 07:00] VITALS: BP 131/69
[2019-02-06] MEDS: INSULIN LISPRO 300 UNITS/3 ML INSULN.PEN. SQ SCH ×3 (07:56→17:00)
--- NOTE | 2019-02-06 08:35 | PDOC ---
Provider Note Provider Note 83 yo man with dx of prostate cancer 1994 treated with ADT alone now hormonally refractory with rising PSA to 63 . Admitted with urosepsis and now on ATB. CT scan here of abd and pelvis revealed no clear metastatic osseous or odilia disease. Significant eft hydronephrosis minimal right hydronephrosis, large prostate with image limited due to Lt DEMI. Left antegrade ureteral stent placed 02/02/2019. Nephrostomy tube was removed. He has no pain anywhere. He is only oriented to name and unable or unwilling to answer any other questions. Not cooperative over last day and pulled IV out. 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 Noted to also have dementia. 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 Now has left stent in place to treat obstructive uropathy from local disease progression as seen on cystoscopy. He has diminished mental status and insight due to previous CVA and dementia. Discussed with Lisa Cast. As before, I recommend supportive care alone. Jil huang is not a candidate for palliative radiation to prostate for local disease progression. Family meeting planned today at 10:30 AM noted. ROSE BRUCE MD Feb 06, 2019 08:35
--- NOTE | 2019-02-06 09:08 | PDOC ---
Infectious Disease Note Subjective Subjective States ok Wanting to eat No fevers or diarrhea reported Vital Sign Vital Signs Vital Signs Date Time Temp Pulse Resp B/P (MAP) Pulse Ox O2 Delivery O2 Flow Rate FiO2 02/06/19 07:50 Room Air 02/06/19 07:00 98.0 91 14 131/69 (89) 92 98.0 Physical Exam PHYSICAL EXAM GENERAL: Resting quietly, appears comfortable , NAD and aler LUNGS: Clear. HEART: S1, S2 ABDOMEN: Soft : [place] and previous left nephrostomy site is clean EXTREMITIES: No edema, cyanosis. SKIN: warm to touch PIV Mitt on today Labs Lab Laboratory Tests Test 02/05/19 09:30 02/05/19 11:15 02/05/19 16:31 02/05/19 20:11 White Blood Count 10.8 x10^3/uL (4.0-11.0) Red Blood Count 3.57 x10^6/uL (4.30-5.70) Hemoglobin 10.7 g/dL (13.0-17.5) Hematocrit 32.0 % (39.0-53.0) Mean Corpuscular Volume 90 fL (79-100) Mean Corpuscular Hemoglobin 30 pg (25-35) Mean Corpuscular Hemoglobin Concent 34 g/dL (31-37) Red Cell Distribution Width 15.2 % (11.5-14.5) Platelet Count 653 x10^3/uL (140-400) Neutrophils (%) (Auto) 77 % (31-73) Lymphocytes (%) (Auto) 17 % (24-48) Monocytes (%) (Auto) 3 % (0-9) Eosinophils (%) (Auto) 2 % (0-3) Basophils (%) (Auto) 1 % (0-3) Neutrophils # (Auto) 8.3 x10^3/uL (1.8-7.7) Lymphocytes # (Auto) 1.8 x10^3/uL (1.0-4.8) Monocytes # (Auto) 0.3 x10^3/uL (0.0-1.1) Eosinophils # (Auto) 0.2 x10^3/uL (0.0-0.7) Basophils # (Auto) 0.1 x10^3/uL (0.0-0.2) Sodium Level 140 mmol/L (136-145) Potassium Level 3.8 mmol/L (3.5-5.1) Chloride Level 105 mmol/L (98-107) Carbon Dioxide Level 27 mmol/L (21-32) Anion Gap 8 (6-14) Blood Urea Nitrogen 8 mg/dL (8-26) Creatinine 1.6 mg/dL (0.7-1.3) Estimated GFR (Cockcroft-Gault) 50.3 Glucose Level 107 mg/dL (70-99) Calcium Level 8.7 mg/dL (8.5-10.1) Glucose (Fingerstick) 95 mg/dL (70-99) 159 mg/dL (70-99) 168 mg/dL (70-99) Test 02/06/19 07:30 Glucose (Fingerstick) 100 mg/dL (70-99) Objective Assessment E coli bacteremia with sepsis ([facility] 01/17), R to amp, gent,tetra,trimetho, I to tobra E coli UTI 01/11. UC 01/17 neg at [facility] Left hydronephrosis, presumably due to advanced prostate cancer invading the bladder and trigone. s/p nephrostomy tube placement, 01/30 s/p left sided 8 Fr ureteral stent placement, 02/02. s/p cysto, bladder stone removal 01/24 Hematuria CVA Leukocytosis - better Renal insufficiency HTN Met prostate cancer Plan Plan of Care D/c ceftriaxone (02/02) begin po Cefdinir for a couple days now that things have been internalized and tolentino in place Previously on Merrem (01/23-02/02) Probiotics D/w nursing Await palliative eval today DONTE COHN MD Feb 06, 2019 09:08
[2019-02-06] MEDS: cefTRIAXone IV Push 2 GM VIAL. IVP SCH (10:00)
[2019-02-06] MEDS: CEFDINIR 300 MG CAPSULE PO SCH ×2 (10:20→21:03)
[2019-02-06] MEDS: LACTOBACILLUS RHAMNOSUS GG 1 CAPSULE. PO SCH ×2 (10:21→21:03)
[2019-02-06] MEDS: TIMOLOL 0.25% OPHTH SOLUTION 5ML BOTTLE. OU SCH ×2 (10:21→21:03)
[2019-02-06] MEDS: CYANOCOBALAMIN (VITAMIN B-12) 1,000 MCG/ML VIAL IM SCH (10:21)
[2019-02-06] MEDS: ASPIRIN CHEWABLE 81 MG TABLET. PO SCH (10:21)
[2019-02-06] MEDS: POTASSIUM CHLORIDE 10 MEQ TABLET.ER. PO SCH ×3 (10:21→21:03)
--- NOTE | 2019-02-06 10:29 | PDOC ---
PROGRESS NOTES Subjective Subjective no complaints Objective Objective Vital Signs Date Time Temp Pulse Resp B/P (MAP) Pulse Ox O2 Delivery O2 Flow Rate FiO2 02/06/19 07:50 Room Air 02/06/19 07:00 98.0 91 14 131/69 (89) 92 98.0 Intake and Output 02/06/19 07:00 Intake Total 500 ml Output Total 1550 ml Balance -1050 ml Intake Oral 500 ml Output Urine Total 1550 ml # Bowel Movements 1 Physical Exam Heart: Normal S1, Normal S2 General: No acute distress Lungs: Clear to auscultation Neck: No JVD Psych/Mental Status: Mood NL COMMENT tolentino present Diagnosis Problem List Problems Medical Problems: (1) Acute blood loss anemia Status: Acute (2) Calculus of ureterovesical junction (UVJ) Status: Acute (3) Gram-negative bacteremia Status: Acute (4) Ureterovesical junction (UVJ) obstruction Status: Acute Assessment Assessment IMP:Escherichia coli bacteremia Escherichia coli UTI Left hydronephrosis CVA prostate cancer with obstruction Plan: d/c back [facility] with hospice? palliative team meeting tomorrow for goal s of care labs stable spoke with business case analyst Plan Plan of Care Problems Medical Problems: (1) Acute blood loss anemia Status: Acute (2) Calculus of ureterovesical junction (UVJ) Status: Acute (3) Gram-negative bacteremia Status: Acute (4) Ureterovesical junction (UVJ) obstruction Status: Acute Comment Review of Relevant I have reviewed the following items yael (where applicable) has been applied. Labs Laboratory Tests Test 02/05/19 11:15 02/05/19 16:31 02/05/19 20:11 02/06/19 07:30 Glucose (Fingerstick) 95 mg/dL (70-99) 159 mg/dL (70-99) 168 mg/dL (70-99) 100 mg/dL (70-99) Medications Current Medications Cefdinir (Omnicef) 300 mg BID PO Last administered on 02/06/19at 10:20; Start 02/06/19 at 11:00 Vitals/I & O Vital Sign - Last 24 Hours 02/05/19 02/05/19 02/05/19 02/05/19 10:42 15:00 19:00 20:14 Temp 97.9 97.9 97.6 97.9 97.9 97.6 Pulse 106 106 124 Resp 18 18 18 B/P (MAP) 126/90 (102) 135/84 (101) 156/85 (108) Pulse Ox 98 98 97 O2 Delivery Room Air Room Air Room Air Room Air 02/05/19 02/06/19 02/06/19 02/06/19 23:00 03:00 07:00 07:50 Temp 97.6 97.7 98.0 97.6 97.7 98.0 Pulse 116 110 91 Resp 17 17 14 B/P (MAP) 134/80 (98) 145/84 (104) 131/69 (89) Pulse Ox 96 95 92 O2 Delivery Room Air Room Air Room Air Room Air Intake and Output 02/05/19 02/05/19 02/06/19 15:00 23:00 07:00 Intake Total 300 ml 200 ml 0 ml Output Total 850 ml 700 ml Balance 300 ml -650 ml -700 ml Nutrition Consultation Dietary Evaluation: Recommendations by RD: Increase Calorie Intake, Protein supplementation Comments: offer snacks, supplements from unit prn Expected Outcomes/Goals: po diet vs TF , await plan of care Malnutrition Findings: Food and Nutrition Intake (Sev: <50% est energy req 5days Body Fat Depletion (Non Severe: Mild Depletion Weight Status: Underweight WIN RIVERA MD Feb 06, 2019 10:29
[2019-02-06] MEDS ORDERED: ASPI-630 PO (10:33)
[2019-02-06] MEDS ORDERED: CEFD300C PO (10:33)
--- NOTE | 2019-02-06 10:35 | SNU/HH DC ---
DISCHARGE ORDERS DISCHARGE INFORMATION: DISCHARGE DATE: Feb 06, 2019 FINAL DIAGNOSIS Problems Medical Problems: (1) Acute blood loss anemia Status: Acute (2) Calculus of ureterovesical junction (UVJ) Status: Acute (3) Gram-negative bacteremia Status: Acute (4) Ureterovesical junction (UVJ) obstruction Status: Acute CONDITION ON DISCHARGE: Stable CODE STATUS: Code Status: DNR/DNI SNF: SNF STAY <30 DAYS: Yes HOSPICE: HOSPICE EVAL & TREAT: Yes POST DISCHARGE ORDERS: ACTIVITY ORDERS: Resume previous activity WEIGHT BEARING STATUS: Partial weight bearing DIET AFTER DISCHARGE: ADA WOUND/INCISION CARE: Reinforce dressing PRN OTHER ORDERS: keep tolentino. CHECKS AFTER DISCHARGE: COMMENTS: kidney- pigtail drain in place TREATMENT/EQUIPMENT ORDERS: Physical Therapy For: Evalulation/Treatment Occupational Therapy For: Evaluation/Treatment Speech Language Pathology For: Evaluation/Treatment DISCHARGE MEDICATIONS: Home Meds Active Scripts Aspirin (ASPIRIN) 81 Mg Tab.chew, 81 MG PO DAILYWBKFT for cva for 30 Days, #30 TAB.CHEW Prov:WIN RIVERA MD 02/06/19 Cefdinir (CEFDINIR) 300 Mg Capsule, 300 MG PO BID for uti for 7 Days, #14 CAP Prov:WIN RIVERA MD 02/06/19 Acetaminophen (TYLENOL) 325 Mg Tablet, 650 MG PO PRN Q6HRS PRN for MILD PAIN for 30 Days, #60 TAB Prov:UNIQUE PICKERING MD 07/17/18 Polyethylene Glycol 3350 (POLYETHYLENE GLYCOL 3350) 17 Gm Powd.pack, 17 GM PO PRN DAILY PRN for CONSTIPATION for 14 Days, #14 PKT Prov:UNIQUE PICKERING MD 07/17/18 Sennosides/Docusate Sodium (SENNA-TIME S TABLET) 1 Each Tablet, 1 TAB PO DAILY for HARD STOOLS for 14 Days, #14 TAB Prov:UNIQUE PICKERING MD 07/17/18 Reported Medications Timolol Maleate 0.5% (TIMOPTIC 0.5%) 10 Ml Drops, 1 DROP EACHEYE BID for glaucoma, #10 ML 3 Refills 07/13/18 Atorvastatin Calcium (ATORVASTATIN CALCIUM) 20 Mg Tablet, 1 TAB PO DAILY for cholesterol, #30 TAB 5 Refills 07/13/18 Losartan Potassium (LOSARTAN POTASSIUM) 100 Mg Tablet, 100 MG PO DAILY for HYPERTENSION, TAB 07/13/18 Aspirin (ASPIRIN) 81 Mg Tab.chew, 1 TAB PO DAILY for heart health, #30 TAB 3 Refills 07/13/18 Discontinued Scripts Amoxicillin/Potassium Clav (AUGMENTIN 875-125 TABLET) 1 Each Tablet, 1 TAB PO BID for uti, #14 TAB Prov:LUIS ISAACS MD 01/15/19 Hydrocodone Bit/Acetaminophen (HYDROCODONE-APAP 7.5-325 ) 1 Tab Tablet, 2 TAB PO PRN Q4HRS PRN for SEVERE PAIN UNREL BY OXY for 14 Days, #30 TAB Prov:UNIQUE PICKERING MD 07/17/18 WIN RIVERA MD Feb 06, 2019 10:35
[2019-02-06 11:00] VITALS: BP 145/86
--- NOTE | 2019-02-06 11:26 | PDOC2 ---
PALLIATIVE CARE Palliative Care Note Palliative Care Patient remains confused, less agitated today. Met with patient's per phone; daughter Yue, sons Matthew and Rere. Reviewed medical condition; advancing prostate cancer, UTI, outlet obstruction; thrombocytopenia, Discussed options for care. Dr. Casiano per discussion ---no benefit from ra diation Poor functional status. Patient had been living at home with home care giving during the day. Family would like patient to go to [facility] (Medicaid) with hospice support. Family has been communicating with [facility]. Daughter will decide on Hospice Agency to follow. Confirmed Code Status; DNR/DNI Outside the Hospital DNR/DNI form signed by daughter at the request of the . Alec RIOJAS will assist with discharge plan. MARTINA JARAMILLO Feb 06, 2019 11:26
--- NOTE | 2019-02-06 14:58 | NUR ---
[facility] following pt. After discussing with PC, [facility] phoned and faxed referral to [facility] [place], , fax: [phone] and pt is accepted. Danni at [facility] reported they will be able to take pt as long as mittens are removed (RN notified and Mittens will be removed today). Spoke with Pt's daughter, Renata, Phone: [phone] who requested [facility] but they do not service [facility]. Daughter agreeable with [facility] sister hospice agency [facility]. [facility] phoned and faxed referral to [facility], , fax: [phone]. Pt acceptance/admission pending. Spoke with Mary at [facility] and she will be reaching out to pt's daughter and also [facility]. [facility] able to take pt tomorrow. Discussed with RN.
[2019-02-06 15:00] VITALS: BP 133/80
--- NOTE | 2019-02-06 17:34 | PDOC ---
PROGRESS NOTES Subjective Subjective HPI -f/u of Thrombocytopenia ROS - lethargic Objective Objective Vital Signs Date Time Temp Pulse Resp B/P (MAP) Pulse Ox O2 Delivery O2 Flow Rate FiO2 02/06/19 15:00 98.2 95 14 133/80 (97) 98 Room Air 98.2 02/04/19 20:00 2.0 Intake and Output 02/06/19 06:59 Intake Total 500 ml Output Total 1550 ml Balance -1050 ml Intake Oral 500 ml Output Urine Total 1550 ml # Bowel Movements 1 Physical Exam Heart: Normal S1, Normal S2 General: No acute distress Lungs: Clear to auscultation Assessment Assessment Problems Medical Problems: (1) Acute blood loss anemia Status: Acute (2) Calculus of ureterovesical junction (UVJ) Status: Acute (3) Gram-negative bacteremia Status: Acute (4) Ureterovesical junction (UVJ) obstruction Status: Acute Assessment and Plan: He is an 83-year-old man with history of prostate cancer that appears to be progressing with rising PSA recently of 63, admitted with bacteremia and UTI and ureteral stone and being treated for infection and followed by urology. 1. Bladder outlet obstruction with recent stone: Per urology. Per Urology, IR to try to place antegrade left ureteral stent and then remove nephrostomy tube. 2. Infection: On antibiotics, ID has been consulted 3. 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 Appreciate palliative care consult. I d/w Dr Casiano, no benefit from radiation hence not offered and I agree to consider hospice. s/p cystoscopy 01/24/19: shaggy necrotic prostate tissue w invasion into BN, trigone. 4. Thrombocytopenia: Resolved. Plt now 653, reactive. Comment Review of Relevant I have reviewed the following items yael (where applicable) has been applied. Labs Laboratory Tests Test 02/04/19 20:40 02/05/19 07:36 02/05/19 09:30 02/05/19 11:15 Glucose (Fingerstick) 89 mg/dL (70-99) 102 mg/dL (70-99) 95 mg/dL (70-99) White Blood Count 10.8 x10^3/uL (4.0-11.0) Red Blood Count 3.57 x10^6/uL (4.30-5.70) Hemoglobin 10.7 g/dL (13.0-17.5) Hematocrit 32.0 % (39.0-53.0) Mean Corpuscular Volume 90 fL (79-100) Mean Corpuscular Hemoglobin 30 pg (25-35) Mean Corpuscular Hemoglobin Concent 34 g/dL (31-37) Red Cell Distribution Width 15.2 % (11.5-14.5) Platelet Count 653 x10^3/uL (140-400) Neutrophils (%) (Auto) 77 % (31-73) Lymphocytes (%) (Auto) 17 % (24-48) Monocytes (%) (Auto) 3 % (0-9) Eosinophils (%) (Auto) 2 % (0-3) Basophils (%) (Auto) 1 % (0-3) Neutrophils # (Auto) 8.3 x10^3/uL (1.8-7.7) Lymphocytes # (Auto) 1.8 x10^3/uL (1.0-4.8) Monocytes # (Auto) 0.3 x10^3/uL (0.0-1.1) Eosinophils # (Auto) 0.2 x10^3/uL (0.0-0.7) Basophils # (Auto) 0.1 x10^3/uL (0.0-0.2) Sodium Level 140 mmol/L (136-145) Potassium Level 3.8 mmol/L (3.5-5.1) Chloride Level 105 mmol/L (98-107) Carbon Dioxide Level 27 mmol/L (21-32) Anion Gap 8 (6-14) Blood Urea Nitrogen 8 mg/dL (8-26) Creatinine 1.6 mg/dL (0.7-1.3) Estimated GFR (Cockcroft-Gault) 50.3 Glucose Level 107 mg/dL (70-99) Calcium Level 8.7 mg/dL (8.5-10.1) Test 02/05/19 16:31 02/05/19 20:11 02/06/19 07:30 02/06/19 10:59 Glucose (Fingerstick) 159 mg/dL (70-99) 168 mg/dL (70-99) 100 mg/dL (70-99) 124 mg/dL (70-99) Test 02/06/19 16:23 Glucose (Fingerstick) 128 mg/dL (70-99) Laboratory Tests Test 02/05/19 20:11 02/06/19 07:30 02/06/19 10:59 02/06/19 16:23 Glucose (Fingerstick) 168 mg/dL (70-99) 100 mg/dL (70-99) 124 mg/dL (70-99) 128 mg/dL (70-99) Medications Current Medications Sodium Chloride 1,000 ml @ 75 mls/hr [id number] IV Last administered on 02/04/19 22:25; Start 01/23/19 at 17:30 Acetaminophen (Tylenol) 650 mg PRN Q6HRS PRN PO MILD PAIN / TEMP Last administered on 02/05/19 20:31; Start 01/23/19 at 17:30 Aspirin (Children'S Aspirin) 81 mg DAILYWBKFT PO Last administered on 02/06/19 10:21; Start 01/24/19 at 08:00 Atorvastatin Calcium (Lipitor) 20 mg QHS PO Last administered on 02/05/19 20:32; Start 01/23/19 at 21:00 Insulin Human Lispro (HumaLOG) 0-5 UNITS TIDWMEALS SQ ; Start 01/24/19 at 08:00 Dextrose (Dextrose 50%-Water Syringe) 12.5 gm PRN Q15MIN PRN IV SEE COMMENTS Last administered on 02/01/19at 08:20; Start 01/23/19 at 17:30 Lactobacillus Rhamnosus (Culturelle) 1 cap BID PO Last administered on 02/06/19at 10:21; Start 01/23/19 at 21:00 Linezolid (Zyvox) 600 mg BID PO Last administered on 01/23/19 21:23; Start 01/23/19 at 21:00; Stop 01/24/19 at 07:09; Status DC Meropenem 1 gm/ Sodium Chloride 100 ml @ 200 mls/hr Q12HR IV Last administered on 02/01/19at 20:43; Start 01/23/19 at 21:00; Stop 02/02/19 at 09:22; Status DC Ondansetron HCl (Zofran) 4 mg PRN Q8HRS PRN IV NAUSEA/VOMITING; Start 01/23/19 at 17:30 Potassium Chloride (Klor-Con) 10 meq TID PO Last administered on 02/06/19at 16:14; Start 01/23/19 at 21:00 Tamsulosin HCl (Flomax) 0.4 mg QHS PO Last administered on 02/05/19at 20:31; Start 01/23/19 at 21:00 Timolol Maleate (Timoptic 0.25% Oph) 1 drop BID OU Last administered on 02/06/19at 10:21; Start 01/23/19 at 21:00 Iohexol (Omnipaque 300 Mg/ml) 50 ml STK-MED ONCE .ROUTE Last administered on 01/24/19at 11:11; Start 01/24/19 at 09:05; Stop 01/24/19 at 10:05; Status DC Sevoflurane (Ultane) 30 ml STK-MED ONCE IH ; Start 01/24/19 at 10:24; Stop 01/24/19 at 10:25; Status DC Dexamethasone Sodium Phosphate (Decadron) 4 mg STK-MED ONCE .ROUTE ; Start 01/24/19 at 10:24; Stop 01/24/19 at 10:25; Status DC Propofol 20 ml @ As Directed STK-MED ONCE IV ; Start 01/24/19 at 10:24; Stop 01/24/19 at 10:25; Status DC Lidocaine HCl (Lidocaine Pf 2% Vial) 5 ml STK-MED ONCE .ROUTE ; Start 01/24/19 at 10:24; Stop 01/24/19 at 10:25; Status DC Ketorolac Tromethamine (Toradol For Or Only) 30 mg STK-MED ONCE INJ ; Start 01/24/19 at 10:24; Stop 01/24/19 at 10:25; Status DC Ondansetron HCl (Zofran) 4 mg STK-MED ONCE .ROUTE ; Start 01/24/19 at 10:25; Stop 01/24/19 at 10:26; Status DC Phenylephrine HCl (PHENYLEPHRINE in 0.9% NACL PF) 1 mg STK-MED ONCE IV ; Start 01/24/19 at 11:02; Stop 01/24/19 at 11:03; Status DC Methylene Blue (Methylene Blue) 1 ml STK-MED ONCE .ROUTE Last administered on 01/24/19at 11:20; Start 01/24/19 at 10:19; Stop 01/24/19 at 11:19; Status DC Esmolol HCl (Brevibloc) 100 mg STK-MED ONCE IVP ; Start 01/24/19 at 11:20; Stop 01/24/19 at 11:21; Status DC Fentanyl Citrate (Fentanyl 2ml Vial) 100 mcg STK-MED ONCE .ROUTE ; Start 01/24/19 at 12:14; Stop 01/24/19 at 12:15; Status DC Prochlorperazine Edisylate (Compazine) 10 mg STK-MED ONCE .ROUTE ; Start 01/24/19 at 12:15; Stop 01/24/19 at 12:16; Status DC Ondansetron HCl (Zofran) 4 mg PRN Q6HRS PRN IV NAUSEA/VOMITING; Start 01/24/19 at 12:30; Stop 01/24/19 at 20:00; Status DC Fentanyl Citrate (Fentanyl 2ml Vial) 25 mcg PRN Q5MIN PRN IV MILD PAIN 1-3 Last administered on 01/24/19at 12:33; Start 01/24/19 at 12:30; Stop 01/24/19 at 20:00; Status DC Fentanyl Citrate (Fentanyl 2ml Vial) 50 mcg PRN Q5MIN PRN IV MODERATE TO SEVERE PAIN Last administered on 01/24/19at 19:46; Start 01/24/19 at 12:30; Stop 01/24/19 at 20:00; Status DC Morphine Sulfate (Morphine Sulfate) 1 mg PRN Q10MIN PRN IV SEVERE PAIN 7-10; Start 01/24/19 at 12:30; Stop 01/24/19 at 20:00; Status DC Ringer's Solution 1,000 ml @ 30 mls/hr Q24H IV ; Start 01/24/19 at 12:16; Stop 01/25/19 at 00:15; Status DC Lidocaine HCl (Xylocaine-Mpf 1% 2ml Vial) 2 ml 1X PRN PRN ID IV START; Start 01/24/19 at 12:30; Stop 01/24/19 at 20:00; Status DC Hydromorphone HCl (Dilaudid) 0.5 mg PRN Q10MIN PRN IV SEV PAIN, Second choice; Start 01/24/19 at 12:30; Stop 01/24/19 at 20:00; Status DC Prochlorperazine Edisylate (Compazine) 5 mg PACU PRN PRN IV NAUSEA, MRX1 Last administered on 01/24/19at 12:15; Start 01/24/19 at 12:30; Stop 01/24/19 at 20:00; Status DC Ringer's Solution 1,000 ml @ 75 mls/hr [id number] PRN IV pre op; Start 01/24/19 at 12:30; Stop 01/29/19 at 15:03; Status DC Fentanyl Citrate (Fentanyl 2ml Vial) 50 mcg PRN Q3HRS PRN IV SEVERE PAIN Last a dministered on 01/29/19at 18:23; Start 01/24/19 at 19:00 Fentanyl Citrate (Fentanyl 2ml Vial) 25 mcg PRN Q3HRS PRN IV MODERATE PAIN; Start 01/24/19 at 19:00 Cyanocobalamin (Vitamin B-12) 1,000 mcg DAILY PO ; Start 01/25/19 at 09:00; Stop 01/26/19 at 07:46; Status DC Sodium Chloride 250 ml @ 250 mls/hr 1X ONCE IV Last administered on 01/25/19at 08:00; Start 01/25/19 at 08:00; Stop 01/25/19 at 08:59; Status DC Meropenem 1 gm/ Sodium Chloride 100 ml @ 200 mls/hr 1X ONCE IV Last administered on 01/25/19at 22:03; Start 01/25/19 at 22:00; Stop 01/25/19 at 22:29; Status DC Cyanocobalamin (Vitamin B-12) 1,000 mcg DAILY IM Last administered on 02/06/19at 10:21; Start 01/26/19 at 09:00 Midazolam HCl (Versed) 2 mg STK-MED ONCE .ROUTE ; Start 01/30/19 at 07:58; Stop 01/30/19 at 07:59; Status DC Fentanyl Citrate (Fentanyl 2ml Vial) 100 mcg STK-MED ONCE .ROUTE ; Start 01/30/19 at 07:58; Stop 01/30/19 at 07:59; Status DC Lidocaine/Sodium Bicarbonate (Buffered Lidocaine 1%) 3 ml STK-MED ONCE .ROUTE ; Start 01/30/19 at 07:59; Stop 01/30/19 at 08:00; Status DC Iodixanol (Visipaque 320) 50 ml STK-MED ONCE .ROUTE ; Start 01/30/19 at 07:59; Stop 01/30/19 at 08:00; Status DC Lidocaine/Sodium Bicarbonate (Buffered Lidocaine 1%) 3 ml 1X ONCE IJ Last administered on 01/30/19at 08:15; Start 01/30/19 at 08:15; Stop 01/30/19 at 08:16; Status DC Midazolam HCl (Versed) 2 mg 1X ONCE IV Last administered on 01/30/19at 08:15; Start 01/30/19 at 08:15; Stop 01/30/19 at 08:16; Status DC Fentanyl Citrate (Fentanyl 2ml Vial) 100 mcg 1X ONCE IV Last administered on 01/30/19at 08:15; Start 01/30/19 at 08:15; Stop 01/30/19 at 08:16; Status DC Iodixanol (Visipaque 320) 50 ml 1X ONCE IART Last administered on 01/30/19at 08:15; Start 01/30/19 at 08:15; Stop 01/30/19 at 08:16; Status DC Ceftriaxone Sodium (Rocephin) 2 gm Q24H IVP Last administered on 02/05/19at 09:56; Start 02/02/19 at 10:00; Stop 02/06/19 at 10:13; Status DC Lidocaine/Sodium Bicarbonate (Buffered Lidocaine 1%) 3 ml STK-MED ONCE .ROUTE ; Start 02/02/19 at 09:22; Stop 02/02/19 at 09:23; Status DC Iohexol (Omnipaque 240 Mg/ml) 50 ml STK-MED ONCE .ROUTE ; Start 02/02/19 at 09:22; Stop 02/02/19 at 09:23; Status DC Midazolam HCl (Versed) 2 mg STK-MED ONCE .ROUTE ; Start 02/02/19 at 10:07; Stop 02/02/19 at 10:08; Status DC Fentanyl Citrate (Fentanyl 2ml Vial) 100 mcg STK-MED ONCE .ROUTE ; Start 02/02/19 at 10:07; Stop 02/02/19 at 10:08; Status DC Lidocaine/Sodium Bicarbonate (Buffered Lidocaine 1%) 3 ml 1X ONCE IJ Last administered on 02/02/19at 11:33; Start 02/02/19 at 11:15; Stop 02/02/19 at 11:16; Status DC Midazolam HCl (Versed) 2 mg 1X ONCE IV Last administered on 02/02/19at 11:33; Start 02/02/19 at 11:15; Stop 02/02/19 at 11:16; Status DC Fentanyl Citrate (Fentanyl 2ml Vial) 100 mcg 1X ONCE IV Last administered on 02/02/19at 11:35; Start 02/02/19 at 11:15; Stop 02/02/19 at 11:16; Status DC Iohexol (Omnipaque 240 Mg/ml) 50 ml 1X ONCE IJ Last administered on 02/02/19at 11:32; Start 02/02/19 at 11:15; Stop 02/02/19 at 11:16; Status DC Quetiapine Fumarate (SEROquel) 25 mg 1X ONCE PO Last administered on 02/04/19at 00:29; Start 02/04/19 at 00:30; Stop 02/04/19 at 00:31; Status DC Quetiapine Fumarate (SEROquel) 12.5 mg PRN BID PRN PO AGITATION Last administered on 02/05/19at 13:59; Start 02/04/19 at 11:45 Lidocaine/Sodium Bicarbonate (Buffered Lidocaine 1%) 3 ml STK-MED ONCE .ROUTE ; Start 02/05/19 at 08:31; Stop 02/05/19 at 08:32; Status DC Iodixanol (Visipaque 320) 50 ml STK-MED ONCE .ROUTE ; Start 02/05/19 at 08:32; Stop 02/05/19 at 08:33; Status DC Cefdinir (Omnicef) 300 mg BID PO Last administered on 02/06/19at 10:20; Start 02/06/19 at 11:00 Active Scripts Active Aspirin 81 Mg Tab.chew 81 Mg PO DAILYWBKFT 30 Days Cefdinir 300 Mg Capsule 300 Mg PO BID 7 Days Tylenol (Acetaminophen) 325 Mg Tablet 650 Mg PO PRN Q6HRS PRN 30 Days Polyethylene Glycol 3350 17 Gm Powd.pack 17 Gm PO PRN DAILY PRN 14 Days Senna-Time S Tablet (Sennosides/Docusate Sodium) 1 Each Tablet 1 Tab PO DAILY 14 Days Reported Timoptic 0.5% (Timolol Maleate) 10 Ml Drops 1 Drop EACHEYE BID Atorvastatin Calcium 20 Mg Tablet 1 Tab PO DAILY Losartan Potassium 100 Mg Tablet 100 Mg PO DAILY Aspirin 81 Mg Tab.chew 1 Tab PO DAILY Vitals/I & O Vital Sign - Last 24 Hours 02/05/19 02/05/19 02/05/19 02/06/19 19:00 20:14 23:00 03:00 Temp 97.6 97.6 97.7 97.6 97.6 97.7 Pulse 124 116 110 Resp 18 17 17 B/P (MAP) 156/85 (108) 134/80 (98) 145/84 (104) Pulse Ox 97 96 95 O2 Delivery Room Air Room Air Room Air Room Air 02/06/19 02/06/19 02/06/19 02/06/19 07:00 07:50 11:00 15:00 Temp 98.0 98.1 98.2 98.0 98.1 98.2 Pulse 91 104 95 Resp 14 14 14 B/P (MAP) 131/69 (89) 145/86 (105) 133/80 (97) Pulse Ox 92 90 98 O2 Delivery Room Air Room Air Room Air Room Air l Intake and Output 02/05/19 02/05/19 02/06/19 14:59 22:59 06:59 Intake Total 300 ml 200 ml 0 ml Output Total 850 ml 700 ml Balance 300 ml -650 ml -700 ml Nutrition Consultation Dietary Evaluation: Recommendations by RD: Increase Calorie Intake, Protein supplementation Comments: offer snacks, supplements from unit prn Expected Outcomes/Goals: po diet vs TF , await plan of care Malnutrition Findings: Food and Nutrition Intake (Sev: <50% est energy req 5days Body Fat Depletion (Non Severe: Mild Depletion Weight Status: Underweight MAGALY RAMOS MD Feb 06, 2019 17:34
[2019-02-06 19:00] VITALS: BP 166/86
[2019-02-06] MEDS: ATORVASTATIN CALCIUM 20 MG TABLET PO SCH (21:03)
[2019-02-06] MEDS: TAMSULOSIN 0.4 MG CAP.ER.24H. PO SCH (21:03)
[2019-02-06] MEDS: ACETAMINOPHEN 325 MG TABLET. PO PRN (21:03)
[2019-02-06 23:00] VITALS: BP 152/87
[2019-02-07 03:00] VITALS: BP 158/84
[2019-02-07] MEDS: IV 1/2 NORMAL SALINE 1,000 ML IV SCH (04:10)
[2019-02-07 07:00] VITALS: BP 147/88
[2019-02-07] MEDS: INSULIN LISPRO 300 UNITS/3 ML INSULN.PEN. SQ SCH ×2 (08:00→12:00)
[2019-02-07] MEDS: POTASSIUM CHLORIDE 10 MEQ TABLET.ER. PO SCH ×2 (08:58→14:49)
[2019-02-07] MEDS: CEFDINIR 300 MG CAPSULE PO SCH (08:58)
[2019-02-07] MEDS: ASPIRIN CHEWABLE 81 MG TABLET. PO SCH (08:58)
[2019-02-07] MEDS: CYANOCOBALAMIN (VITAMIN B-12) 1,000 MCG/ML VIAL IM SCH ×2 (08:58→09:00)
[2019-02-07] MEDS: LACTOBACILLUS RHAMNOSUS GG 1 CAPSULE. PO SCH (08:59)
[2019-02-07] MEDS: TIMOLOL 0.25% OPHTH SOLUTION 5ML BOTTLE. OU SCH (08:59)
--- NOTE | 2019-02-07 10:08 | PDOC ---
PROGRESS NOTES Subjective Subjective pt is hungry ,want more food Objective Objective Vital Signs Date Time Temp Pulse Resp B/P (MAP) Pulse Ox O2 Delivery O2 Flow Rate FiO2 02/07/19 07:00 98.1 107 17 147/88 (107) 99 Room Air 98.1 Intake and Output 02/07/19 07:00 Intake Total 0 ml Output Total 1250 ml Balance -1250 ml Intake Oral 0 ml Output Urine Total 1250 ml Physical Exam Heart: Normal S1, Normal S2 General: No acute distress Lungs: Clear to auscultation Neck: No JVD Psych/Mental Status: Mood NL COMMENT tolentino present Diagnosis Problem List Problems Medical Problems: (1) Acute blood loss anemia Status: Acute (2) Calculus of ureterovesical junction (UVJ) Status: Acute (3) Gram-negative bacteremia Status: Acute (4) Ureterovesical junction (UVJ) obstruction Status: Acute Assessment Assessment IMP:Escherichia coli bacteremia Escherichia coli UTI Left hydronephrosis CVA prostate cancer with obstruction, had ureteral stent placed Plan: d/c back to [place] with hospice today palliative team meeting done labs stable spoke with pillowcase cutter tolentino catheter Plan Plan of Care Problems Medical Problems: (1) Acute blood loss anemia Status: Acute (2) Calculus of ureterovesical junction (UVJ) Status: Acute (3) Gram-negative bacteremia Status: Acute (4) Ureterovesical junction (UVJ) obstruction Status: Acute Comment Review of Relevant I have reviewed the following items yael (where applicable) has been applied. Labs Laboratory Tests Test 02/06/19 10:59 02/06/19 16:23 02/06/19 20:47 02/07/19 07:29 Glucose (Fingerstick) 124 mg/dL (70-99) 128 mg/dL (70-99) 118 mg/dL (70-99) 110 mg/dL (70-99) Medications Current Medications Cefdinir (Omnicef) 300 mg BID PO Last administered on 02/07/19at 08:58; Start 02/06/19 at 11:00 Vitals/I & O Vital Sign - Last 24 Hours 02/06/19 02/06/19 02/06/19 02/06/19 11:00 15:00 19:00 20:00 Temp 98.1 98.2 98.0 98.1 98.2 98.0 Pulse 104 95 101 Resp 14 14 14 B/P (MAP) 145/86 (105) 133/80 (97) 166/86 (112) Pulse Ox 90 98 95 O2 Delivery Room Air Room Air Room Air Room Air 02/06/19 02/07/19 02/07/19 23:00 03:00 07:00 Temp 98.0 97.9 98.1 98.0 97.9 98.1 Pulse 91 84 107 Resp B/P (MAP) 152/87 (108) 158/84 (108) 147/88 (107) Pulse Ox 98 97 99 O2 Delivery Room Air Room Air Room Air Intake and Output 02/06/19 02/06/19 02/07/19 15:00 23:00 07:00 Intake Total 0 ml 0 ml Output Total 350 ml 300 ml 600 ml Balance -350 ml -300 ml -600 ml Nutrition Consultation Dietary Evaluation: Recommendations by RD: Increase Calorie Intake, Protein supplementation Comments: offer snacks, supplements from unit prn Expected Outcomes/Goals: po diet vs TF , await plan of care Malnutrition Findings: Food and Nutrition Intake (Sev: <50% est energy req 5days Body Fat Depletion (Non Severe: Mild Depletion Weight Status: Underweight WIN RIVERA MD Feb 07, 2019 10:08
[2019-02-07 11:00] VITALS: BP 164/88
--- NOTE | 2019-02-07 13:20 | PDOC ---
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 mets) ROS - no fever Objective Objective Vital Signs Date Time Temp Pulse Resp B/P (MAP) Pulse Ox O2 Delivery O2 Flow Rate FiO2 02/07/19 08:00 Room Air 02/07/19 07:00 98.1 107 17 147/88 (107) 99 98.1 02/04/19 20:00 2.0 Intake and Output 02/07/19 07:00 Intake Total 0 ml Output Total 1250 ml Balance -1250 ml Intake Oral 0 ml Output Urine Total 1250 ml Physical Exam Heart: Normal S1, Normal S2 General: Alert, No acute distress Assessment Assessment Problems Medical Problems: (1) Acute blood loss anemia Status: Acute (2) Calculus of ureterovesical junction (UVJ) Status: Acute (3) Gram-negative bacteremia Status: Acute (4) Ureterovesical junction (UVJ) obstruction Status: Acute Assessment and Plan: He is an 83-year-old man with history of prostate cancer that appears to be progressing with rising PSA recently of 63, admitted with bacteremia and UTI and ureteral stone and being treated for infection and followed by urology. 1. Bladder outlet obstruction with recent stone: Per urology. Per Urology, IR to try to place antegrade left ureteral stent and then remove nephrostomy tube. 2. Infection: On antibiotics, ID has been consulted 3. 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 Appreciate palliative care consult. Agree to discharge to NH with hospice. I d/w Dr Casiano, no benefit from radiation hence not offered and I agree to consider hospice. s/p cystoscopy 01/24/19: shaggy necrotic prostate tissue w inv asion into BN, trigone. 4. Thrombocytopenia: Resolved. Plt now 653, reactive. Comment Review of Relevant I have reviewed the following items yael (where applicable) has been applied. Labs Laboratory Tests Test 02/05/19 16:31 02/05/19 20:11 02/06/19 07:30 02/06/19 10:59 Glucose (Fingerstick) 159 mg/dL (70-99) 168 mg/dL (70-99) 100 mg/dL (70-99) 124 mg/dL (70-99) Test 02/06/19 16:23 02/06/19 20:47 02/07/19 07:29 02/07/19 12:42 Glucose (Fingerstick) 128 mg/dL (70-99) 118 mg/dL (70-99) 110 mg/dL (70-99) 135 mg/dL (70-99) Laboratory Tests Test 02/06/19 16:23 02/06/19 20:47 02/07/19 07:29 02/07/19 12:42 Glucose (Fingerstick) 128 mg/dL (70-99) 118 mg/dL (70-99) 110 mg/dL (70-99) 135 mg/dL (70-99) Medications Current Medications Sodium Chloride 1,000 ml @ 75 mls/hr [id number] IV Last administered on 02/04/19 22:25; Start 01/23/19 at 17:30 Acetaminophen (Tylenol) 650 mg PRN Q6HRS PRN PO MILD PAIN / TEMP Last administered on 02/06/19 21:03; Start 01/23/19 at 17:30 Aspirin (Children'S Aspirin) 81 mg DAILYWBKFT PO Last administered on 02/07/19 08:58; Start 01/24/19 at 08:00 Atorvastatin Calcium (Lipitor) 20 mg QHS PO Last administered on 02/06/19 21:03; Start 01/23/19 at 21:00 Insulin Human Lispro (HumaLOG) 0-5 UNITS TIDWMEALS SQ ; Start 01/24/19 at 08:00 Dextrose (Dextrose 50%-Water Syringe) 12.5 gm PRN Q15MIN PRN IV SEE COMMENTS Last administered on 02/01/19 08:20; Start 01/23/19 at 17:30 Lactobacillus Rhamnosus (Culturelle) 1 cap BID PO Last administered on 02/07/19 08:59; Start 01/23/19 at 21:00 Linezolid (Zyvox) 600 mg BID PO Last administered on 01/23/19 21:23; Start 01/23/19 at 21:00; Stop 01/24/19 at 07:09; Status DC Meropenem 1 gm/ Sodium Chloride 100 ml @ 200 mls/hr Q12HR IV Last administered on 7/11/19at 20:43; Start 01/23/19 at 21:00; Stop 02/02/19 at 09:22; Status DC Ondansetron HCl (Zofran) 4 mg PRN Q8HRS PRN IV NAUSEA/VOMITING; Start 01/23/19 at 17:30 Potassium Chloride (Klor-Con) 10 meq TID PO Last administered on 02/07/19at 08:58; Start 01/23/19 at 21:00 Tamsulosin HCl (Flomax) 0.4 mg QHS PO Last administered on 02/06/19at 21:03; Start 01/23/19 at 21:00 Timolol Maleate (Timoptic 0.25% Oph) 1 drop BID OU Last administered on 02/07/19at 08:59; Start 01/23/19 at 21:00 Iohexol (Omnipaque 300 Mg/ml) 50 ml STK-MED ONCE .ROUTE Last administered on 01/24/19at 11:11; Start 01/24/19 at 09:05; Stop 01/24/19 at 10:05; Status DC Sevoflurane (Ultane) 30 ml STK-MED ONCE IH ; Start 01/24/19 at 10:24; Stop 01/24/19 at 10:25; Status DC Dexamethasone Sodium Phosphate (Decadron) 4 mg STK-MED ONCE .ROUTE ; Start 01/24/19 at 10:24; Stop 01/24/19 at 10:25; Status DC Propofol 20 ml @ As Directed STK-MED ONCE IV ; Start 01/24/19 at 10:24; Stop 01/24/19 at 10:25; Status DC Lidocaine HCl (Lidocaine Pf 2% Vial) 5 ml STK-MED ONCE .ROUTE ; Start 01/24/19 at 10:24; Stop 01/24/19 at 10:25; Status DC Ketorolac Tromethamine (Toradol For Or Only) 30 mg STK-MED ONCE INJ ; Start 01/24/19 at 10:24; Stop 01/24/19 at 10:25; Status DC Ondansetron HCl (Zofran) 4 mg STK-MED ONCE .ROUTE ; Start 01/24/19 at 10:25; Stop 01/24/19 at 10:26; Status DC Phenylephrine HCl (PHENYLEPHRINE in 0.9% NACL PF) 1 mg STK-MED ONCE IV ; Start 01/24/19 at 11:02; Stop 01/24/19 at 11:03; Status DC Methylene Blue (Methylene Blue) 1 ml STK-MED ONCE .ROUTE Last administered on 01/24/19at 11:20; Start 01/24/19 at 10:19; Stop 01/24/19 at 11:19; Status DC Esmolol HCl (Brevibloc) 100 mg STK-MED ONCE IVP ; Start 01/24/19 at 11:20; Stop 01/24/19 at 11:21; Status DC Fentanyl Citrate (Fentanyl 2ml Vial) 100 mcg STK-MED ONCE .ROUTE ; Start 01/24/19 at 12:14; Stop 01/24/19 at 12:15; Status DC Prochlorperazine Edisylate (Compazine) 10 mg STK-MED ONCE .ROUTE ; Start 01/24/19 at 12:15; Stop 01/24/19 at 12:16; Status DC Ondansetron HCl (Zofran) 4 mg PRN Q6HRS PRN IV NAUSEA/VOMITING; Start 01/24/19 at 12:30; Stop 01/24/19 at 20:00; Status DC Fentanyl Citrate (Fentanyl 2ml Vial) 25 mcg PRN Q5MIN PRN IV MILD PAIN 1-3 Last administered on 01/24/19at 12:33; Start 01/24/19 at 12:30; Stop 01/24/19 at 20:00; Status DC Fentanyl Citrate (Fentanyl 2ml Vial) 50 mcg PRN Q5MIN PRN IV MODERATE TO SEVERE PAIN Last administered on 01/24/19at 19:46; Start 01/24/19 at 12:30; Stop 01/24/19 at 20:00; Status DC Morphine Sulfate (Morphine Sulfate) 1 mg PRN Q10MIN PRN IV SEVERE PAIN 7-10; Start 01/24/19 at 12:30; Stop 01/24/19 at 20:00; Status DC Ringer's Solution 1,000 ml @ 30 mls/hr Q24H IV ; Start 01/24/19 at 12:16; Stop 01/25/19 at 00:15; Status DC Lidocaine HCl (Xylocaine-Mpf 1% 2ml Vial) 2 ml 1X PRN PRN ID IV START; Start 01/24/19 at 12:30; Stop 01/24/19 at 20:00; Status DC Hydromorphone HCl (Dilaudid) 0.5 mg PRN Q10MIN PRN IV SEV PAIN, Second choice; Start 01/24/19 at 12:30; Stop 01/24/19 at 20:00; Status DC Prochlorperazine Edisylate (Compazine) 5 mg PACU PRN PRN IV NAUSEA, MRX1 Last administered on 01/24/19at 12:15; Start 01/24/19 at 12:30; Stop 01/24/19 at 20:00; Status DC Ringer's Solution 1,000 ml @ 75 mls/hr [id number] PRN IV pre op; Start 01/24/19 at 12:30; Stop 01/29/19 at 15:03; Status DC Fentanyl Citrate (Fentanyl 2ml Vial) 50 mcg PRN Q3HRS PRN IV SEVERE PAIN Last administered on 01/29/19at 18:23; Start 01/24/19 at 19:00 Fentanyl Citrate (Fentanyl 2ml Vial) 25 mcg PRN Q3HRS PRN IV MODERATE PAIN; Start 01/24/19 at 19:00 Cyanocobalamin (Vitamin B-12) 1,000 mcg DAILY PO ; Start 01/25/19 at 09:00; Stop 01/26/19 at 07:46; Status DC Sodium Chloride 250 ml @ 250 mls/hr 1X ONCE IV Last administered on 01/25/19at 08:00; Start 01/25/19 at 08:00; Stop 01/25/19 at 08:59; Status DC Meropenem 1 gm/ Sodium Chloride 100 ml @ 200 mls/hr 1X ONCE IV Last administered on 01/25/19at 22:03; Start 01/25/19 at 22:00; Stop 01/25/19 at 22:29; Status DC Cyanocobalamin (Vitamin B-12) 1,000 mcg DAILY IM Last administered on 02/06/19at 10:21; Start 01/26/19 at 09:00 Midazolam HCl (Versed) 2 mg STK-MED ONCE .ROUTE ; Start 01/30/19 at 07:58; Stop 01/30/19 at 07:59; Status DC Fentanyl Citrate (Fentanyl 2ml Vial) 100 mcg STK-MED ONCE .ROUTE ; Start 01/30/19 at 07:58; Stop 01/30/19 at 07:59; Status DC Lidocaine/Sodium Bicarbonate (Buffered Lidocaine 1%) 3 ml STK-MED ONCE .ROUTE ; Start 01/30/19 at 07:59; Stop 01/30/19 at 08:00; Status DC Iodixanol (Visipaque 320) 50 ml STK-MED ONCE .ROUTE ; Start 01/30/19 at 07:59; Stop 01/30/19 at 08:00; Status DC Lidocaine/Sodium Bicarbonate (Buffered Lidocaine 1%) 3 ml 1X ONCE IJ Last administered on 01/30/19at 08:15; Start 01/30/19 at 08:15; Stop 01/30/19 at 08:16; Status DC Midazolam HCl (Versed) 2 mg 1X ONCE IV Last administered on 01/30/19at 08:15; Start 01/30/19 at 08:15; Stop 01/30/19 at 08:16; Status DC Fentanyl Citrate (Fentanyl 2ml Vial) 100 mcg 1X ONCE IV Last administered on 01/30/19at 08:15; Start 01/30/19 at 08:15; Stop 01/30/19 at 08:16; Status DC Iodixanol (Visipaque 320) 50 ml 1X ONCE IART Last administered on 01/30/19at 08:15; Start 01/30/19 at 08:15; Stop 01/30/19 at 08:16; Status DC Ceftriaxone Sodium (Rocephin) 2 gm Q24H IVP Last administered on 02/05/19at 09:56; Start 02/02/19 at 10:00; Stop 02/06/19 at 10:13; Status DC Lidocaine/Sodium Bicarbonate (Buffered Lidocaine 1%) 3 ml STK-MED ONCE .ROUTE ; Start 02/02/19 at 09:22; Stop 02/02/19 at 09:23; Status DC Iohexol (Omnipaque 240 Mg/ml) 50 ml STK-MED ONCE .ROUTE ; Start 02/02/19 at 09:22; Stop 02/02/19 at 09:23; Status DC Midazolam HCl (Versed) 2 mg STK-MED ONCE .ROUTE ; Start 02/02/19 at 10:07; Stop 02/02/19 at 10:08; Status DC Fentanyl Citrate (Fentanyl 2ml Vial) 100 mcg STK-MED ONCE .ROUTE ; Start 02/02/19 at 10:07; Stop 02/02/19 at 10:08; Status DC Lidocaine/Sodium Bicarbonate (Buffered Lidocaine 1%) 3 ml 1X ONCE IJ Last administered on 02/02/19at 11:33; Start 02/02/19 at 11:15; Stop 02/02/19 at 11:16; Status DC Midazolam HCl (Versed) 2 mg 1X ONCE IV Last administered on 02/02/19at 11:33; Start 02/02/19 at 11:15; Stop 02/02/19 at 11:16; Status DC Fentanyl Citrate (Fentanyl 2ml Vial) 100 mcg 1X ONCE IV Last administered on 02/02/19at 11:35; Start 02/02/19 at 11:15; Stop 02/02/19 at 11:16; Status DC Iohexol (Omnipaque 240 Mg/ml) 50 ml 1X ONCE IJ Last administered on 02/02/19at 11:32; Start 02/02/19 at 11:15; Stop 02/02/19 at 11:16; Status DC Quetiapine Fumarate (SEROquel) 25 mg 1X ONCE PO Last administered on 02/04/19at 00:29; Start 02/04/19 at 00:30; Stop 02/04/19 at 00:31; Status DC Quetiapine Fumarate (SEROquel) 12.5 mg PRN BID PRN PO AGITATION Last administered on 02/05/19at 13:59; Start 02/04/19 at 11:45 Lidocaine/Sodium Bicarbonate (Buffered Lidocaine 1%) 3 ml STK-MED ONCE .ROUTE ; Start 02/05/19 at 08:31; Stop 02/05/19 at 08:32; Status DC Iodixanol (Visipaque 320) 50 ml STK-MED ONCE .ROUTE ; Start 02/05/19 at 08:32; Stop 02/05/19 at 08:33; Status DC Cefdinir (Omnicef) 300 mg BID PO Last administered on 02/07/19at 08:58; Start 02/06/19 at 11:00 Active Scripts Active Aspirin 81 Mg Tab.chew 81 Mg PO DAILYWBKFT 30 Days Cefdinir 300 Mg Capsule 300 Mg PO BID 7 Days Tylenol (Acetaminophen) 325 Mg Tablet 650 Mg PO PRN Q6HRS PRN 30 Days Polyethylene Glycol 3350 17 Gm Powd.pack 17 Gm PO PRN DAILY PRN 14 Days Senna-Time S Tablet (Sennosides/Docusate Sodium) 1 Each Tablet 1 Tab PO DAILY 14 Days Reported Timoptic 0.5% (Timolol Maleate) 10 Ml Drops 1 Drop EACHEYE BID Atorvastatin Calcium 20 Mg Tablet 1 Tab PO DAILY Losartan Potassium 100 Mg Tablet 100 Mg PO DAILY Aspirin 81 Mg Tab.chew 1 Tab PO DAILY Vitals/I & O Vital Sign - Last 24 Hours 02/06/19 02/06/19 02/06/19 02/06/19 15:00 19:00 20:00 23:00 Temp 98.2 98.0 98.0 98.2 98.0 98.0 Pulse 95 101 91 Resp 14 14 14 B/P (MAP) 133/80 (97) 166/86 (112) 152/87 (108) Pulse Ox 98 95 98 O2 Delivery Room Air Room Air Room Air Room Air 02/07/19 02/07/19 02/07/19 03:00 07:00 08:00 Temp 97.9 98.1 97.9 98.1 Pulse 84 107 Resp 16 17 B/P (MAP) 158/84 (108) 147/88 (107) Pulse Ox 97 99 O2 Delivery Room Air Room Air Room Air Intake and Output 02/06/19 02/06/19 02/07/19 15:00 23:00 07:00 Intake Total 0 ml 0 ml Output Total 350 ml 300 ml 600 ml Balance -350 ml -300 ml -600 ml Nutrition Consultation Dietary Evaluation: Recommendations by RD: Increase Calorie Intake, Protein supplementation Comments: offer snacks, supplements from unit prn Expected Outcomes/Goals: po diet vs TF , await plan of care Malnutrition Findings: Food and Nutrition Intake (Sev: <50% est energy req 5days Body Fat Depletion (Non Severe: Mild Depletion Weight Status: Underweight MAGALY RAMOS MD Feb 07, 2019 13:20
[2019-02-07 15:00] VITALS: BP 139/86
--- NOTE | 2019-02-07 16:45 | NUR ---
Discharge Note: Patient was discharged to [facility], to be admitted on Hospice. Patient did not have an IV to discontinue. Called facility and report was given via phone to YOVANA Amor. Family agreeable with discharge plans. Patient was discharged with tolentino catheter. Family aware of discharge.
== END 2019-02-07 15:30 | disposition hospice, inpatient (51) | DRG 871 ==
LOC: 5 NORTH 17:05
PROVIDERS: ADMIT Internal Medicine; ATTEND Internal Medicine
PROC: 0TCB8ZZ Extirpation of Matter from Bladder, Via Natural or Artificial Opening Endoscopic (ICD-10-PCS; 2019-01-24)
PROC: 30233N1 Transfusion of Nonautologous Red Blood Cells into Peripheral Vein, Percutaneous Approach (ICD-10-PCS; 2019-01-26)
PROC: 0T9430Z Drainage of Left Kidney Pelvis with Drainage Device, Percutaneous Approach (ICD-10-PCS; principal; 2019-01-30)
PROC: 0TP5X0Z Removal of Drainage Device from Kidney, External Approach (ICD-10-PCS; 2019-02-05)
PROC: 0T777DZ Dilation of Left Ureter with Intraluminal Device, Via Natural or Artificial Opening (ICD-10-PCS; 2019-02-05)
PROC: 0T25X0Z Change Drainage Device in Kidney, External Approach (ICD-10-PCS; 2019-02-05)
DX: A41.51 Sepsis due to Escherichia coli [E. coli] (principal); E43 Unspecified severe protein-calorie malnutrition; N13.6 Pyonephrosis; D62 Acute posthemorrhagic anemia; N17.9 Acute kidney failure, unspecified; Z68.1 Body mass index [BMI] 19.9 or less, adult; C79.11 Secondary malignant neoplasm of bladder; I69.354 Hemiplegia and hemiparesis following cerebral infarction affecting left non-dominant side; R47.01 Aphasia; R64 Cachexia; T83.098A Other mechanical complication of other urinary catheter, initial encounter; N18.9 Chronic kidney disease, unspecified; B96.89 Other specified bacterial agents as the cause of diseases classified elsewhere; C61 Malignant neoplasm of prostate; D69.6 Thrombocytopenia, unspecified; E11.22 Type 2 diabetes mellitus with diabetic chronic kidney disease; E78.5 Hyperlipidemia, unspecified; F03.90 Unspecified dementia, unspecified severity, without behavioral disturbance, psychotic disturbance, mood disturbance, and anxiety; I12.9 Hypertensive chronic kidney disease with stage 1 through stage 4 chronic kidney disease, or unspecified chronic kidney disease; N32.0 Bladder-neck obstruction; M19.90 Unspecified osteoarthritis, unspecified site; N21.0 Calculus in bladder; R31.0 Gross hematuria; Z96.642 Presence of left artificial hip joint; Z53.9 Procedure and treatment not carried out, unspecified reason; Z66 Do not resuscitate; Z80.0 Family history of malignant neoplasm of digestive organs; Z80.3 Family history of malignant neoplasm of breast; Z80.42 Family history of malignant neoplasm of prostate; Z85.46 Personal history of malignant neoplasm of prostate; Z87.442 Personal history of urinary calculi; Z87.891 Personal history of nicotine dependence; Z98.41 Cataract extraction status, right eye; Z98.42 Cataract extraction status, left eye
CPT/HCPCS: 36415; 50430; 50435; 50693; 74018; 74176; 76000; 76770; 80048; 80053; 82728; 82962; 83540; 83550; 85007; 85014; 85018; 85025; 85027; 85045; 85384; 85610; 85730; 86850; 86900; 86901; 86920; 99152; 99153; C1729; C1769; C1892; C1894; J0696; J0780; J1100; J1815; J1885; J2001; J2185; J2250; J2370; J2405; J2704; J3010; J3420; J3490; J7040; J7042; P9016; Q9966; Q9967; Q9968; 97535